=== PATIENT | male | born 1960 | race Caucasian/White ===

== ENCOUNTER 2017-09-16 01:34 | Inpatient (IN) | payer MEDICAID ==
[2017-09-16] VITALS (67 sets, daily range): BP systolic 43–144; BP diastolic 29–82
[~2017-09-16] VITALS: Ht 165.1 cm; Wt 83.5 kg
--- NOTE | 2017-09-16 01:35 | NUR ---
PT RECEIVED FROM RA D/T FAMILY CALLING REQUESTING HE BE TAKEN TO HOSPITAL AFTER LEFT SIDED WEAKNESS/CONFSUION/LEFT ARM COLD TO TOUGH. UPON ARRIVAL NO SOB NOTED WITH ADEQUATE 02 SATURATION AND CHEST RISE/FALL. CAP REFILL WNL WITH VSS. WHEN ATTEMPTING TO RECEIVE ORAL TEMP THE PT REFUSED. WHEN ATTEMPTING TO START IV ACCESS PT WAS RELUCTANT AND PULLED BACK EVEN WHEN EXPLAINED BENEFITS D/T POSSIBLE STROKE RISK. WHEN DOING NIHH SCALE ASSESSMENT PT DID NOT MOVE HIS LEFT ARM BUT AGAIN WHILE STARTING IV ACCESS HE MOVED HIS LEFT ARM UP TO HIS SHOULDERS AND KEPT IT THERE WITH STRENGTH WNL. PT DOES SEEM CONFUSED A/OX2. RA ALSO REPORTED PT WAS DENYING [facility] ENROUTE TO [facility]. WILL CONTINUE TO MONITOR FOR ANY CHANGES
--- NOTE | 2017-09-16 01:37 | NUR ---
AT BEDSIDE FOR EVAL
--- NOTE | 2017-09-16 01:38 | NUR ---
RADIOLOGY AT BEDSIDE TO TAKE PT TO CT SCAN
--- NOTE | 2017-09-16 01:39 | NUR ---
TELESTROKE HOTLINE CALLED. NEUROLOGIST PAGED.
--- NOTE | 2017-09-16 01:43 | NUR ---
BLOOD SENT TO LAB
[2017-09-16 01:48] LABS: HEMATOCRIT 42 % (39-51); HEMOGLOBIN 14.6 g/dL (13.5-17.5); LYMPHOCYTES # (AUTO) 0.3 /CMM (0.8-4.8); LYMPHOCYTES % (AUTO) 2.4 % (20.0-44.0); MEAN CORPUSCULAR HEMOGLOBIN 32 PG (26.0-33.0); MEAN CORPUSCULAR HGB CONC 34 g/dl (31.0-36.0); MEAN CORPUSCULAR VOLUME 93 fL (80-96); MONOCYTES # (AUTO) 0.3 /CMM (0.1-1.30); MONOCYTES % (AUTO) 2.2 % (2.0-12.0); NEUTROPHILS # (AUTO) 11.4 /CMM (1.8-8.9); NEUTROPHILS % (AUTO) 95.4 % (43.0-81.0); PLATELET COUNT (AUTO) 57 /CMM (150-450); RDW COEFFICIENT OF VARIATION 13.6 (11.5-15.0); RED BLOOD CELL COUNT(AUTO) 4.55 MIL/uL (4.5-6.0); WHITE BLOOD COUNT (AUTO) 11.9 K/uL (4.3-11.0)
[2017-09-16] MEDS ORDERED: IOHEXOL-350 100 ML VIAL IV ONE (01:56)
[2017-09-16] MEDS ORDERED: CT SWABBABLE VALVE TRANS SET 1 EA INFUS.SET MC ONE (01:56)
[2017-09-16] MEDS ORDERED: IV NS 0.9% 250 ML IV ONE (01:56)
[2017-09-16 02:00] LABS: CALCIUM, SERUM 8.8 mg/dL (8.5-10.1); CREATININE 1.3 mg/dL (0.6-1.3); POTASSIUM 4.5 mmol/L (3.5-5.1)
[2017-09-16] MEDS ORDERED: HALOPERIDOL LACTATE INJ 5 MG/ML VIAL ONE (02:01)
[2017-09-16 02:02] LABS: SERUM AMMONIA < 10 umol/L (11-32)
[2017-09-16 02:05] LABS: ALBUMIN 2.4 g/dL (3.4-5.0); BILIRUBIN,DIRECT 1.1 mg/dL (0.0-0.2); TOTAL PROTEIN, SERUM 6.9 g/dL (6.4-8.2)
[2017-09-16] MEDS ORDERED: LORAZEPAM INJ 2 MG/ML VIAL ONE (02:06)
[2017-09-16 02:07] LABS: INR 1.44 (0.87-1.13)
--- NOTE | 2017-09-16 02:10 | NUR ---
EKG DONE AT BEDSIDE D/T POSITIVE TROPONIN LEVEL
[2017-09-16 02:11] LABS: TROPONIN I 1.277 ng/mL (0.00-0.056)
--- NOTE | 2017-09-16 02:11 | NUR ---
FAMILY AT BEDSIDE. CODE STROKE CALLED AND STROKE MD MEAGAN MARCOS SPOKEN TO ON THE MONITOR
--- NOTE | 2017-09-16 02:18 | NUR ---
PT TAKEN TO CTA SCAN FOR RE-ATTEMPT OF TESTS
[2017-09-16 02:20] LABS: ALCOHOL, BLOOD < 3 mg/dL (0-0)
[2017-09-16 02:26] LABS: BAND % (MANUAL) 2 % (0.0-5.0); LYMPHOCYTES % (MANUAL) 3 % (16-48); MONOCYTES % (MANUAL) 2 % (0-11.0); NEUTROPHILS % (MANUAL) 93 (42-76)
[2017-09-16] MEDS ORDERED: LORAZEPAM INJ 2 MG/ML VIAL IV ONE (02:30)
--- NOTE | 2017-09-16 02:32 | NUR ---
AWAITING PT ARRIVAL BACK FROM RADIOLOGY. FAMILY INFORMED OF PLAN OF CARE UP TO THIS POINT
--- NOTE | 2017-09-16 02:33 | NUR ---
PT BACK FROM CT SCAN
--- NOTE | 2017-09-16 02:48 | NUR ---
ARTERIAL DUPLEX AT BEDSIDE CURRENTLY
--- NOTE | 2017-09-16 02:48 | NUR ---
MD MEAGAN MARCOS SPEAKING TO FAMILY ABOUT ASSESSMENT/PLAN OF CARE WITH FAMILY ON MONITOR
--- NOTE | 2017-09-16 02:50 | NUR ---
SURVEY OPERATIONS DIRECTOR AT BEDSIDE FOR CHEST XRAY
--- NOTE | 2017-09-16 03:00 | NUR ---
PT INTUBATED WITH MD NDIAYE AT BEDSIDE. RT AT BEDSIDE. CHARGE AT BEDSIDE. ETOMIDATE 20MG WELL SUCCINYCHOLINE 150MG GIVEN. PT TO BE PLACED ON VENT WITH SETTINGS PER . COOPER CATH 16 ESTONIAN STARTED.
[2017-09-16] MEDS ORDERED: PROPOFOL 100 ML ONE ×2 (03:05→06:53)
[2017-09-16] MEDS ORDERED: NOREPINEPHRINE 4 MG/4 ML AMPUL IV ONE (03:11)
[2017-09-16] MEDS ORDERED: CEFTRIAXONE 1 G VIAL ONE (03:26)
--- NOTE | 2017-09-16 03:40 | NUR ---
MD MEAGAN MARCOS HAS CONCLUDED HER MEETING WITH FAMILY/STAFF/ER MD NDIAYE
--- NOTE | 2017-09-16 03:46 | NUR ---
AUTOMATIC GRINDING MACHINE OPERATOR AT BEDSIDE FOR CHEST XRAY
--- NOTE | 2017-09-16 03:47 | NUR ---
LEVOPHED DRIP 8MG WITH 5MCG/MIN STARTED IN NEWLY PLACED CENTRAL LINE IN RIGHT NECK. BP TO START 68/48
--- NOTE | 2017-09-16 03:50 | NUR ---
COMPLIANCE REVIEW SPECIALIST AT BEDSIDE FOR BLOOD CULTURES
[2017-09-16 04:16] LABS: ABG BASE EXCESS -8.9 mmol/L; ABG PCO2 32.4 mmHg (35.0-45.0); ABG PH 7.313 (7.350-7.450); ABG PO2 399.8 mmHg (75.0-100.0); AaDO2 280.8 mmHg; COHb 0.6 % (0.5-1.5); MetHb 0.6 % (0.0-1.5); O2Hb 97.6 % (94.0-97.0); PEEP,BG 5 cm H2O; SITE, ABG Right Radial; VENT MODE, BG A/C; VT, ABG 650 mL
--- NOTE | 2017-09-16 04:27 | NUR ---
HAZEL ON PROPOFOL DRI[ 25MCG/MIN AND NOREPINEPHRINE DRIP 3.02 MCG/MIN WITH BP OF 115/77. WILL CONTINUE TO MONITOR
--- NOTE | 2017-09-16 04:30 | NUR ---
MD TAMMY LAKHANI AT BEDSIDE SPEAKING TO FAMILY.
[2017-09-16] MEDS ORDERED: HEPARIN SODIUM, PORCINE 5000 UNITS/1 ML VIAL ONE (04:55)
[2017-09-16] MEDS ORDERED: VANCOMYCIN 1 GM VIAL ONE (04:55)
[2017-09-16] MEDS ORDERED: ASPIRIN 300 MG/SUPP.RECT RC ONE ×2 (04:56→05:00)
[2017-09-16] MEDS ORDERED: NOREPINEPHRINE 8 MG in IV D5W 500 ML IV PRN ×2 (05:00→09:30)
[2017-09-16] MEDS ORDERED: DEXTROSE 50%-WATER 50 ML DISP.SYRIN IV PRN (05:00)
[2017-09-16] MEDS ORDERED: VANCOMYCIN 1 GM in IV D5W 250 ML IV ONE (05:00)
[2017-09-16] MEDS ORDERED: IV NS 0.9% 1,000 ML IV PRN (05:00)
[2017-09-16] MEDS ORDERED: HEPARIN SODIUM, PORCINE 5000 UNITS/1 ML VIAL IV ONE (05:00)
[2017-09-16 05:16] LABS: IRON, SERUM 20 ug/dl (50-175); TOTAL IRON BINDING CAPACITY 228 ug/dl (250-450)
[2017-09-16 05:18] LABS: THYROID STIMULATING HORMONE 0.86 uIU/mL (0.358-3.74)
[2017-09-16] MEDS ORDERED: HEPARIN INFUSION/D5W 500 ML IV ONE (05:22)
[2017-09-16] MEDS: HEPARIN INFUSION/D5W 500 ML IV PRN ×2 (05:30→18:19)
[2017-09-16] MEDS: BLOOD SUGAR DIAGNOSTIC 1 EACH STRIP IN SCH ×3 (05:37→17:31)
[2017-09-16] MEDS ORDERED: INSULIN REGULAR, HUMAN 100 UNIT/ML 10 ML VIAL ONE (05:40)
[2017-09-16] MEDS ORDERED: MISCELLANEOUS MED 1 EA EA XX ONE (06:00)
[2017-09-16 06:03] LABS: BILIRUBIN,URINE 2+ (NEGATIVE); BLOOD, URINE 3+ Ery/uL (NEGATIVE); COLOR,URINE BROWN (YELLOW); KETONES,URINE 1+ (NEGATIVE); LEUKOCYTE ESTERASE ,URINE TRACE (NEGATIVE); NITRITE, URINE POSITIVE (NEGATIVE); PH,URINE 5.5 (5.0-8.0); PROTEIN,URINE 2+ mg/dl (NEGATIVE); UGLUCOSE TRACE mg/dL (NEGATIVE)
[2017-09-16 06:06] LABS: APPEARANCE,URINE CLOUDY (CLEAR)
[2017-09-16 06:08] LABS: BACTERIA,URINE Few /HPF (None Seen); MUCUS,URINE Few /LPF (None Seen); RBC,URINE 21-50 /HPF (0-2); SQUAMOUS EPITHELIAL CELL,UR 0-2 /HPF (None Seen); URINE AMORPHOUS URATE Moderate /HPF (None Seen); WBC,URINE 0-2 /HPF (0-3)
[2017-09-16] MEDS ORDERED: PIPERACILLIN /TAZOBACTAM 3.375 G VIAL IV ONE (06:17)
[2017-09-16] MEDS: PIPERACILLIN /TAZOBACTAM 3.375 G in IV D5W 50 ML IV SCH ×4 (06:23→23:37)
[2017-09-16] MEDS ORDERED: PROPOFOL 100 ML IV ONE (07:22)
--- NOTE | 2017-09-16 07:32 | NUR ---
REPORT GIVEN TO ANISHA CRUMP FOR [facility] ICU 260.
--- NOTE | 2017-09-16 08:00 | NUR ---
ICU/RN: ADMITTING NOTE RECEIVED PT FROM ER. REPORT ENDORSED BY ATIF [place]. PT TRANSPORTED TO ROOM 260 VIA GURNEY. PT INTUBATED ETT 7.5, 25 CM AT THE LIP. ON VENT SETTINGS ORDERED BY . PT COLD, DIAPHORETIC, AND CLAMMY. PT IS SEDATED ON 25 MCG OF DIPRIVAN. LEVO INFUSING FOR BP SUPPORT. ON TELE, SINUS TACHY, 110. RIGHT NARE NG TUBE IN PLACE, NPO AT THIS TIME. RIGHT IJ PULLED OUT DURING TRANSFER, ORDERS OBTAINED FOR PICC LINE INSERTION. ALL NEEDS WILL BE ATTENDED TO, SAFETY MEASURES TAKEN. BILATERAL WRIST RESTRAINTS FOR PT SAFETY. ASSESSED PER PROTOCOL. WILL CONTINUE TO CLOSELY MONITOR.
[2017-09-16] MEDS ORDERED: ASPIRIN EC 325 MG TABLET.DR PO SCH (09:00)
--- NOTE | 2017-09-16 09:00 | NUR ---
ICU/RN: UNABLE TO PERFORM NIHSS SCALE. PT SEDATED. PER MD UNABLE TO PERFORM SEDATION VACATION. PT AGITATED, TACHYCARDIC, AND TACHYPNEIC. WILL CONTINUE TO MONITOR AND IF PT CONDITION PERMITS WILL PERFORM ASSESSMENT.
[2017-09-16] MEDS ORDERED: PROPOFOL 100 ML IV PRN (09:30)
[2017-09-16] MEDS ORDERED: SUCCINYLCHOLINE CHLORIDE 20 MG/ML VIAL IV ONE (09:39)
[2017-09-16] MEDS: DOCUSATE SODIUM 100 MG CAPSULE PO SCH (09:39)
[2017-09-16] MEDS ORDERED: ETOMIDATE 2 MG/ML VIAL IV ONE (09:39)
[2017-09-16] MEDS ORDERED: FEE EMEERGENCY 1 MIN EA MC ONE (09:39)
[2017-09-16] MEDS: PANTOPRAZOLE 40 MG VIAL IV SCH (09:39)
[2017-09-16 10:39] LABS: ABG BASE EXCESS -7.5 mmol/L; ABG PCO2 30.4 mmHg (35.0-45.0); ABG PH 7.355 (7.350-7.450); ABG PO2 172.5 mmHg (75.0-100.0); AaDO2 149.8 mmHg; COHb 1.4 % (0.5-1.5); MetHb 0.4 % (0.0-1.5); O2Hb 96.9 % (94.0-97.0); PEEP,BG 5 cm H2O; SITE, ABG Right Radial; VT, ABG 650 mL
[2017-09-16] MEDS: PROPOFOL 10MG/ML 50ML 50 ML IV PRN ×3 (11:01→21:33)
--- NOTE | 2017-09-16 13:00 | NUR ---
ICU/RN: 1220-PATIENT SEEN BY PHYSICAL THERAPY. PT INTUBATED, UNABLE TO PERFORM AT THIS TIME, WILL FOLLOW UP WHEN MORE STABLE 1317-PATIENT SEEN BY SPEECH THERAPY, UNABLE TO PERFORM SWALLOW EVAL, PT INTUBATED AND SEDATED, WILL FOLLOW UP.
[2017-09-16] MEDS: INSULIN REGULAR, HUMAN 100 UNIT/ML 3 ML VIAL SQ PRN ×2 (13:02→18:27)
[2017-09-16] MEDS ORDERED: FEE PK DOSING 1 MIN EA MC ONE (13:39)
--- NOTE | 2017-09-16 14:30 | NUR ---
ICU/RN: PTT TAKING 2 HOURS TO RESULT, CALLED LAB AND INFORMED THEM RESULTS 169, PER PROTOCOL HEPARIN HELD, WILL RESUME IN ONE HOUR AND WILL DECREASE BY 200 UNITS.
[2017-09-16 16:28] LABS: INR 1.47 (0.87-1.13)
[2017-09-16] MEDS ORDERED: IV NS 0.9% 1,000 ML BAG IV PRN (17:30)
--- NOTE | 2017-09-16 17:52 | NUR ---
RT END OF THE SHIFT REPORT PT. 56 Y OLD MALE REMAIN ORALLY INTUBATED ETT# 7.5 @25 WITH NOTED AC SETTINGS, ALARMS ARE SET AND FUNCTIONAL. B/S RALES/ RHONCHI. BILATERALLY AND EQUAL CHEST RISE NOTED SUX'D FOR MODERATE AMT OF WHITE SECRETIONS. VENT PLUGGED INTO RED OUTLET AND NO DISTRESS NOTED T/O SHIFT HME CHANGED AND AMBU BAG REMAIN AT THE BEDSIDE. REPORT WILL PASS TO PM SHIFT. Addendum: 09/16/17 at 1753 by CLAUDY SANDS RT Amended: Links added.
[2017-09-16] MEDS: VANCOMYCIN 1 GM in IV D5W 250 ML IV SCH (18:19)
[2017-09-16] MEDS: IV NS 0.9% 1,000 ML IV PRN (18:31)
--- NOTE | 2017-09-16 19:00 | NUR ---
ICU/RN: RECEIVED CALL FROM , ORDERS RECEIVED TO D/C HEPARIN DRIP, ORDER STAT HEAD CT AND PLACE TLO ORDER FOR STAT TROP. BLOOD CX REVIEWED BY .
--- NOTE | 2017-09-16 19:20 | NUR ---
ICU/DEPOSITING MACHINE OPERATOR DAY RN TURNED OFF HEPARIN PER MD ORDERS. ALSO STAT TROP AND ASLO STAT HEAD CT. ALL ORDERS CARRIED OUT . CHARGE NURSE AWARE OF THIS.
--- NOTE | 2017-09-16 19:25 | NUR ---
PT NOT STABLE, ANISHA KAUR WILL CALL WHEN READY.
--- NOTE | 2017-09-16 19:54 | NUR ---
ICU/RN ENDING NOTES,AM REPORT ENDORSED TO NIGHT NURSE FOR CONTINUATION OF CARE. ALL NEEDS MET. PT ON LEVO FOR BP SUPPORT, DIPRIVAN FOR SEDATION. HEPARIN D/C'D BY . PT CONTINUES TO BE COOL, CLAMMY AND DIAPHORETIC. SINUS TACHY ON TELE. ALL NEEDS ATTENDED TO, SAFETY MEASURES TAKEN, BED IN LOW POSITION, SIDE RAILS UP, CALL LIGHT WITHIN REACH.
--- NOTE | 2017-09-16 20:00 | NUR ---
RT RECEIVED [facility] WITH NOTED SETTINGS. ETT 7.5 MARKED 25CM @ THE LIP. SEARCH ENGINE OPTIMIZATION MANAGER DONE AND ETT SECURE W/ ANCHOR FAST. BILATERAL B/S. VENTS ALARMS CHECKED AND AUDIBLE. VENT PLUGGED IN RED OUTLET. SX WITH MOD THK CRAWFORD SECRETIONS. AMBU BAG NOTED AT THE [facility]. NO RESP DISTRESS NOTED AT THIS TIME WILL CONTINUE TO MONITOR T/O SHIFT.
[2017-09-16] MEDS: NOREPINEPHRINE 8 MG in IV D5W 500 ML IV PRN (20:22)
[2017-09-16 21:00] LABS: CREATININE, URINE 138.5 MG/DL (30.0-125.0)
--- NOTE | 2017-09-16 21:03 | NUR ---
ICU/MERCHANDISE STOCKER PT'S BLOOD PRESSURE ELEVATED AT 120'S DECREASED LEVO TO 10MCG FROM 12MCG. WILL CONTINUE TO MONITOR THIS PT.PT WAS TURNED AND REPOSITIONED FOR COMFORT AND CARE.
--- NOTE | 2017-09-16 21:15 | NUR ---
ICU/RESEARCH DIRECTOR MD CASTRO CALLED ABOUT POSITIVE TROP AT 5.877 NO NEW ORDERS RECEIVED WILL CONTINUE TO MONITOR THIS PT.
--- NOTE | 2017-09-16 21:20 | NUR ---
ICU/SUSTAINABILITY ENGINEER PT'S BP DECREASED TO 84/53, LEVO INCREASED FROM 10MCG TO 12MCG. WILL CONTINUE TO MONITOR THIS PT.
--- NOTE | 2017-09-16 22:15 | NUR ---
ICU.CHILDCARE WORKER PT DOWN TO HEAD CT WITH CHARGE NURSE WITH RT AND RADIOLOGISTS TECH. ACLS PRECAUTIONS TAKEN.
--- NOTE | 2017-09-16 23:20 | NUR ---
ICU/DESK REPRESENTATIVE PT BACK FROM HEAD CT. ACCU CHECK DONE AT THIS TIME BS WAS 192, WHICH WAS COVERED WITH SLIDING SCALE.
[2017-09-17] VITALS (91 sets, daily range): BP systolic 85–122; BP diastolic 54–75
[2017-09-17] MEDS: BLOOD SUGAR DIAGNOSTIC 1 EACH STRIP IN SCH ×5 (01:00→23:48)
[2017-09-17] MEDS: INSULIN REGULAR, HUMAN 100 UNIT/ML 3 ML VIAL SQ PRN ×2 (01:02→05:46)
[2017-09-17] MEDS: HEPARIN INFUSION/D5W 500 ML IV PRN (02:04)
[2017-09-17] MEDS: PROPOFOL 10MG/ML 50ML 50 ML IV PRN ×6 (02:09→23:41)
--- NOTE | 2017-09-17 02:10 | NUR ---
ICU/CHIEF PHARMACIST MD CALLED WITH RESULTS OF THE HEAD CT. NO NEW FINDS WERE FOUND. MD GAVE ORDERS TO RESTART HEPARIN DRIP. THIS WAS STARTED WITH THE LAST BAG THAT WAS HANGING UP, WHICH WAS TURNED OFF FROM DAY NURSE AT 1920. PTT WAS ALSO DONE AT THIS TIME WHICH WAS 51. CHARGE AWARE. HEPARIN WAS STATED AT 900U/H WHICH IS 18ML. WILL REDO A PTT IN 6 HRS.
[2017-09-17] MEDS: IV NS 0.9% 1,000 ML IV PRN (04:01)
[2017-09-17 04:53] LABS: EOSINOPHILS # (AUTO) 0.1 /CMM (0.0-0.7); EOSINOPHILS % (AUTO) 0.4 % (0.0-6.0); HEMATOCRIT 39 % (39-51); HEMOGLOBIN 13.6 g/dL (13.5-17.5); LYMPHOCYTES # (AUTO) 1.3 /CMM (0.8-4.8); LYMPHOCYTES % (AUTO) 6.5 % (20.0-44.0); MEAN CORPUSCULAR HEMOGLOBIN 33 PG (26.0-33.0); MEAN CORPUSCULAR HGB CONC 35 g/dl (31.0-36.0); MEAN CORPUSCULAR VOLUME 92 fL (80-96); MONOCYTES # (AUTO) 1.1 /CMM (0.1-1.30); MONOCYTES % (AUTO) 5.2 % (2.0-12.0); NEUTROPHILS # (AUTO) 18.2 /CMM (1.8-8.9); NEUTROPHILS % (AUTO) 87.9 % (43.0-81.0); RDW COEFFICIENT OF VARIATION 13.9 (11.5-15.0); WHITE BLOOD COUNT (AUTO) 20.7 K/uL (4.3-11.0)
[2017-09-17] MEDS: PIPERACILLIN /TAZOBACTAM 3.375 G in IV D5W 50 ML IV SCH ×4 (05:04→23:42)
[2017-09-17 05:22] LABS: ALBUMIN 1.7 g/dL (3.4-5.0); BILIRUBIN,TOTAL 2.6 mg/dL (0.2-1.0); CALCIUM, SERUM 7.5 mg/dL (8.5-10.1); CREATININE 2.3 mg/dL (0.6-1.3); PHOSPHORUS 4.7 mg/dL (2.5-4.9); POTASSIUM 4.2 mmol/L (3.5-5.1); TOTAL PROTEIN, SERUM 5.7 g/dL (6.4-8.2)
[2017-09-17 05:28] LABS: CREATINE KINASE MB 9.8 ng/mL (0-3.6)
[2017-09-17 05:32] LABS: PLATELET COUNT (AUTO) 39 /CMM (150-450)
[2017-09-17 05:33] LABS: INR 1.35 (0.87-1.13)
[2017-09-17] MEDS: NOREPINEPHRINE 8 MG in IV D5W 500 ML IV PRN ×2 (05:44→15:16)
[2017-09-17] MEDS: VANCOMYCIN 1 GM in IV D5W 250 ML IV SCH ×3 (05:45→18:26)
[2017-09-17 05:55] LABS: TROPONIN I 5.085 ng/mL (0.00-0.056)
--- NOTE | 2017-09-17 06:05 | NUR ---
ICU/CUSHION COVER INSPECTOR CRITICAL LAB VALUE OF PTT 77 ALSO TROP 5.085 AND PLAT 37 FROM YESTERDAY 56. MD CALLED ABOUT THE PLT 37, AWAIT ORDERS. ALSO THE TROP IS TRENDING DOWN FROM 2030 09/16/17 AND PT IS ON HEPARIN. PTT WAS ADJUSTED WITH THE HEPARIN DRIP AND ANOTHER PTT IS AT 1130. CHARGE AWARE OF THE CRITICAL LAB VALUES. AWAIT ANY NEW ORDERS.
[2017-09-17 06:09] LABS: BAND % (MANUAL) 10 % (0.0-5.0); LYMPHOCYTES % (MANUAL) 7 % (16-48); MONOCYTES % (MANUAL) 6 % (0-11.0); NEUTROPHILS % (MANUAL) 77 (42-76)
--- NOTE | 2017-09-17 08:00 | NUR ---
ICU/RN INITIAL NOTE,AM RECEIVED REPORT FROM NIGHT NURSE. PT INTUBATED ETT 7.5, 25 CM AT THE LIP. ON VENT SETTINGS ORDERED BY MD. PT DIAPHORETIC, AND CLAMMY. PT IS SEDATED ON 25 MCG OF DIPRIVAN. LEVO INFUSING FOR BP SUPPORT. HEPARIN INFUSING PER PROTOCOL. ON TELE, SINUS TACHY. RIGHT NARE NG TUBE IN PLACE, NPO AT THIS TIME. RIGHT UPPER ARM PICC LINE IN PLACE. NO S/S OF INFECTION OR INFILTRATION NOTED. ALL NEEDS WILL BE ATTENDED TO, SAFETY MEASURES TAKEN. BILATERAL WRIST RESTRAINTS FOR PT SAFETY. ASSESSED PER PROTOCOL. WILL CONTINUE TO CLOSELY MONITOR.
--- NOTE | 2017-09-17 08:30 | NUR ---
SEDATION VACATION STARTED, DECREASING DIPRIVAN PER PROTOCOL. WILL CONTINUE TO CLOSELY MONITOR.
[2017-09-17] MEDS: DOCUSATE SODIUM 100 MG CAPSULE PO SCH (09:00)
[2017-09-17 09:15] LABS: ABG BASE EXCESS -9.6 mmol/L; ABG OXYGEN SATURATION 98.9 % (92.0-98.5); ABG PH 7.365 (7.350-7.450); ABG PO2 181.3 mmHg (75.0-100.0); AaDO2 147.1 mmHg; COHb 0.9 % (0.5-1.5); MetHb 0.5 % (0.0-1.5); O2Hb 97.5 % (94.0-97.0); PEEP,BG 5 cm H2O; SITE, ABG Left Radial; VT, ABG 650 mL
[2017-09-17] MEDS: PANTOPRAZOLE 40 MG VIAL IV SCH (09:29)
--- NOTE | 2017-09-17 10:00 | NUR ---
ICU/RN: RESUMED SEDATION PER PROTOCOL. UNABLE TO CONTINUE SEDATION VACATION DUE TO PHYSIOLOGICAL CHANGES. PT AGITATED, RR 37-40, TACHYCARDIC HR 122. HOWEVER, PT DOES NOT OPEN EYES OR REACT TO PAINFUL STIMULI. DR MURPYH ALSO AT BEDSIDE. AGREED TO RESUME SEDATION.
--- NOTE | 2017-09-17 10:00 | NUR ---
ICU/RN: PT OFF SEDATION FOR ONE HOUR,UNRESPONSIVE, UNABLE TO PERFORM NIHSS SCALE
[2017-09-17] MEDS ORDERED: IV NS 0.9% 1,000 ML IV ONE (10:30)
--- NOTE | 2017-09-17 14:23 | NUR ---
PATIENT RECEIVED ORALLY INTUBATED WITH 7.5 ETT SECURED AT 25 CM MID LIP LINE ON A GE860 VENT. MOVED ETT FROM RIGHT TO LEFT SIDE OF THE MOUTH VIA ANCHOR FAST. ALARMS VERIFIED AND AUDIBLE. SUCTIONED AND LAVAGED MODERATE AMOUNT OF THIN DARK BROWN/ BLOODY SECRETIONS. BILATERAL B/S NOTED. VENT PLUGGED INTO RED OUTLET. AMBU BAG AT [facility].
--- NOTE | 2017-09-17 15:45 | NUR ---
ICU/RN: PER 'S ORDERS, CONSENT OBTAINED FOR KEVIN. PT INTUBATED AND SEDATED, RT AND RN AT BEDSIDE, TOLERATED PROCEDURE WELL, NO DISTRESS. VSS PER MD: Preliminary findings: No obvious vegetation noted on aortic, mitral, or tricuspid valves. No valvular dysfunction. Normal EF No PFO or ASD by color or agitated saline. No appendage thrombus. No aortic dissection. Essentially normal study.
--- NOTE | 2017-09-17 18:00 | NUR ---
ICU/RN: MEREDITH TROUGH 34, DOSE HELD.
--- NOTE | 2017-09-17 19:05 | NUR ---
ICU/RN ENDING NOTES,AM REPORT ENDORSED TO NIGHT NURSE FOR CONTINUATION OF CARE. ALL NEEDS MET. PT ON LEVO FOR BP SUPPORT, DIPRIVAN FOR SEDATION. PT CONTINUES TO BE CLAMMY AND DIAPHORETIC. SINUS TACHY ON TELE. ALL NEEDS ATTENDED TO, SAFETY MEASURES TAKEN, BED IN LOW POSITION, SIDE RAILS UP, CALL LIGHT WITHIN REACH.
--- NOTE | 2017-09-17 21:58 | NUR ---
RN INITIAL NOTE RECEIVED PT IN NO ACUTE DISTRESS IN BED. PT IS SEDATE ON DIPRIVAN. PT IS ON MECHANICAL VENT VIA ETT. ETT IS 7.5/ 25 AT THE LIP. PT TOLERATING VENT SETTING WELL WITH O2 SAT @ 98%. PT HAS NGTUBE RIGHT NARE THAT IS CLEAN DRY INTACT AND PATENT WITH FREE WATER FLUSH. PT IS ON TELE WITH SINUS TACH ON THE MONITOR. PT HAS F/C THAT IS CLEAN DRY INTACT AND PATENT WITH CLOUDY LARON COLOR URINE DRAINING. PT HAS RAC, LFA, AND CORA PICC THAT IS CLEAN DRY INTACT AND PATENT. CORA PICC LINE HAS LEVO @ 14MCG, DIPRIVAN @ 25MCG AND NS @ 75 ML/HR. BED IN LOW LOCKED POSITION WITH RAILS UP X 2. CALL LIGHT WITHIN REACH AND ALL SAFETY MEASURES ENSURED AND CARRIED OUT. WILL CONTINUE TO MONITOR PT.
--- NOTE | 2017-09-17 22:00 | NUR ---
RT RECEIV[facility] WITH NOTED SETTINGS. ETT 7.5 MARKED 25CM @ THE LIP. SUBJECT SCIENTIFIC RESEARCH DONE AND ETT SECURE W/ ANCHOR FAST. BILATERAL B/S. VENTS ALARMS CHECKED AND AUDIBLE. VENT PLUGGED IN RED OUTLET. SX WITH MOD DARK RED SECRETIONS. AMBU BAG NOTED AT THE [facility]. NO RESP DISTRESS NOTED AT THIS TIME WILL CONTINUE TO MONITOR T/O SHIFT
[2017-09-18] VITALS (81 sets, daily range): BP systolic 81–129; BP diastolic 47–76
[2017-09-18] MEDS: NOREPINEPHRINE 8 MG in IV D5W 500 ML IV PRN (00:48)
[2017-09-18] MEDS: PROPOFOL 10MG/ML 50ML 50 ML IV PRN ×3 (02:34→22:22)
[2017-09-18] MEDS: IV NS 0.9% 1,000 ML IV PRN ×2 (03:16→20:26)
[2017-09-18] MEDS: PIPERACILLIN /TAZOBACTAM 3.375 G in IV D5W 50 ML IV SCH (05:09)
[2017-09-18] MEDS: VANCOMYCIN 1 GM in IV D5W 250 ML IV SCH (05:09)
--- NOTE | 2017-09-18 05:10 | NUR ---
RN NOTE VANCOMYCIN 0600 DOSE NOT GIVEN BECAUSE VANCOMYCIN LEVEL IS 35. WILL ENDORSE TO AM RN.
[2017-09-18] MEDS: BLOOD SUGAR DIAGNOSTIC 1 EACH STRIP IN SCH ×3 (05:12→17:24)
[2017-09-18 06:09] LABS: CALCIUM, SERUM 7.4 mg/dL (8.5-10.1); CREATININE 3.2 mg/dL (0.6-1.3); POTASSIUM 3.9 mmol/L (3.5-5.1)
[2017-09-18 07:02] LABS: EOSINOPHILS # (AUTO) 0.1 /CMM (0.0-0.7); EOSINOPHILS % (AUTO) 0.5 % (0.0-6.0); HEMATOCRIT 36 % (39-51); HEMOGLOBIN 12.4 g/dL (13.5-17.5); LYMPHOCYTES # (AUTO) 2.1 /CMM (0.8-4.8); LYMPHOCYTES % (AUTO) 10.4 % (20.0-44.0); MEAN CORPUSCULAR HEMOGLOBIN 32 PG (26.0-33.0); MEAN CORPUSCULAR HGB CONC 35 g/dl (31.0-36.0); MEAN CORPUSCULAR VOLUME 92 fL (80-96); MONOCYTES # (AUTO) 1.7 /CMM (0.1-1.30); MONOCYTES % (AUTO) 8.5 % (2.0-12.0); NEUTROPHILS % (AUTO) 80.6 % (43.0-81.0); RDW COEFFICIENT OF VARIATION 14.1 (11.5-15.0); RED BLOOD CELL COUNT(AUTO) 3.91 MIL/uL (4.5-6.0); WHITE BLOOD COUNT (AUTO) 19.8 K/uL (4.3-11.0)
[2017-09-18 07:07] LABS: PLATELET COUNT (AUTO) 36 /CMM (150-450)
--- NOTE | 2017-09-18 07:38 | NUR ---
ICU/RN INITIAL NOTE,AM RECEIVED REPORT FROM NIGHT NURSE. PT INTUBATED ETT 7.5, 25 CM AT THE LIP. ON VENT SETTINGS ORDERED BY MD. PT IS SEDATED ON 20 MCG OF DIPRIVAN. LEVO INFUSING FOR BP SUPPORT. ON TELE, SINUS TACHY. RIGHT NARE NG TUBE IN PLACE, NPO AT THIS TIME. RIGHT UPPER ARM PICC LINE IN PLACE. NO S/S OF INFECTION OR INFILTRATION NOTED. CVP IN PLACE. IV FLUIDS INFUSING ORDERED. ALL NEEDS WILL BE ATTENDED TO, SAFETY MEASURES TAKEN. BILATERAL WRIST RESTRAINTS FOR PT SAFETY. ASSESSED PER PROTOCOL. WILL CONTINUE TO CLOSELY MONITOR.
[2017-09-18 08:44] LABS: BAND % (MANUAL) 2 % (0.0-5.0); LYMPHOCYTES % (MANUAL) 9 % (16-48); MONOCYTES % (MANUAL) 10 % (0-11.0); NEUTROPHILS % (MANUAL) 79 (42-76)
[2017-09-18] MEDS: DOCUSATE SODIUM LIQ 100 MG/10 ML UDC NG SCH (08:55)
[2017-09-18] MEDS: PANTOPRAZOLE 40 MG VIAL IV SCH (08:57)
[2017-09-18] MEDS: ACETAMINOPHEN 650 MG/20.3 ML UDC NG PRN (08:58)
[2017-09-18 09:00] LABS: ABG BASE EXCESS -9.4 mmol/L; ABG OXYGEN SATURATION 97.7 % (92.0-98.5); ABG PCO2 20.4 mmHg (35.0-45.0); ABG PH 7.417 (7.350-7.450); ABG PO2 126.5 mmHg (75.0-100.0); AaDO2 99.3 mmHg; COHb 0.3 % (0.5-1.5); MetHb 1.1 % (0.0-1.5); O2Hb 96.3 % (94.0-97.0); SITE, ABG Left Radial
--- NOTE | 2017-09-18 09:00 | NUR ---
ICU/RN: SEDATION VACATION STARTED, WILL CONTINUE TO MONITOR
--- NOTE | 2017-09-18 10:00 | NUR ---
ICU/RN:UNABLE TP PERFORM NIHSS SCALE. PT OFF SEDATION YET UNRESPONSIVE AND UNABLE TO PERFORM ASSESSMENT. UNTESTABLE AT THIS TIME
[2017-09-18] MEDS: NOREPINEPHRINE 16 MG in IV D5W 500 ML IV PRN (10:15)
[2017-09-18] MEDS: ZOSYN IVPB 2.25 G in IV D5W 50ml IV SCH ×2 (12:17→17:25)
[2017-09-18] MEDS: INSULIN REGULAR, HUMAN 100 UNIT/ML 3 ML VIAL SQ PRN ×2 (12:46→17:33)
--- NOTE | 2017-09-18 13:00 | NUR ---
ICU/RN: SEDATION RESUMED, PT AGITATED, BITTING DOWN TUBE AND TACHYPNEIC. PT AT THIS POINT STILL DOES NOT OPEN EYES OR FOLLOW COMMANDS. WILL CONTINUE TO MONITOR AND ASSESS
--- NOTE | 2017-09-18 13:55 | NUR ---
RT NOTE: BITE BLOCK ADDED TO ETT AT THIS TIME.
--- NOTE | 2017-09-18 18:00 | NUR ---
RT NOTE: PATIENT RECEIVED ORALLY INTUBATED WITH 7.5 ETT SECURED AT 25 CM MID LIP (BITE BLOCK IN PLACE)ON GE R860 VENT. ALARMS VERIFIED AND AUDIBLE. SUCTIONED AND LAVAGED SMALL-MODERATE AMOUNT OF THIN BROWN/BLOOD TINGED SECRETIONS. VENT PLUGGED INTO RED OUTLET. AMBU BAG AT [facility].
--- NOTE | 2017-09-18 18:31 | NUR ---
ICU/RN ENDING NOTES,AM REPORT WILL BE ENDORSED TO NIGHT NURSE FOR CONTINUATION OF CARE. ALL NEEDS MET. PT ON LEVO FOR BP SUPPORT, DIPRIVAN FOR SEDATION. PT CONTINUES ON VENT WITH SETTINGS ORDERED BY MD. SINUS TACHY ON TELE. ALL NEEDS ATTENDED TO, SAFETY MEASURES TAKEN, BED IN LOW POSITION, SIDE RAILS UP, CALL LIGHT WITHIN REACH. AND SON UPDATED ON PT CONDITION. PT SEEN BY PEDIATRY, ORDERS PLACED.
--- NOTE | 2017-09-18 20:01 | NUR ---
RN INITIAL NOTE RECEIVED PT IN NO ACUTE DISTRESS IN BED. PT IS SEDATE ON DIPRIVAN. PT IS ON MECHANICAL VENT VIA ETT. ETT IS 7.5/ 25 AT THE LIP. PT TOLERATING VENT SETTING WELL WITH O2 SAT @ 98%. PT HAS NGTUBE RIGHT NARE THAT IS CLEAN DRY INTACT AND PATENT WITH FREE WATER FLUSH. PT IS ON TELE WITH SINUS TACH ON THE MONITOR. PT HAS F/C THAT IS CLEAN DRY INTACT AND PATENT WITH CLOUDY LARON COLOR URINE DRAINING. PT HAS RAC, LFA, AND CORA PICC THAT IS CLEAN DRY INTACT AND PATENT. CORA PICC LINE HAS LEVO @ 14MCG, DIPRIVAN @ 15MCG AND NS @ 75 ML/HR. BED IN LOW LOCKED POSITION WITH RAILS UP X 2. CALL LIGHT WITHIN REACH AND ALL SAFETY MEASURES ENSURED AND CARRIED OUT. WILL CONTINUE TO MONITOR PT.
[2017-09-19] VITALS (95 sets, daily range): BP systolic 86–146; BP diastolic 50–83
[2017-09-19] MEDS: ZOSYN IVPB 2.25 G in IV D5W 50ml IV SCH ×3 (00:24→12:05)
[2017-09-19] MEDS: BLOOD SUGAR DIAGNOSTIC 1 EACH STRIP IN SCH ×5 (00:24→23:48)
[2017-09-19] MEDS: PROPOFOL 10MG/ML 50ML 50 ML IV PRN ×3 (02:54→22:32)
[2017-09-19] MEDS: NOREPINEPHRINE 16 MG in IV D5W 500 ML IV PRN (04:52)
[2017-09-19 04:55] LABS: EOSINOPHILS # (AUTO) 0.1 /CMM (0.0-0.7); EOSINOPHILS % (AUTO) 0.7 % (0.0-6.0); HEMATOCRIT 34 % (39-51); LYMPHOCYTES # (AUTO) 2.1 /CMM (0.8-4.8); LYMPHOCYTES % (AUTO) 10.1 % (20.0-44.0); MEAN CORPUSCULAR HEMOGLOBIN 32 PG (26.0-33.0); MEAN CORPUSCULAR HGB CONC 35 g/dl (31.0-36.0); MEAN CORPUSCULAR VOLUME 90 fL (80-96); MONOCYTES # (AUTO) 2.4 /CMM (0.1-1.30); MONOCYTES % (AUTO) 11.7 % (2.0-12.0); NEUTROPHILS # (AUTO) 15.7 /CMM (1.8-8.9); NEUTROPHILS % (AUTO) 77.5 % (43.0-81.0); RDW COEFFICIENT OF VARIATION 14.2 (11.5-15.0); RED BLOOD CELL COUNT(AUTO) 3.77 MIL/uL (4.5-6.0); WHITE BLOOD COUNT (AUTO) 20.3 K/uL (4.3-11.0)
--- NOTE | 2017-09-19 04:56 | NUR ---
PATIENT RECEIVED ORALLY INTUBATED WITH 7.5 ETT SECURED AT 25 CM MID LIP ON VENT. ALARMS VERIFIED AND AUDIBLE. SUCTIONED AND LAVAGED SMALL-MODERATE AMOUNT OF THIN BROWN/BLOOD TINGED SECRETIONS. VENT PLUGGED INTO RED OUTLET. AMBU BAG AT [facility]. Addendum: 09/19/17 at 0456 by NORBERTO PIERCE RT Amended: Links added.
[2017-09-19 05:23] LABS: CALCIUM, SERUM 7.3 mg/dL (8.5-10.1); CREATININE 4.1 mg/dL (0.6-1.3); MAGNESIUM 2.4 mg/dL (1.8-2.4); PHOSPHORUS 5.4 mg/dL (2.5-4.9); POTASSIUM 3.9 mmol/L (3.5-5.1); TOTAL PROTEIN, SERUM 5.8 g/dL (6.4-8.2)
[2017-09-19 05:28] LABS: PLATELET COUNT (AUTO) 41 /CMM (150-450)
[2017-09-19 05:45] LABS: ALBUMIN 1.4 g/dL (3.4-5.0)
[2017-09-19 05:49] LABS: BAND % (MANUAL) 3 % (0.0-5.0); LYMPHOCYTES % (MANUAL) 10 % (16-48); MONOCYTES % (MANUAL) 10 % (0-11.0); NEUTROPHILS % (MANUAL) 77 (42-76)
[2017-09-19] MEDS: INSULIN REGULAR, HUMAN 100 UNIT/ML 3 ML VIAL SQ PRN ×3 (06:14→18:04)
--- NOTE | 2017-09-19 06:58 | NUR ---
RN NOTE PT REMAINS IN NO ACUTE DISTRESS IN BED. PT DID NOT HAVE ANY SIGNIFICANT CHANGE IN CONDITION. ALL NEEDS MET, ALL ORDERS CARRIED OUT. WILL ENDORSE CARE TO AM RN FOR CONTINUITY OF CARE.
--- NOTE | 2017-09-19 07:45 | NUR ---
DELI COOK: pt.is sedated well, rest, on wrists restraints, SR, 14 mcg/min Levophed gtt, SBP over 100 now/will titrate, CVP 6, NPO, O2 sat. WNL
[2017-09-19 08:20] LABS: ABG BASE EXCESS -9.1 mmol/L; ABG PCO2 21.5 mmHg (35.0-45.0); ABG PH 7.412 (7.350-7.450); ABG PO2 138.8 mmHg (75.0-100.0); AaDO2 49.8 mmHg; COHb 0.3 % (0.5-1.5); MetHb 0.4 % (0.0-1.5); O2Hb 97.3 % (94.0-97.0); SITE, ABG Left Brachial
[2017-09-19] MEDS: DOCUSATE SODIUM LIQ 100 MG/10 ML UDC NG SCH (09:09)
[2017-09-19] MEDS: PANTOPRAZOLE 40 MG VIAL IV SCH (09:09)
--- NOTE | 2017-09-19 11:00 | NUR ---
METALLOGRAPHER: is in room, updated with pt.current condition, VS, Levophed gtt, I/O, NPO, restraints, sedation level, platelets 34000, albumin 1.4
--- NOTE | 2017-09-19 12:00 | NUR ---
TRUCK WASHER: Dr>peleg updated with ABG, VS, pressor, sedation, suction amount, said: ok for sedation vacation latter
[2017-09-19] MEDS: IV NS 0.9% 1,000 ML IV PRN (12:03)
--- NOTE | 2017-09-19 13:00 | NUR ---
INSPECTOR PLUG SEAM: notified re pt.current status, VS, NPO, levophed gtt, labs, meds
[2017-09-19] MEDS: ACETAMINOPHEN 650 MG/20.3 ML UDC NG PRN (13:47)
--- NOTE | 2017-09-19 17:00 | NUR ---
SUSTAINABLE LANDSCAPE ARCHITECT: was in room/updated with all above, pt.was without sedation for 1hr, reactive by touch with biting tube, coughing, short eyes contact+, unable to follow commands, resumed sedation, PM/skin care/wound care done, pt.family updated with all above
[2017-09-19] MEDS: CEFAZOLIN 1 GM in IV NS 0.9% 50 ML IV SCH (17:49)
--- NOTE | 2017-09-19 17:58 | NUR ---
RT NOTE: PATIENT RECEIVED ORALLY INTUBATED WITH 7.5 ETT SECURED AT 25 CM MID LIP (BITE BLOCK IN PLACE)ON GE R860 VENT. ALARMS VERIFIED AND AUDIBLE. SUCTIONED AND LAVAGED SMALL-MODERATE AMOUNT OF THIN BROWN/BLOOD TINGED SECRETIONS. VENT PLUGGED INTO RED OUTLET. AMBU BAG AT [facility].
--- NOTE | 2017-09-19 19:49 | NUR ---
PATIENT RECEIVED ORALLY INTUBATED WITH 7.5 ETT SECURED AT 25 CM MID LIP ON VENT. ALARMS VERIFIED AND AUDIBLE. SUCTIONED AND LAVAGED MODERATE-LARGE AMOUNT OF THICK CRAWFORD SECRETIONS. VENT PLUGGED INTO RED OUTLET. ALEXIA BAG AT [facility]. WILL CONTINUE TO MONITOR. Addendum: 09/20/17 at 0428 by NORBERTO PIERCE RT Amended: Links added.
--- NOTE | 2017-09-19 23:50 | NUR ---
ICU/CLIENT RELATIONSHIP MANAGER BLOOD SUGAR IS 119, THERE IS NO COVERAGE FOR THIS. WILL CONTINUE TO MONITOR THE SUGAR.
[2017-09-20] VITALS (42 sets, daily range): BP systolic 105–144; BP diastolic 61–81
--- NOTE | 2017-09-20 00:20 | NUR ---
ICU/ASSET MANAGEMENT COORDINATOR LEVO DECREASED TO 2MCG FROM 4MCG, WILL MONITOR THIS.
--- NOTE | 2017-09-20 01:30 | NUR ---
ICU/FITNESS DIRECTOR LEVO WAS TURNED OFF, DUE TO STABLE BP. WILL MONITOR THIS PT.
[2017-09-20] MEDS: IV NS 0.9% 1,000 ML IV PRN ×2 (02:02→16:22)
[2017-09-20] MEDS: PROPOFOL 10MG/ML 50ML 50 ML IV PRN ×3 (02:13→21:34)
[2017-09-20] MEDS: BLOOD SUGAR DIAGNOSTIC 1 EACH STRIP IN SCH ×3 (05:31→18:22)
[2017-09-20 05:44] LABS: CALCIUM, SERUM 6.9 mg/dL (8.5-10.1); CREATININE 4.5 mg/dL (0.6-1.3); POTASSIUM 3.9 mmol/L (3.5-5.1)
--- NOTE | 2017-09-20 06:20 | NUR ---
ICU/CLEAN UP HELPER BANQUET PT'S BLOOD SUGAR IS 116, NO COVERAGE FOR THIS. WILL MONITOR PT'S BP.
--- NOTE | 2017-09-20 07:55 | NUR ---
PT. RECEIVED ON VENT SUPPORT VIA ET TUBE WITH PARAMETERS BELLOW ORDER: AC 12 VT 650 FIO2 30% PEEP 5 B/S CLEAR BILATERAL. VENT PLUGGED INTO RED OUTLET WITH ALARMS ON AND FUNCTIONING. LUCIO @ HOB. Addendum: 09/20/17 at 1000 by FARHAD HERNANDEZ RT Amended: Links added.
--- NOTE | 2017-09-20 08:00 | NUR ---
TEACHER HEARING IMPAIRED: pt.is sedated well with 15 mcg/kg/m Diprivan gtt, rest, on wrists restraints, SR/ST max 110, SBP over 90, had BMx3/will s/w MD, O2 sat. over 94%, CVP 5-7, Levophed is off
[2017-09-20 08:41] LABS: ABG BASE EXCESS -10.4 mmol/L; ABG OXYGEN SATURATION 97.8 % (92.0-98.5); ABG PCO2 18.7 mmHg (35.0-45.0); ABG PH 7.419 (7.350-7.450); AaDO2 47.9 mmHg; COHb 0.2 % (0.5-1.5); MetHb 0.4 % (0.0-1.5); O2Hb 97.2 % (94.0-97.0); PEEP,BG 5 cm H2O; SITE, ABG Left Brachial; VT, ABG 650 mL
[2017-09-20] MEDS: DOCUSATE SODIUM LIQ 100 MG/10 ML UDC NG SCH (09:00)
[2017-09-20] MEDS: PANTOPRAZOLE 40 MG VIAL IV SCH (09:17)
[2017-09-20 09:19] LABS: COMPLEMENT C3, SERUM 72 mg/dL (82-167); COMPLEMENT C4, SERUM 22 mg/dL (14-44)
--- NOTE | 2017-09-20 10:30 | NUR ---
CERTIFIED MASTER LOCKSMITH: Jerald, KYLAH TELLER COORDINATOR is in room/notified re VS, T 100.3 now, BMx3 episodes soft/liquid over night, CVP, I/O, wounds, ordered: BCx2, sputum, urine c/s, see new orders
--- NOTE | 2017-09-20 10:45 | NUR ---
RAW SCALES OPERATOR: is in room/updated re pt.current status, sedation level, yesterday sedation vacation reaction, pressor off, VS, I/O, NPO status, T, BS, CVP, IVF, said: waiting neurologist consult, ordered: start Glytrol NGTF 30ml/h, d/c CVP monitoring, see new orders
[2017-09-20 10:55] LABS: APPEARANCE,URINE CLEAR (CLEAR); BILIRUBIN,URINE 1+ (NEGATIVE); BLOOD, URINE 3+ Ery/uL (NEGATIVE); COLOR,URINE YELLOW (YELLOW); KETONES,URINE NEGATIVE (NEGATIVE); LEUKOCYTE ESTERASE ,URINE TRACE (NEGATIVE); NITRITE, URINE NEGATIVE (NEGATIVE); PH,URINE 5.5 (5.0-8.0); PROTEIN,URINE NEGATIVE (NEGATIVE); UGLUCOSE NEGATIVE (NEGATIVE)
[2017-09-20] MEDS: ACETAMINOPHEN 650 MG/20.3 ML UDC NG PRN ×2 (11:04→17:55)
[2017-09-20 11:06] LABS: URINE TOTAL PROTEIN 42.7 mg/dL (0-11.9)
[2017-09-20 11:31] LABS: RBC,URINE 21-50 /HPF (0-2); WBC,URINE 5 /HPF (0-3)
[2017-09-20 11:32] LABS: BACTERIA,URINE Rare /HPF (None Seen); SQUAMOUS EPITHELIAL CELL,UR None Seen /HPF (None Seen)
[2017-09-20 12:23] LABS: EOSINOPHIL,URINE Few
[2017-09-20] MEDS: INSULIN REGULAR, HUMAN 100 UNIT/ML 3 ML VIAL SQ PRN ×2 (12:26→18:23)
[2017-09-20 12:58] LABS: APPEARANCE,URINE CLEAR (CLEAR); BILIRUBIN,URINE 1+ (NEGATIVE); BLOOD, URINE 3+ Ery/uL (NEGATIVE); COLOR,URINE DARK YELLO (YELLOW); KETONES,URINE NEGATIVE (NEGATIVE); LEUKOCYTE ESTERASE ,URINE NEGATIVE (NEGATIVE); NITRITE, URINE NEGATIVE (NEGATIVE); PH,URINE 5.5 (5.0-8.0); PROTEIN,URINE NEGATIVE (NEGATIVE); UGLUCOSE NEGATIVE (NEGATIVE); UROBILINOGEN,URINE 0.2 EU/dL (0.2)
[2017-09-20 13:23] LABS: BACTERIA,URINE Rare /HPF (None Seen); SQUAMOUS EPITHELIAL CELL,UR None Seen /HPF (None Seen); WBC,URINE NONE SEEN /HPF (0-3)
--- NOTE | 2017-09-20 13:50 | NUR ---
CHICKEN HANDLER: pt.is off of sedation for 30 min, reactive by touch/voice, grimacing, can open eyes for seconds without contact, no tracking, trace activity, unable to follow commands, weak, family si at BS. is in room, updated with all above, VS, Levophed gtt, I/O, suction amount, ABG, vent setting, spoke with pt family, see new orders, new TV 550, FiO2 35%, notified RT
--- NOTE | 2017-09-20 14:21 | NUR ---
VENT LIVIA RANGEL PER DR. VAZQUEZ: AC 16 VT 550 FIO2 35% PEEP +5 Addendum: 09/20/17 at 1422 by FARHAD HERNANDEZ RT Amended: Links added.
--- NOTE | 2017-09-20 14:30 | NUR ---
pt.is sedated with 15mcg/kg/min Diprivan gtt Addendum: 09/20/17 at 1435 by CLAUDY PEREZ RN Amended: Links added.
--- NOTE | 2017-09-20 14:31 | NUR ---
INSPECTOR RADAR AND ELECTRONICS: previous note is error
--- NOTE | 2017-09-20 15:00 | NUR ---
CREDIT ADMINISTRATION SPECIALIST: pt.is rest without sedation, reactive by touch, drowsy, RR WNL, O2 sat. over 96%, on wrists restraints, can open eyes for seconds, continue monitoring, called to kitchen to re/notify re NG order
[2017-09-20] MEDS: Z GUARD REMEDY 2 OZ OINT TP PRN (15:25)
[2017-09-20] MEDS: GLYTROL 1,000 ML BAG GT PRN (16:18)
[2017-09-20] MEDS: CEFAZOLIN 1 GM in IV NS 0.9% 50 ML IV SCH (16:30)
--- NOTE | 2017-09-20 19:38 | NUR ---
PATIENT RECEIVED ORALLY INTUBATED WITH 7.5 ETT SECURED AT 25 CM MID LIP ON VENT. ALARMS VERIFIED AND AUDIBLE. SUCTIONED AND LAVAGED MODERATE-LARGE AMOUNT OF THICK CRAWFORD SECRETIONS. VENT PLUGGED INTO RED OUTLET. ALEXIA GERMAIN AT [facility]. WILL CONTINUE TO MONITOR. Addendum: 09/20/17 at 1938 by NORBERTO PIERCE RT Amended: Links added.
--- NOTE | 2017-09-20 21:00 | NUR ---
ICU/COMMUNITY EDUCATION COORDINATOR PT'S FAMILY MEMBERS WERE HERE AT BEDSIDE, ASKED FOR ANY UPDATED. THEN SAID THEY WILL BE BACK TOMORROW.
--- NOTE | 2017-09-20 23:40 | NUR ---
ICU/CHILD ADOLESCENT CARE BLOOD SUGAR IS 188, THERE IS COVERAGE FOR THIS PER MD'S ORDERS. WILL CONTINUE TO MONITOR THE SUGAR. PT WAS TURNED AND REPOSITIONED FOR COMFORT AND CARE.
[2017-09-21] VITALS (36 sets, daily range): BP systolic 102–161; BP diastolic 60–91
[2017-09-21] MEDS: BLOOD SUGAR DIAGNOSTIC 1 EACH STRIP IN SCH ×5 (00:25→23:23)
[2017-09-21] MEDS: INSULIN REGULAR, HUMAN 100 UNIT/ML 3 ML VIAL SQ PRN ×5 (00:26→23:24)
[2017-09-21] MEDS: PROPOFOL 10MG/ML 50ML 50 ML IV PRN ×3 (01:11→20:03)
--- NOTE | 2017-09-21 03:10 | NUR ---
ICU/HAT FORMER PT WAS GIVEN AM CARE ALONG WITH ORAL CARE. PT TOLERATED THIS WELL, REMAINS ON CURRENT VENT SETTINGS. PT WAS TURNED AND REPOSITIONED FOR COMFORT AND CARE.
[2017-09-21 04:50] LABS: BASOPHILS % (AUTO) 0.1 % (0.0-2.0); EOSINOPHILS # (AUTO) 0.1 /CMM (0.0-0.7); EOSINOPHILS % (AUTO) 0.5 % (0.0-6.0); HEMATOCRIT 30 % (39-51); LYMPHOCYTES % (AUTO) 6.2 % (20.0-44.0); MEAN CORPUSCULAR HEMOGLOBIN 32 PG (26.0-33.0); MEAN CORPUSCULAR HGB CONC 36 g/dl (31.0-36.0); MEAN CORPUSCULAR VOLUME 89 fL (80-96); MONOCYTES # (AUTO) 1.4 /CMM (0.1-1.30); MONOCYTES % (AUTO) 8.9 % (2.0-12.0); NEUTROPHILS # (AUTO) 13.3 /CMM (1.8-8.9); NEUTROPHILS % (AUTO) 84.3 % (43.0-81.0); PLATELET COUNT (AUTO) 59 /CMM (150-450); RDW COEFFICIENT OF VARIATION 13.8 (11.5-15.0); RED BLOOD CELL COUNT(AUTO) 3.44 MIL/uL (4.5-6.0); WHITE BLOOD COUNT (AUTO) 15.8 K/uL (4.3-11.0)
[2017-09-21] MEDS: IV NS 0.9% 1,000 ML IV PRN ×2 (05:10→16:44)
[2017-09-21 05:14] LABS: BILIRUBIN,TOTAL 2.4 mg/dL (0.2-1.0); CALCIUM, SERUM 7.1 mg/dL (8.5-10.1); CREATININE 4.4 mg/dL (0.6-1.3); MAGNESIUM 3.2 mg/dL (1.8-2.4); PHOSPHORUS 6.3 mg/dL (2.5-4.9); POTASSIUM 4.1 mmol/L (3.5-5.1)
[2017-09-21 05:30] LABS: LYMPHOCYTES % (MANUAL) 9 % (16-48); MONOCYTES % (MANUAL) 9 % (0-11.0); NEUTROPHILS % (MANUAL) 82 (42-76)
[2017-09-21 05:38] LABS: ALBUMIN 1.2 g/dL (3.4-5.0)
--- NOTE | 2017-09-21 06:10 | NUR ---
ICU/WAREHOUSE SORTER BLOOD SUGAR IS 188, THERE IS COVERAGE FOR THIS PER MD'S ORDERS. WILL CONTINUE TO MONITOR THE SUGAR. PT WAS TURNED AND REPOSITIONED FOR COMFORT AND CARE.
--- NOTE | 2017-09-21 07:12 | NUR ---
TELECOM NETWORK MANAGER INITIAL NOTES: REC'D PT ON BED, SEDATED, NOT IN ANY DISTRESS. ON MV VIA ETT, SATING AT 100%. ON TELEMONITOR, ST W/ HR 107 BPM. HAS NGT ON R NARE, LEVEL 58, ON CONT TUBE FEEDING GLYTROL X 30 CC/HR INFUSING WELL. HAS CORA PICC LINE, TLC PATENT & INTACT W/ NO S/SX OF INFECTION/INFILTRATION NOTED, ON NS X 75 CC/HR AND DIPRIVAN AT 10 MCG. PROVIDED COMFORT & SAFETY MEASURES. BED KEPT LOW & IN LOCKED POS. CALL LIGHT PLACED W/IN REACH. WILL CONTINUE TO MONITOR & ATTEND PT NEEDS.
--- NOTE | 2017-09-21 07:42 | NUR ---
PT. RECEIVED ON VENT SUPPORT VIA ET TUBE WITH PARAMETERS BELLOW ORDER: AC 16 VT 550 FIO2 35% PEEP 5 B/S BILATERAL COURSE DELICIA JOHNSON MOD. AMNT BLOOD TINGED SECRETIONS. VENT PLUGGED INTO RED OUTLET WITH ALARMS ON AND FUNCTIONING. ALEXIA BAG @ HOB. Addendum: 09/21/17 at 1721 by FARHAD HERNANDEZ RT Amended: Links added.
--- NOTE | 2017-09-21 08:15 | NUR ---
RN NOTES: PT SEEN & EXAMINED BY DR. BEAVERS.
[2017-09-21] MEDS: PANTOPRAZOLE 40 MG VIAL IV SCH (08:58)
[2017-09-21] MEDS: DOCUSATE SODIUM LIQ 100 MG/10 ML UDC NG SCH (08:58)
[2017-09-21] MEDS: Z GUARD REMEDY 2 OZ OINT TP PRN (08:59)
--- NOTE | 2017-09-21 09:00 | NUR ---
RN NOTES: PT SEEN & EXAMINED BY DR. SÁNCHEZ.
[2017-09-21] MEDS: ACETAMINOPHEN 650 MG/20.3 ML UDC NG PRN (09:03)
[2017-09-21 09:14] LABS: ABG BASE EXCESS -9.8 mmol/L; ABG OXYGEN SATURATION 97.4 % (92.0-98.5); ABG PCO2 20.2 mmHg (35.0-45.0); ABG PH 7.416 (7.350-7.450); ABG PO2 116.6 mmHg (75.0-100.0); AaDO2 109.5 mmHg; COHb 0.2 % (0.5-1.5); MetHb 0.3 % (0.0-1.5); O2Hb 96.9 % (94.0-97.0); PEEP,BG 5 cm H2O; SITE, ABG Left Brachial; VT, ABG 550 mL
--- NOTE | 2017-09-21 09:45 | NUR ---
RN NOTES: PT SEEN & EXAMINED BY DR. MURPHY.
--- NOTE | 2017-09-21 10:00 | NUR ---
RN NOTES: SECATION VACATION DONE. PT NOT IN ANY DISTRESS, OPENS EYES WHEN CALLED BY NAME. PT SEEN & EXAMINED BY DR. VIDAL.
--- NOTE | 2017-09-21 14:00 | NUR ---
RN NOTES: PT SEEN & EXAMINED BY DR. RICHTER. MADE HIM AWARE ABOUT T 102 AND LOOSE BM X1. PER MD NO NEED FOR PANCULTURE. ORDERED CT ABDOMEN/PELVIS W/O CONTRAST WELL TO COLLECT STOOL FOR C.DIFF. STOOL SPECIMEN COLLECTED.
--- NOTE | 2017-09-21 15:00 | NUR ---
RN NOTES: PT TRANSFERRED TO RADIOLOGY DEPT VIA ACLS PROTOCOL W/ RADTECH AND RT. PT ABLE TO TOLERATE THE PROCEDURE.
--- NOTE | 2017-09-21 16:00 | NUR ---
RN NOTES: PROVIDED COOLING BLANKET D/T FEVER, T 102.
[2017-09-21] MEDS: CITRIC ACID/SODIUM CITRATE (BICITRA)15 ML UDC NG SCH (16:43)
[2017-09-21] MEDS: CEFAZOLIN 1 GM in IV NS 0.9% 50 ML IV SCH (16:43)
--- NOTE | 2017-09-21 19:00 | NUR ---
BRANDS EDITOR CLOSING NOTES: NO ACUTE CHANGES NOTED W/IN SHIFT. PT TOLERATED MV SETTINGS VIA ETT. SECRETIONS SUCTIONED. ON TELEMONITOR, NOW SR. NGT ON R NARE, KEPT PATENT & INTACT, ON CONT TUBE FEEDING GLYTROL X 40 CC/HR INFUSING WELL, NO HIGH RESIDUAL NOTED W/IN SHIFT. CORA PICC LINE, TLC KEPT PATENT & INTACT W/ NO S/SX OF INFECTION/INFILTRATION NOTED, ON NS X 75 CC/HR AND DIPRIVAN AT 10 MCG. COOLING BLANKET TURNED OFF, T 96.8. KEPT WELL RESTED. NEEDS ATTENDED. BED KEPT LOW & IN LOCKED POS. CALL LIGHT PLACED W/IN REACH. ENDORSED TO PM RN FOR SHERIF.
--- NOTE | 2017-09-21 21:30 | NUR ---
PT RECEIVED ORALLY INTUBATED WITH 7.5 ETT SECURED AT 25CM AT THE LIP. TOLERATING NOTED VENT SETTINGS. SX'D FOR SML AMT OF THIN WHITE W/ BLOOD TINGED SECRETIONS. SCHOOL TRANSPORTATION DIRECTOR DONE AND ETT SECURE WITH ANCHOR FAST. VENT ALARMS CHECKED AND AUDIBLE. AMBU BAG AT BEDSIDE. VENT PLUGGED INTO RED OUTLET. WILL CONTINUE TO MONITOR.
[2017-09-22] VITALS (35 sets, daily range): BP systolic 115–148; BP diastolic 65–89
[2017-09-22] MEDS: PROPOFOL 10MG/ML 50ML 50 ML IV PRN ×3 (02:19→17:14)
[2017-09-22] MEDS: CITRIC ACID/SODIUM CITRATE (BICITRA)15 ML UDC NG SCH ×2 (03:46→14:50)
[2017-09-22 05:02] LABS: CALCIUM, SERUM 7.1 mg/dL (8.5-10.1); CREATININE 3.7 mg/dL (0.6-1.3); POTASSIUM 4.2 mmol/L (3.5-5.1)
[2017-09-22] MEDS: BLOOD SUGAR DIAGNOSTIC 1 EACH STRIP IN SCH ×4 (05:41→23:53)
[2017-09-22] MEDS: INSULIN REGULAR, HUMAN 100 UNIT/ML 3 ML VIAL SQ PRN ×4 (05:43→23:57)
[2017-09-22] MEDS: IV NS 0.9% 1,000 ML IV PRN (05:43)
[2017-09-22] MEDS: GLYTROL 1,000 ML BAG GT PRN (05:44)
--- NOTE | 2017-09-22 07:15 | NUR ---
RN INITIAL NOTES RECEIVED PT INTUBATED, ON VENT. NO RESPIRATORY DISTRESS NOTED. NO SOB NOTED. HOB ELEVATED. PT SEDATED, ON DIPRIVAN AT 10MCG/KG/MIN. NO SIGNS OF PAIN NOTED. CORA PICC LINE IN PLACE. IVF INFUSING. GT IN PLACE. TOLERATING GTF WELL. FC IN PLACE. NO HEMATURIA NOTED. BLE ELEVATED. WILL CONTINUE TO MONITOR.
--- NOTE | 2017-09-22 07:55 | NUR ---
RT PATIENT REC'D ORALLY INTUBATED ON [facility] VENT WITH SETTINGS SET BY MD HANK KIM. VENT ALARMS CHECKED+ AUDIBLE. CUFF PRESSURE CHECKED CARTON COUNTER FEEDER. SX'D WITH SMALL AMT CRAWFORD SEMITHICK SECRETIONS. B/S DIM. PATIENT IN CRITICAL CONDITION. AMBU BAG AT HOB. CONT CURRENT PLAN OF RESP CARE. Addendum: 09/22/17 at 0943 by THA SAUCEDO RT Amended: Links added.
--- NOTE | 2017-09-22 08:09 | NUR ---
WOUND CARE CONSULT: PT PRESENTS WITH LEFT HALLUX GANGRENE, PRESENT ON ADMISSION. PT FOLLOWED BY DPM FOR TOE. DEFER TO DPM FOR LOWER EXTREMITY WOUND TREATMENT PLAN. PT ALSO PRESENTS WITH LEFT ARM SKIN TEAR AND SACRAL DEEP TISSUE INJURY WHICH IS INTACT. ALL SKIN PROTECTION AND WOUND RECOMMENDATIONS DISCUSSED WITH NURSING STAFF. SKIN PROTECTION MEASURES ALL IN PLACE. PT ON FIRST STEP MATTRESS. WILL SEE PRN. MARTÍNEZ IN AGREEMENT WITH PLAN OF CARE. CURRENT KAYLI SCORE IS 11. Addendum: 09/22/17 at 0811 by BRIANA CARTER WNDNU Amended: Links added.
[2017-09-22] MEDS: DOCUSATE SODIUM LIQ 100 MG/10 ML UDC NG SCH (08:10)
[2017-09-22] MEDS: PANTOPRAZOLE 40 MG VIAL IV SCH (08:10)
[2017-09-22] MEDS ORDERED: PANTOPRAZOLE 40 MG TABLET.DR PO SCH (09:00)
[2017-09-22 09:13] LABS: EOSINOPHILS # (AUTO) 0.1 /CMM (0.0-0.7); EOSINOPHILS % (AUTO) 0.6 % (0.0-6.0); HEMATOCRIT 30 % (39-51); HEMOGLOBIN 10.5 g/dL (13.5-17.5); LYMPHOCYTES # (AUTO) 0.8 /CMM (0.8-4.8); LYMPHOCYTES % (AUTO) 6.4 % (20.0-44.0); MEAN CORPUSCULAR HEMOGLOBIN 32 PG (26.0-33.0); MEAN CORPUSCULAR HGB CONC 35 g/dl (31.0-36.0); MEAN CORPUSCULAR VOLUME 92 fL (80-96); MONOCYTES # (AUTO) 0.4 /CMM (0.1-1.30); MONOCYTES % (AUTO) 3.4 % (2.0-12.0); NEUTROPHILS # (AUTO) 11.7 /CMM (1.8-8.9); NEUTROPHILS % (AUTO) 89.6 % (43.0-81.0); PLATELET COUNT (AUTO) 68 /CMM (150-450); RDW COEFFICIENT OF VARIATION 14.6 (11.5-15.0); RED BLOOD CELL COUNT(AUTO) 3.31 MIL/uL (4.5-6.0)
--- NOTE | 2017-09-22 09:30 | NUR ---
RN NOTES SEEN AND EXAMINED BY DR. MCDUFFIE. PT REMAINS INTUBATED, ON VENT. NO RESPIRATORY DISTRESS NOTED. PT NOT ON PRESSORS. ON SEDATION VACATION. PT AWAKE, ABLE TO FOLLOW SIMPLE COMMANDS. WILL CONTINUE TO MONITOR.
[2017-09-22 09:46] LABS: EOSINOPHILS % (MANUAL) 3 % (0-4); LYMPHOCYTES % (MANUAL) 3 % (16-48); MONOCYTES % (MANUAL) 4 % (0-11.0); NEUTROPHILS % (MANUAL) 90 (42-76)
--- NOTE | 2017-09-22 10:25 | NUR ---
RN NOTES SEEN AND EXAMINED BY DR. MURPHY. PT REMAINS INTUVATED, ON VENT. NO PRESSORS. ON SEDATION VACATION. PT AWAKE, ABLE TO FOLLOW SIMPLE COMMANDS. AWARE OF CURRENT LAB VALUES: WBC 15.8, HGB 11, HCT 30, PLATELET 59. NO SIGNS OF BLEEDING NOTED. SODIUM 150, BUN 135, CREA 3.7. ALSO AWARE OF CXR RESULT. MD CHANGED IVF TO 1/2 NS AT 75ML/HR. WILL CONTINUE TO MONITOR
[2017-09-22] MEDS: IV 1/2NS 1000 ML 1,000 ML IV PRN (11:36)
[2017-09-22] MEDS: ACETAMINOPHEN 650 MG/20.3 ML UDC NG PRN (14:18)
[2017-09-22] MEDS: CEFAZOLIN 1 GM in IV NS 0.9% 50 ML IV SCH (16:52)
--- NOTE | 2017-09-22 18:37 | NUR ---
RN CLOSING NOTES PT REMAINS INTUBATED, TOLERATING VENT WELL. NO RESPIRATORY DISTRESS NOTED. NO SOB NOTED. KEPT HOB ELEVATED. NGT IN PLACE. TOLERATING GTF WELL. PICC LINE IN PLACE. ON DIPRIVAN, TITRATED ACCORDINGLY. IVF INFUSING. FC IN PLACE. KEPT CLEAN AND DRY. REPOSITIONED Q2. KEPT COMFORTABLE. BLE ELEVATED. WILL ENDORSE FOR CONTINUITY OF CARE.
--- NOTE | 2017-09-22 19:15 | NUR ---
RN NOTES PT IS SEDATED WITH ETT 7.5/25 CM @ LIP CONNECTED TO VENT SETTING AC 16 TV 550 FIO2 35% PEEP 5. ST HR 100 ON TELE MONITOR. GTF TOLERATED WELL WITH ZERO RESIDUAL PATENCY CHECKED. IV SITE ON CORA PICC LINE WITH PROPOFOL @ 10 MCG/KG/MIN AND I/2 NS @ 75 CC/HR INTACT AND PATENT. F/C DRAINED WITH YELLOWISH COLOR URINE VIA GRAVITY. OFFLOADED EXT WITH PILLOWS. REPOSITIONED FOR SKIN MANAGEMENT. KEPT PT CLEAN AND DRY. WILL FREQUENTLY MONITOR.
--- NOTE | 2017-09-22 21:59 | NUR ---
PT RECEIVED ON VENT VIA CHARTED SETTINGS AND ROUTE. AMBU BAG AT BEDSIDE, ALARMS SET AND AUDIBLE. VENT PLUGGED INTO RED OUTLET. PT TOLERATING VENT WELL AT THIS TIME. WILL CONTINUE TO MONITOR Addendum: 09/22/17 at 2200 by BARB POPE RT Amended: Links added.
[2017-09-23] VITALS (38 sets, daily range): BP systolic 58–141; BP diastolic 56–85
[2017-09-23] MEDS: IV 1/2NS 1000 ML 1,000 ML IV PRN ×2 (00:01→12:36)
[2017-09-23] MEDS: PROPOFOL 10MG/ML 50ML 50 ML IV PRN ×5 (00:03→20:38)
--- NOTE | 2017-09-23 00:04 | NUR ---
RN NOTES PT SEDATED TOLERATED DIPRIVAN @ 20 MCG/KG/MIN. IV REMAINED INTACT AND PATENT/ VS WNL. ACCU CHECKED DONE, INSULIN GIVEN ORDERED. TURNED AND REPOSITIONED PROTOCOL AND PRN.
--- NOTE | 2017-09-23 03:30 | NUR ---
RN NOTES BED BATH RENDERED. TOLERATED WELL. DIPRIVAN REMAINED ON 20 MCG/KG/MIN VS WNL. WOUND DRESSING RENDERED ORDERED. KEPT ORAL CARE DONE, KEPT PT CLEAN AND COMFORTABLE IN BED. WILL CONTINUE TO MONITOR.
[2017-09-23] MEDS: CITRIC ACID/SODIUM CITRATE (BICITRA)15 ML UDC NG SCH ×2 (04:45→15:43)
[2017-09-23] MEDS: GLYTROL 1,000 ML BAG GT PRN (04:59)
[2017-09-23 05:04] LABS: EOSINOPHILS # (AUTO) 0.1 /CMM (0.0-0.7); EOSINOPHILS % (AUTO) 0.8 % (0.0-6.0); HEMATOCRIT 30 % (39-51); HEMOGLOBIN 10.6 g/dL (13.5-17.5); LYMPHOCYTES # (AUTO) 0.6 /CMM (0.8-4.8); LYMPHOCYTES % (AUTO) 3.2 % (20.0-44.0); MEAN CORPUSCULAR HEMOGLOBIN 32 PG (26.0-33.0); MEAN CORPUSCULAR HGB CONC 35 g/dl (31.0-36.0); MEAN CORPUSCULAR VOLUME 91 fL (80-96); MONOCYTES # (AUTO) 0.1 /CMM (0.1-1.30); MONOCYTES % (AUTO) 0.6 % (2.0-12.0); NEUTROPHILS # (AUTO) 17.3 /CMM (1.8-8.9); NEUTROPHILS % (AUTO) 95.4 % (43.0-81.0); PLATELET COUNT (AUTO) 93 /CMM (150-450); RDW COEFFICIENT OF VARIATION 14.8 (11.5-15.0); WHITE BLOOD COUNT (AUTO) 18.1 K/uL (4.3-11.0)
[2017-09-23] MEDS: INSULIN REGULAR, HUMAN 100 UNIT/ML 3 ML VIAL SQ PRN ×3 (05:11→17:45)
[2017-09-23] MEDS: BLOOD SUGAR DIAGNOSTIC 1 EACH STRIP IN SCH ×3 (05:11→17:43)
[2017-09-23 05:29] LABS: CALCIUM, SERUM 6.2 mg/dL (8.5-10.1); CREATININE 3.1 mg/dL (0.6-1.3)
[2017-09-23 05:51] LABS: BAND % (MANUAL) 2 % (0.0-5.0); LYMPHOCYTES % (MANUAL) 3 % (16-48); MONOCYTES % (MANUAL) 1 % (0-11.0); NEUTROPHILS % (MANUAL) 94 (42-76)
--- NOTE | 2017-09-23 06:38 | NUR ---
RN NOTES PT WARM TO TOUCH TMAX 99.1 ORALLY AND 99.6 RECTALLY COOLING BLANKET KEPT IN PLACED . PT HAD NO ACUTE RESP. DISTRESS THROUGHOUT THE SHIFT. IV DIPRIVAN 20 MCK/KG/MIN ONGOING WITH 1/2NS @ 75 CC/HR TOLERATED WELL. WILL ENDORSED CONTINUITY OF CARE TO AM NURSE.
--- NOTE | 2017-09-23 07:05 | NUR ---
RN INITIAL NOTES RECEIVED PT INTUBATED, ON VENT. NO RESPIRATORY DISTRESS NOTED. NO SOB NOTED. HOB ELEVATED. PT SEDATED, ON DIPRIVAN AT 20MCG/KG/MIN. WILL TITRATE ACCORDINGLY. NO SIGNS OF PAIN NOTED. CORA PICC LINE IN PLACE. IVF INFUSING. GT IN PLACE. TOLERATING GTF WELL. FC IN PLACE. NO HEMATURIA NOTED. BLE ELEVATED. PT COMFORTABLE. WILL CONTINUE TO MONITOR.
[2017-09-23] MEDS: DOCUSATE SODIUM LIQ 100 MG/10 ML UDC NG SCH (08:26)
[2017-09-23] MEDS: ACETAMINOPHEN 650 MG/20.3 ML UDC NG PRN ×2 (08:26→15:45)
[2017-09-23] MEDS: PANTOPRAZOLE 40 MG TABLET.DR PO SCH (08:27)
--- NOTE | 2017-09-23 09:30 | NUR ---
RN NOTES SEEN AND EXAMINED BY DR. MCDUFFIE. AWARE OF CURRENT LAB AND CXR RESULT. PT OFF DIPRIVAN. PT AWAKE, ABLE TO FOLLOW COMMANDS WILL PLACE PT ON WEANING TRIALS, SIMV MODE. WILL DO ABG POST 1HR. WILL CLOSELY MONITOR.
--- NOTE | 2017-09-23 10:00 | NUR ---
RN NOTES SEEN AND EXAMINED BY DR. MURPHY.A ZURITA OF CURRENT LAB VALUES: WBC 18.1, HGB 10.6, HCT 30, PLATELET 93. NO SIGNS OF ACTIVE BLEEDING NOTED. BUN 135, CREA 3.1. PT OFF DIPRIVAN FOR SEDATION VACATION. PT AWAKE, ABLE TO FOLLOW COMMANDS. ON WEANING TRIALS, ON SIMV MODE. AWAITING FOR ABG RESULT. PT REMAINS WITH LOW GRADE FEVER. COOLING MEASURES ON. ON IV ATB. NO ASE NOTED. PT COMFORTABLE. WILL CONTINUE TO MONITOR.
--- NOTE | 2017-09-23 10:35 | NUR ---
RN NOTES DR. MCDUFFIE AWARE OF ABG RESULT. PT ON SIMV. NO RESPIRATORY DISTRESS NOTED. NO SOB NOTED. PER MD, NO CHANGE ON VENT SETTINGS. MAY PLACE BACK TO AC IF PT IS IN DISTRESS. WILL CLOSELY MONITOR.
[2017-09-23 10:44] LABS: ABG BASE EXCESS -9.8 mmol/L; ABG OXYGEN SATURATION 97.8 % (92.0-98.5); ABG PCO2 16.6 mmHg (35.0-45.0); ABG PH 7.458 (7.350-7.450); AaDO2 93.3 mmHg; COHb 0.3 % (0.5-1.5); MetHb 0.5 % (0.0-1.5); PEEP,BG 5 cm H2O; SITE, ABG Left Radial; VT, ABG 550 mL
[2017-09-23] MEDS: CEFAZOLIN 1 GM in IV NS 0.9% 50 ML IV SCH (12:24)
--- NOTE | 2017-09-23 12:26 | NUR ---
RN NOTES PLACED PT BACK ON AC MODE. PT AGITATED. HR ON 100S. DIPRIVAN RESTARTED. DR. MCDUFFIE AWARE. WILL CONTINUE TO MONITOR.
--- NOTE | 2017-09-23 13:20 | NUR ---
RT NOTE LATE ENTRY-PATIENT PLACED BACK ON AC DUE TO DISTRESS. NURSE(SAAD) AWARE.
--- NOTE | 2017-09-23 18:00 | NUR ---
RT NOTE: PATIENT RECEIVED ORALLY INTUBATED WITH 7.5 ETT SECURED AT 25 CM MID LIP LINE(BITE BLOCK IN PLACE) ON PB 840 VENT. ALARMS VERIFIED AND AUDIBLE. SUCTIONED AND LAVAGED THICK CRAWFORD/BLOOD TINGED SECRETIONS. BILATERAL SCATTERED B/S. VENT PLUGGED INTO RED OUTLET. AMBU BAG AT [facility].
--- NOTE | 2017-09-23 18:34 | NUR ---
RN CLOSING NOTES PT REMAINS INTUBATED, TOLERATING VENT WELL. NO RESPIRATORY DISTRESS NOTED. NO SOB NOTED. KEPT HOB ELEVATED. NGT IN PLACE. TOLERATING GTF WELL. PICC LINE IN PLACE. REMAINS ON DIPRIVAN. IVF INFUSING. FC IN PLACE. KEPT CLEAN AND DRY. REPOSITIONED Q2. TX PROVIDED ORDERED. KEPT COMFORTABLE. BLE ELEVATED. WILL ENDORSE FOR CONTINUITY OF CARE.
--- NOTE | 2017-09-23 19:20 | NUR ---
RN NOTES RECEIVED PT SEDATED WITH ETT 7.5/25 CM @ LIP CONNECTED TO VENT SETTING AC 16 TV 550 FIO2 35% PEEP 5. ST HR 100 ON TELE MONITOR. GTF TOLERATED WELL WITH ZERO RESIDUAL PATENCY CHECKED. WITH PROPOFOL @ 20 MCG/KG/MIN AND I/2 NS @ 75 CC/HR INTACT AND PATENT ON CORA PICC. F/C DRAINED WITH YELLOWISH COLOR URINE VIA GRAVITY. TEMP. 99.5 PER RECTAL. KEPT PT CLEAN AND DRY. OFFLOADED EXT WITH PILLOWS REDUCED PRESSURE TO BONY PROMINENCE AREA WILL CONTINUE TO MONITOR.
--- NOTE | 2017-09-23 20:34 | NUR ---
Received pt on vent support, pt stable on current settings, no SOB or respiratory distress noted.Ventilator is plugged into red outlet, alarms are audible, ambu bag at bedside. Will continue monitoring per MDS orders. Addendum: 09/23/17 at 2033 by LUCRETIA BETANCOURT RT Amended: Links added.
[2017-09-23 21:18] LABS: APPEARANCE,URINE SL CLOUDY (CLEAR); BILIRUBIN,URINE NEGATIVE (NEGATIVE); BLOOD, URINE 3+ Ery/uL (NEGATIVE); COLOR,URINE YELLOW (YELLOW); KETONES,URINE NEGATIVE (NEGATIVE); LEUKOCYTE ESTERASE ,URINE TRACE (NEGATIVE); NITRITE, URINE NEGATIVE (NEGATIVE); PROTEIN,URINE TRACE mg/dl (NEGATIVE); UGLUCOSE NEGATIVE (NEGATIVE); UROBILINOGEN,URINE 0.2 EU/dL (0.2)
[2017-09-23 21:41] LABS: RBC,URINE 21-50 /HPF (0-2); WBC,URINE 0-2 /HPF (0-3)
[2017-09-23 21:42] LABS: BACTERIA,URINE Rare /HPF (None Seen); SQUAMOUS EPITHELIAL CELL,UR None Seen /HPF (None Seen)
[2017-09-24] VITALS (36 sets, daily range): BP systolic 92–131; BP diastolic 45–76
[2017-09-24] MEDS: BLOOD SUGAR DIAGNOSTIC 1 EACH STRIP IN SCH ×5 (00:13→23:52)
[2017-09-24] MEDS: CEFAZOLIN 1 GM in IV NS 0.9% 50 ML IV SCH ×2 (00:17→12:17)
[2017-09-24] MEDS: INSULIN REGULAR, HUMAN 100 UNIT/ML 3 ML VIAL SQ PRN ×5 (00:17→23:56)
--- NOTE | 2017-09-24 00:22 | NUR ---
RN NOTES ACCUCHECK DONE BS 256 MG/DL REGULAR INSULIN 6UNITS PER INSULIN PER SLIDING SCALE
--- NOTE | 2017-09-24 01:30 | NUR ---
RN NOTES FIO2 CHANGE TO 45% BY RT SATING 93%
[2017-09-24] MEDS: IV 1/2NS 1000 ML 1,000 ML IV PRN ×2 (01:41→15:24)
[2017-09-24] MEDS: PROPOFOL 10MG/ML 50ML 50 ML IV PRN ×5 (01:41→19:15)
[2017-09-24] MEDS: ACETAMINOPHEN 650 MG/20.3 ML UDC NG PRN ×2 (01:41→15:23)
[2017-09-24] MEDS: GLYTROL 1,000 ML BAG GT PRN (02:39)
[2017-09-24] MEDS: CITRIC ACID/SODIUM CITRATE (BICITRA)15 ML UDC NG SCH ×2 (04:13→15:23)
[2017-09-24 05:11] LABS: EOSINOPHILS # (AUTO) 0.1 /CMM (0.0-0.7); EOSINOPHILS % (AUTO) 0.7 % (0.0-6.0); HEMATOCRIT 31 % (39-51); HEMOGLOBIN 10.8 g/dL (13.5-17.5); LYMPHOCYTES # (AUTO) 0.8 /CMM (0.8-4.8); LYMPHOCYTES % (AUTO) 3.5 % (20.0-44.0); MEAN CORPUSCULAR HEMOGLOBIN 32 PG (26.0-33.0); MEAN CORPUSCULAR HGB CONC 35 g/dl (31.0-36.0); MEAN CORPUSCULAR VOLUME 93 fL (80-96); MONOCYTES # (AUTO) 0.6 /CMM (0.1-1.30); MONOCYTES % (AUTO) 2.5 % (2.0-12.0); NEUTROPHILS # (AUTO) 20.9 /CMM (1.8-8.9); NEUTROPHILS % (AUTO) 93.3 % (43.0-81.0); PLATELET COUNT (AUTO) 114 /CMM (150-450); RDW COEFFICIENT OF VARIATION 14.7 (11.5-15.0); RED BLOOD CELL COUNT(AUTO) 3.38 MIL/uL (4.5-6.0); WHITE BLOOD COUNT (AUTO) 22.4 K/uL (4.3-11.0)
[2017-09-24 05:37] LABS: CREATININE 3.6 mg/dL (0.6-1.3); POTASSIUM 4.8 mmol/L (3.5-5.1)
[2017-09-24 06:00] LABS: BAND % (MANUAL) 1 % (0.0-5.0); LYMPHOCYTES % (MANUAL) 3 % (16-48); MONOCYTES % (MANUAL) 1 % (0-11.0); NEUTROPHILS % (MANUAL) 95 (42-76)
--- NOTE | 2017-09-24 06:10 | NUR ---
RN NOTES ACCUCHECK DONE BS 211 MG/DL INSULIN PER SLIDING SCALE GIVEN ORDERED.
--- NOTE | 2017-09-24 07:00 | NUR ---
RN NOTES NO SIGNIFICANT SHERIF SHOW ETT WITH VENT SETTING TOLERATED WELL. CONTINUE ON PROPOFOL @ 20 MCG/KG/MIN AND NS @ 75 CC/HR IV SITE INTACT AND PATENT. TF TOLERATED WELL. F/C DRAINED WITH YELLOW COLOR URINE. BED BATH DONE. DRESSING CHANGE. NO S/S OF HYPO OR HYPERGLYCEMIA. TMAX 100.5 @ THIS TIME. COOLING MEASURES PROVIDED. ALL DUE MEDS TOLERATED WELL. KEPT PT CLEAN AND DRY. TURNED AND REPOSITIONED PROTOCOL WILL ENDORSED CONTINUITY OF CARE TO AM NURSE.
--- NOTE | 2017-09-24 07:15 | NUR ---
RN INITIAL NOTES RECEIVED PT INTUBATED, ON VENT TOLERATING WELL WITH SPO2 OF 95%. NO RESPIRATORY DISTRESS SOB NOTED. HOB ELEVATED. PT SEDATED, ON DIPRIVAN AT 20MCG/KG/MIN. WILL TITRATE ACCORDINGLY. NO SIGNS OF DISCOMFORT NOTED. CORA PICC LINE IN PLACE. IVF INFUSING. GT IN PLACE. TOLERATING GTF WELL. FC IN PLACE. NO HEMATURIA NOTED. BLE ELEVATED. PT COMFORTABLE. WILL CONTINUE TO MONITOR.
[2017-09-24] MEDS: DOCUSATE SODIUM LIQ 100 MG/10 ML UDC NG SCH (08:34)
[2017-09-24] MEDS: PANTOPRAZOLE 40 MG TABLET.DR PO SCH (08:34)
--- NOTE | 2017-09-24 09:00 | NUR ---
PARTY PLAN DEMONSTRATOR NOTES SEEN AND EVALUATED BY DR MCDUFFIE , DISCUSED CURRENT V/S , LABS , PT ON MECHANICAL VENT SETTINGS ORDERED SPO2 OF 100% , MILDLY TACHYPNEIC WITH DEEP RESPIRATIONS , FIO2 TITRATED UP FROM 35% TO 45% PT SUSTAINING SPO2 OF 89-90% LAST NIGHT , LOW GRADE TEMP OF 100.8 , TOLERATING TUBE FEEDING , OFF SEDATION @ 0900 , PENDING ABG RESULT .
--- NOTE | 2017-09-24 09:30 | NUR ---
AVIONICS SYSTEMS REPAIRER NOTES SEDATION VACATION @ 0900 , RE STARTED SEDATION @ 0930 DUE TO TACHYPNEA , RR OF 35 AND TACHYCARDIA HR OF 120'S , PATIENT ABLE TO FOLLOW SIMPLE COMMANDS , OPENS EYES . WILL CONTINUE TO MONITOR
[2017-09-24 09:39] LABS: ABG BASE EXCESS -11.8 mmol/L; ABG OXYGEN SATURATION 92.4 % (92.0-98.5); ABG PCO2 24.8 mmHg (35.0-45.0); ABG PH 7.323 (7.350-7.450); ABG PO2 71.3 mmHg (75.0-100.0); AaDO2 221.3 mmHg; COHb 0.3 % (0.5-1.5); MetHb 0.6 % (0.0-1.5); O2Hb 91.6 % (94.0-97.0); PEEP,BG 5 cm H2O; SITE, ABG Right Radial; VT, ABG 550 mL
--- NOTE | 2017-09-24 09:40 | NUR ---
HALL DIRECTOR NOTES SEEN AND EVALUATED BY DR MURPHY , DISCUSSED LABS CURRENT V/S , ABG RESULT , LOW GRADE TEMP OF 100.8 VIA CORE , PLACED BACK PT ON SEDATION @ 0930 DUE TO TACHYCARDIA AND TACHYPNEA , PT ABLE TO FOLLOWS SIMPLE COMMANDS , TOLERATING GT FEEDING .
--- NOTE | 2017-09-24 11:50 | NUR ---
COLOR ADVISER NOTES SEEN AND EVALUATED BY DIETITIAN RECOMMNEDING TO CHANGE GT FEEDING FORMULA TO NOVASOURCE @ 40ML/HR DUE TO ELEVATED BUN AND CREATININE , DISCUSSED DIETITIAN RECOMMENDATION TO DR MURPHY , PER OK TO CHANGE FEEDING FORMULA , ORDER CARRIED OUT
--- NOTE | 2017-09-24 12:35 | NUR ---
CNC MACHINE SETTER NOTES RELAYED ABG RESULT TO DR MCDUFFIE , NO NEW ORDERS RECEIVED .
--- NOTE | 2017-09-24 15:22 | NUR ---
RT NOTE: PATIENT RECEIVED ORALLY INTUBATED WITH 7.5 ETT SECURED AT 25 CM MID LIP LINE (BITE BLOCK IN PLACE) ON GE V860 VENT. ETT MOVED FROM LEFT TO RIGHT SIDE OF MOUTH THROUGHOUT SHIFT VIA ANCHOR FAST. ALARMS VERIFIED AND AUDIBLE. SUCTIONED AND LAVAGED MODERATE-LARGE AMOUNT THICK CRAWFORD/DARK BROWN/BLOOD TINGED SECRETIONS. B/S=BILATERAL SCATTERED RHALES. VENT PLUGGED INTO RED OUTLET. AMBU BAG AT [facility].
--- NOTE | 2017-09-24 15:23 | NUR ---
SANITARY LANDFILL OPERATOR NOTES CORE TEMP OF 101. 3 , TYLENOL 650MG GIVEN , COOLING MEASURES RENDERED , WILL RE ASSESS TEMPERATURE .
[2017-09-24] MEDS: RENAL NOVASOURCE 1,000 ML BOTTLE GT PRN (15:47)
--- NOTE | 2017-09-24 19:35 | NUR ---
RN NOTES PT INTUBATED, WITH ETT ON VENT TOLERATING WELL WITH SPO2 OF 98%. NO RESPIRATORY DISTRESS, NO SOB NOTED. HOB ELEVATED. PT SEDATED, ON DIPRIVAN AT 20MCG/KG/MIN. WILL TITRATE ACCORDINGLY. NO SIGNS OF DISCOMFORT NOTED. CORA PICC LINE IN PLACE. IVF INFUSING WELL. TF TOLERATED WELL PATENCY CHECKED. FC DRAINED WITH CLEAR COLOR YELLOW URINE. NO HEMATURIA NOTED. BLE AND BUE ELEVATED. KEPT PT CLEAN AND COMFORTABLE. WILL CLOSELY MONITOR.
--- NOTE | 2017-09-24 21:10 | NUR ---
PT RECEIVED ORALLY INTUBATED WITH 7.5 ETT SECURED AT 25CM AT THE LIP. TOLERATING NOTED VENT SETTINGS. SX'D FOR MOD AMT OF THK WHITE/YELLOW SECRETIONS. GROUNDS PERSON DONE AND ETT SECURE WITH ANCHOR FAST. VENT ALARMS CHECKED AND AUDIBLE. AMBU BAG AT BEDSIDE. VENT PLUGGED INTO RED OUTLET. WILL CONTINUE TO MONITOR.
[2017-09-25] VITALS (33 sets, daily range): BP systolic 75–121; BP diastolic 45–65
[2017-09-25] MEDS: CEFAZOLIN 1 GM in IV NS 0.9% 50 ML IV SCH ×2 (00:06→11:53)
[2017-09-25] MEDS: PROPOFOL 10MG/ML 50ML 50 ML IV PRN ×5 (00:32→20:53)
--- NOTE | 2017-09-25 01:20 | NUR ---
RN NOTES CHANGED PROPOFOL TO 10 MCG/KG/MIN PT IS SEDATED , CALM AND COOPERATIVE BP IS GETTING LOW.
[2017-09-25] MEDS: IV 1/2NS 1000 ML 1,000 ML IV PRN (03:57)
[2017-09-25] MEDS: CITRIC ACID/SODIUM CITRATE (BICITRA)15 ML UDC NG SCH ×2 (03:57→14:44)
[2017-09-25 05:18] LABS: BASOPHILS % (AUTO) 0.1 % (0.0-2.0); EOSINOPHILS # (AUTO) 0.1 /CMM (0.0-0.7); EOSINOPHILS % (AUTO) 0.4 % (0.0-6.0); HEMATOCRIT 29 % (39-51); HEMOGLOBIN 9.8 g/dL (13.5-17.5); LYMPHOCYTES # (AUTO) 0.8 /CMM (0.8-4.8); LYMPHOCYTES % (AUTO) 4.1 % (20.0-44.0); MEAN CORPUSCULAR HEMOGLOBIN 32 PG (26.0-33.0); MEAN CORPUSCULAR HGB CONC 34 g/dl (31.0-36.0); MEAN CORPUSCULAR VOLUME 94 fL (80-96); MONOCYTES # (AUTO) 0.2 /CMM (0.1-1.30); MONOCYTES % (AUTO) 1.1 % (2.0-12.0); NEUTROPHILS # (AUTO) 17.2 /CMM (1.8-8.9); NEUTROPHILS % (AUTO) 94.3 % (43.0-81.0); PLATELET COUNT (AUTO) 147 /CMM (150-450); RDW COEFFICIENT OF VARIATION 15.4 (11.5-15.0); RED BLOOD CELL COUNT(AUTO) 3.05 MIL/uL (4.5-6.0); WHITE BLOOD COUNT (AUTO) 18.3 K/uL (4.3-11.0)
[2017-09-25 05:48] LABS: CALCIUM, SERUM 7.2 mg/dL (8.5-10.1); CREATININE 4.5 mg/dL (0.6-1.3); POTASSIUM 5.9 mmol/L (3.5-5.1)
[2017-09-25] MEDS: BLOOD SUGAR DIAGNOSTIC 1 EACH STRIP IN SCH ×3 (05:51→18:18)
[2017-09-25] MEDS: INSULIN REGULAR, HUMAN 100 UNIT/ML 3 ML VIAL SQ PRN ×3 (05:52→18:19)
[2017-09-25 06:07] LABS: BAND % (MANUAL) 6 % (0.0-5.0); LYMPHOCYTES % (MANUAL) 1 % (16-48); MONOCYTES % (MANUAL) 1 % (0-11.0); NEUTROPHILS % (MANUAL) 92 (42-76)
--- NOTE | 2017-09-25 06:59 | NUR ---
RN NOTES PT REMAINED SEDATED NO SIGNIFICANT CHANGES SHOWS AFEBRILE AT THIS TIME. NO ACUTE RESP DISTRESS. CONTINUE ON ETT WITH VENT TOLERATED WELL. PT IS SEDATED WITH DIPRIVAN @ 10 MCG/KG/MIN WILL TITRATE ACCORDINGLY. PT REMAINED CALM AND COOPERATIVE. F/C INTACT AND PATENT WELL IV LINE ON CORA PICC LINE. RECEIVED A CRITICAL RESULT FROM MORIAH BUN 187 AND GLUCOSE OF 350 PER ACCUCHECK PT MB=[phone] UNITS OF INSULIN GIVEN ORDERED. KEPT PT CLEAN AND COMFORTABLE IN BED. ENDORSED CONTINUITY OF CARE TO AM NURSE.
--- NOTE | 2017-09-25 07:53 | NUR ---
PT REC'D ORALLY INTUBATED VIA 7.5 AT 25CM AT THE LIP. VENT SETTINGS CHARTED. VENT PLUGGED INTO RED OUTLET. AMBU BAG AT HOB. SX'D SCANT AMT OF SEMI-THICK BLOODTINGED SECRETIONS. Addendum: 09/25/17 at 0800 by YAMILET EVANS RT Amended: Links added.
[2017-09-25] MEDS: DOCUSATE SODIUM LIQ 100 MG/10 ML UDC NG SCH (08:26)
[2017-09-25] MEDS: PANTOPRAZOLE 40 MG TABLET.DR PO SCH (08:26)
[2017-09-25 08:49] LABS: ABG BASE EXCESS -12.7 mmol/L; ABG OXYGEN SATURATION 94.7 % (92.0-98.5); ABG PH 7.251 (7.350-7.450); ABG PO2 83.4 mmHg (75.0-100.0); AaDO2 310.3 mmHg; COHb 0.3 % (0.5-1.5); MetHb 0.8 % (0.0-1.5); O2Hb 93.7 % (94.0-97.0); PEEP,BG 5 cm H2O; SITE, ABG Right Brachial; VT, ABG 550 mL
[2017-09-25] MEDS ORDERED: SODIUM POLYSTYRENE SULFONATE 15 G/60 ML BOTTLE NG ONE (11:00)
[2017-09-25] MEDS: Sodium Bicarbonate 150 MEQ in IV D5W 1,000 ML IV PRN (14:44)
[2017-09-25] MEDS: ACETAMINOPHEN 650 MG/20.3 ML UDC NG PRN ×2 (14:47→22:15)
--- NOTE | 2017-09-25 15:13 | NUR ---
LUIS received a consult regarding patient's family requesting a letter to get State ID. LUIS met with ICU admission discharge rn Ben informing him that SW can only write a verification of admission that pt. is in Intensive Care Unit. Patient's MD would be the one that would need to write a letter stating the details of pt's medical condition.
[2017-09-25] MEDS ORDERED: MICAFUNGIN SODIUM 100 MG in IV NS 0.9% 100 ML IV SCH (18:00)
[2017-09-25] MEDS: CLOTRIMAZOLE 1% 15 GM TUBE TP SCH (18:18)
[2017-09-25] MEDS: MICAFUNGIN SODIUM 100 MG in IV NS 0.9% 100 ML IV SCH (19:24)
--- NOTE | 2017-09-25 19:25 | NUR ---
BIG 6 DEALER PT NOTED WITH INCREASED HEART RATE AND RESPIRATIONS; PLACED ON AC MODE BY RT. CONTINUE TO MONITOR. Addendum: 09/26/17 at 0722 by BEVERLEY MARTINEZ RN WRONG PT
--- NOTE | 2017-09-25 20:17 | NUR ---
VENDING ROUTE DRIVER. INITIAL ASSESSMENT. RECEIVED THE PT REST ON THE BED. ORALLY INTUBATED. SEDATED WITH DIPRIVAN. ETT 7.5,LIP 25CM,AC 16,TV 550,FIO2 50%, PEEP 5. SAT 98%. SOCK BOARDER SHOWING S TACH. RATE IS 110. TEMPERATURE 101.5. COOLING BLANKET ON. IV RT UPPER ARM PICC LINE RT FEMORAL HD CATH. FC PATENT. SUSAN SOFT WRIST RESTRAINT CHECKED AND RELEASED. NO INJURY OR REDNESS NOTED. DIPRIVAN 15MCG/KG/MIN,IVF D5WIN BICARB 3AMP 75 ML/H. HOB ELEVATED. RT NARE NGT INTACT NOVA SOURCE 40ML/H. TURN AND REPOSITION Q2H. WILL CONTINUE TO MONITOR VITALS.
--- NOTE | 2017-09-25 21:20 | NUR ---
PT RECEIVED ORALLY INTUBATED WITH 7.5 ETT SECURED AT 25CM AT THE LIP. TOLERATING NOTED VENT SETTINGS. SX'D FOR MOD AMT OF THK CRAWFORD SECRETIONS. LEAD TANK MECHANIC DONE AND ETT SECURE WITH ANCHOR FAST. VENT ALARMS CHECKED AND AUDIBLE. AMBU BAG AT BEDSIDE. VENT PLUGGED INTO RED OUTLET. WILL CONTINUE TO MONITOR
--- NOTE | 2017-09-25 21:27 | NUR ---
POST TENSIONING IRONWORKER HELPER. HD DONE. 800ML FLUID OUT.DURING HD 4 BOTTLES ALBUMIN GIVEN.
--- NOTE | 2017-09-25 21:50 | NUR ---
CHILD CARE ASSISTANTRETREAD MOLD OPERATOR AT BEDSIDE; REQUESTING INFO ONLY BE GIVEN TO SONS RODNEY [phone] SETH [phone]
[2017-09-25] MEDS: LINEZOLID RTU BAG 600 MG in PREMIX 1 EA IV SCH (21:55)
[2017-09-25] MEDS: MEROPENEM 500 MG in IV NS 0.9% 50 ML IV SCH (21:55)
--- NOTE | 2017-09-25 22:15 | NUR ---
BRANCH MANAGER RCD PT SEDATED ON DIPRIVAN AT 20 MCG/KG/MIN; D5W WITH 3 AMPS BICARB @ 75 ML/HR VAI CORA PICC LINE. NSR ON MONITOR. BLSWR IN PLACE FOR PT SAFETY PT IS KNOWN TO REACH FOR ET TUBE DURING RELEASE OF RESTRAINTS; WILL CONTINUE TO MONITOR AND REMOVE IF POSSIBLE. PT WITH TEMP 101.6; ADMINISTERED TYLENOL AND RENDERED COOLING MEASURES. CONTINUE TO MONITOR.
[2017-09-25] MEDS: RENAL NOVASOURCE 1,000 ML BOTTLE GT PRN (22:50)
--- NOTE | 2017-09-25 23:28 | NUR ---
SWEETBREAD TRIMMER PT PLACED BACK ON SIMV MODE; CONTINUE TO MONITOR. Addendum: 09/26/17 at 0723 by BEVERLEY MARTINEZ RN WRONG PT
[2017-09-26] VITALS (63 sets, daily range): BP systolic 73–123; BP diastolic 36–64
--- NOTE | 2017-09-26 00:41 | NUR ---
INSTRUMENTATION ENGINEERING TECHNICIAN BLOOD SUGAR 285; 6 UNITS REGULAR INSULIN SUBQ ADMINISTERED.
[2017-09-26] MEDS: BLOOD SUGAR DIAGNOSTIC 1 EACH STRIP IN SCH ×5 (00:43→23:04)
[2017-09-26] MEDS: INSULIN REGULAR, HUMAN 100 UNIT/ML 3 ML VIAL SQ PRN ×5 (01:24→23:06)
[2017-09-26] MEDS: CITRIC ACID/SODIUM CITRATE (BICITRA)15 ML UDC NG SCH ×2 (02:30→15:57)
[2017-09-26] MEDS: PROPOFOL 10MG/ML 50ML 50 ML IV PRN ×5 (02:31→20:46)
--- NOTE | 2017-09-26 04:00 | NUR ---
ART LIBRARIAN PT TEMP 96.5; CONTINUE TO MONITOR.
[2017-09-26 04:55] LABS: HEMATOCRIT 25 % (39-51); HEMOGLOBIN 8.4 g/dL (13.5-17.5); MEAN CORPUSCULAR HEMOGLOBIN 32 PG (26.0-33.0); MEAN CORPUSCULAR HGB CONC 34 g/dl (31.0-36.0); MEAN CORPUSCULAR VOLUME 94 fL (80-96); PLATELET COUNT (AUTO) 69 /CMM (150-450); RDW COEFFICIENT OF VARIATION 15.4 (11.5-15.0); RED BLOOD CELL COUNT(AUTO) 2.62 MIL/uL (4.5-6.0); WHITE BLOOD COUNT (AUTO) 7.5 K/uL (4.3-11.0)
[2017-09-26 05:23] LABS: CREATININE 4.7 mg/dL (0.6-1.3); POTASSIUM 4.3 mmol/L (3.5-5.1)
[2017-09-26 06:02] LABS: BAND % (MANUAL) 6 % (0.0-5.0); LYMPHOCYTES % (MANUAL) 7 % (16-48); MONOCYTES % (MANUAL) 4 % (0-11.0); NEUTROPHILS % (MANUAL) 83 (42-76)
[2017-09-26] MEDS: MEROPENEM 500 MG in IV NS 0.9% 50 ML IV SCH ×2 (06:02→17:16)
[2017-09-26] MEDS: Sodium Bicarbonate 150 MEQ in IV D5W 1,000 ML IV PRN (06:11)
[2017-09-26 07:25] LABS: BILIRUBIN,DIRECT 1.3 mg/dL (0.0-0.2); BILIRUBIN,TOTAL 1.6 mg/dL (0.2-1.0)
[2017-09-26] MEDS: PANTOPRAZOLE 40 MG TABLET.DR PO SCH (07:47)
--- NOTE | 2017-09-26 07:50 | NUR ---
QUALITY IMPROVEMENT COORDINATOR (RN): pt.is sedated with 20 mcg/kg/m Diprivan well, reactive to pain/grimacing, on wrists restraints, FiO2 50%, O2 sat. WNL, SR, pressor off, SBP over 90, HD was done yesterday, BS 300-400/still on NPO ISS/will s/w
--- NOTE | 2017-09-26 08:05 | NUR ---
RETAIL ATTENDANT: C-diff sample order was d/c per report, pt.got Kayxalate before
--- NOTE | 2017-09-26 08:06 | NUR ---
WOUND CARE CONSULT/FOLLOWUP: PT SEEN FOR LEFT THIGH OPEN BLISTER SECONDARY TO GENERALIZED EDEMA AND SACRAL DEEP TISSUE INJURY WHICH IS IN EVOLUTION. PT NOTED TO HAVE VERY SWOLLEN SCROTUM. RECOMMENDATIONS MADE FOR SKIN PROTECTION AND WOUND CARE. DISCUSSED WITH NURSING STAFF. PT FOLLOWED BY DPM FOR TOE. DEFER TO DPM FOR LOWER EXTREMITIES. WILL SEE PRN. CURRENT KAYLI SCORE IS 11. PT NOTED TO HAVE MULTIPLE CO-MORBIDITIES INCLUDING RESPIRATORY FAILURE, SEPSIS WITH WORSENING METABOLIC ACIDOSIS, RENAL FAILURE ON HEMODIALYSIS. FURTHER SKIN BREAKDOWN MAY BE UNAVOIDABLE DUE TO MULTIPLE CO-MORBIDITIES. ALL SKIN PROTECTION MEASURES IN PLACE INCLUDING FIRST STEP MATTRESS. MD IN AGREEMENT WITH PLAN OF CARE. Addendum: 09/26/17 at 0811 by BRIANA CARTER WNDNU Amended: Links added.
--- NOTE | 2017-09-26 08:10 | NUR ---
SUPERVISOR GLUING: BMx1, AM/skin/wounds care is done, w/c nurse reevaluated pt/see new orders
[2017-09-26] MEDS ORDERED: HYDROGEL DRESSING 90 GM TUBE TP PRN (08:30)
--- NOTE | 2017-09-26 08:30 | NUR ---
SECURITY INSTALLATION SALES TECHNICIAN: ordered NM WBC scan, Varinder GARDUNO called, updated with pt.current condition, VS, vent.setting, ABG, sedation, said: scheduled scan on Friday
[2017-09-26] MEDS ORDERED: HYDROGEL DRESSING 90 GM TUBE TP SCH (09:00)
--- NOTE | 2017-09-26 09:00 | NUR ---
ENCODING CLERK: is in room, notified re all above, orders, VS, sedation level, I/O, T, ABG, IVF, said: continue IVF D5W with 3amp Bicarb for next 24hrs, HD today
[2017-09-26] MEDS: LINEZOLID RTU BAG 600 MG in PREMIX 1 EA IV SCH ×2 (09:09→20:49)
[2017-09-26] MEDS: CLOTRIMAZOLE 1% 15 GM TUBE TP SCH ×2 (09:09→17:07)
[2017-09-26 09:10] LABS: ABG BASE EXCESS -6.3 mmol/L; ABG OXYGEN SATURATION 94.6 % (92.0-98.5); ABG PCO2 36.9 mmHg (35.0-45.0); ABG PH 7.331 (7.350-7.450); ABG PO2 85.1 mmHg (75.0-100.0); AaDO2 229.9 mmHg; COHb 0.3 % (0.5-1.5); MetHb 0.4 % (0.0-1.5); O2Hb 93.9 % (94.0-97.0); PEEP,BG 5 cm H2O; SITE, ABG Right Femoral; VT, ABG 600 mL
[2017-09-26] MEDS: DOCUSATE SODIUM LIQ 100 MG/10 ML UDC NG SCH (09:26)
--- NOTE | 2017-09-26 10:00 | NUR ---
CUSTOMER SUPPORT REPRESENTATIVE: is in room, updated with pt.current status, VS, sedation level, ABG, HD, I/O, NGTF, IVF: D5W with bicarb, BS over 300, NPO ISS, high T episode, said ok for WBC NMS on Friday, ordered: change ISS for moderate
--- NOTE | 2017-09-26 10:15 | NUR ---
SUSTAINABLE AGRICULTURE SPECIALIST: stopped D5W with Bicarb IVF, ordered 1/2NS @50ml/h, HD tomorrow, HD nurse updated with labs, pt.VS, status
[2017-09-26] MEDS: IV 1/2NS 1000 ML 1,000 ML IV PRN (10:40)
--- NOTE | 2017-09-26 10:40 | NUR ---
PROTECTIVE SIGNAL INSTALLER HELPER: HD started, SBP is around 90, called pharmacy for Albumin
[2017-09-26] MEDS: ALBUMIN 25% 25 GM in PREMIX 1 EA IV PRN (10:46)
--- NOTE | 2017-09-26 11:15 | NUR ---
PLYWOOD STOCK GRADER: called to pharmacy to get Levophed bag, decreased Diprivan rate
--- NOTE | 2017-09-26 11:26 | NUR ---
RT RECEIVED PT ORALLY INTUBATED WITH 7.5 ETT AT 25 CM AT THE LIP. SSIS ARCHITECT DONE. BILAT BREATH SOUNDS ON AUSCULTATION. AMBU BAG AT BEDSIDE. VENT PLUGGED INTO RED OUTLET. VENT ALARMS ON AND FUNCTIONING PROPERLY. SX'D SMALL AMOUNTS OF BLOOD-TINGED / YELLOW SECRETIONS. NO SOB OR SIGNS OF DISTRESS NOTED AT THIS TIME. WILL CONTINUE TO MONITOR THE PATIENT. Addendum: 09/26/17 at 1132 by KYMBERLY KEEN RT Amended: Links added.
[2017-09-26] MEDS ORDERED: DEXTROSE 50%-WATER 50 ML DISP.SYRIN IV PRN (11:30)
[2017-09-26] MEDS: NOREPINEPHRINE 16 MG in IV D5W 500 ML IV PRN (11:41)
--- NOTE | 2017-09-26 13:05 | NUR ---
TEACHER INSTRUMENTAL: HD done/500ml out, SBP 121 now, continue titrate pressor down, is in room, updated with pt.current condition, ABG, HD, pressor, I/O. ID DIGITAL PRODUCER is also updated with all above, T 101.6 night episode, BMx1 today, WBC NMS schedule on Friday and agree. DPM reevaluated pt., said: continue same w/c. Pt family was notified before re pt.condition, VS, orders, POC
[2017-09-26] MEDS: NEOMY SULF/BACITRAC ZN/POLY 15 GM TUBE TP SCH (15:57)
--- NOTE | 2017-09-26 16:55 | NUR ---
COFFEE SHOP AIDE: SBP 100-110, stopped Levophed gtt, SR, O2 sat. WNL, NGTF residual 30ml, keep HOB over 40, T WNL, BMx1/no diarrhea, PM/skin/wounds care is done, sedated well/reactive for pain stimuli, will continue titrate
[2017-09-26] MEDS: LACTOBACILLUS RHAMNOSUS GG 1 EACH CAP.SPRINK GT SCH (16:59)
--- NOTE | 2017-09-26 18:15 | NUR ---
DEHAIRER: per nurse case manager and charge nurse for HD canter report order for Hepatitis A AB IgM was placed per , Hepatitis B,C serology is done before
--- NOTE | 2017-09-26 20:30 | NUR ---
HEALTH EVALUATOR DF RECEIVED PT TO ROOM #260 PT INTUBATED ON PROPOFOL INFUSION@10MCG/MIN SEDATED. PT RESPONSIVE WITHDRAWS TO TACTILE STIMULI, DOES NOT FOLLOW COMMANDS,SEVERE WEAKNESS NOTED TO BUE/BLE. PT IN SOFT BILATERAL WRIST RESTRAINTS FOR SAFETY.PT HAD HEMODIALYSIS DURING DAYSHIT.PT BP STABLE AT 112/53, SINUS TACHYCARDIA ON MONITOR AT 110BPM. TOLERATING TUBE FEEDING OF NOVASOURCE. PT DAUGHTER/SON AT BEDSIDE UPDATED REGARDING POC, FAMILY CONCERNED THAT PT DOES NOT HAVE INSURANCE TO COVER HIS CARE, FAMILY REQUESTING TO MEET WITH ASPARAGUS BUNCHER TO DISCUSS INSURANCE/FINANCE OPTIONS. FAMILY CONCERNED ON HOW THEY WILL FINANCIALLY COVER FOR HIS CARE.ASPARAGUS BUNCHER CONSULT REQ BY MD MURPHY.
[2017-09-26] MEDS: MICAFUNGIN SODIUM 100 MG in IV NS 0.9% 100 ML IV SCH (20:45)
[2017-09-27] VITALS (65 sets, daily range): BP systolic 83–127; BP diastolic 46–96
[2017-09-27] MEDS: CITRIC ACID/SODIUM CITRATE (BICITRA)15 ML UDC NG SCH (03:29)
[2017-09-27 05:23] LABS: BASOPHILS % (AUTO) 0.1 % (0.0-2.0); EOSINOPHILS # (AUTO) 0.1 /CMM (0.0-0.7); EOSINOPHILS % (AUTO) 1.1 % (0.0-6.0); HEMATOCRIT 25 % (39-51); HEMOGLOBIN 8.6 g/dL (13.5-17.5); LYMPHOCYTES # (AUTO) 0.4 /CMM (0.8-4.8); LYMPHOCYTES % (AUTO) 6.3 % (20.0-44.0); MEAN CORPUSCULAR HEMOGLOBIN 32 PG (26.0-33.0); MEAN CORPUSCULAR HGB CONC 35 g/dl (31.0-36.0); MEAN CORPUSCULAR VOLUME 93 fL (80-96); MONOCYTES % (AUTO) 0.8 % (2.0-12.0); NEUTROPHILS # (AUTO) 5.6 /CMM (1.8-8.9); NEUTROPHILS % (AUTO) 91.7 % (43.0-81.0); PLATELET COUNT (AUTO) 87 /CMM (150-450); RDW COEFFICIENT OF VARIATION 14.9 (11.5-15.0); RED BLOOD CELL COUNT(AUTO) 2.68 MIL/uL (4.5-6.0); WHITE BLOOD COUNT (AUTO) 6.1 K/uL (4.3-11.0)
[2017-09-27] MEDS: RENAL NOVASOURCE 1,000 ML BOTTLE GT PRN (05:30)
[2017-09-27] MEDS: PROPOFOL 10MG/ML 50ML 50 ML IV PRN ×3 (05:31→20:13)
[2017-09-27] MEDS: MEROPENEM 500 MG in IV NS 0.9% 50 ML IV SCH ×2 (05:31→17:35)
[2017-09-27 05:37] LABS: CALCIUM, SERUM 6.9 mg/dL (8.5-10.1); CREATININE 4.3 mg/dL (0.6-1.3); MAGNESIUM 2.4 mg/dL (1.8-2.4)
--- NOTE | 2017-09-27 06:13 | NUR ---
PATIENT RECEIVED ON [facility] VENT WITH SETTINGS ORDERED BY MD HANK WELL. VENT ALARMS CHECKED & AUDIBLE THROUGH OUT ICU UNIT. CUFF PRESSURE CHECKED COMMERCIAL LINES ASSISTANT. PT SUCTIONED FOR MOD AMOUNT OF SECRETIONS. B/S DIMINISHED. PATIENT APPEARS COMFORTABLE. AMBU BAG AT [facility]. MECHANICAL VENTILATOR PLUGGED INTO RED OUTLET. WILL CONTINUE TO MONITOR.
[2017-09-27 06:19] LABS: LYMPHOCYTES % (MANUAL) 7 % (16-48); MONOCYTES % (MANUAL) 1 % (0-11.0); NEUTROPHILS % (MANUAL) 92 (42-76)
[2017-09-27] MEDS: BLOOD SUGAR DIAGNOSTIC 1 EACH STRIP IN SCH ×3 (06:21→17:36)
[2017-09-27] MEDS: INSULIN REGULAR, HUMAN 100 UNIT/ML 3 ML VIAL SQ PRN ×3 (06:22→17:34)
[2017-09-27] MEDS: PANTOPRAZOLE 40 MG TABLET.DR PO SCH (06:37)
[2017-09-27] MEDS: ALBUMIN 25% 25 GM in PREMIX 1 EA IV PRN (07:25)
--- NOTE | 2017-09-27 07:45 | NUR ---
LOCAL COMPANY INTERMODAL TRUCK DRIVER: pt.is sedated with 10 mcg/kg/min Diprivan well, rest, reactive by pain stimuli, on wrists restraints, HD started, notified HD nurse re labs, order, called pharmacy for Albumin, SR, SBP over 90 now, O 2sat. over 96%, T 101.2/cooling measures initiated, NGTF residual 20ml, keep HOB over 40
--- NOTE | 2017-09-27 08:15 | NUR ---
TERMINATION CLERK: pt.is awake, eyes contact+, very weak, can follow very simple commands, no grimacing, on wrists restraints, on CPAP, O2 sat. 98-100%, RR 20-24, SR, SBP 88-98 last 2 hrs, no IVF, low urine output, will s/w MD, BS 58 (05.00), nobody reported, Dextrose 50%-50ml ordered/will notify MD, RT updated/will take ABG
--- NOTE | 2017-09-27 08:16 | NUR ---
PAPER MACHINE BACK TENDER: previous note is error
--- NOTE | 2017-09-27 08:20 | NUR ---
SIGHT EFFECTS SPECIALIST: pt is getting HD, SBP 80-90, restarted Levophed gtt, BCx4 result is still pending, lab sent request: repeat urine sample, but called back: no order is in comp., will s/w IDNP
--- NOTE | 2017-09-27 09:30 | NUR ---
GROUND WORKER: HD is done, 3000ml out, continue titrate pressor, T 98.6, HR 100-110
[2017-09-27] MEDS: LACTOBACILLUS RHAMNOSUS GG 1 EACH CAP.SPRINK GT SCH ×2 (09:51→17:36)
[2017-09-27] MEDS: LINEZOLID RTU BAG 600 MG in PREMIX 1 EA IV SCH ×2 (09:51→20:13)
[2017-09-27] MEDS: DOCUSATE SODIUM LIQ 100 MG/10 ML UDC NG SCH (09:52)
[2017-09-27] MEDS: CLOTRIMAZOLE 1% 15 GM TUBE TP SCH ×2 (09:58→17:37)
[2017-09-27] MEDS: NEOMY SULF/BACITRAC ZN/POLY 15 GM TUBE TP SCH (09:59)
--- NOTE | 2017-09-27 10:30 | NUR ---
CIVIL PROJECT ENGINEER: T down to 98.5, SR/ST max 110, Levophed 5 mcg/m now, SBP over 90, continue titrate, getting IVF 1/2NS @50ml/h, NGTF, little bloody ETT suctions, no diarrhea now, urine out 40ml/4hrs, sedation: 10 mcg/kg/min Diprivan now, will start sedation vacation today, when pressor will be off, and were in room, updated with all above
--- NOTE | 2017-09-27 12:00 | NUR ---
SILVER BRAZER: NGTF residual 100ml, hold GTF for 2hrs
[2017-09-27] MEDS: Z GUARD REMEDY 2 OZ OINT TP PRN (12:27)
--- NOTE | 2017-09-27 13:15 | NUR ---
COMMERCIAL SEWING INSTRUCTOR: is in room, updated with pt.current condition, sedation level, vacation reactions before, O2sat., FiO2 50%, T101.2 episode, pressor is stopped 5 min ago, VS, I/O, NGTF, HD done, history, orders, POC WBC NMScan on Friday, see new orders
--- NOTE | 2017-09-27 14:10 | NUR ---
MANAGER BACKGROUND: NGT residual 40ml, resumed NGTF
--- NOTE | 2017-09-27 16:17 | NUR ---
CONTINUOUS WELD PIPE MILL SUPERVISOR: stopped Diprivan gtt for sedation vacation, PM/skin/wound care is done
--- NOTE | 2017-09-27 17:15 | NUR ---
AUTOMOTIVE PARTS COUNTER ASSISTANT: pt.was without sedation since 16.00, able to open eyes, short eyes contact+, activity, but going restless, bitting ETT, grimacing, coughing, resumed sedation, now SR, RR 20-24, SBP over 90, O2sat. over 96%, skin care/PM/wounds care is done, suctioned well, no diarrhea, family updated
--- NOTE | 2017-09-27 17:50 | NUR ---
RT NOTE : PT. 56 Y OLD MALE REMAIN ORALLY INTUBATED WITH 7.5 ETT SECURED AT 25 CM MID LIP LINE (BITE BLOCK IN PLACE) ON GE V860 VENT. ALARMS VERIFIED AND AUDIBLE. SUCTIONED AND LAVAGED MODERATE/LARGE AMOUNT THICK CRAWFORD/DARK BROWN/BLOOD TINGED SECRETIONS. EQUAL CHEST RISE NOTED AND B/S BILATERAL SCATTERED RALES. NO CHANGES T/O SHIFT PT. STABLE. VENT PLUGGED INTO RED OUTLET. AMBU BAG AT THE BEDSIDE. Addendum: 09/27/17 at 1754 by CLAUDY SANDS RT Amended: Links added.
[2017-09-27] MEDS: MICAFUNGIN SODIUM 100 MG in IV NS 0.9% 100 ML IV SCH (20:12)
[2017-09-27] MEDS: ACETAMINOPHEN 650 MG/20.3 ML UDC NG PRN (20:13)
--- NOTE | 2017-09-27 20:22 | NUR ---
SENIOR EXECUTIVE ASSISTANT DF PT WITH TEMP OF 100.8 COOLING MEASURES APPLIED, TYLENOL 650MG LIQ ADMIN. I WILL MONITOR FOR EFFECT, GOAL OF 98.5. VSS, NAD NOTED.
--- NOTE | 2017-09-27 21:15 | NUR ---
pt received on vent via charted settings and route. ambu bag at bedside alarms set and audible. disconnect alarm checked. vent plugged into red outlet. tolerating vent settings at this time. will continue to monitor Addendum: 09/27/17 at 2116 by BARB POPE RT Amended: Links added.
[2017-09-28] VITALS (70 sets, daily range): BP systolic 78–147; BP diastolic 31–77
[2017-09-28] MEDS: INSULIN REGULAR, HUMAN 100 UNIT/ML 3 ML VIAL SQ PRN ×5 (00:23→23:25)
[2017-09-28] MEDS: BLOOD SUGAR DIAGNOSTIC 1 EACH STRIP IN SCH ×5 (00:25→23:24)
--- NOTE | 2017-09-28 00:27 | NUR ---
PET SITTING DF PT WITH ACCU CHECK OF 397 COVERED WITH 15 UNITS REGULAR INSULIN. WILL RECHECK WITHIN 6 HOURS/PRN. PT TOLERATING TUBE FEEDING OF NOVASOURCE AT 40ML/HR WITH RESIDUALS OF 10ML.
--- NOTE | 2017-09-28 04:22 | NUR ---
IP/MOSAIC TECHNICIAN DF PT WITH FEVER OF 101.5 DURING AM CARE ICE BATH PROVIDED. COOLING BLANKET PLACED UNDERNEATH PT. I WILL ADMIN TYLENOL 650MG LIQ VIA GT. PT VITALS STABLE.PHYSICAL ASSESSMENT COMPLETED NO CHANGES OBSERVED FROM PREVIOUS ASSESSMENT, NO ACUTE DISTRESS NOTED.
[2017-09-28 04:57] LABS: BASOPHILS % (AUTO) 0.1 % (0.0-2.0); EOSINOPHILS # (AUTO) 0.1 /CMM (0.0-0.7); EOSINOPHILS % (AUTO) 1.7 % (0.0-6.0); HEMATOCRIT 25 % (39-51); HEMOGLOBIN 8.6 g/dL (13.5-17.5); LYMPHOCYTES # (AUTO) 0.3 /CMM (0.8-4.8); MEAN CORPUSCULAR HEMOGLOBIN 32 PG (26.0-33.0); MEAN CORPUSCULAR HGB CONC 35 g/dl (31.0-36.0); MEAN CORPUSCULAR VOLUME 92 fL (80-96); MONOCYTES % (AUTO) 0.4 % (2.0-12.0); NEUTROPHILS # (AUTO) 4.3 /CMM (1.8-8.9); NEUTROPHILS % (AUTO) 90.8 % (43.0-81.0); PLATELET COUNT (AUTO) 75 /CMM (150-450); RDW COEFFICIENT OF VARIATION 15.3 (11.5-15.0); RED BLOOD CELL COUNT(AUTO) 2.67 MIL/uL (4.5-6.0); WHITE BLOOD COUNT (AUTO) 4.7 K/uL (4.3-11.0)
[2017-09-28 05:12] LABS: CALCIUM, SERUM 7.2 mg/dL (8.5-10.1); CREATININE 4.4 mg/dL (0.6-1.3); MAGNESIUM 2.2 mg/dL (1.8-2.4); POTASSIUM 3.7 mmol/L (3.5-5.1)
[2017-09-28 05:59] LABS: BAND % (MANUAL) 1 % (0.0-5.0); EOSINOPHILS % (MANUAL) 3 % (0-4); LYMPHOCYTES % (MANUAL) 5 % (16-48); MONOCYTES % (MANUAL) 1 % (0-11.0); NEUTROPHILS % (MANUAL) 90 (42-76)
[2017-09-28] MEDS: MEROPENEM 500 MG in IV NS 0.9% 50 ML IV SCH ×2 (06:20→17:01)
[2017-09-28] MEDS: PROPOFOL 10MG/ML 50ML 50 ML IV PRN (06:20)
[2017-09-28] MEDS: IV 1/2NS 1000 ML 1,000 ML IV PRN ×2 (06:21→20:05)
[2017-09-28] MEDS: ACETAMINOPHEN 650 MG/20.3 ML UDC NG PRN (06:22)
--- NOTE | 2017-09-28 06:59 | NUR ---
MACHINE MAINTENANCE TECHNICIAN DF PT ACCU CHECK OF 328 PT ADMIN 12 UNITS REGULAR INSULIN. TOLERATING TUBE FEEDING OF NOVASOURCE AT 40 ML/HR.
[2017-09-28] MEDS: LINEZOLID RTU BAG 600 MG in PREMIX 1 EA IV SCH (08:36)
[2017-09-28] MEDS: NEOMY SULF/BACITRAC ZN/POLY 15 GM TUBE TP SCH (09:07)
[2017-09-28] MEDS: CLOTRIMAZOLE 1% 15 GM TUBE TP SCH ×2 (09:07→16:25)
[2017-09-28] MEDS: PANTOPRAZOLE 40 MG TABLET.DR PO SCH (09:10)
[2017-09-28] MEDS: LACTOBACILLUS RHAMNOSUS GG 1 EACH CAP.SPRINK GT SCH ×2 (09:10→16:25)
[2017-09-28] MEDS: DOCUSATE SODIUM LIQ 100 MG/10 ML UDC NG SCH (09:11)
[2017-09-28 09:26] LABS: ABG BASE EXCESS -2.1 mmol/L; ABG PCO2 34.2 mmHg (35.0-45.0); ABG PH 7.424 (7.350-7.450); COHb 0.3 % (0.5-1.5); MetHb 0.4 % (0.0-1.5); O2Hb 96.3 % (94.0-97.0); PEEP,BG 5 cm H2O; SITE, ABG Right Radial; VT, ABG 600 mL
--- NOTE | 2017-09-28 09:50 | NUR ---
DR. MURPHY ON THE UNIT TO EVAL PATIENT, REPORTED TO HIM HIGH BLOOD GLUCOSE LEVELS, HE ORDERS TO CHANGE FROM MODERATE TO AGGRESSIVE SLIDING SCALE.
--- NOTE | 2017-09-28 10:03 | NUR ---
SEDATION VACATION DIPRIVAN TITRATED DOWN PER PROTOCOL STARTED AT 0845, WHILE COMPLETELY OFF, PT OPENS EYES AND TRACKS, BUT DOES NOT FOLLOW COMMANDS TO SQUEEZE, APPEARS WEAK, AT THIS TIME, I WILL KEEP DIPRIVAN OFF RESPIRATORY RATE IS STABLE, PT IS RESTING COMFORTABLE NO SIGNS OF DISTRESS NOTED. ORAL CARE RENDERED, PT RESPONDS WITH FACIAL GRIMACING.
[2017-09-28] MEDS ORDERED: DEXTROSE 50%-WATER 50 ML DISP.SYRIN IV PRN (10:30)
--- NOTE | 2017-09-28 10:51 | NUR ---
DR. JENSEN ON THE UNIT EVALS THE PT. NO WEANING TODAY. SEE'S PT WHILE OFF SEDATION SINCE 0900. HE OPENS EYES AND TRACKS BUT DOES NOT FOLLOW COMMANDS TO SQUEEZE HANDS RIGHT AND LEFT. RT ALSO AT BEDSIDE.
[2017-09-28] MEDS: ALBUMIN 25% 25 GM in PREMIX 1 EA IV PRN (12:22)
[2017-09-28] MEDS: NOREPINEPHRINE 16 MG in IV D5W 500 ML IV PRN (13:15)
--- NOTE | 2017-09-28 14:44 | NUR ---
HD COMPLETE 3000 ML REMOVED.
--- NOTE | 2017-09-28 19:30 | NUR ---
RN INITIAL NOTES RECEIVED PATIENT IN BED, ASLEEP WITH EYE CLOSED. PATIENT ALERT X1 TO NOXIOUS STIMULI, UNABLE TO FOLLOW VERBAL COMMANDS (BLINK OR SQUEEZE HANDS). PATIENT ORALLY INTUBATED 7.5, 24 CM @ LIP, ON MECHANICAL VENTILATOR AT PRESCRIBED SETTINGS, TOLERATING WELL, NO S/S OF RESPIRATORY DISTRESS AT THIS TIME. PATIENT CURRENTLY OFF SEDATION, TOLERATING WELL, APPEARS COMFORTABLE, BREATHING EVEN AND NONLABORED. ON TELEMETRY MONITORING, REVEALING SINUS RHYTHM. NGT PATENT AND INTACT, FLUSHED WITH 30 ML WATER, AUSCULTATED FOR VERIFICATION OF PLACEMENT, ONGOING TUBE FEEDINGS. COOPER CATHETER PATENT AND INTACT, DRAINING DARK YELLOW URINE TO GRAVITY, MINIMAL URINE OUTPUT NOTED. BILATERAL SOFT WRIST RESTRAINTS REMOVED, SITE ASSESSED FOR CIRCULATION, REAPPLIED FOR SAFETY. CALL LIGHT WITHIN EASY REACH, BED IN LOWEST AND LOCKED POSITION. WILL CONTINUE TO CLOSELY MONITOR
[2017-09-28] MEDS: MICAFUNGIN SODIUM 100 MG in IV NS 0.9% 100 ML IV SCH (19:43)
--- NOTE | 2017-09-28 21:00 | NUR ---
RN NOTES PATIENT RECEIVED BEDSIDE VISIT FROM SON, RODNEY. PLAN OF CARE DISCUSSED WITH RODNEY, WITH VERBALIZATION OF UNDERSTANDING. WILL CONTINUE TO CLOSELY MONITOR
[2017-09-29] VITALS (58 sets, daily range): BP systolic 96–145; BP diastolic 53–105
--- NOTE | 2017-09-29 04:00 | NUR ---
RN NOTES PATIENT BATHED, COMPLETE BED BATH, ALL WOUND/SKIN ISSUES PHOTOGRAPHED AND DOCUMENTED PER PROTOCOL. WOUND CARE RENDERED. WILL CONTINUE TO CLOSELY MONITOR
[2017-09-29 05:30] LABS: EOSINOPHILS # (AUTO) 0.1 /CMM (0.0-0.7); EOSINOPHILS % (AUTO) 2.7 % (0.0-6.0); HEMATOCRIT 23 % (39-51); HEMOGLOBIN 7.9 g/dL (13.5-17.5); LYMPHOCYTES # (AUTO) 0.5 /CMM (0.8-4.8); LYMPHOCYTES % (AUTO) 8.8 % (20.0-44.0); MEAN CORPUSCULAR HEMOGLOBIN 32 PG (26.0-33.0); MEAN CORPUSCULAR HGB CONC 35 g/dl (31.0-36.0); MEAN CORPUSCULAR VOLUME 92 fL (80-96); MONOCYTES # (AUTO) 0.3 /CMM (0.1-1.30); MONOCYTES % (AUTO) 6.2 % (2.0-12.0); NEUTROPHILS # (AUTO) 4.6 /CMM (1.8-8.9); NEUTROPHILS % (AUTO) 82.3 % (43.0-81.0); PLATELET COUNT (AUTO) 68 /CMM (150-450); RDW COEFFICIENT OF VARIATION 16.1 (11.5-15.0); RED BLOOD CELL COUNT(AUTO) 2.46 MIL/uL (4.5-6.0); WHITE BLOOD COUNT (AUTO) 5.6 K/uL (4.3-11.0)
[2017-09-29 05:32] LABS: CALCIUM, SERUM 7.3 mg/dL (8.5-10.1); MAGNESIUM 2.2 mg/dL (1.8-2.4); PHOSPHORUS 5.5 mg/dL (2.5-4.9); POTASSIUM 3.6 mmol/L (3.5-5.1)
[2017-09-29] MEDS: MEROPENEM 500 MG in IV NS 0.9% 50 ML IV SCH ×2 (05:34→17:00)
[2017-09-29] MEDS: BLOOD SUGAR DIAGNOSTIC 1 EACH STRIP IN SCH ×3 (05:35→17:00)
[2017-09-29] MEDS: INSULIN REGULAR, HUMAN 100 UNIT/ML 3 ML VIAL SQ PRN ×3 (05:42→16:55)
[2017-09-29 06:13] LABS: EOSINOPHILS % (MANUAL) 3 % (0-4); LYMPHOCYTES % (MANUAL) 7 % (16-48); MONOCYTES % (MANUAL) 7 % (0-11.0); NEUTROPHILS % (MANUAL) 83 (42-76)
--- NOTE | 2017-09-29 07:00 | NUR ---
RN CLOSING NOTES PATIENT APPEARS COMFORTABLE IN BED. WILL ENDORSE THE PATIENT TO THE AM SHIFT NURSE FOR SHERIF
--- NOTE | 2017-09-29 07:00 | NUR ---
ICU INITIAL NOTE RECEIVED REPORT FROM OXANA, RN, PT WAS RECEIVED, AWAKE, A/O TO SELF, UNABLE TO FOLLOW COMMANDS, UNABLE TO MOVE ALL EXTREMITIES, PT IS ABLE TO ANSWER SIMPLE QUESTIONS, NODS HEAD, PT IS INTUBATED 7.5/25 LIP AC 16 TV 550 FIO2 45% PEEP 5, SATING WELL. NO S/S OF RESP.DISTRESS OR SOB NOTED AT THIS TIME, PT IS ON BEDSIDE MONITOR SHOWING SR IN 80'S, PT HAS F/C DRAINING VERY MINIMAL LARON URINE TO GRAVITY, MD AWARE, PT IS ON HD, PT HAS BILATERAL WRIST RESTRAINTS, REMOVED, PASSIVE ROM PERFORMED, SKIN CHECK COMPLETED, PT HAS R NGT. RUNNING NOVASOURCE@ 40ML/HR, TOLERATING WELL, MINIMAL RESIDUALS NOTED, FLUSHING WELL, PT HAS CORA PICC LINE, RUNNING 1/2 NS@50ML/HR, C/D/I/PATENT, FLUSHING WELL, NO S/S OF INFECTION/INFILTRATION NOTED AT THIS TIME, PT HAS R FEMORAL TLC, HD CATH, DRESSING C/D/I, PT IS NOTED WITH MULTIPLE SKIN ISSUES, WOUND TREATMENT ACK AND WILL BE CARRIED OUT, ALL SAFETY MEASURES IN PLACE ALL TIMES, CALL LIGHT WITHIN EASY REACH, WILL MONITOR PT CLOSELY FOR CHANGES
--- NOTE | 2017-09-29 08:10 | NUR ---
ICU NOTE- AND DAUGHTER AT BEDSIDE, UPDATED ON PT CONDITION, ALL QUESTIONS AND CONCERNS ANSWERED
[2017-09-29] MEDS: LACTOBACILLUS RHAMNOSUS GG 1 EACH CAP.SPRINK GT SCH ×2 (08:54→16:52)
[2017-09-29] MEDS: DOCUSATE SODIUM LIQ 100 MG/10 ML UDC NG SCH (08:54)
[2017-09-29] MEDS: PANTOPRAZOLE 40 MG TABLET.DR PO SCH (08:54)
[2017-09-29] MEDS: NEOMY SULF/BACITRAC ZN/POLY 15 GM TUBE TP SCH (08:55)
[2017-09-29] MEDS: Z GUARD REMEDY 2 OZ OINT TP PRN (08:55)
[2017-09-29] MEDS: CLOTRIMAZOLE 1% 15 GM TUBE TP SCH ×2 (08:55→16:52)
[2017-09-29 09:11] LABS: ABG BASE EXCESS 2.4 mmol/L; ABG OXYGEN SATURATION 98.3 % (92.0-98.5); ABG PCO2 27.3 mmHg (35.0-45.0); ABG PH 7.566 (7.350-7.450); ABG PO2 143.7 mmHg (75.0-100.0); AaDO2 146.1 mmHg; COHb 0.3 % (0.5-1.5); MetHb 0.5 % (0.0-1.5); O2Hb 97.5 % (94.0-97.0); PEEP,BG 5 cm H2O; SITE, ABG Right Radial; VT, ABG 550 mL
--- NOTE | 2017-09-29 09:15 | NUR ---
ICU NOTE- DR. MURPHY MADE ROUNDS, AWARE OF ALL LABS AND TEST RESULTS, ALL NEW ORDERS PUT IN AND ACK
[2017-09-29] MEDS: RENAL NOVASOURCE 1,000 ML BOTTLE GT PRN (10:15)
--- NOTE | 2017-09-29 11:04 | NUR ---
ICU NOTE- DR. BRICENO MADE ROUNDS, AWARE OF ALL LABS AND RESULTS, ORDERED VENT CHANGES, ORDER ACK AND RT AWARE OF NEW CHANGES
[2017-09-29] MEDS: ACETAMINOPHEN 650 MG/20.3 ML UDC NG PRN (14:12)
[2017-09-29] MEDS: IV 1/2NS 1000 ML 1,000 ML IV PRN (14:12)
--- NOTE | 2017-09-29 14:24 | NUR ---
icu note- oral care given, pt has rectal temp of 100.1, acetaminophen given via ngt, cooling blanket in place, will monitor closely
--- NOTE | 2017-09-29 18:42 | NUR ---
RT END OF THE SHIFT REPORT: PT. 56 Y OLD MALE REMAIN ORALLY INTUBATED ETT 7.5 @ 25 CM LIPLINE (BITE BLOCK) ANCHORFAST MOVED TO RIGHT SIDE AND ETT REMAIN SECURED. ON VENT WITH NOTED SETTINGS, ALARMS ARE SET AND FUNCTIONAL. VENT CHANGES PER DR. BRICENO. POST ABG B/S RHONCHI AND EQUAL CHEST RISE NOTED. NO DISTRESS NOTED T/O SHIFT SUX'D FOR SMALL AMT. OF BLOODISH/WHITE SECRETIONS. VENT PLUGGED INTO RED OUT LET AMBU BAT AT THE BEDSIDE. PT. REMAIN STABLE. REPORT WILL BE PASS TO PM SHIFT. Addendum: 09/29/17 at 1845 by CLAUDY SANDS RT Amended: Links added.
--- NOTE | 2017-09-29 20:00 | NUR ---
IT ENGINEER NOTE RECEIVED PT IN BED WITH EYES OPEN. ABLE TO RESPONDS TO VERBAL STIMULATION, WITH EYES BLINK AND SMILE. ON ETT 7.7/25 AT LIP. ON VENT SETTINGS AC 16, TV 500 FIO2 30% PEEP 5, NO DISTRESS OR DISCOMFORT NOTED. NO S/S OF PAIN NOTED. ON TELE SR HR 64. F/C INTACT AND PATENT DRAINING TEA COLOR URINE. RT NARE NGT INTACT AND PATENT INFUSING NOVASOURCE AT 40 ML/HR, 0 ML RESIDUAL NOTED. CORA PICC INTACT AND PATENT INFUSING 1/2 NS AT 50 ML/HR, NO S/S OF INFILTRATION NOTED. WOUND DRESSING I/C/D. RT FEMORAL TLC HD INTACT. SITE IS CLEAN AND DRY. REPOSITION HIM FOR SKIN MANAGEMENT. SIDE RAILS UP X 3, CONTINUE TO MONITOR HIM. VSS.
--- NOTE | 2017-09-29 20:18 | NUR ---
PT RECEIVED INTUBATED ON VENT. NO RESP DISTRESS NOTED TOLERATING VENT SETTINGS. SX'D AND LAVAGED FOR SML AMT OF THICK CRAWFORD SECRETIONS. VENT ALARMS SET AND AUDIBLE. ETT SECURED, CUFF CENTRIFUGAL CASTING MACHINE OPERATOR. AMBU BAG AT [facility]. WILL CONTINUE TO MONITOR. Addendum: 09/29/17 at 2020 by PHILIPPE NELSON RT Amended: Links added.
[2017-09-30] VITALS (39 sets, daily range): BP systolic 93–171; BP diastolic 58–97
[2017-09-30] MEDS: BLOOD SUGAR DIAGNOSTIC 1 EACH STRIP IN SCH ×4 (00:02→17:27)
[2017-09-30] MEDS: INSULIN REGULAR, HUMAN 100 UNIT/ML 3 ML VIAL SQ PRN ×4 (00:04→17:29)
[2017-09-30] MEDS: MORPHINE SULFATE INJ 4 MG/ML DISP.SYRIN IV PRN ×3 (02:50→22:13)
--- NOTE | 2017-09-30 02:50 | NUR ---
CAUL FAT PULLER NOTE PT IN PAIN GRIMACE ON HIS FACE NOTED. MORPHINE 2MG IVP GIVEN BY NURSE SAMMIE. CONTINUE TO MONITOR THE PT.
[2017-09-30] MEDS ORDERED: LORAZEPAM INJ 2 MG/ML VIAL ONE (03:16)
--- NOTE | 2017-09-30 03:18 | NUR ---
REPRODUCTION ORDER PROCESSOR NOTE PT SHOW NO GRIMACE ON HIS FACE BUT BECOME RESTLESS MOVING HIS HEAD SIDE TO SIDE. WILL FOLLOW UP MD.
--- NOTE | 2017-09-30 03:20 | NUR ---
TIRE DUSTER NOTE PT IS STARTED TO BECOME RESTLESS AND MOVING HIS HEAD SIDE TO SIDE. ON TELE SINUS TACH 122, AND B/P WENT UP TO 150/85. DR HAILE CALLED AND RECEIVED NEW ORDER, ATIVAN 1MG IVP GIVEN FOR RESTLESS. CONTINUE TO MONITOR PT.
[2017-09-30] MEDS: LORAZEPAM INJ 2 MG/ML VIAL IV PRN (03:23)
--- NOTE | 2017-09-30 03:40 | NUR ---
QUARTER TRIMMER NOTE PT FALL ASLEEP, NO RESTLESSNESS NOTED. NO PAIN NOTED. B/P 114/70. ON TELE SINUS TACHYCARDIA HR 114. REPOSITION HIM Q2H, KEPT HIM DRY AND CLEAN .
--- NOTE | 2017-09-30 04:32 | NUR ---
FIGURE SKATER NOTE BILATERAL WRIST RESTRAINT ORDER RECEIVED FROM DR HAILE FOR PT NOT TO PULL THE TUBES OUT. APPLIED THE RESTRAINTS ORDERED. CONTINUE TO MONITOR HIM.
[2017-09-30 04:58] LABS: BASOPHILS % (AUTO) 0.1 % (0.0-2.0); EOSINOPHILS # (AUTO) 0.1 /CMM (0.0-0.7); HEMATOCRIT 24 % (39-51); HEMOGLOBIN 8.5 g/dL (13.5-17.5); LYMPHOCYTES # (AUTO) 0.3 /CMM (0.8-4.8); LYMPHOCYTES % (AUTO) 4.7 % (20.0-44.0); MEAN CORPUSCULAR HEMOGLOBIN 33 PG (26.0-33.0); MEAN CORPUSCULAR HGB CONC 35 g/dl (31.0-36.0); MEAN CORPUSCULAR VOLUME 92 fL (80-96); MONOCYTES # (AUTO) 0.4 /CMM (0.1-1.30); MONOCYTES % (AUTO) 6.3 % (2.0-12.0); NEUTROPHILS # (AUTO) 5.6 /CMM (1.8-8.9); NEUTROPHILS % (AUTO) 86.9 % (43.0-81.0); PLATELET COUNT (AUTO) 75 /CMM (150-450); RDW COEFFICIENT OF VARIATION 15.8 (11.5-15.0); RED BLOOD CELL COUNT(AUTO) 2.63 MIL/uL (4.5-6.0); WHITE BLOOD COUNT (AUTO) 6.4 K/uL (4.3-11.0)
[2017-09-30 05:18] LABS: BILIRUBIN,TOTAL 1.5 mg/dL (0.2-1.0); CALCIUM, SERUM 6.7 mg/dL (8.5-10.1); CREATININE 3.6 mg/dL (0.6-1.3); POTASSIUM 3.2 mmol/L (3.5-5.1); TOTAL PROTEIN, SERUM 5.7 g/dL (6.4-8.2)
[2017-09-30 05:34] LABS: ALBUMIN 1.4 g/dL (3.4-5.0)
[2017-09-30 05:36] LABS: EOSINOPHILS % (MANUAL) 2 % (0-4); LYMPHOCYTES % (MANUAL) 8 % (16-48); MONOCYTES % (MANUAL) 4 % (0-11.0); NEUTROPHILS % (MANUAL) 86 (42-76)
[2017-09-30] MEDS: MEROPENEM 500 MG in IV NS 0.9% 50 ML IV SCH ×2 (05:37→17:00)
--- NOTE | 2017-09-30 06:23 | NUR ---
VISCOSITY WORKER NOTE DR HAILE INFORMED REGARDING CRITICAL LAB VALUE OF ALBUMIN 1.4 AND BUN 131, NO NEW ORDER GIVEN.
--- NOTE | 2017-09-30 06:39 | NUR ---
PRECISION GRINDER EXTERNAL NOTE PT IN BED ASLEEP, NO DISTRESS OR DISCOMFORT NOTED. NO S/S OF PAIN NOTED. BILATERAL SOFT WRIST RESTRAINTS ON. ON TELE SINUS TACH 108. NO AGITATION NOTED. F/C INTACT AND PATENT DRAINING TEA COLOR URINE, ONLY 227 ML OUTPUT FOR THE SHIFT. IVF 1/2 NS INFUSING AT 50 ML/HR. SIDE RAILS UP X 3. WILL ENDORSE TO DAY SHIFT NURSE FOR CONTINUE TO CARE.
--- NOTE | 2017-09-30 07:05 | NUR ---
RN INITIAL NOTES RECEIVED PT AWAKE, A/OX1. INTUBATED, ON VENT. NO RESPIRATORY DISTRESS NOTED. NO SOB NOTED. NO SIGNS OF PAIN NOTED. HGT IN PLACE. TOLERATING GTF WELL. CORA PICC LINE IN PLACE. IVF INFUSING. RIGHT FEMORAL TLC HD CATH IN PLACE. FC IN PLACE. NO HEMATURIA NOTED. BILATERAL SOFT WRIST RESTRAINTS IN PLACE. NO CIRCULATORY IMPAIRMENT NOTED. BLE ELEVATED. PT COMFORTABLE. WILL MONITOR.
[2017-09-30 08:11] LABS: ABG OXYGEN SATURATION 95.6 % (92.0-98.5); ABG PCO2 39.5 mmHg (35.0-45.0); ABG PH 7.396 (7.350-7.450); ABG PO2 89.5 mmHg (75.0-100.0); COHb 0.3 % (0.5-1.5); MetHb 0.6 % (0.0-1.5); O2Hb 94.7 % (94.0-97.0); PEEP,BG 5 cm H2O; SITE, ABG Right Radial; VENT MODE, BG AC 16 500 +5 30%; VT, ABG 500 mL
[2017-09-30] MEDS: LACTOBACILLUS RHAMNOSUS GG 1 EACH CAP.SPRINK GT SCH ×2 (08:35→16:57)
[2017-09-30] MEDS: CLOTRIMAZOLE 1% 15 GM TUBE TP SCH ×2 (08:36→16:58)
[2017-09-30] MEDS: PANTOPRAZOLE 40 MG TABLET.DR PO SCH (08:36)
[2017-09-30] MEDS: NEOMY SULF/BACITRAC ZN/POLY 15 GM TUBE TP SCH (08:36)
[2017-09-30] MEDS: DOCUSATE SODIUM LIQ 100 MG/10 ML UDC NG SCH (08:36)
--- NOTE | 2017-09-30 08:40 | NUR ---
RN NOTES DIALYSIS STARTED. NO RESPIRATORY DISTRESS NOTED. NO SOB NOTED. NO SIGNS OF PAIN NOTED. VITAL SIGNS STABLE. HD RN AWARE OF LAB VALUES. WILL MONITOR.
--- NOTE | 2017-09-30 10:30 | NUR ---
RN NOTES SEEN AND EXAMINED BY DR. MUNOZ. AWARE OF CURRENT LAB VALUES: HGB 8.5, HCT 24, POTASSIUM 3.2, BUN 131, CREA 3.6, AMMONIA 35 ABD ALBUMIN 1.4 AND CXR RESULT. DIALYSIS ONGOING. NO RESPIRATORY DISTRESS NOTED. NO SOB NOTED. ORDERED LABS IN AM. WILL CONTINUE TO MONITOR.
--- NOTE | 2017-09-30 10:45 | NUR ---
RN NOTES HD DONE. REMOVED 1.5L. TOLERATED WELL. VITAL SIGNS STABLE. WILL MONITOR.
[2017-09-30] MEDS: IV 1/2NS 1000 ML 1,000 ML IV PRN (10:48)
[2017-09-30] MEDS: ACETAMINOPHEN 650 MG/20.3 ML UDC NG PRN (10:49)
[2017-09-30] MEDS: RENAL NOVASOURCE 1,000 ML BOTTLE GT PRN (11:21)
--- NOTE | 2017-09-30 19:00 | NUR ---
RN CLOSING NOTES NO SIGNIFICANT CHANGE NOTED. NO RESPIRATORY DISTRESS NOTED. NO SIGNS OF PAIN NOTED. KEPT COMFORTABLE. TX PROVIDED ORDERED. REPOSITIONED Q2. KEPT BLE ELEVATED. WILL ENDORSE FOR CONTINUITY OF CARE.
--- NOTE | 2017-09-30 20:00 | NUR ---
ICU/RN- RECEIVED PT. W/ EYES OPEN BUT NON INTERACTIVE, ON THE VENT PER ETT, SATS.-99%, EKG ST W/ HR-105/MIN, NOT IN ANY DISTRESS. ON TUBE FEEDS PER NGT, HANK. WELL W/ VERY MINIMAL RESIDUALS. NO S/S OF DISTRESS OR PAIN USING THE FLACC PAIN SCALE. AFEBRILE. PT. IS A FULL CODE.
--- NOTE | 2017-09-30 22:15 | NUR ---
ICU/RN-PT. AWAKE, NON INTERACTIVE, BP-170/93, GRIMACING, MORPHINE 2 MG SIVP GIVEN. WILL REASSESS FOR PRN EFFECTIVENESS.
[2017-10-01] VITALS (36 sets, daily range): BP systolic 107–163; BP diastolic 63–91
--- NOTE | 2017-10-01 | NUR ---
ICU/RN-FEBRILE. TEMPT-101.4/F, COOLING MEASURES DONE. MED. W/ TYLENOL 650MG /NGT, WILL REASSESS FOR PRN EFFECTIVENESS.
[2017-10-01] MEDS: INSULIN REGULAR, HUMAN 100 UNIT/ML 3 ML VIAL SQ PRN ×4 (00:13→23:35)
[2017-10-01] MEDS: ACETAMINOPHEN 650 MG/20.3 ML UDC NG PRN (00:14)
[2017-10-01] MEDS: BLOOD SUGAR DIAGNOSTIC 1 EACH STRIP IN SCH ×5 (00:15→23:35)
--- NOTE | 2017-10-01 02:36 | NUR ---
Received pt on vent support, pt stable on current vent settings, no SOB or respiratory distress noted. Mechanical Ventilator is plugged into red outlet, alarms are set & audible, BVM bag at head of bed. Will continue monitoring Addendum: 10/01/17 at 0237 by ISABELLA ELLIS RT Amended: Links added.
[2017-10-01] MEDS: LORAZEPAM INJ 2 MG/ML VIAL IV PRN ×2 (04:46→12:44)
[2017-10-01 04:56] LABS: EOSINOPHILS % (AUTO) 0.3 % (0.0-6.0); HEMATOCRIT 24 % (39-51); HEMOGLOBIN 8.4 g/dL (13.5-17.5); LYMPHOCYTES # (AUTO) 0.4 /CMM (0.8-4.8); LYMPHOCYTES % (AUTO) 3.5 % (20.0-44.0); MEAN CORPUSCULAR HEMOGLOBIN 32 PG (26.0-33.0); MEAN CORPUSCULAR HGB CONC 35 g/dl (31.0-36.0); MEAN CORPUSCULAR VOLUME 93 fL (80-96); MONOCYTES # (AUTO) 0.5 /CMM (0.1-1.30); MONOCYTES % (AUTO) 5.3 % (2.0-12.0); NEUTROPHILS # (AUTO) 9.1 /CMM (1.8-8.9); NEUTROPHILS % (AUTO) 90.9 % (43.0-81.0); PLATELET COUNT (AUTO) 71 /CMM (150-450); RDW COEFFICIENT OF VARIATION 17.2 (11.5-15.0); RED BLOOD CELL COUNT(AUTO) 2.59 MIL/uL (4.5-6.0)
[2017-10-01 05:23] LABS: CALCIUM, SERUM 7.7 mg/dL (8.5-10.1); CREATININE 3.4 mg/dL (0.6-1.3); MAGNESIUM 2.2 mg/dL (1.8-2.4); PHOSPHORUS 6.8 mg/dL (2.5-4.9); POTASSIUM 4.4 mmol/L (3.5-5.1)
[2017-10-01] MEDS: MEROPENEM 500 MG in IV NS 0.9% 50 ML IV SCH ×2 (05:34→17:04)
[2017-10-01 06:12] LABS: BAND % (MANUAL) 2 % (0.0-5.0); LYMPHOCYTES % (MANUAL) 4 % (16-48); MONOCYTES % (MANUAL) 5 % (0-11.0); NEUTROPHILS % (MANUAL) 89 (42-76)
--- NOTE | 2017-10-01 07:10 | NUR ---
RN INITIAL NOTES RECEIVED PT ASLEEP, TRIES TO OPEN EYES. UNABLE TO FOLLOW COMMANDS. PT INTUBATED, ON VENT. NO RESPIRATORY DISTRESS NOTED. NO SOB NOTED. NO SIGNS OF PAIN NOTED. NGT IN PLACE. TOLERATING GTF WELL. CORA PICC LINE IN PLACE. IVF INFUSING. RIGHT FEMORAL HD CATH IN PLACE. FC IN PLACE. NO HEMATURIA NOTED. BLE ELEVATED. PT COMFORTABLE. WILL MONITOR.
--- NOTE | 2017-10-01 07:26 | NUR ---
PT. RECEIVED ON VENT SUPPORT VIA ET TUBE WIT PARAMETERS BELLOW ORDER: AC 16 VT 500 FIO2 30% PEEP 5 B/S COURSE RHONCHI BILATERAL, SXN MOD. AMNT BLOOD TINGED SECRETIONS. VENT PLUGGED INTO RED OUTLET, WITH ALArms on and audible. alejandra @ [employer]. Addendum: 10/01/17 at 0931 by FARHAD HERNANDEZ RT Amended: Links added.
[2017-10-01] MEDS: IV 1/2NS 1000 ML 1,000 ML IV PRN (07:51)
[2017-10-01 07:56] LABS: ABG BASE EXCESS -0.7 mmol/L; ABG OXYGEN SATURATION 94.5 % (92.0-98.5); ABG PCO2 40.1 mmHg (35.0-45.0); ABG PH 7.396 (7.350-7.450); ABG PO2 82.1 mmHg (75.0-100.0); AaDO2 84.7 mmHg; COHb 0.3 % (0.5-1.5); MetHb 0.5 % (0.0-1.5); O2Hb 93.7 % (94.0-97.0); PEEP,BG 5 cm H2O; SITE, ABG Left Brachial; VT, ABG 500 mL
[2017-10-01] MEDS: DOCUSATE SODIUM LIQ 100 MG/10 ML UDC NG SCH (08:20)
[2017-10-01] MEDS: NEOMY SULF/BACITRAC ZN/POLY 15 GM TUBE TP SCH (08:21)
[2017-10-01] MEDS: PANTOPRAZOLE 40 MG TABLET.DR PO SCH (08:21)
[2017-10-01] MEDS: CLOTRIMAZOLE 1% 15 GM TUBE TP SCH ×2 (08:21→17:04)
[2017-10-01] MEDS: LACTOBACILLUS RHAMNOSUS GG 1 EACH CAP.SPRINK GT SCH ×2 (08:21→17:00)
--- NOTE | 2017-10-01 10:20 | NUR ---
RN NOTES SEEN AND EXAMINED BY DR. RICHTER. AWARE OF CURRENT LABS VALUES. PT CONTINUES TO HAVE LOW GRADE FEVER. COOLING MEASURES ON. ON IV ATB. NO ASE NOTED. WILL CONTINUE TO MONITOR.
--- NOTE | 2017-10-01 10:30 | NUR ---
RN NOTES CALLED DR. JAMES'S OFFICE, SPOKE WITH RON AND NOTIFIED REGARDING TRACHEOSTOMY PLACEMENT ORDER. CONSENT OBTAINED FROM . RON CONFIRMED SCHEDULE WITH DR. JAMES. PER MD, WILL DO TRACHEOSTOMY PLACEMENT AFTER [address] PT ON NPO. WILL MONITOR.
--- NOTE | 2017-10-01 10:45 | NUR ---
RN NOTES SEEN AND EXAMINED BY DR. JENNIFER LEVY. AWARE OF CURRENT LAB VALUES. LAST HD YESTERDAY, REMOVED 1.5L. FOR TRACH PLACEMENT TODAY WITH DR. JAMES. WILL CONTINUE TO MONITOR.
--- NOTE | 2017-10-01 11:00 | NUR ---
RN NOTES SEEN AND EXAMINED BY DR. MUNOZ. AWARE OF CURRENT LAB VALUES: WBC 10, HGB 8.4, HCT 24, PLATELET 71, BUN 110, CREA 3.4, PHOS 6.8. FOR TRACH PLACEMENT TODAY WITH DR. JAMES. ORDERED LABS IN AM. WILL CONTINUE TO MONITOR. Addendum: 10/01/17 at 1252 by SAAD SARMIENTO RN CLARIFIED WITH DR. MUNOZ THAT PT PLACED ON NPO FOR TRACH PLACEMENT TODAY. PT ON IVF, 1/2 NS AT 50ML/HR. PT DIABETIC. PER MD OK TO KEEP IVF ORDERED. WILL MONITOR.
[2017-10-01 14:35] LABS: INR 1.27 (0.87-1.13)
[2017-10-01] MEDS: MORPHINE SULFATE INJ 4 MG/ML DISP.SYRIN IV PRN (17:04)
[2017-10-01] MEDS: RENAL NOVASOURCE 1,000 ML BOTTLE GT PRN (17:53)
--- NOTE | 2017-10-01 18:42 | NUR ---
RN CLOSING NOTES NO SIGNIFICANT CHANGE NOTED. PT REMAINS INTUBATED. NO RESPIRATORY DISTRESS NOTED. FOR TRACH PLACEMENT BY DR. JAMES. NO SIGNS OF PAIN NOTED. KEPT COMFORTABLE. TX PROVIDED ORDERED. REPOSITIONED Q2. KEPT BLE ELEVATED. ALL NEEDS ANTICIPATED AND MET. WILL ENDORSE FOR CONTINUITY OF CARE.
--- NOTE | 2017-10-01 20:00 | NUR ---
ICU/RN- RECEIVED PT. W/ EYES OPEN, NON-INTERACTIVE, ON THE VENT PER ETT, ON AC MODE, SATS.-99%, EKG ST W/ HR-103/MIN. BP-126/78, ON TUBE FEEDS PER NGT, W/ VERY MINIMAL RESIDUALS. AFEBRILE, NO S/S OF PAIN OR DISTRESS USING THE FLACC PAIN SCALE.
--- NOTE | 2017-10-01 21:30 | NUR ---
RT PT RECEIVED ORALLY INTUBATED WITH 7.5 ETT SECURED AT 25CM AT THE LIP. TOLERATING NOTED VENT SETTINGS. SX'D FOR LRG AMT OF THK CRAWFORD SECRETIONS. FRUIT DRYER DONE AND ETT SECURE WITH ANCHOR FAST. VENT ALARMS CHECKED AND AUDIBLE. AMBU BAG AT BEDSIDE. VENT PLUGGED INTO RED OUTLET. WILL CONTINUE TO MONITOR
[2017-10-02] VITALS (64 sets, daily range): BP systolic 80–166; BP diastolic 48–91
[2017-10-02] MEDS: IV 1/2NS 1000 ML 1,000 ML IV PRN (02:48)
[2017-10-02] MEDS: ACETAMINOPHEN 650 MG/20.3 ML UDC NG PRN ×2 (03:58→13:28)
--- NOTE | 2017-10-02 04:04 | NUR ---
ICU/RN- FEVERISH, TEMPT.-100.5, CONTINUOUS COOLING MEASURES DONE, TYLENOL 650MG PER NGT GIVEN. WILL REASSESS FOR PRN EFFECTIVENESS.
[2017-10-02 05:06] LABS: EOSINOPHILS # (AUTO) 0.1 /CMM (0.0-0.7); EOSINOPHILS % (AUTO) 0.7 % (0.0-6.0); HEMATOCRIT 24 % (39-51); HEMOGLOBIN 8.4 g/dL (13.5-17.5); LYMPHOCYTES # (AUTO) 0.4 /CMM (0.8-4.8); LYMPHOCYTES % (AUTO) 2.8 % (20.0-44.0); MEAN CORPUSCULAR HEMOGLOBIN 32 PG (26.0-33.0); MEAN CORPUSCULAR HGB CONC 35 g/dl (31.0-36.0); MEAN CORPUSCULAR VOLUME 93 fL (80-96); MONOCYTES # (AUTO) 0.2 /CMM (0.1-1.30); MONOCYTES % (AUTO) 1.2 % (2.0-12.0); NEUTROPHILS # (AUTO) 13.9 /CMM (1.8-8.9); NEUTROPHILS % (AUTO) 95.3 % (43.0-81.0); PLATELET COUNT (AUTO) 81 /CMM (150-450); RDW COEFFICIENT OF VARIATION 16.7 (11.5-15.0); WHITE BLOOD COUNT (AUTO) 14.6 K/uL (4.3-11.0)
[2017-10-02] MEDS: MEROPENEM 500 MG in IV NS 0.9% 50 ML IV SCH ×2 (05:24→17:52)
[2017-10-02 05:33] LABS: CALCIUM, SERUM 7.5 mg/dL (8.5-10.1); CREATININE 3.5 mg/dL (0.6-1.3); MAGNESIUM 2.2 mg/dL (1.8-2.4); POTASSIUM 4.4 mmol/L (3.5-5.1)
[2017-10-02] MEDS: BLOOD SUGAR DIAGNOSTIC 1 EACH STRIP IN SCH ×4 (05:37→23:36)
[2017-10-02] MEDS: INSULIN REGULAR, HUMAN 100 UNIT/ML 3 ML VIAL SQ PRN ×4 (05:40→23:36)
[2017-10-02 05:41] LABS: PHOSPHORUS 8.1 mg/dL (2.5-4.9)
[2017-10-02 05:54] LABS: BAND % (MANUAL) 8 % (0.0-5.0); LYMPHOCYTES % (MANUAL) 3 % (16-48); MONOCYTES % (MANUAL) 1 % (0-11.0); NEUTROPHILS % (MANUAL) 88 (42-76)
--- NOTE | 2017-10-02 06:03 | NUR ---
ICU/RN- RIGHT EXTERNAL EAR WOUND, REMAINS OPEN BLACK IN COLOR W/ PART /BASE RED NO DRAINAGE NOTED, CLEANSED W/ NS. PAT DRY W/ 4X4, MEPILEX APPLIED TO SITE. WOUND CARE NURSE CONSULTED.
--- NOTE | 2017-10-02 06:30 | NUR ---
ICU/RN- CORPORATE BOND TRADER STUART HER, MADE AWARE OF PT. RIGHT EAR WOUND, WILL FOLLOW UP W/ MD. FOR OTHER TREATMENT OPTION.
--- NOTE | 2017-10-02 07:30 | NUR ---
COMMAND CENTER ANALYST: pt.is without sedation, rest, can open eyes by touch, no eyes contact, no any extremities activity, cough reflex+, O2 sat. over 96%, FiO2 30%, ST 100-110, SBP over 100, HD done on 09/30, NPO since , will call to OR for trach surgery confirmation today?, T 99.6 now, BS 200-300/on aggressive ISS, getting 1/2 NS@75ml/h, Na 138
[2017-10-02] MEDS: PANTOPRAZOLE 40 MG TABLET.DR PO SCH (07:42)
[2017-10-02] MEDS: DOCUSATE SODIUM LIQ 100 MG/10 ML UDC NG SCH (09:02)
[2017-10-02] MEDS: LACTOBACILLUS RHAMNOSUS GG 1 EACH CAP.SPRINK GT SCH ×2 (09:02→17:08)
[2017-10-02] MEDS: NEOMY SULF/BACITRAC ZN/POLY 15 GM TUBE TP SCH (09:04)
[2017-10-02] MEDS: CLOTRIMAZOLE 1% 15 GM TUBE TP SCH ×2 (09:04→17:09)
[2017-10-02] MEDS: Z GUARD REMEDY 2 OZ OINT TP PRN (09:05)
--- NOTE | 2017-10-02 09:20 | NUR ---
GIN FEEDER: is in room, updated with pt.current status, neuro status, VS, I/O, no pressor, high T spikes, O2sat., HD, NGTF, toe gangrene, POC: trach placement, spoke with pt.daughter in low.
--- NOTE | 2017-10-02 09:35 | NUR ---
PUBLIC INFORMATION RELATIONS MANAGER: OR called: trach surgery at 17.30, continue NPO. Pt.daughter in low got SW card/contact information per family request before
--- NOTE | 2017-10-02 11:10 | NUR ---
WOUND CARE CONSULT WOUND CARE RECEIVED CONSULT FOR RIGHT EAR ULCER. WOUND CARE WILL DEFER TREATMENT PLAN TO SURGICAL TEAM WHO ARE FOLLOWING AT THIS TIME. DISCUSSED WITH NURSING STAFF.
--- NOTE | 2017-10-02 13:15 | NUR ---
IRONWORKER APPRENTICE SHOP: pt.is grimacing now, able to bite ETT after suction, labored occas. with RR up to 30, ST 100-120, T 100.0 now, HD nurse is notified re pt.current condition, VS, labs
[2017-10-02] MEDS: MORPHINE SULFATE INJ 4 MG/ML DISP.SYRIN IV PRN (13:29)
--- NOTE | 2017-10-02 13:52 | NUR ---
MECHANICAL MAINTENANCE WORKER: is in room, updated with pt.current condition/neurostatus, VS, T, I/O, IVF, HD, plan for trach today, sedation off, pressor off, will call to to f/u
--- NOTE | 2017-10-02 14:15 | NUR ---
PHOTOGRAPHIC ARTIST: pt.is restless now, laboring, RR up to 25-30, O2 sat. 90-92%, needs Ativan
--- NOTE | 2017-10-02 14:20 | NUR ---
SECURITY SOLUTIONS ARCHITECT: wasted 1mg Ativan/dropped syringe on floor
[2017-10-02] MEDS: LORAZEPAM INJ 2 MG/ML VIAL IV PRN ×3 (14:28→14:39)
--- NOTE | 2017-10-02 15:00 | NUR ---
POULTRY OFFAL WORKER: 1mg Ativan IV was given, pt.is rest now, no respiratory distress, O2 sat. 92-93%, HR 100-110, T down to 99.5, getting HD
[2017-10-02] MEDS ORDERED: LIDOCAINE 1% INJ 50 ML MDV IJ ONE (16:36)
[2017-10-02] MEDS ORDERED: ANESTHESIA TRAY IN PYXIS 1 EA TRAY MC ONE (16:41)
--- NOTE | 2017-10-02 16:56 | NUR ---
Received pt on vent support, pt stable on current vent settings, no SOB or respiratory distress noted. Mechanical Ventilator is plugged into red outlet, alarms are set & audible, BVM bag at head of bed. Will continue monitoring Addendum: 10/02/17 at 1656 by LATONIA CROUCH RT Amended: Links added.
--- NOTE | 2017-10-02 18:00 | NUR ---
MODULAR HOME CREW MEMBER: is in unit/notified re Dr.Simona tamez - GI consult for GT placement, no new order for now. SBP 88-93, MAP 63-72, SR, pt.is rest, RR WNL, suctioned well, O2 sat. 94-98%, OR nurse updated with above.
[2017-10-02] MEDS ORDERED: ATRACURIUM 100MG/10 ML MDV IV ONE (18:16)
[2017-10-02] MEDS ORDERED: FENTANYL PF 100MCG/2ML AMPUL ONE (18:16)
--- NOTE | 2017-10-02 18:20 | NUR ---
BRIDGE OPENER: OR nurse updated with pt.condition, took pt.to OR
[2017-10-02] MEDS ORDERED: CELLULOSE,OXIDIZED 1 EA PACK MC ONE (18:41)
--- NOTE | 2017-10-02 18:50 | NUR ---
FNP: pt.is back in unit, TT Sona #8 placed in, per order: resume all previous orders, trach care
--- NOTE | 2017-10-02 20:00 | NUR ---
ICU/RN- RECEIVED PT. FROM DAYSHIFT RN, POST SEDATED S/P TRACH INSERTION TODAY, NO BLEEDING NOTED FROM THE TRACH SITE., ON THE VENT PER TRACH ON AC MODE, SATS.- 97%. EKG- SR BP-100/59, ON TUBE FEEDS HANK. W/ VERY MINIMAL RESIDUALS. AFEBRILE, NO S/S OF DISTRESS OR PAIN USING THE FLACC PAIN SCALE.
--- NOTE | 2017-10-02 20:26 | NUR ---
ICU/RN- ACNP ID Mynor PETE HERE TO SEE PT. WITH ORDER NOTED.
[2017-10-02] MEDS: CEFAZOLIN 1 GM in IV NS 0.9% 50 ML IV SCH (21:42)
[2017-10-02] MEDS ORDERED: LEVOFLOXACIN 500 MG /D5W 100ML 500 MG in PREMIX 1 EA IV ONE (22:00)
[2017-10-03] VITALS (38 sets, daily range): BP systolic 108–147; BP diastolic 62–83
[2017-10-03] MEDS: IV 1/2NS 1000 ML 1,000 ML IV PRN ×2 (01:31→23:51)
--- NOTE | 2017-10-03 02:00 | NUR ---
ICU/RN- POSSIBLE PEG PLACEMENT BY DR. JUDGE TODAY MORNING. NO CONSENT YET. TUBE FEEDS OFF AT 0200. WILL ENDORSE TO DAYSHIFT RN.
[2017-10-03 04:46] LABS: EOSINOPHILS # (AUTO) 0.2 /CMM (0.0-0.7); EOSINOPHILS % (AUTO) 1.7 % (0.0-6.0); HEMATOCRIT 21 % (39-51); HEMOGLOBIN 7.3 g/dL (13.5-17.5); LYMPHOCYTES # (AUTO) 0.6 /CMM (0.8-4.8); LYMPHOCYTES % (AUTO) 5.7 % (20.0-44.0); MEAN CORPUSCULAR HEMOGLOBIN 33 PG (26.0-33.0); MEAN CORPUSCULAR HGB CONC 35 g/dl (31.0-36.0); MEAN CORPUSCULAR VOLUME 94 fL (80-96); MONOCYTES # (AUTO) 0.6 /CMM (0.1-1.30); MONOCYTES % (AUTO) 5.7 % (2.0-12.0); NEUTROPHILS # (AUTO) 9.4 /CMM (1.8-8.9); NEUTROPHILS % (AUTO) 86.9 % (43.0-81.0); PLATELET COUNT (AUTO) 71 /CMM (150-450); RDW COEFFICIENT OF VARIATION 18.6 (11.5-15.0); RED BLOOD CELL COUNT(AUTO) 2.24 MIL/uL (4.5-6.0); WHITE BLOOD COUNT (AUTO) 10.8 K/uL (4.3-11.0)
[2017-10-03 05:02] LABS: CALCIUM, SERUM 7.3 mg/dL (8.5-10.1); CREATININE 2.7 mg/dL (0.6-1.3); PHOSPHORUS 7.1 mg/dL (2.5-4.9); POTASSIUM 4.2 mmol/L (3.5-5.1)
[2017-10-03 05:25] LABS: BAND % (MANUAL) 6 % (0.0-5.0); LYMPHOCYTES % (MANUAL) 5 % (16-48); MONOCYTES % (MANUAL) 3 % (0-11.0); NEUTROPHILS % (MANUAL) 86 (42-76)
[2017-10-03] MEDS: BLOOD SUGAR DIAGNOSTIC 1 EACH STRIP IN SCH ×4 (06:12→23:44)
[2017-10-03] MEDS: INSULIN REGULAR, HUMAN 100 UNIT/ML 3 ML VIAL SQ PRN ×3 (06:13→23:42)
--- NOTE | 2017-10-03 06:21 | NUR ---
ICU/RN- AROUSABLE, BUT NON INTERACTIVE, ON THE VENT PER TRACH, REMAINS NPO .
--- NOTE | 2017-10-03 07:40 | NUR ---
ONLINE TRADER: pt.is without sedation long time, rest now, no grimacing, able to open eyes by touch for seconds, no eyes contact, flat extremities, O2 sat over 96%, SR, SBP over 100 below 150, RR 20-22, RT updated, T WNL, NGTF is off since 0600, plan per report: EGDS with GT placement by at 2pm, but no order for consent in comp., will s/w
[2017-10-03] MEDS: PANTOPRAZOLE 40 MG TABLET.DR PO SCH (07:47)
[2017-10-03] MEDS: CEFAZOLIN 1 GM in IV NS 0.9% 50 ML IV SCH ×2 (08:48→20:58)
[2017-10-03] MEDS: CLOTRIMAZOLE 1% 15 GM TUBE TP SCH ×2 (08:49→17:03)
[2017-10-03] MEDS: NEOMY SULF/BACITRAC ZN/POLY 15 GM TUBE TP SCH (08:49)
[2017-10-03] MEDS: DOCUSATE SODIUM LIQ 100 MG/10 ML UDC NG SCH (09:00)
[2017-10-03] MEDS: LACTOBACILLUS RHAMNOSUS GG 1 EACH CAP.SPRINK GT SCH ×2 (09:00→17:01)
--- NOTE | 2017-10-03 09:20 | NUR ---
PRECISION LENS GENERATOR: DEVANTE Martin is in room, updated with wounds status, included R.ear wound/DTI, see new orders
--- NOTE | 2017-10-03 10:10 | NUR ---
BIOLOGICAL SCIENTIST: is in room, updated with pt.current condition, neurostatus, VS, trach care, I/O, IVF, HD, ordered: consent for EGS/PEG and consent order confirmation by for planning PEG today
--- NOTE | 2017-10-03 11:00 | NUR ---
GROUND DEFENCE OFFICER: consent for PEG is done, pt.is not on surgery schedule, paged
--- NOTE | 2017-10-03 11:30 | NUR ---
ELECTROCARDIOGRAPHIC TECHNICIAN: called back, canceled GT placement surgery today d/t OR overbusy regime
--- NOTE | 2017-10-03 13:00 | NUR ---
MALWARE ANALYST: is in room, updated with pt.condition, neuro status, O2 sat., suctions amount, VS, I/O, HD, POC
--- NOTE | 2017-10-03 14:12 | NUR ---
FURNACE ATTENDANT: pt.is more awake, rest now, can track with eyes contact+, no grimacing, no pain, no extremities activity, RR WNL, HR 100-105, SBP over 100 below 150, O2sat. over 95%, suctioned orally/via TT q1-2hrs, pt.son is in room, notified re POC, orders, VS
[2017-10-03] MEDS: Z GUARD REMEDY 2 OZ OINT TP PRN (17:03)
--- NOTE | 2017-10-03 18:11 | NUR ---
PT REC'D TRACHED LAMINE #8. NO SOB OR RESP DISTRESS NOTED. NO CHANGES MADE THROUGHOUT SHIFT. AMBU BAG BEDSIDE. ALARMS ARE SET AND AUDIBLE. VENT PLUGGED INTO RED OUTLET. WILL CONTINUE TO MONITOR. Addendum: 10/03/17 at 1817 by HARRY HOLLEY RT Amended: Links added.
--- NOTE | 2017-10-03 19:40 | NUR ---
ICU/RNi RECEIVED PT AWAKE ALERT,TRACKS BUT DOES NOT FOLLOW COMMANDS.ON VENT PER TRACH SAT 100% ON 30% FIO2.
[2017-10-04] VITALS (45 sets, daily range): BP systolic 91–159; BP diastolic 56–99
--- NOTE | 2017-10-04 00:01 | NUR ---
Received pt on vent support, pt stable on current settings, no SOB or respiratory distress noted, ventilator is plugged into red outlet, alarms audible and on. Ambu bag at bedside, will continue monitoring per MDS orders. Addendum: 10/04/17 at 0001 by LUCRETIA BETANCOURT RT Amended: Links added.
--- NOTE | 2017-10-04 01:00 | NUR ---
ICU/RN TUBE FEEDING DC'D PT WILL HAVE PEG PLACEMENT IN AM BY .
[2017-10-04 05:06] LABS: EOSINOPHILS # (AUTO) 0.2 /CMM (0.0-0.7); EOSINOPHILS % (AUTO) 1.2 % (0.0-6.0); HEMATOCRIT 21 % (39-51); HEMOGLOBIN 7.1 g/dL (13.5-17.5); LYMPHOCYTES # (AUTO) 0.8 /CMM (0.8-4.8); LYMPHOCYTES % (AUTO) 6.1 % (20.0-44.0); MEAN CORPUSCULAR HEMOGLOBIN 32 PG (26.0-33.0); MEAN CORPUSCULAR HGB CONC 35 g/dl (31.0-36.0); MEAN CORPUSCULAR VOLUME 93 fL (80-96); MONOCYTES # (AUTO) 0.8 /CMM (0.1-1.30); MONOCYTES % (AUTO) 5.7 % (2.0-12.0); NEUTROPHILS # (AUTO) 11.5 /CMM (1.8-8.9); PLATELET COUNT (AUTO) 95 /CMM (150-450); RDW COEFFICIENT OF VARIATION 18.6 (11.5-15.0); RED BLOOD CELL COUNT(AUTO) 2.21 MIL/uL (4.5-6.0); WHITE BLOOD COUNT (AUTO) 13.2 K/uL (4.3-11.0)
[2017-10-04 05:12] LABS: CREATININE 2.9 mg/dL (0.6-1.3); MAGNESIUM 2.1 mg/dL (1.8-2.4); PHOSPHORUS 6.9 mg/dL (2.5-4.9)
[2017-10-04] MEDS: BLOOD SUGAR DIAGNOSTIC 1 EACH STRIP IN SCH ×4 (05:34→23:07)
[2017-10-04 05:43] LABS: BAND % (MANUAL) 3 % (0.0-5.0); EOSINOPHILS % (MANUAL) 1 % (0-4); LYMPHOCYTES % (MANUAL) 6 % (16-48); MONOCYTES % (MANUAL) 4 % (0-11.0); MYELOCYTES % 1 % (0-0); NEUTROPHILS % (MANUAL) 85 (42-76)
--- NOTE | 2017-10-04 07:10 | NUR ---
RN INITIAL NOTE PATIENT RECEIVED IN BED RESTING. NO S/S OF PAIN OR DISCOMFORT. NODS HEAD IN RESPONSE TO QUESTIONS. SINUS TACH ON TELE MONITOR. PATIENT HAS TRACH, IS NON-VERBAL. TOLERATING VENT SETTINGS WELL. NG CLAMPED. NPO AWAITING GTUBE PLACEMENT THIS MORNING. SKIN IS WARM AND DRY TO TOUCH. IV SITE FLUSHED, PATENT. COOPER CATHETER DRAINING TO GRAVITY. SAFETY PRECAUTIONS IMPLEMENTED: BED IN LOCKED, LOW POSITION WITH TWO SIDE RAILS UP. WILL CONTINUE TO MONITOR CLOSELY.
[2017-10-04] MEDS: PANTOPRAZOLE 40 MG TABLET.DR PO SCH (07:30)
[2017-10-04] MEDS: LACTOBACILLUS RHAMNOSUS GG 1 EACH CAP.SPRINK GT SCH ×2 (09:00→17:54)
[2017-10-04] MEDS: DOCUSATE SODIUM LIQ 100 MG/10 ML UDC NG SCH (09:00)
--- NOTE | 2017-10-04 09:20 | NUR ---
RN NOTE PATIENT HAVE G-TUBE PLACED.
--- NOTE | 2017-10-04 09:40 | NUR ---
RN NOTE BLOOD PRESSURE LOW. RECOVERY NURSE IS HERE. IMPROVING. PER MD CAN DC NG TUBE, START USING G-TUBE IN TWO HOURS.
[2017-10-04] MEDS: CLOTRIMAZOLE 1% 15 GM TUBE TP SCH ×2 (10:15→17:55)
[2017-10-04] MEDS: CEFAZOLIN 1 GM in IV NS 0.9% 50 ML IV SCH ×2 (10:15→20:00)
[2017-10-04] MEDS: NEOMY SULF/BACITRAC ZN/POLY 15 GM TUBE TP SCH (10:16)
[2017-10-04] MEDS: RENAL NOVASOURCE 1,000 ML BOTTLE GT PRN (18:08)
--- NOTE | 2017-10-04 18:52 | NUR ---
PRINTING TECHNICIAN CLOSING NOTE CARRIED OUT ALL MD ORDERS. PATIENTS NEEDS ANTICIPATED. PATIENT KEPT CLEAN AND DRY. SAFETY PRECAUTIONS IN PLACE AT ALL TIMES. ISOLATION PRECAUTIONS OBSERVED, ALWAYS. WILL GIVE REPORT TO PM RN FOR SHERIF
--- NOTE | 2017-10-04 19:30 | NUR ---
CREDIT PRODUCTS OFFICER INITIAL NOTE RECEIVED REPORT FROM EMILIANO LANCASTER. PT HAD A PEG PLACED TODAY BY DR JUDGE. FEEDING WAS INITIATED AT 1600. PT IS IN BED. AWAKE. NODS TO QUESTIONS APPROPRIATELY. TRACH WITH VENT SETTINGS AC 16, TV 500, FIO2 30%, PEEP 5. LUNG SOUNDS RHONCHI. BOWEL SOUNDS PRESENT. GT FEEDING FIBERSOURCE AT 40ML/HR. COOPER INTACT AND DRAINING URINE. PULSES PRESENT. REPOSITIONED FOR COMFORT. BED IN LOW LOCKED POSITION. WILL CONTINUE TO MONITOR.
--- NOTE | 2017-10-04 20:35 | NUR ---
PT RECEIVED TRACHED ON VENT. PT IS AWAKE. NO RESP DISTRESS NOTED. TOLERATING VENT SETTINGS. SX'D FOR MOD AMT OF THICK CRAWFORD SECRETIONS. VENT ALARMS SET AND AUDIBLE. AMBU BAG AT HOB. TRACH CUFF ADDICTION TREATMENT COUNSELOR. VENT PLUGGED INTO RED OUTLET. WILL CONTINUE TO MONITOR. Addendum: 10/04/17 at 2035 by PHILIPPE NELSON RT Amended: Links added.
[2017-10-04] MEDS: LEVOFLOXACIN 250 MG /D5W 50 ML 250 MG in PREMIX 1 EA IV SCH (21:51)
[2017-10-04] MEDS: MORPHINE SULFATE INJ 4 MG/ML DISP.SYRIN IV PRN (23:08)
[2017-10-04] MEDS: INSULIN REGULAR, HUMAN 100 UNIT/ML 3 ML VIAL SQ PRN (23:32)
[2017-10-05] VITALS (56 sets, daily range): BP systolic 113–166; BP diastolic 68–94
[2017-10-05] MEDS: ACETAMINOPHEN 650 MG/20.3 ML UDC NG PRN (04:44)
[2017-10-05 05:02] LABS: BASOPHILS % (AUTO) 0.1 % (0.0-2.0); EOSINOPHILS # (AUTO) 0.1 /CMM (0.0-0.7); EOSINOPHILS % (AUTO) 1.2 % (0.0-6.0); LYMPHOCYTES # (AUTO) 0.6 /CMM (0.8-4.8); LYMPHOCYTES % (AUTO) 5.1 % (20.0-44.0); MEAN CORPUSCULAR HEMOGLOBIN 33 PG (26.0-33.0); MEAN CORPUSCULAR HGB CONC 35 g/dl (31.0-36.0); MEAN CORPUSCULAR VOLUME 94 fL (80-96); MONOCYTES # (AUTO) 0.7 /CMM (0.1-1.30); MONOCYTES % (AUTO) 5.4 % (2.0-12.0); NEUTROPHILS # (AUTO) 10.8 /CMM (1.8-8.9); NEUTROPHILS % (AUTO) 88.2 % (43.0-81.0); PLATELET COUNT (AUTO) 96 /CMM (150-450); RED BLOOD CELL COUNT(AUTO) 2.06 MIL/uL (4.5-6.0); WHITE BLOOD COUNT (AUTO) 12.3 K/uL (4.3-11.0)
[2017-10-05 05:06] LABS: HEMATOCRIT 19 % (39-51); HEMOGLOBIN 6.7 g/dL (13.5-17.5)
[2017-10-05 05:25] LABS: CALCIUM, SERUM 6.6 mg/dL (8.5-10.1); CREATININE 2.3 mg/dL (0.6-1.3); PHOSPHORUS 5.9 mg/dL (2.5-4.9)
[2017-10-05 05:29] LABS: EOSINOPHILS % (MANUAL) 2 % (0-4); LYMPHOCYTES % (MANUAL) 7 % (16-48); MONOCYTES % (MANUAL) 4 % (0-11.0); NEUTROPHILS % (MANUAL) 87 (42-76)
[2017-10-05] MEDS: BLOOD SUGAR DIAGNOSTIC 1 EACH STRIP IN SCH ×4 (06:05→23:36)
[2017-10-05] MEDS: INSULIN REGULAR, HUMAN 100 UNIT/ML 3 ML VIAL SQ PRN ×4 (06:07→23:38)
[2017-10-05] MEDS: MORPHINE SULFATE INJ 4 MG/ML DISP.SYRIN IV PRN ×2 (06:08→22:33)
--- NOTE | 2017-10-05 07:12 | NUR ---
WINDING RACK OPERATOR INITIAL NOTES: REC'D PT ON BED, NOT IN ANY DISTRESS, A/O X 2, RESPONDS BY NODDING. ON MV VIA TRACH, SATING AT 100%. ON TELEMONITOR, ST W/ HR 109 BPM. HAS PEG PATENT & INTACT, ON CONT TUBE FEEDING NOVASOURCE X 40 CC/HR INFUSING WELL. HAS CORA PICC LINE TLC, SL, FLUSHING WELL, PATENT & INTACT W/ NO S/SX OF INFECTION/INFILTRATION NOTED. HAS R FEMORAL HD CATH INTACT. PROVIDED COMFORT & SAFETY MEASURES. BED KEPT LOW & IN LOCKED POS. CALL LIGHT PLACED W/IN REACH. WILL CONTINUE TO MONITOR & ATTEND PT NEEDS.
[2017-10-05] MEDS: PANTOPRAZOLE 40 MG TABLET.DR PO SCH (08:29)
[2017-10-05] MEDS: LACTOBACILLUS RHAMNOSUS GG 1 EACH CAP.SPRINK GT SCH ×2 (08:29→16:45)
[2017-10-05] MEDS: CEFAZOLIN 1 GM in IV NS 0.9% 50 ML IV SCH ×2 (08:29→20:00)
[2017-10-05] MEDS: DOCUSATE SODIUM LIQ 100 MG/10 ML UDC NG SCH (08:29)
[2017-10-05] MEDS: Z GUARD REMEDY 2 OZ OINT TP PRN (08:30)
[2017-10-05] MEDS: NEOMY SULF/BACITRAC ZN/POLY 15 GM TUBE TP SCH (08:33)
[2017-10-05] MEDS: CLOTRIMAZOLE 1% 15 GM TUBE TP SCH ×2 (08:33→16:46)
--- NOTE | 2017-10-05 09:30 | NUR ---
RN NOTES: PT SEEN & EXAMINED BY DR. VIDAL W/ NO NEW ORDERS.
--- NOTE | 2017-10-05 10:30 | NUR ---
RN NOTES: PT SEEN & EXAMINED BY DR. MUNOZ. SAID FOR POSSIBLE DOWNGRADE TO ATILIO STATUS.
--- NOTE | 2017-10-05 11:00 | NUR ---
RN NOTES: 1 UNIT OF PRBC BT STARTED. WILL MONITOR CLOSELY FOR ANY TRANSFUSION REACTION.
--- NOTE | 2017-10-05 14:00 | NUR ---
RN NOTES: I UNIT OF PRBC TRANSFUSED W/O ANY TRANSFUSION REACTION NOTED.
[2017-10-05] MEDS: RENAL NOVASOURCE 1,000 ML BOTTLE GT PRN (16:45)
--- NOTE | 2017-10-05 17:44 | NUR ---
RT NOTE PT REMAINS MECHANICALLY VENTILATED VIA SHILEY 8 CUFFED TRACH TUBE. PT AWAKE AND ALERT. SETTINGS PRESCRIBED AC 16 500 30% +5. ALARMS SET PER PROTOCOL AND AUDIBLE. VENT PLUGGED IN TO RED OUTLET. AMBU BAG AT BED SIDE. NO DISTRESS NOTED.
--- NOTE | 2017-10-05 18:56 | NUR ---
ORDER PROCESSING CLERK CLOSING NOTES: NO ACUTE CHANGES NOTED W/IN SHIFT. PT MORE AWAKE. PT TOLERATED MV VIA TRACH, SATING AT 100%. SECRETIONS SUCTIONED. ON TELEMONITOR, STILL ST. PEG KEPT PATENT & INTACT, ON CONT TUBE FEEDING NOVASOURCE X 40 CC/HR TOLERATED WELL, NO HIGH RESIDUAL W/IN SHIFT. CORA PICC LINE TLC, SL, KEPT PATENT & INTACT W/ NO S/SX OF INFECTION/INFILTRATION NOTED. R FEMORAL HD CATH KEPT INTACT. FC DRAINING TO ADEQUATE URINE OUTPUT. WOUND CARE DONE. PT TURNED & REPOSITIONED. KEPT WELL RESTED. NEEDS ATTENDED. BED KEPT LOW & IN LOCKED POS. CALL LIGHT PLACED W/IN REACH. WILL ENDORSE TO PM RN FOR SHERIF.
--- NOTE | 2017-10-05 19:20 | NUR ---
EXPLOSIVE EXPERT INITIAL NOTE RECEIVED REPORT FROM EMILIANO LANCASTER. PT IN BED AWAKE AND ORIENTED X2. VENT TRACH SHILEY 8, VENT SETTINGS AC 16 TV 500 FIO2 30 PEEP 5. LUNG SOUNDS DIMINISHED. BOWEL SOUNDS PRESENT. GT PATENT AND INTACT WITH FEEDING, NO RESIDUALS. COOPER INTACT AND DRAINING URINE. PULSES PRESENT. IV PATENT AND INTACT. REPOSITIONED FOR COMFORT. BED IN LOW LOCKED POSITION. WILL CONTINUE TO MONITOR.
[2017-10-06] VITALS (32 sets, daily range): BP systolic 85–167; BP diastolic 68–98
--- NOTE | 2017-10-06 00:10 | NUR ---
DIESEL POWER SHOVEL OPERATOR REPORT GIVEN TP BEAU RN FOR SHERIF.
--- NOTE | 2017-10-06 00:30 | NUR ---
RESEARCH NEUROPSYCHOLOGIST INITIAL NOTES RECEIVED CONTINUITY OF CARE REPORT FROM LONA. PATIENT ALERT, VENT DEPENDENT, ABLE TO NOD YES OR NO. DENIES PAIN OR DISCOMFORT AT THIS TIME. RESPIRATIONS EVEN AND UNLABORED. WITH VENT SETTINGS AC 16, TV 500, FIO2 30%, PEP 5. WITH GT PATENT AND INTACT, GTF AT 40ML/HR. TOLERATING GTF, NO RESIDUAL NOTED. ON TELE MONITOR ST 117. WITH FC PATENT AND INTACT, DRAINING BY GRAVITY. CORA PICC LINE PATENT AND INTACT, TKO. RIGHT FEMORAL HD CATH IN PLACE. HOB ELEVATED. SIDE RAILS UP AND LOCKED. BED KEPT AT LOWEST POSITION. WILL CONTINUE TO MONITOR.
[2017-10-06] MEDS: MORPHINE SULFATE INJ 4 MG/ML DISP.SYRIN IV PRN ×2 (02:53→14:28)
[2017-10-06] MEDS: ACETAMINOPHEN 650 MG/20.3 ML UDC NG PRN (02:53)
--- NOTE | 2017-10-06 03:00 | NUR ---
WAIST PLEATER NOTE NOTED PATIENT FELT WARM, ORAL TEMPERATURE CHECKED, 100.3. COOLING MEASURES RENDERED, PRN TYLENOL GIVEN. WILL CONTINUE TO MONITOR.
--- NOTE | 2017-10-06 03:30 | NUR ---
RECHECKED ORAL TEMPERATURE 98.5. WILL CONTINUE TO MONITOR.
[2017-10-06] MEDS: BLOOD SUGAR DIAGNOSTIC 1 EACH STRIP IN SCH ×3 (05:17→18:17)
[2017-10-06] MEDS: INSULIN REGULAR, HUMAN 100 UNIT/ML 3 ML VIAL SQ PRN ×3 (05:18→18:22)
[2017-10-06 05:25] LABS: EOSINOPHILS # (AUTO) 0.2 /CMM (0.0-0.7); EOSINOPHILS % (AUTO) 1.4 % (0.0-6.0); HEMATOCRIT 23 % (39-51); HEMOGLOBIN 7.9 g/dL (13.5-17.5); LYMPHOCYTES # (AUTO) 0.6 /CMM (0.8-4.8); LYMPHOCYTES % (AUTO) 5.1 % (20.0-44.0); MEAN CORPUSCULAR HEMOGLOBIN 32 PG (26.0-33.0); MEAN CORPUSCULAR HGB CONC 35 g/dl (31.0-36.0); MEAN CORPUSCULAR VOLUME 93 fL (80-96); MONOCYTES # (AUTO) 0.8 /CMM (0.1-1.30); MONOCYTES % (AUTO) 6.7 % (2.0-12.0); NEUTROPHILS # (AUTO) 11.1 /CMM (1.8-8.9); NEUTROPHILS % (AUTO) 86.8 % (43.0-81.0); PLATELET COUNT (AUTO) 97 /CMM (150-450); RDW COEFFICIENT OF VARIATION 20.9 (11.5-15.0); RED BLOOD CELL COUNT(AUTO) 2.46 MIL/uL (4.5-6.0); WHITE BLOOD COUNT (AUTO) 12.8 K/uL (4.3-11.0)
[2017-10-06 05:55] LABS: CALCIUM, SERUM 6.9 mg/dL (8.5-10.1); CREATININE 2.6 mg/dL (0.6-1.3); MAGNESIUM 2.3 mg/dL (1.8-2.4); PHOSPHORUS 6.6 mg/dL (2.5-4.9); POTASSIUM 3.9 mmol/L (3.5-5.1)
--- NOTE | 2017-10-06 06:41 | NUR ---
HD NURSE AT BEDSIDE
--- NOTE | 2017-10-06 07:30 | NUR ---
WIDE PIECE GOODS INSPECTOR INITIAL NOTES RECEIVED PATIENT SLEEPING IN BED, AOX2, ABLE TO MAKE NEEDS KNOWN, NO CO OF PAIN, CURRENTLY RECEIVING HD, ON VENT SETTINGS ORDERED, NO SIGNS OF DISTRESS, ON TELE MONITORING ST, R FEMORAL HD ACCESS, CORA PICC LINE CLEAN AND PATENT, G-TUBE FEEDING FIBERSOURCE @ 40 ML/HR, NO RESIDUAL NOTED, HOB ELEVATED, BED IN LOW AND LOCKED POSITION, CALL LIGHT WITHIN REACH, WILL CONTINUE TO MONITOR,
--- NOTE | 2017-10-06 07:45 | NUR ---
MILLER APPRENTICE CLOSING NOTES NO SIGNIFICANT CHANGES OVERNIGHT. NO RESPIRATORY DISTRESS NOTED. TOLERATING VENT SETTINGS. TOLERATING GTF. F/C IN DRAINING BY GRAVITY. HD NURSE AT BEDSIDE. HOB ELEVATED. TURNED AND REPOSITIONED Q2 AND PRN. WOUND TX PROVIDED. SIDE RAILS UP AND LOCKED. BED KEPT AT LOWEST POSITION. CONTINUITY OF CARE ENDORSED TO AM NURSE.
--- NOTE | 2017-10-06 08:16 | NUR ---
PT. RECEIVED ON VENT SUPPORT VIA TRACH WITH PARAMETERS BELLOW ORDER: AC 16 VT 500 FIO2 30% PEEP +5 B/S CLEAR BILATERAL. VENT IS PLUGGED INTO RED OUTLET WITH ALARMS ON AND FUNCTIONING. LUCIO @ HOB. Addendum: 10/06/17 at 1046 by FARHAD HERNANDEZ RT Amended: Links added.
--- NOTE | 2017-10-06 09:00 | NUR ---
PONY ROUGHER NOTES PATIENT HD COMPLETED WITH 2L OUTPUT, NO SIGNS OF DISTRESS, WILL CONTINUE TO MONITOR CLOSELY.
[2017-10-06] MEDS: DOCUSATE SODIUM LIQ 100 MG/10 ML UDC NG SCH (09:08)
[2017-10-06] MEDS: LACTOBACILLUS RHAMNOSUS GG 1 EACH CAP.SPRINK GT SCH ×2 (09:08→16:01)
[2017-10-06] MEDS: PANTOPRAZOLE 40 MG TABLET.DR PO SCH (09:08)
[2017-10-06] MEDS: CEFAZOLIN 1 GM in IV NS 0.9% 50 ML IV SCH ×2 (09:08→19:59)
[2017-10-06] MEDS: CLOTRIMAZOLE 1% 15 GM TUBE TP SCH ×2 (09:09→16:02)
[2017-10-06] MEDS: NEOMY SULF/BACITRAC ZN/POLY 15 GM TUBE TP SCH (09:09)
--- NOTE | 2017-10-06 14:40 | NUR ---
PT. TRANSFERRED FROM 1CU TO 118-1. PT. USE SAME MECH VENT, PLUGGED INTO RED OUTLET AND PLACED AMBUBAG @ HOB. Addendum: 10/06/17 at 1441 by FARHAD HERNANDEZ RT Amended: Links added.
[2017-10-06] MEDS: RENAL NOVASOURCE 1,000 ML BOTTLE GT PRN (15:48)
--- NOTE | 2017-10-06 19:00 | NUR ---
COUNTER TOP ASSEMBLER END NOTES PATIENT RESTING IN BED, NO SIGNS OF DISTRESS, FAMILY AT BEDSIDE WILL ENDORSE TO JIG GRINDER FOR CONTINUITY OF CARE.
--- NOTE | 2017-10-06 20:00 | NUR ---
tele/rn opening notes RECEIVED REPORT FROM AM RN REGARDING PATIENT WHO WAS TRANSFERED FROM ICU. PATIENT, ALERTX1, CAN RESPOND WITH VOICE AND TOUCH, ON TRAECH, GTUBE, ON COOPER, HAS BILATREAL HANDS EDEMA X3, TELE READING AT AT 105. SKIN ISSUES WITH SACRAL UNSTAGEABLE. HAS CORA PICC LINE, RIGHT FEMORAL HD CATH, WITH LABS HGB LEVEL LOW AT 7.9, WITH ORDER TO TRANSFUSE IF RESULT BELOW 7. WILL CONTINUE TO PROVIDE CARE, SUCTION NEEDED, MONITOR.
[2017-10-06] MEDS: LEVOFLOXACIN 250 MG /D5W 50 ML 250 MG in PREMIX 1 EA IV SCH (21:13)
[2017-10-07] VITALS: BP 117/67
[2017-10-07] MEDS: BLOOD SUGAR DIAGNOSTIC 1 EACH STRIP IN SCH ×4 (00:13→18:13)
[2017-10-07] MEDS: INSULIN REGULAR, HUMAN 100 UNIT/ML 3 ML VIAL SQ PRN ×5 (00:19→18:10)
[2017-10-07 04:00] VITALS: BP 149/88
--- NOTE | 2017-10-07 05:57 | NUR ---
PT AWAKE ALERT AND RECEIVED PT ON VENT WITH NOTED SETTINGS, ALARMS ARE SET AND FUNCTIONAL. NO DISTRESS NOTED T/O SHIFT, HOWEVER PT ANXIOUS. B/S BILATERALLY RHONCHI. EQUAL CHEST RISE NOTED. COPIOUS AMOUNTS OF THICK YELLOW SECRETIONS SUCTION. AMBU BAG REMAIN AT THE BEDSIDE. VENT PLUGGED INTO RED OUTLET.
--- NOTE | 2017-10-07 06:43 | NUR ---
TELE/RN CLOSING NOTES PATIENT IN BED, AWAKE, CAN OPEN EYES AND MOUTH, COOPERATIVE TO CARE, EXTENSIVE ASSISTANCE FOR REPOSITION AND TURNING FOR COMFORT, WOUND TREATMENT PROVIDED, SKIN WARM TO TOUCH, ON MECHANICAL VENT , AT SR 90. ON GTUBE, RESIDUAL CHECK. WILL CONTINUE TO MONITOR,WILL ENDORSE TO AM RN FOR SHERIF.
[2017-10-07 07:34] LABS: EOSINOPHILS # (AUTO) 0.2 /CMM (0.0-0.7); EOSINOPHILS % (AUTO) 1.5 % (0.0-6.0); HEMATOCRIT 23 % (39-51); HEMOGLOBIN 7.8 g/dL (13.5-17.5); LYMPHOCYTES # (AUTO) 0.6 /CMM (0.8-4.8); LYMPHOCYTES % (AUTO) 4.3 % (20.0-44.0); MEAN CORPUSCULAR HEMOGLOBIN 32 PG (26.0-33.0); MEAN CORPUSCULAR HGB CONC 34 g/dl (31.0-36.0); MEAN CORPUSCULAR VOLUME 95 fL (80-96); MONOCYTES # (AUTO) 0.9 /CMM (0.1-1.30); MONOCYTES % (AUTO) 6.4 % (2.0-12.0); NEUTROPHILS # (AUTO) 11.8 /CMM (1.8-8.9); NEUTROPHILS % (AUTO) 87.8 % (43.0-81.0); PLATELET COUNT (AUTO) 87 /CMM (150-450); RDW COEFFICIENT OF VARIATION 21.1 (11.5-15.0); RED BLOOD CELL COUNT(AUTO) 2.41 MIL/uL (4.5-6.0); WHITE BLOOD COUNT (AUTO) 13.5 K/uL (4.3-11.0)
[2017-10-07 07:48] LABS: CALCIUM, SERUM 7.1 mg/dL (8.5-10.1); CREATININE 2.4 mg/dL (0.6-1.3); PHOSPHORUS 6.2 mg/dL (2.5-4.9); POTASSIUM 3.9 mmol/L (3.5-5.1)
[2017-10-07 08:00] VITALS: BP 132/75
--- NOTE | 2017-10-07 08:00 | NUR ---
ATILIO RN NOTE PATIENT IN BED, WITH TRACH TO VENT SETTING ORDERED, AMBU BAG AT HOB AT ALL TIME, BED IN LOWEST AND LOCKED POSITION , WITH G TUBE FEEDING ORDERED, KEEP HOB ELEVATED AT ALL TIME NO RESIDUAL NOTED WITH COOPER CATH TO GRAVITY WITH LARON COLOR URINE , RT UPPER ARM PICC LINE IN PLACE, NO S]S INFECTION NOTED , WILL, CONT TO MONITOR CLOSELY ,TRACH SITE STILL WITH SONE DRY BLOOD S]P NEW TRACH PLACEMENT, KEEP CLEAN DRY , RT AT BEDSIDE
[2017-10-07] MEDS: CEFAZOLIN 1 GM in IV NS 0.9% 50 ML IV SCH ×2 (08:59→21:30)
[2017-10-07] MEDS: DOCUSATE SODIUM LIQ 100 MG/10 ML UDC NG SCH (08:59)
[2017-10-07] MEDS: PANTOPRAZOLE 40 MG TABLET.DR PO SCH (09:00)
[2017-10-07] MEDS: CLOTRIMAZOLE 1% 15 GM TUBE TP SCH ×2 (09:00→16:45)
[2017-10-07] MEDS: LACTOBACILLUS RHAMNOSUS GG 1 EACH CAP.SPRINK GT SCH ×2 (09:00→16:44)
[2017-10-07] MEDS: NEOMY SULF/BACITRAC ZN/POLY 15 GM TUBE TP SCH (09:01)
--- NOTE | 2017-10-07 09:38 | NUR ---
ATILIO RN NOTE SEEN BY DR MCDUFFIE , NOTIFIED THAT TRACH SITE WITH DRY BLOOD NOTIFIED T 99.2
[2017-10-07 10:47] LABS: EOSINOPHILS % (MANUAL) 2 % (0-4); LYMPHOCYTES % (MANUAL) 2 % (16-48); MONOCYTES % (MANUAL) 5 % (0-11.0); NEUTROPHILS % (MANUAL) 91 (42-76)
[2017-10-07 12:00] VITALS: BP_SYST 129; BP_SYST 132; BP_DIAS 69; BP_DIAS 75
--- NOTE | 2017-10-07 12:00 | NUR ---
television cable installer note spoke with dr massey ,stated ok to transfer to snf
--- NOTE | 2017-10-07 13:16 | NUR ---
SENIOR INFORMATION SYSTEMS ARCHITECT NOTE SPOKE WITH ELIEZER MOONER STATED, NO BED AVAILABLE YET TO TRANSFER AND STILL NEED TO ARRANGE HD SCHEDULE, STATED THAT WILL SPEAK TO DR TAMMY SCHERER F\U
[2017-10-07] MEDS ORDERED: LACT1CAP72 GT (13:26)
[2017-10-07] MEDS ORDERED: CLOT15CR35 TP (13:26)
[2017-10-07] MEDS ORDERED: PANT40TA2 PO (13:26)
[2017-10-07] MEDS ORDERED: DOCU50LI NG (13:26)
[2017-10-07] MEDS ORDERED: Renal Novasource GT (13:26)
[2017-10-07] MEDS ORDERED: CEFA1VIA3 IV (13:26)
[2017-10-07 16:00] VITALS: BP 126/75
--- NOTE | 2017-10-07 18:17 | NUR ---
supervisor telephone information note all needs attended ,cont g tube feeding as ordered n mouth care done ,reposition done family at bedside
--- NOTE | 2017-10-07 19:20 | NUR ---
RCVD PT ON VENT WITH NOTED SETTINGS. PT ALERT AND AWAKE, VENT PLUGGED INTO RED OUTLET, VENT ALARM WORKING AND AUDIBLE. SUCTIONED MODERATE AMOUNT OF YELLOW THICK SECRETIONS. BILATERAL BS NOTED, NO RESPIRATORY DISTRESS NOTED AT THIS TIME. WILL CONTINUE TO MONITOR THE PT.
[2017-10-07 20:00] VITALS: BP 117/77
[2017-10-08] VITALS: BP_SYST 117; BP_SYST 127; BP_SYST 77; BP_DIAS 44; BP_DIAS 65; BP_DIAS 77
[2017-10-08] MEDS: BLOOD SUGAR DIAGNOSTIC 1 EACH STRIP IN SCH ×4 (00:26→17:46)
[2017-10-08] MEDS: INSULIN REGULAR, HUMAN 100 UNIT/ML 3 ML VIAL SQ PRN ×4 (00:32→17:48)
[2017-10-08 04:00] VITALS: BP 118/65
[2017-10-08] MEDS: RENAL NOVASOURCE 1,000 ML BOTTLE GT PRN (05:11)
[2017-10-08 08:00] VITALS: BP 141/81
[2017-10-08] MEDS: PANTOPRAZOLE 40 MG TABLET.DR PO SCH (08:36)
[2017-10-08] MEDS: LACTOBACILLUS RHAMNOSUS GG 1 EACH CAP.SPRINK GT SCH ×2 (08:36→17:46)
[2017-10-08] MEDS: DOCUSATE SODIUM LIQ 100 MG/10 ML UDC NG SCH (08:36)
[2017-10-08] MEDS: CEFAZOLIN 1 GM in IV NS 0.9% 50 ML IV SCH ×2 (08:36→21:14)
[2017-10-08] MEDS: CLOTRIMAZOLE 1% 15 GM TUBE TP SCH ×2 (08:37→17:46)
[2017-10-08] MEDS: NEOMY SULF/BACITRAC ZN/POLY 15 GM TUBE TP SCH (08:37)
[2017-10-08 12:00] VITALS: BP 133/77
[2017-10-08 14:51] LABS: ABG BASE EXCESS 3.8 mmol/L; ABG OXYGEN SATURATION 95.4 % (92.0-98.5); ABG PCO2 32.3 mmHg (35.0-45.0); ABG PH 7.533 (7.350-7.450); ABG PO2 81.3 mmHg (75.0-100.0); AaDO2 94.7 mmHg; COHb 1.4 % (0.5-1.5); MetHb 0.5 % (0.0-1.5); O2Hb 93.6 % (94.0-97.0); PEEP,BG 5 cm H2O; SITE, ABG Right Radial; VENT MODE, BG SIMV
[2017-10-08 16:00] VITALS: BP 130/73
[2017-10-08 20:00] VITALS: BP 119/77
[2017-10-09] VITALS (7 sets, daily range): BP systolic 117–132; BP diastolic 62–76
[2017-10-09] MEDS: BLOOD SUGAR DIAGNOSTIC 1 EACH STRIP IN SCH ×5 (00:45→23:56)
[2017-10-09] MEDS: INSULIN REGULAR, HUMAN 100 UNIT/ML 3 ML VIAL SQ PRN ×3 (00:53→12:30)
--- NOTE | 2017-10-09 02:03 | NUR ---
Received the patient on SIMV 4, PS 12, Vt 500, 30% FiO2, PEEP5 as per MD order. Breath sounds equal bilateral. Suctioned small amount thick yellow secretions. Vent plugged into red outlet and alarms set and audible.Ambu bag at the bed side.
[2017-10-09] MEDS: RENAL NOVASOURCE 1,000 ML BOTTLE GT PRN (05:23)
--- NOTE | 2017-10-09 07:30 | NUR ---
BROKER IN CHARGE CLOSING NOTES NO SIGNIFICANT CHANGES OVERNIGHT. NO RESPIRATORY DISTRESS NOTED, TOLERATING CURRENT VENT SETTINGS. TOLERATING GTF. NO C/O PAIN OR DISCOMFORT. ALL NEEDS ANTICIPATED AND MET. WOUND TX DONE. KEPT CLEAN AND DRY. TURNED AND REPOSITIONED Q2 AND PRN. DVT PUMPS IN PLACE. SR ON TELE MONITOR. HOB ELEVATED. SIDE RAILS UP AND LOCKED. BED KEPT AT LOWEST POSITION. CALL LIGHT KEPT WITHIN EASY REACH. CONTINUITY OF CARE ENDORSED TO AM NURSE.
--- NOTE | 2017-10-09 08:00 | NUR ---
ENGLISH TUTOR NOTE PATENT IN BED , ALL NEEDS ATTENDED ,WITH TRACH TO VENT SETTING ORDERED ALERT ,ORIENTED X3 ,RT AT BEDSIDE TRYING TO CHANGE TO COOLER AEROSOL WILL F\U, AMBU BAG AT HOB , WITH COOPER CATH TO GRAVITY WITH YELLOW CLOUDY URINE, ON KCI MATRES, CORA ARM PICC LINE IN PLACE NO S\S INFECTION NOTED , BED IN LOWEST AND LOCKED POSITION , CALL LIGHT WITHIN REACH, ON TELE MONITOR SR 92, WILL CONT TO MONITOR CLOSELY
[2017-10-09] MEDS: LACTOBACILLUS RHAMNOSUS GG 1 EACH CAP.SPRINK GT SCH ×2 (08:24→16:40)
[2017-10-09] MEDS: DOCUSATE SODIUM LIQ 100 MG/10 ML UDC NG SCH (08:24)
[2017-10-09] MEDS: PANTOPRAZOLE 40 MG TABLET.DR PO SCH (08:24)
[2017-10-09] MEDS: CEFAZOLIN 1 GM in IV NS 0.9% 50 ML IV SCH ×2 (08:26→20:45)
[2017-10-09] MEDS: NEOMY SULF/BACITRAC ZN/POLY 15 GM TUBE TP SCH (08:26)
[2017-10-09] MEDS: CLOTRIMAZOLE 1% 15 GM TUBE TP SCH ×2 (08:26→16:41)
--- NOTE | 2017-10-09 08:35 | NUR ---
MACHINE IRONER NOTE RT AT BEDSIDE ,CHANGED TO COLLER AEROSOL 40% TO 10 L SAT 100%, WILL CONT TO MONITOR CLOSELY
--- NOTE | 2017-10-09 10:27 | NUR ---
RECEIVED PT TRACH ON MECHANICAL VENTILATOR. PLACED PT ON COOL AEROSOL 40%, 10/L PER DR MCDUFFIE TO KEEP SATS>94%. PT HANK WELL. ABG DONE. Addendum: 10/09/17 at 1033 by ABHISHEK MALIK RT Amended: Links added.
--- NOTE | 2017-10-09 10:39 | NUR ---
CITY ROUTE DRIVER NOTE SPOKE WITH DR MCDUFFIE NOTIFIED THAT ABAna HEAD ,STATED OK TO CONT COOLER AEROSOL , ALSO ASKED THAT PATIENT WANT TO DRINK WATER AND HAVE ICE CHIPS, ORDERED TO HAVE SWALLOW EVAL ,ORDER CARRIED OUT
[2017-10-09] MEDS: ACETAMINOPHEN 650 MG/20.3 ML UDC NG PRN (13:33)
--- NOTE | 2017-10-09 13:36 | NUR ---
STARTING GATE DRIVER NOTE C\O BODY PAIN 6\10 SCALE TYLENOL VIA GTUBE GIVEN .WILL F\U
--- NOTE | 2017-10-09 16:12 | NUR ---
MATRIX DRIER TENDER NOTE SPOKE WITH JED MARTINS ABOUT DISCHARGE .STATED NO UPDATE YET ,WILL F\U
--- NOTE | 2017-10-09 17:00 | NUR ---
TITRATED FIO2, PT ON COOL AEROSOL 35%, 8L. SPO2: 100%. Addendum: 10/09/17 at 1745 by ABHISHEK MALIK RT Amended: Links added.
[2017-10-09 17:30] LABS: ABG BASE EXCESS 3.7 mmol/L; ABG OXYGEN SATURATION 96.3 % (92.0-98.5); ABG PCO2 35.8 mmHg (35.0-45.0); ABG PH 7.496 (7.350-7.450); ABG PO2 95.2 mmHg (75.0-100.0); AaDO2 148.8 mmHg; COHb 0.3 % (0.5-1.5); MetHb 0.6 % (0.0-1.5); O2Hb 95.4 % (94.0-97.0); SITE, ABG Right Radial
[2017-10-09 17:36] LABS: ABG BASE EXCESS 4.9 mmol/L; ABG OXYGEN SATURATION 93.6 % (92.0-98.5); ABG PCO2 36.9 mmHg (35.0-45.0); ABG PH 7.501 (7.350-7.450); ABG PO2 75.5 mmHg (75.0-100.0); AaDO2 131.2 mmHg; COHb 0.4 % (0.5-1.5); MetHb 0.5 % (0.0-1.5); O2Hb 92.8 % (94.0-97.0); SITE, ABG Right Radial
--- NOTE | 2017-10-09 18:18 | NUR ---
TAXICAB STARTER NOTE CONT ON COLLER AEROSOL, NOT IN ACUTE DISTRESS ,TRACH SUCTION DONE ,ALL NEEDS ATTENDED, PER ST WILL BE EVAL TOMORROW IN AM
--- NOTE | 2017-10-09 19:30 | NUR ---
RT NOTE PATIENT ABLE TO TOLERATE COOL AEROSOL WITHOUT ANY SIGNS OF RESPIRATORY DISTRESS. VITAL SIGNS ARE WITHIN NORMAL LIMITS. WILL CONTINUE TO MONITOR PATIENT.
--- NOTE | 2017-10-09 19:30 | NUR ---
RN/TELE NOTES: RECEIVED PT. W/ LAMINE # 8 , PT ON COOL AEROSOL 35% FIO2, 8L. SPO2: 100%. ON GTF W/ NO RESIDUAL NOTED. TOLERATED FEEDING WELL. HAS A PICC LINE ON CORA PATENT AND INTACT W/ NO S/S OF INFECTION/INFILTRATION NOTED. RIGHT FEMORAL HD CATH. PT. IS INDONESIAN SPEAKING ONLY. ABLE TO MOUTH WORDS. DENIES ANY C/O CHEST PAIN OR SOB AT PRESENT. CALL LIGHT W/ REACH. F/C INPLACE AND INTACT DRAINING TO YELLOW URINE. W/ HOB ELEVATED. ON TELE MONITOR SR @ 96. WILL CONTINUE TO MONITOR.
[2017-10-10] VITALS: BP_SYST 132; BP_SYST 150; BP_DIAS 68; BP_DIAS 80
[2017-10-10] MEDS: INSULIN REGULAR, HUMAN 100 UNIT/ML 3 ML VIAL SQ PRN ×4 (00:01→17:40)
[2017-10-10 04:00] VITALS: BP_SYST 108; BP_SYST 126; BP_DIAS 61; BP_DIAS 76
[2017-10-10] MEDS: RENAL NOVASOURCE 1,000 ML BOTTLE GT PRN (06:00)
[2017-10-10] MEDS: BLOOD SUGAR DIAGNOSTIC 1 EACH STRIP IN SCH ×3 (06:11→17:30)
--- NOTE | 2017-10-10 07:07 | NUR ---
RN/TELE NOTES: NO ACUTE CHANGES NOTED DURING THIS SHIFT. REPORT GIVEN TO AM NURSE FOR SHERIF.
[2017-10-10 08:00] VITALS: BP 109/54
[2017-10-10] MEDS: PANTOPRAZOLE 40 MG TABLET.DR PO SCH (08:21)
[2017-10-10] MEDS: LACTOBACILLUS RHAMNOSUS GG 1 EACH CAP.SPRINK GT SCH ×2 (08:21→17:30)
[2017-10-10] MEDS: DOCUSATE SODIUM LIQ 100 MG/10 ML UDC NG SCH (08:21)
[2017-10-10] MEDS: CLOTRIMAZOLE 1% 15 GM TUBE TP SCH ×2 (08:21→17:33)
[2017-10-10] MEDS: CEFAZOLIN 1 GM in IV NS 0.9% 50 ML IV SCH (08:22)
[2017-10-10] MEDS: NEOMY SULF/BACITRAC ZN/POLY 15 GM TUBE TP SCH (08:22)
[2017-10-10 12:00] VITALS: BP 117/61
[2017-10-10 16:00] VITALS: BP 126/61
--- NOTE | 2017-10-10 18:19 | NUR ---
Tele/RN - Notes Patient awake, A/O x 2, denies pain, no apparent distress, trach Shiley #8 connected to t-piece at 8 lpm, SpO2 98-100%. Patient was started on PMV trials today, tolerated it well, oral gratification initiated. HD treatment done today, removed 1.6 liters. Wound treatment done as ordered. Lord catheter patent and intact and KCI mattress in place for skin management. All needs attended and met. Family at bedside updated on treatment plan. Anticipate discharge to subacute unit when bed is available.
--- NOTE | 2017-10-10 19:30 | NUR ---
RN NOTE RECEIVED PATIENT IN THE BED, ALERT/ORIENTED X 2, FAMILY IS BY BEDSIDE, NO RESPIRATORY DISTRESS NOTED, SO2 100%, WILL BE DC TO [facility] TONIGHT, DENIES PAIN OR DISCOMFORT, DX RESPIRATORY FAILURE, SHILEY 8, ON 8 L/MIN, T-PIECE, TOLERATES WELL, SR, COOPER CATHER IN PLACE, DRAINS YELLOW URINE, CORA PICC LINE, NO S/S OF INFILTRATION NOTED, NO S/S OF INFECTION, R FEMORAL HD CATH IS INTACT, WILL CONTINUE TO MONITOR
--- NOTE | 2017-10-10 20:59 | NUR ---
RN NOTE PATIENT IS GOING TO [facility], PROVIDED REPORT TO DEDRICK, PATIENT IS STABLE, WILL BE ACCOMPANY BY CHARGE NURSE COURTNEY, RT CHRISTINE AND ME, VITAL SIGNS: TEM 99.0 F ORAL, PULSE 98, RES 16, SO2 99%, BP 113/56, PATIENT IS STABLE, ALERT/ORIENTED X 2, AWAKE, NO RESPIARTORY DISTRESS, DENIES PAIN OR DISCOMFORT, WILL BE GOING TO ROOM 277 (1), ALL SKIN PICTURES TAKEN, ALL INFORMATION PROVIDED TO FAMILY
[2017-10-11] MEDS ORDERED: DOCU50LI GT (08:23)
[2017-10-11] MEDS ORDERED: DEXT50DI8 IV (08:23)
[2017-10-11] MEDS ORDERED: ACET650S26 GT (08:23)
[2017-10-11] MEDS ORDERED: BLOO-668 IN (08:23)
[2017-10-11] MEDS ORDERED: LORA1TAB GT (08:23)
[2017-10-11] MEDS ORDERED: LACT1CAP94 GT (08:23)
[2017-10-11] MEDS ORDERED: INSU100V3 SQ (08:23)
[2017-10-11] MEDS ORDERED: ALLA266C2 TP (08:23)
[2017-10-11] MEDS ORDERED: PANT40SU2 GT (08:23)
[2017-10-11] MEDS ORDERED: NEOM15OI3 TP (08:23)
[2017-10-11] MEDS ORDERED: ALBU50IV5 IV (08:26)
== END 2017-10-10 20:54 | DRG 5 ==
LOC: ER 01:35 → ICU 05:32 → TELE-TD 10-06 13:56 → TELE1 10-06 17:03 → TELE-TD 10-06 23:09 → TELE1 10-07 12:16
PROVIDERS: ADMIT Internal Medicine; ATTEND Internal Medicine
PROC: 0BH17EZ Insertion of Endotracheal Airway into Trachea, Via Natural or Artificial Opening (ICD-10-PCS; principal; 2017-09-16)
PROC: 5A1955Z Respiratory Ventilation, Greater than 96 Consecutive Hours (ICD-10-PCS; principal; 2017-09-16)
PROC: B246ZZ4 Ultrasonography of Right and Left Heart, Transesophageal (ICD-10-PCS; 2017-09-17)
PROC: 02HV33Z Insertion of Infusion Device into Superior Vena Cava, Percutaneous Approach (ICD-10-PCS; 2017-09-21)
PROC: B548ZZA Ultrasonography of Superior Vena Cava, Guidance (ICD-10-PCS; 2017-09-21)
PROC: 5A1D70Z Performance of Urinary Filtration, Intermittent, Less than 6 Hours Per Day (ICD-10-PCS; 2017-09-25)
PROC: 5A1D70Z Performance of Urinary Filtration, Intermittent, Less than 6 Hours Per Day (ICD-10-PCS; 2017-09-26)
PROC: 5A1D70Z Performance of Urinary Filtration, Intermittent, Less than 6 Hours Per Day (ICD-10-PCS; 2017-09-27)
PROC: 5A1D70Z Performance of Urinary Filtration, Intermittent, Less than 6 Hours Per Day (ICD-10-PCS; 2017-09-28)
PROC: 5A1D70Z Performance of Urinary Filtration, Intermittent, Less than 6 Hours Per Day (ICD-10-PCS; 2017-09-30)
PROC: 5A1D70Z Performance of Urinary Filtration, Intermittent, Less than 6 Hours Per Day (ICD-10-PCS; 2017-10-02)
PROC: 5A1D70Z Performance of Urinary Filtration, Intermittent, Less than 6 Hours Per Day (ICD-10-PCS; 2017-10-04)
PROC: 30233N1 Transfusion of Nonautologous Red Blood Cells into Peripheral Vein, Percutaneous Approach (ICD-10-PCS; 2017-10-05)
PROC: 0B110F4 Bypass Trachea to Cutaneous with Tracheostomy Device, Open Approach (ICD-10-PCS; 2017-10-06)
PROC: 5A1D70Z Performance of Urinary Filtration, Intermittent, Less than 6 Hours Per Day (ICD-10-PCS; 2017-10-06)
PROC: 5A1D70Z Performance of Urinary Filtration, Intermittent, Less than 6 Hours Per Day (ICD-10-PCS; 2017-10-08)
PROC: 5A1D70Z Performance of Urinary Filtration, Intermittent, Less than 6 Hours Per Day (ICD-10-PCS; 2017-10-10)
DX: A41.01 Sepsis due to Methicillin susceptible Staphylococcus aureus (principal); N17.0 Acute kidney failure with tubular necrosis; I21.A1 Myocardial infarction type 2; J69.0 Pneumonitis due to inhalation of food and vomit; G92 Toxic encephalopathy; R57.0 Cardiogenic shock; R65.21 Severe sepsis with septic shock; I96 Gangrene, not elsewhere classified; L89.153 Pressure ulcer of sacral region, stage 3; R53.2 Functional quadriplegia; D68.9 Coagulation defect, unspecified; J15.6 Pneumonia due to other Gram-negative bacteria; R16.1 Splenomegaly, not elsewhere classified; D68.59 Other primary thrombophilia; I42.9 Cardiomyopathy, unspecified; E86.0 Dehydration; J96.01 Acute respiratory failure with hypoxia; I65.29 Occlusion and stenosis of unspecified carotid artery; N39.0 Urinary tract infection, site not specified; D69.6 Thrombocytopenia, unspecified; E87.0 Hyperosmolality and hypernatremia; I25.2 Old myocardial infarction; K74.60 Unspecified cirrhosis of liver; F15.229 Other stimulant dependence with intoxication, unspecified; N28.0 Ischemia and infarction of kidney; R91.8 Other nonspecific abnormal finding of lung field; L89.899 Pressure ulcer of other site, unspecified stage; L98.9 Disorder of the skin and subcutaneous tissue, unspecified; E87.1 Hypo-osmolality and hyponatremia; E87.2 Acidosis; I50.9 Heart failure, unspecified; Z99.2 Dependence on renal dialysis; Z99.11 Dependence on respirator [ventilator] status; Z93.1 Gastrostomy status; Z93.0 Tracheostomy status; R13.10 Dysphagia, unspecified; E86.1 Hypovolemia; I38 Endocarditis, valve unspecified; E87.5 Hyperkalemia; Z86.73 Personal history of transient ischemic attack (TIA), and cerebral infarction without residual deficits; I13.0 Hypertensive heart and chronic kidney disease with heart failure and stage 1 through stage 4 chronic kidney disease, or unspecified chronic kidney disease; N18.9 Chronic kidney disease, unspecified
CPT/HCPCS: 31720; 36415; 36600; 70450-TC; 70496-TC; 70498-TC; 71045-TC; 76700-TC; 80048-TC; 80053-TC; 80061-TC; 80076-TC; 80202-TC; 80305; 81000-TC; 82140-TC; 82247-TC; 82248-TC; 82550-TC; 82553-TC; 82570-TC; 82803-TC; 82962-TC; 83540-TC; 83605-TC; 83735-TC; 83935-TC; 84100-TC; 84155-TC; 84300-TC; 84443-TC; 84484-TC; 85025-TC; 85610-TC; 85652-TC; 85730-TC; 86706; 86709; 86803; 86850-TC; 86921-TC; 87040-TC; 87070-TC; 87081-TC; 87086-TC; 87186-TC; 87340; 87400; 90935-TC; 92611-TC; 93307-TC; 93312-TC; 93930-TC; 94002; 94002-TC; 94003-TC; 94640-TC; 94664-TC; 94760-TC; 94762-TC; 94799-TC; 99082-TC; A4216; A4606; A4623; A6248; A6402; A6403; A7526; C1750; C1751; C9113; G0480; J0330; J0690; J0696; J1630; J1644; J1815; J1956; J2020; J2060; J2185; J2248; J2270; J2543; J2704; J3010; J3370; J3490; J7030; J7040; J7050; J7060; J7070; P9016-BL; P9047; Q9967; Z7610

== ENCOUNTER 2017-10-10 19:00 | Inpatient (IN) | payer MEDICAID ==
[~2017-10-10] VITALS: Ht 165.1 cm; Wt 78.9 kg
[~2017-10-10 19:00] MED LIST: CEFA1VIA3 IV; CLOT15CR35 TP; DOCU50LI NG; LACT1CAP72 GT; PANT40TA2 PO; Renal Novasource GT
[2017-10-10] MEDS ORDERED: LORAZEPAM 1 MG TABLET PO PRN (22:00)
[2017-10-10] MEDS ORDERED: ALBUMIN 25% 25 GM in PREMIX 1 EA IV PRN (22:00)
[2017-10-10] MEDS ORDERED: DEXTROSE 50%-WATER 50 ML DISP.SYRIN IVP PRN (22:00)
[2017-10-10] MEDS ORDERED: MORPHINE SULFATE IR 15 MG TABLET PO PRN (22:00)
[2017-10-10] MEDS: CEFAZOLIN 1 GM in IV NS 0.9% 50 ML IV SCH (22:09)
[2017-10-10] MEDS: BLOOD SUGAR DIAGNOSTIC 1 EACH STRIP IN SCH (23:21)
[2017-10-10] MEDS: INSULIN REGULAR, HUMAN 100 UNIT/ML 3 ML VIAL SQ SCH (23:22)
[2017-10-10 23:58] VITALS: BP 117/64
[2017-10-11 02:05] VITALS: BP 120/88
[2017-10-11] MEDS ORDERED: PANTOPRAZOLE 40 MG/PACK PACK ONE (02:20)
[2017-10-11] MEDS ORDERED: RENAL NOVASOURCE 1,000 ML BOTTLE GT PRN (02:30)
[2017-10-11] MEDS: BLOOD SUGAR DIAGNOSTIC 1 EACH STRIP IN SCH ×4 (05:25→23:23)
[2017-10-11] MEDS: PANTOPRAZOLE 40 MG/PACK PACK GT SCH ×2 (05:25→09:00)
[2017-10-11] MEDS: INSULIN REGULAR, HUMAN 100 UNIT/ML 3 ML VIAL SQ SCH ×4 (05:26→23:26)
[2017-10-11 06:56] VITALS: BP 128/76
[2017-10-11 07:36] VITALS: BP 127/64
[2017-10-11] MEDS ORDERED: LACT1CAP94 GT (08:23)
[2017-10-11] MEDS ORDERED: DOCU50LI GT (08:23)
[2017-10-11] MEDS ORDERED: PANT40SU2 GT (08:23)
[2017-10-11] MEDS ORDERED: ACET650S26 GT (08:23)
[2017-10-11] MEDS ORDERED: LORA1TAB GT (08:23)
[2017-10-11] MEDS ORDERED: BLOO-668 IN (08:23)
[2017-10-11] MEDS ORDERED: INSU100V3 SQ (08:23)
[2017-10-11] MEDS ORDERED: DEXT50DI8 IV (08:23)
[2017-10-11] MEDS ORDERED: NEOM15OI3 TP (08:23)
[2017-10-11] MEDS ORDERED: ALLA266C2 TP (08:23)
[2017-10-11] MEDS ORDERED: ALBU50IV5 IV (08:26)
[2017-10-11] MEDS: HYDROGEL DRESSING 90 GM TUBE TP SCH ×2 (09:00→20:41)
[2017-10-11] MEDS: VITAMINS A AND D 56.7 GM TUBE TP SCH ×4 (09:00→20:41)
[2017-10-11] MEDS: CLOTRIMAZOLE 1% 15 GM TUBE TP SCH ×2 (09:00→20:41)
[2017-10-11] MEDS: NEOMY SULF/BACITRAC ZN/POLY 15 GM TUBE TP SCH ×8 (09:00→20:41)
[2017-10-11] MEDS: DOCUSATE SODIUM LIQ 100 MG/10 ML UDC GT SCH (09:00)
[2017-10-11] MEDS ORDERED: TUBERCULIN,PURIF.PROT.DERIV. 5 TU/0.1 ML DISP.SYRIN ID ONE (09:00)
[2017-10-11] MEDS: Z GUARD REMEDY 2 OZ OINT TP SCH ×4 (09:00→20:41)
[2017-10-11] MEDS ORDERED: DOCUSATE SODIUM 100 MG CAPSULE PO SCH (09:00)
[2017-10-11] MEDS: LACTOBACILLUS RHAMNOSUS GG 1 EACH CAP.SPRINK GT SCH ×2 (09:00→17:50)
[2017-10-11] MEDS ORDERED: LACTOBACILLUS RHAMNOSUS GG 1 EACH CAP.SPRINK PO SCH (09:00)
[2017-10-11] MEDS ORDERED: DOCUSATE SODIUM LIQ 100 MG/10 ML UDC PO SCH (09:00)
[2017-10-11] MEDS: CEFAZOLIN 1 GM in IV NS 0.9% 50 ML IV SCH ×2 (09:57→21:00)
[2017-10-11] MEDS: ACETAMINOPHEN 650 MG/20.3 ML UDC GT PRN ×2 (11:07→20:41)
[2017-10-11 12:00] VITALS: BP 118/65
[2017-10-11] MEDS: IPRATROPIUM NEB FS 0.5 MG/2.5 ML AMPUL.NEB NEB SCH ×2 (14:26→20:57)
[2017-10-11] MEDS: ALBUTEROL FS 2.5 MG/0.5 ML VIAL.NEB NEB SCH ×2 (14:26→20:57)
[2017-10-11 17:20] VITALS: BP 104/50
[2017-10-11 22:13] VITALS: BP 115/61
[2017-10-11] MEDS: RENAL NOVASOURCE 1,000 ML BOTTLE GT PRN (23:27)
[2017-10-12 00:22] VITALS: BP 133/63
[2017-10-12] MEDS: ALBUTEROL FS 2.5 MG/0.5 ML VIAL.NEB NEB SCH ×4 (03:22→19:48)
[2017-10-12] MEDS: IPRATROPIUM NEB FS 0.5 MG/2.5 ML AMPUL.NEB NEB SCH ×4 (03:22→19:48)
[2017-10-12] MEDS: BLOOD SUGAR DIAGNOSTIC 1 EACH STRIP IN SCH ×3 (05:13→17:12)
[2017-10-12] MEDS: INSULIN REGULAR, HUMAN 100 UNIT/ML 3 ML VIAL SQ SCH ×4 (05:14→23:55)
[2017-10-12 06:29] VITALS: BP 125/74
[2017-10-12 07:33] VITALS: BP 102/53
[2017-10-12] MEDS: PANTOPRAZOLE 40 MG/PACK PACK GT SCH (09:24)
[2017-10-12] MEDS: DOCUSATE SODIUM LIQ 100 MG/10 ML UDC GT SCH (09:24)
[2017-10-12] MEDS: LACTOBACILLUS RHAMNOSUS GG 1 EACH CAP.SPRINK GT SCH ×2 (09:24→17:12)
[2017-10-12] MEDS: NEOMY SULF/BACITRAC ZN/POLY 15 GM TUBE TP SCH ×12 (09:26→20:52)
[2017-10-12] MEDS: HYDROGEL DRESSING 90 GM TUBE TP SCH ×3 (09:26→20:51)
[2017-10-12] MEDS: CLOTRIMAZOLE 1% 15 GM TUBE TP SCH ×3 (09:26→20:51)
[2017-10-12] MEDS: VITAMINS A AND D 56.7 GM TUBE TP SCH ×6 (09:27→20:55)
[2017-10-12] MEDS: Z GUARD REMEDY 2 OZ OINT TP SCH ×4 (09:27→20:53)
[2017-10-12] MEDS: CEFAZOLIN 1 GM in IV NS 0.9% 50 ML IV SCH ×2 (09:30→21:00)
[2017-10-12 12:00] VITALS: BP 116/60
[2017-10-12 17:38] VITALS: BP 129/64
[2017-10-12] MEDS ORDERED: POVIDONE-IODINE OINT 28.4 GM TUBE TP PRN (18:00)
[2017-10-12 19:37] VITALS: BP 115/57
[2017-10-12] MEDS: POVIDONE-IODINE OINT 28.4 GM TUBE TP SCH ×2 (20:51)
[2017-10-12] MEDS: Z GUARD REMEDY 4 OZ OINT TP SCH ×2 (20:53→20:54)
[2017-10-13] VITALS: BP 122/69
[2017-10-13] MEDS: BLOOD SUGAR DIAGNOSTIC 1 EACH STRIP IN SCH ×4 (00:09→18:03)
[2017-10-13] MEDS: ALBUTEROL FS 2.5 MG/0.5 ML VIAL.NEB NEB SCH ×4 (01:48→19:30)
[2017-10-13] MEDS: IPRATROPIUM NEB FS 0.5 MG/2.5 ML AMPUL.NEB NEB SCH ×4 (01:48→19:30)
[2017-10-13 04:00] VITALS: BP 114/57
[2017-10-13] MEDS: INSULIN REGULAR, HUMAN 100 UNIT/ML 3 ML VIAL SQ SCH ×3 (05:47→18:03)
[2017-10-13 07:54] LABS: CALCIUM, SERUM 7.4 mg/dL (8.5-10.1); CREATININE 3.4 mg/dL (0.6-1.3); POTASSIUM 4.6 mmol/L (3.5-5.1)
[2017-10-13 08:19] LABS: BASOPHILS % (AUTO) 0.4 % (0.0-2.0); MONOCYTES # (AUTO) 0.6 /CMM (0.1-1.30)
[2017-10-13 08:37] LABS: EOSINOPHILS # (AUTO) 0.1 /CMM (0.0-0.7); EOSINOPHILS % (AUTO) 1.3 % (0.0-6.0); LYMPHOCYTES # (AUTO) 0.6 /CMM (0.8-4.8); LYMPHOCYTES % (AUTO) 7.8 % (20.0-44.0); MEAN CORPUSCULAR HEMOGLOBIN 34 PG (26.0-33.0); MEAN CORPUSCULAR HGB CONC 35 g/dl (31.0-36.0); MEAN CORPUSCULAR VOLUME 97 fL (80-96); MONOCYTES % (AUTO) 8.4 % (2.0-12.0); NEUTROPHILS % (AUTO) 82.1 % (43.0-81.0); PLATELET COUNT (AUTO) 80 /CMM (150-450); RDW COEFFICIENT OF VARIATION 19.5 (11.5-15.0); WHITE BLOOD COUNT (AUTO) 7.3 K/uL (4.3-11.0)
[2017-10-13 08:38] LABS: RED BLOOD CELL COUNT(AUTO) 1.96 MIL/uL (4.5-6.0)
[2017-10-13 08:39] LABS: HEMATOCRIT 19 % (39-51); HEMOGLOBIN 6.7 g/dL (13.5-17.5)
[2017-10-13] MEDS: PANTOPRAZOLE 40 MG/PACK PACK GT SCH (09:00)
[2017-10-13] MEDS: LACTOBACILLUS RHAMNOSUS GG 1 EACH CAP.SPRINK GT SCH ×2 (09:00→17:32)
[2017-10-13] MEDS: DOCUSATE SODIUM LIQ 100 MG/10 ML UDC GT SCH (09:00)
[2017-10-13 11:04] LABS: EOSINOPHILS % (MANUAL) 4 % (0-4); LYMPHOCYTES % (MANUAL) 12 % (16-48); MONOCYTES % (MANUAL) 11 % (0-11.0); NEUTROPHILS % (MANUAL) 73 (42-76)
[2017-10-13] MEDS: CEFAZOLIN 1 GM in IV NS 0.9% 50 ML IV SCH ×2 (12:00→21:00)
[2017-10-13] MEDS: RENAL NOVASOURCE 1,000 ML BOTTLE GT PRN (12:15)
[2017-10-13] MEDS: CLOTRIMAZOLE 1% 15 GM TUBE TP SCH ×4 (13:00→20:52)
[2017-10-13] MEDS: VITAMINS A AND D 56.7 GM TUBE TP SCH ×8 (13:00→20:54)
[2017-10-13] MEDS: Z GUARD REMEDY 4 OZ OINT TP SCH ×4 (13:00→20:53)
[2017-10-13] MEDS: POVIDONE-IODINE OINT 28.4 GM TUBE TP SCH ×4 (13:00→20:52)
[2017-10-13] MEDS: NEOMY SULF/BACITRAC ZN/POLY 15 GM TUBE TP SCH ×16 (13:00→20:53)
[2017-10-13] MEDS: HYDROGEL DRESSING 90 GM TUBE TP SCH ×4 (13:00→20:52)
[2017-10-13] MEDS: Z GUARD REMEDY 2 OZ OINT TP SCH ×4 (13:00→20:53)
[2017-10-13 19:38] VITALS: BP 116/58
[2017-10-13 22:12] VITALS: BP 117/60
[2017-10-13 22:30] VITALS: BP 117/61
[2017-10-13 23:30] VITALS: BP 117/61
[2017-10-14] MEDS: BLOOD SUGAR DIAGNOSTIC 1 EACH STRIP IN SCH ×2 (00:21→05:43)
[2017-10-14] MEDS: INSULIN REGULAR, HUMAN 100 UNIT/ML 3 ML VIAL SQ SCH ×2 (00:22→05:44)
[2017-10-14] MEDS: IPRATROPIUM NEB FS 0.5 MG/2.5 ML AMPUL.NEB NEB SCH ×2 (00:35→08:07)
[2017-10-14] MEDS: ALBUTEROL FS 2.5 MG/0.5 ML VIAL.NEB NEB SCH ×2 (00:35→08:07)
[2017-10-14 01:00] VITALS: BP 114/58
[2017-10-14] MEDS: LORAZEPAM 0.5 MG TABLET GT PRN (03:13)
[2017-10-14 08:01] VITALS: BP 88/54
[2017-10-14 08:11] LABS: CALCIUM, SERUM 6.7 mg/dL (8.5-10.1); CREATININE 2.8 mg/dL (0.6-1.3); POTASSIUM 4.4 mmol/L (3.5-5.1)
[2017-10-14] MEDS: CEFAZOLIN 1 GM in IV NS 0.9% 50 ML IV SCH (09:00)
[2017-10-14] MEDS: NEOMY SULF/BACITRAC ZN/POLY 15 GM TUBE TP SCH ×8 (09:00)
[2017-10-14] MEDS: Z GUARD REMEDY 2 OZ OINT TP SCH ×2 (09:00)
[2017-10-14] MEDS: CLOTRIMAZOLE 1% 15 GM TUBE TP SCH ×2 (09:00)
[2017-10-14] MEDS: Z GUARD REMEDY 4 OZ OINT TP SCH ×2 (09:00)
[2017-10-14] MEDS: VITAMINS A AND D 56.7 GM TUBE TP SCH ×4 (09:00)
[2017-10-14] MEDS: POVIDONE-IODINE OINT 28.4 GM TUBE TP SCH ×2 (09:00)
[2017-10-14] MEDS: HYDROGEL DRESSING 90 GM TUBE TP SCH ×2 (09:00)
[2017-10-14 09:32] LABS: BASOPHILS % (AUTO) 0.6 % (0.0-2.0); EOSINOPHILS # (AUTO) 0.1 /CMM (0.0-0.7); EOSINOPHILS % (AUTO) 1.6 % (0.0-6.0); LYMPHOCYTES # (AUTO) 0.6 /CMM (0.8-4.8); LYMPHOCYTES % (AUTO) 10.5 % (20.0-44.0); MEAN CORPUSCULAR HEMOGLOBIN 33 PG (26.0-33.0); MEAN CORPUSCULAR HGB CONC 35 g/dl (31.0-36.0); MEAN CORPUSCULAR VOLUME 95 fL (80-96); MONOCYTES # (AUTO) 0.6 /CMM (0.1-1.30); MONOCYTES % (AUTO) 11.4 % (2.0-12.0); NEUTROPHILS # (AUTO) 4.2 /CMM (1.8-8.9); NEUTROPHILS % (AUTO) 75.9 % (43.0-81.0); PLATELET COUNT (AUTO) 71 /CMM (150-450); RDW COEFFICIENT OF VARIATION 19.6 (11.5-15.0); WHITE BLOOD COUNT (AUTO) 5.6 K/uL (4.3-11.0)
[2017-10-14] MEDS: DOCUSATE SODIUM LIQ 100 MG/10 ML UDC GT SCH (09:39)
[2017-10-14] MEDS: LACTOBACILLUS RHAMNOSUS GG 1 EACH CAP.SPRINK GT SCH (09:39)
[2017-10-14] MEDS: PANTOPRAZOLE 40 MG/PACK PACK GT SCH (09:39)
[2017-10-14 09:44] LABS: RED BLOOD CELL COUNT(AUTO) 1.52 MIL/uL (4.5-6.0)
[2017-10-14 09:45] LABS: HEMATOCRIT 15 % (39-51)
[2017-10-14 12:22] LABS: LYMPHOCYTES % (MANUAL) 18 % (16-48); MONOCYTES % (MANUAL) 2 % (0-11.0); NEUTROPHILS % (MANUAL) 80 (42-76)
[2017-10-14] MEDS ORDERED: NUTR100037 GT (12:29)
[2017-10-14] MEDS ORDERED: HYDR1DIS2 IV (12:29)
[2017-10-14] MEDS ORDERED: IPRA0.2S49 IH (12:29)
[2017-10-15] MEDS: IPRATROPIUM NEB FS 0.5 MG/2.5 ML AMPUL.NEB NEB SCH ×4 (01:30→19:30)
[2017-10-15] MEDS: ALBUTEROL FS 2.5 MG/0.5 ML VIAL.NEB NEB SCH ×4 (01:30→19:30)
[2017-10-15] MEDS: VITAMINS A AND D 56.7 GM TUBE TP SCH ×6 (09:00→21:00)
[2017-10-15] MEDS: PANTOPRAZOLE 40 MG/PACK PACK GT SCH (09:00)
[2017-10-15] MEDS: POVIDONE-IODINE OINT 28.4 GM TUBE TP SCH ×2 (09:00→21:00)
[2017-10-15] MEDS: Z GUARD REMEDY 2 OZ OINT TP SCH ×2 (09:00→21:00)
[2017-10-15] MEDS: HYDROGEL DRESSING 90 GM TUBE TP SCH ×2 (09:00→21:00)
[2017-10-15] MEDS: LACTOBACILLUS RHAMNOSUS GG 1 EACH CAP.SPRINK GT SCH ×2 (09:00→17:00)
[2017-10-15] MEDS: DOCUSATE SODIUM LIQ 100 MG/10 ML UDC GT SCH (09:00)
[2017-10-15] MEDS: Z GUARD REMEDY 4 OZ OINT TP SCH ×4 (09:00→21:00)
[2017-10-15] MEDS: NEOMY SULF/BACITRAC ZN/POLY 15 GM TUBE TP SCH ×12 (09:00→21:00)
[2017-10-16] MEDS: IPRATROPIUM NEB FS 0.5 MG/2.5 ML AMPUL.NEB NEB SCH ×4 (01:30→19:30)
[2017-10-16] MEDS: ALBUTEROL FS 2.5 MG/0.5 ML VIAL.NEB NEB SCH ×4 (01:30→19:30)
[2017-10-16] MEDS: PANTOPRAZOLE 40 MG/PACK PACK GT SCH (09:00)
[2017-10-16] MEDS: POVIDONE-IODINE OINT 28.4 GM TUBE TP SCH ×2 (09:00→21:00)
[2017-10-16] MEDS: DOCUSATE SODIUM LIQ 100 MG/10 ML UDC GT SCH (09:00)
[2017-10-16] MEDS: LACTOBACILLUS RHAMNOSUS GG 1 EACH CAP.SPRINK GT SCH ×2 (09:00→17:00)
[2017-10-16] MEDS: VITAMINS A AND D 56.7 GM TUBE TP SCH ×6 (09:00→21:00)
[2017-10-16] MEDS: Z GUARD REMEDY 4 OZ OINT TP SCH ×4 (09:00→21:00)
[2017-10-16] MEDS: HYDROGEL DRESSING 90 GM TUBE TP SCH ×2 (09:00→21:00)
[2017-10-16] MEDS: Z GUARD REMEDY 2 OZ OINT TP SCH ×2 (09:00→21:00)
[2017-10-16] MEDS: NEOMY SULF/BACITRAC ZN/POLY 15 GM TUBE TP SCH ×12 (09:00→21:00)
[2017-10-17] MEDS: ALBUTEROL FS 2.5 MG/0.5 ML VIAL.NEB NEB SCH ×4 (01:30→19:30)
[2017-10-17] MEDS: IPRATROPIUM NEB FS 0.5 MG/2.5 ML AMPUL.NEB NEB SCH ×4 (01:30→19:30)
[2017-10-17] MEDS: Z GUARD REMEDY 2 OZ OINT TP SCH ×2 (09:00→21:00)
[2017-10-17] MEDS: NEOMY SULF/BACITRAC ZN/POLY 15 GM TUBE TP SCH ×12 (09:00→21:00)
[2017-10-17] MEDS: VITAMINS A AND D 56.7 GM TUBE TP SCH ×6 (09:00→21:00)
[2017-10-17] MEDS: HYDROGEL DRESSING 90 GM TUBE TP SCH ×2 (09:00→21:00)
[2017-10-17] MEDS: DOCUSATE SODIUM LIQ 100 MG/10 ML UDC GT SCH (09:00)
[2017-10-17] MEDS: Z GUARD REMEDY 4 OZ OINT TP SCH ×4 (09:00→21:00)
[2017-10-17] MEDS: POVIDONE-IODINE OINT 28.4 GM TUBE TP SCH ×2 (09:00→21:00)
[2017-10-17] MEDS: LACTOBACILLUS RHAMNOSUS GG 1 EACH CAP.SPRINK GT SCH ×2 (09:00→17:00)
[2017-10-17] MEDS: PANTOPRAZOLE 40 MG/PACK PACK GT SCH (09:00)
[2017-10-18] MEDS: ALBUTEROL FS 2.5 MG/0.5 ML VIAL.NEB NEB SCH ×4 (01:30→19:30)
[2017-10-18] MEDS: IPRATROPIUM NEB FS 0.5 MG/2.5 ML AMPUL.NEB NEB SCH ×4 (01:30→19:30)
[2017-10-18] MEDS: LACTOBACILLUS RHAMNOSUS GG 1 EACH CAP.SPRINK GT SCH ×2 (09:00→17:00)
[2017-10-18] MEDS: POVIDONE-IODINE OINT 28.4 GM TUBE TP SCH ×2 (09:00→21:00)
[2017-10-18] MEDS: NEOMY SULF/BACITRAC ZN/POLY 15 GM TUBE TP SCH ×12 (09:00→21:00)
[2017-10-18] MEDS: Z GUARD REMEDY 4 OZ OINT TP SCH ×4 (09:00→21:00)
[2017-10-18] MEDS: Z GUARD REMEDY 2 OZ OINT TP SCH ×2 (09:00→21:00)
[2017-10-18] MEDS: VITAMINS A AND D 56.7 GM TUBE TP SCH ×6 (09:00→21:00)
[2017-10-18] MEDS: DOCUSATE SODIUM LIQ 100 MG/10 ML UDC GT SCH (09:00)
[2017-10-18] MEDS: PANTOPRAZOLE 40 MG/PACK PACK GT SCH (09:00)
[2017-10-18] MEDS: HYDROGEL DRESSING 90 GM TUBE TP SCH ×2 (09:00→21:00)
[2017-10-19] MEDS: ALBUTEROL FS 2.5 MG/0.5 ML VIAL.NEB NEB SCH ×4 (01:30→19:30)
[2017-10-19] MEDS: IPRATROPIUM NEB FS 0.5 MG/2.5 ML AMPUL.NEB NEB SCH ×4 (01:30→19:30)
[2017-10-19] MEDS: VITAMINS A AND D 56.7 GM TUBE TP SCH ×7 (09:00→21:30)
[2017-10-19] MEDS: PANTOPRAZOLE 40 MG/PACK PACK GT SCH (09:00)
[2017-10-19] MEDS: Z GUARD REMEDY 2 OZ OINT TP SCH ×3 (09:00→21:30)
[2017-10-19] MEDS: Z GUARD REMEDY 4 OZ OINT TP SCH ×4 (09:00→21:00)
[2017-10-19] MEDS: POVIDONE-IODINE OINT 28.4 GM TUBE TP SCH ×3 (09:00→21:30)
[2017-10-19] MEDS: LACTOBACILLUS RHAMNOSUS GG 1 EACH CAP.SPRINK GT SCH ×2 (09:00→17:00)
[2017-10-19] MEDS: DOCUSATE SODIUM LIQ 100 MG/10 ML UDC GT SCH (09:00)
[2017-10-19] MEDS: NEOMY SULF/BACITRAC ZN/POLY 15 GM TUBE TP SCH ×12 (09:00→21:30)
[2017-10-19] MEDS: HYDROGEL DRESSING 90 GM TUBE TP SCH ×3 (09:00→21:30)
[2017-10-19 20:00] VITALS: BP 142/71
[2017-10-19] MEDS: CLOTRIMAZOLE 1% 15 GM TUBE TP SCH (21:30)
[2017-10-19] MEDS: RENAL NOVASOURCE 1,000 ML BOTTLE GT PRN (21:55)
[2017-10-20 00:10] VITALS: BP 112/60
[2017-10-20] MEDS: BLOOD SUGAR DIAGNOSTIC 1 EACH STRIP IN SCH ×4 (00:13→18:00)
[2017-10-20] MEDS ORDERED: CEFAZOLIN 1 GM in IV D5W 50 ML IV ONE (00:30)
[2017-10-20] MEDS: ALBUTEROL FS 2.5 MG/0.5 ML VIAL.NEB NEB SCH ×5 (01:42→19:30)
[2017-10-20] MEDS: IPRATROPIUM NEB FS 0.5 MG/2.5 ML AMPUL.NEB NEB SCH ×5 (01:42→19:30)
[2017-10-20] MEDS: LORAZEPAM 0.5 MG TABLET GT PRN (02:54)
[2017-10-20 04:00] VITALS: BP 118/55
[2017-10-20] MEDS: INSULIN REGULAR, HUMAN 100 UNIT/ML 3 ML VIAL SQ SCH ×4 (06:00→18:00)
[2017-10-20 08:11] VITALS: BP 105/58
[2017-10-20] MEDS: DOCUSATE SODIUM LIQ 100 MG/10 ML UDC GT SCH (09:00)
[2017-10-20] MEDS: Z GUARD REMEDY 2 OZ OINT TP SCH ×5 (09:00→21:50)
[2017-10-20] MEDS: POVIDONE-IODINE OINT 28.4 GM TUBE TP SCH ×4 (09:00→21:49)
[2017-10-20] MEDS: CEFAZOLIN 1 GM in IV D5W 50 ML IV SCH ×2 (09:00→21:48)
[2017-10-20] MEDS: HYDROGEL DRESSING 90 GM TUBE TP SCH ×4 (09:00→21:49)
[2017-10-20] MEDS: VITAMINS A AND D 56.7 GM TUBE TP SCH ×8 (09:00→21:50)
[2017-10-20] MEDS: NEOMY SULF/BACITRAC ZN/POLY 15 GM TUBE TP SCH ×13 (09:00→21:49)
[2017-10-20] MEDS: CLOTRIMAZOLE 1% 15 GM TUBE TP SCH ×2 (09:00→21:49)
[2017-10-20] MEDS: PANTOPRAZOLE 40 MG/PACK PACK GT SCH (09:00)
[2017-10-20] MEDS: LACTOBACILLUS RHAMNOSUS GG 1 EACH CAP.SPRINK GT SCH ×3 (09:00→17:00)
[2017-10-20] MEDS: Z GUARD REMEDY 4 OZ OINT TP SCH ×6 (09:00→21:50)
[2017-10-20 22:54] VITALS: BP 134/55
[2017-10-21] MEDS: BLOOD SUGAR DIAGNOSTIC 1 EACH STRIP IN SCH ×5 (00:31→23:41)
[2017-10-21] MEDS: ALBUTEROL FS 2.5 MG/0.5 ML VIAL.NEB NEB SCH ×4 (01:30→20:17)
[2017-10-21] MEDS: IPRATROPIUM NEB FS 0.5 MG/2.5 ML AMPUL.NEB NEB SCH ×4 (01:30→20:17)
[2017-10-21] MEDS: LORAZEPAM 0.5 MG TABLET GT PRN ×2 (05:13→23:37)
[2017-10-21] MEDS: INSULIN REGULAR, HUMAN 100 UNIT/ML 3 ML VIAL SQ SCH ×5 (05:37→23:42)
[2017-10-21] MEDS: RENAL NOVASOURCE 1,000 ML BOTTLE GT PRN (05:38)
[2017-10-21 08:19] VITALS: BP 125/61
[2017-10-21] MEDS: CEFAZOLIN 1 GM in IV D5W 50 ML IV SCH ×2 (09:00→21:00)
[2017-10-21] MEDS: DOCUSATE SODIUM LIQ 100 MG/10 ML UDC GT SCH (09:53)
[2017-10-21] MEDS: LACTOBACILLUS RHAMNOSUS GG 1 EACH CAP.SPRINK GT SCH ×2 (09:53→16:46)
[2017-10-21] MEDS: PANTOPRAZOLE 40 MG/PACK PACK GT SCH (09:53)
[2017-10-21] MEDS ORDERED: RENAL NOVASOURCE 1,000 ML BOTTLE GT PRN (10:47)
[2017-10-21 19:07] LABS: APPEARANCE,URINE CLOUDY (CLEAR); BILIRUBIN,URINE 2+ (NEGATIVE); BLOOD, URINE 3+ Ery/uL (NEGATIVE); COLOR,URINE AMBER (YELLOW); KETONES,URINE TRACE (NEGATIVE); LEUKOCYTE ESTERASE ,URINE 3+ (NEGATIVE); NITRITE, URINE POSITIVE (NEGATIVE); PH,URINE 6.5 (5.0-8.0); PROTEIN,URINE 3+ mg/dl (NEGATIVE); UGLUCOSE NEGATIVE (NEGATIVE)
[2017-10-21 19:14] LABS: WBC,URINE TOO NUMEROUS TO COUN /HPF (0-3)
[2017-10-21 19:15] LABS: BACTERIA,URINE Few /HPF (None Seen); SQUAMOUS EPITHELIAL CELL,UR Rare /HPF (None Seen)
[2017-10-21 19:17] LABS: YEAST,URINE Moderate /HPF (None Seen)
[2017-10-21] MEDS ORDERED: CLOTRIMAZOLE 1% 15 GM TUBE TP SCH (21:00)
[2017-10-21] MEDS: POVIDONE-IODINE OINT 28.4 GM TUBE TP SCH ×2 (21:18)
[2017-10-21] MEDS: VITAMINS A AND D 56.7 GM TUBE TP SCH (21:19)
[2017-10-21] MEDS: Z GUARD REMEDY 2 OZ OINT TP SCH ×3 (21:19)
[2017-10-21] MEDS: HYDROGEL DRESSING 90 GM TUBE TP SCH (21:19)
[2017-10-22] MEDS: IPRATROPIUM NEB FS 0.5 MG/2.5 ML AMPUL.NEB NEB SCH ×4 (02:25→19:31)
[2017-10-22] MEDS: ALBUTEROL FS 2.5 MG/0.5 ML VIAL.NEB NEB SCH ×4 (02:25→19:31)
[2017-10-22] MEDS: INSULIN REGULAR, HUMAN 100 UNIT/ML 3 ML VIAL SQ SCH ×3 (05:56→23:12)
[2017-10-22] MEDS: BLOOD SUGAR DIAGNOSTIC 1 EACH STRIP IN SCH ×4 (05:56→23:11)
[2017-10-22 08:00] VITALS: BP 129/63
[2017-10-22] MEDS: HYDROGEL DRESSING 90 GM TUBE TP SCH ×2 (09:00→21:50)
[2017-10-22] MEDS: CEFAZOLIN 1 GM in IV D5W 50 ML IV SCH ×2 (09:00→21:00)
[2017-10-22] MEDS: POVIDONE-IODINE OINT 28.4 GM TUBE TP SCH ×4 (09:00→21:50)
[2017-10-22] MEDS: VITAMINS A AND D 56.7 GM TUBE TP SCH ×2 (09:00→21:51)
[2017-10-22] MEDS: Z GUARD REMEDY 2 OZ OINT TP SCH ×6 (09:00→21:51)
[2017-10-22] MEDS: PANTOPRAZOLE 40 MG/PACK PACK GT SCH (09:23)
[2017-10-22] MEDS: LACTOBACILLUS RHAMNOSUS GG 1 EACH CAP.SPRINK GT SCH ×2 (09:23→17:20)
[2017-10-22] MEDS: DOCUSATE SODIUM LIQ 100 MG/10 ML UDC GT SCH (09:23)
[2017-10-22 20:30] VITALS: BP 107/52
[2017-10-22] MEDS: LORAZEPAM 0.5 MG TABLET GT PRN (22:23)
[2017-10-23] MEDS: IPRATROPIUM NEB FS 0.5 MG/2.5 ML AMPUL.NEB NEB SCH ×4 (00:40→20:40)
[2017-10-23] MEDS: ALBUTEROL FS 2.5 MG/0.5 ML VIAL.NEB NEB SCH ×4 (00:40→20:40)
[2017-10-23] MEDS: BLOOD SUGAR DIAGNOSTIC 1 EACH STRIP IN SCH ×3 (06:12→17:34)
[2017-10-23] MEDS: INSULIN REGULAR, HUMAN 100 UNIT/ML 3 ML VIAL SQ SCH ×3 (06:13→17:35)
[2017-10-23 07:31] LABS: BASOPHILS % (AUTO) 0.4 % (0.0-2.0); EOSINOPHILS # (AUTO) 0.1 /CMM (0.0-0.7); LYMPHOCYTES # (AUTO) 0.7 /CMM (0.8-4.8); LYMPHOCYTES % (AUTO) 8.7 % (20.0-44.0); MEAN CORPUSCULAR HEMOGLOBIN 31 PG (26.0-33.0); MEAN CORPUSCULAR HGB CONC 34 g/dl (31.0-36.0); MEAN CORPUSCULAR VOLUME 90 fL (80-96); MONOCYTES # (AUTO) 0.8 /CMM (0.1-1.30); MONOCYTES % (AUTO) 9.9 % (2.0-12.0); NEUTROPHILS # (AUTO) 6.6 /CMM (1.8-8.9); PLATELET COUNT (AUTO) 86 /CMM (150-450); RDW COEFFICIENT OF VARIATION 20.8 (11.5-15.0); RED BLOOD CELL COUNT(AUTO) 2.17 MIL/uL (4.5-6.0); WHITE BLOOD COUNT (AUTO) 8.3 K/uL (4.3-11.0)
[2017-10-23 07:39] LABS: HEMATOCRIT 20 % (39-51); HEMOGLOBIN 6.7 g/dL (13.5-17.5)
[2017-10-23 07:44] VITALS: BP 128/59
[2017-10-23 08:30] LABS: BAND % (MANUAL) 1 % (0.0-5.0); EOSINOPHILS % (MANUAL) 2 % (0-4); LYMPHOCYTES % (MANUAL) 6 % (16-48); MONOCYTES % (MANUAL) 6 % (0-11.0); NEUTROPHILS % (MANUAL) 85 (42-76)
[2017-10-23] MEDS: PANTOPRAZOLE 40 MG/PACK PACK GT SCH (08:32)
[2017-10-23] MEDS: DOCUSATE SODIUM LIQ 100 MG/10 ML UDC GT SCH (08:32)
[2017-10-23] MEDS: LACTOBACILLUS RHAMNOSUS GG 1 EACH CAP.SPRINK GT SCH ×2 (08:32→17:34)
[2017-10-23] MEDS: Z GUARD REMEDY 2 OZ OINT TP SCH ×6 (09:00→21:00)
[2017-10-23] MEDS: HYDROGEL DRESSING 90 GM TUBE TP SCH ×2 (09:00→21:00)
[2017-10-23] MEDS: VITAMINS A AND D 56.7 GM TUBE TP SCH ×2 (09:00→21:00)
[2017-10-23] MEDS: POVIDONE-IODINE OINT 28.4 GM TUBE TP SCH ×4 (09:00→21:00)
[2017-10-23 13:59] VITALS: BP 151/71
[2017-10-23 14:16] VITALS: BP 126/63
[2017-10-23 14:47] VITALS: BP 131/59
[2017-10-23 15:48] VITALS: BP 147/75
[2017-10-23 16:50] VITALS: BP 146/60
[2017-10-23] MEDS: ACETAMINOPHEN 650 MG/20.3 ML UDC GT PRN (20:57)
[2017-10-23] MEDS: CEFAZOLIN 1 GM in IV D5W 50 ML IV SCH (21:00)
[2017-10-23] MEDS: QUETIAPINE FUMARATE 25 MG TABLET PO PRN (21:04)
[2017-10-24] MEDS: BLOOD SUGAR DIAGNOSTIC 1 EACH STRIP IN SCH ×3 (00:35→11:58)
[2017-10-24] MEDS: INSULIN REGULAR, HUMAN 100 UNIT/ML 3 ML VIAL SQ SCH ×3 (00:36→11:59)
[2017-10-24 00:46] VITALS: BP 158/71
[2017-10-24] MEDS: LORAZEPAM 0.5 MG TABLET GT PRN (02:40)
[2017-10-24] MEDS: ALBUTEROL FS 2.5 MG/0.5 ML VIAL.NEB NEB SCH ×4 (02:46→19:30)
[2017-10-24] MEDS: IPRATROPIUM NEB FS 0.5 MG/2.5 ML AMPUL.NEB NEB SCH ×4 (02:46→19:30)
[2017-10-24 06:50] LABS: BASOPHILS % (AUTO) 0.1 % (0.0-2.0); EOSINOPHILS # (AUTO) 0.1 /CMM (0.0-0.7); EOSINOPHILS % (AUTO) 0.9 % (0.0-6.0); HEMATOCRIT 24 % (39-51); HEMOGLOBIN 8.1 g/dL (13.5-17.5); LYMPHOCYTES # (AUTO) 0.7 /CMM (0.8-4.8); LYMPHOCYTES % (AUTO) 7.9 % (20.0-44.0); MEAN CORPUSCULAR HEMOGLOBIN 31 PG (26.0-33.0); MEAN CORPUSCULAR HGB CONC 34 g/dl (31.0-36.0); MEAN CORPUSCULAR VOLUME 90 fL (80-96); MONOCYTES # (AUTO) 0.8 /CMM (0.1-1.30); MONOCYTES % (AUTO) 8.7 % (2.0-12.0); NEUTROPHILS # (AUTO) 7.8 /CMM (1.8-8.9); NEUTROPHILS % (AUTO) 82.4 % (43.0-81.0); PLATELET COUNT (AUTO) 93 /CMM (150-450); RDW COEFFICIENT OF VARIATION 19.6 (11.5-15.0); RED BLOOD CELL COUNT(AUTO) 2.65 MIL/uL (4.5-6.0); WHITE BLOOD COUNT (AUTO) 9.5 K/uL (4.3-11.0)
[2017-10-24 06:59] LABS: CALCIUM, SERUM 7.7 mg/dL (8.5-10.1); CREATININE 2.6 mg/dL (0.6-1.3); POTASSIUM 3.1 mmol/L (3.5-5.1)
[2017-10-24 08:09] VITALS: BP 151/76
[2017-10-24] MEDS: VITAMINS A AND D 56.7 GM TUBE TP SCH (09:00)
[2017-10-24] MEDS: POVIDONE-IODINE OINT 28.4 GM TUBE TP SCH ×2 (09:00)
[2017-10-24] MEDS: HYDROGEL DRESSING 90 GM TUBE TP SCH (09:00)
[2017-10-24] MEDS: Z GUARD REMEDY 2 OZ OINT TP SCH ×3 (09:00)
[2017-10-24] MEDS: LACTOBACILLUS RHAMNOSUS GG 1 EACH CAP.SPRINK GT SCH (09:32)
[2017-10-24] MEDS: PANTOPRAZOLE 40 MG/PACK PACK GT SCH (09:32)
[2017-10-24] MEDS: DOCUSATE SODIUM LIQ 100 MG/10 ML UDC GT SCH (09:32)
[2017-10-24 09:34] LABS: BAND % (MANUAL) 2 % (0.0-5.0); EOSINOPHILS % (MANUAL) 1 % (0-4); LYMPHOCYTES % (MANUAL) 7 % (16-48); MONOCYTES % (MANUAL) 8 % (0-11.0); NEUTROPHILS % (MANUAL) 82 (42-76)
[2017-10-24] MEDS: CEFAZOLIN 1 GM in IV D5W 50 ML IV SCH (09:57)
[2017-10-24] MEDS ORDERED: PANTOPRAZOLE 40 MG VIAL IV SCH (09:58)
[2017-10-24 10:24] LABS: EOSINOPHILS % (AUTO) 0.2 % (0.0-6.0); HEMATOCRIT 24 % (39-51); HEMOGLOBIN 8.2 g/dL (13.5-17.5); LYMPHOCYTES # (AUTO) 0.3 /CMM (0.8-4.8); LYMPHOCYTES % (AUTO) 1.8 % (20.0-44.0); MEAN CORPUSCULAR HEMOGLOBIN 30 PG (26.0-33.0); MEAN CORPUSCULAR HGB CONC 34 g/dl (31.0-36.0); MEAN CORPUSCULAR VOLUME 90 fL (80-96); MONOCYTES % (AUTO) 0.2 % (2.0-12.0); NEUTROPHILS # (AUTO) 13.9 /CMM (1.8-8.9); NEUTROPHILS % (AUTO) 97.8 % (43.0-81.0); PLATELET COUNT (AUTO) 101 /CMM (150-450); RDW COEFFICIENT OF VARIATION 19.5 (11.5-15.0); WHITE BLOOD COUNT (AUTO) 14.2 K/uL (4.3-11.0)
[2017-10-24] MEDS ORDERED: IV NS 0.9% 1,000 ML IV PRN (11:30)
[2017-10-24 12:12] LABS: ABG BASE EXCESS 6.4 mmol/L; ABG OXYGEN SATURATION 95.9 % (92.0-98.5); ABG PCO2 35.4 mmHg (35.0-45.0); ABG PH 7.534 (7.350-7.450); ABG PO2 79.5 mmHg (75.0-100.0); AaDO2 309.4 mmHg; COHb 0.7 % (0.5-1.5); MetHb 0.6 % (0.0-1.5); O2Hb 94.7 % (94.0-97.0); SITE, ABG Left Radial; VENT MODE, BG C/A 60%
[2017-10-24] MEDS ORDERED: [UNRECOGNIZED DRUG - CODE] TP (14:52)
[2017-10-24] MEDS ORDERED: GEL100GE TP (14:52)
[2017-10-24] MEDS ORDERED: ALBU2.5V13 IH (14:52)
[2017-10-24] MEDS ORDERED: VITA56.7 TP (14:52)
[2017-10-24] MEDS ORDERED: PANT40VI IV (14:52)
[2017-10-24] MEDS ORDERED: NORM10004 IV (14:52)
[2017-10-24] MEDS ORDERED: QUET25TA PO (14:52)
[2017-10-24] MEDS ORDERED: IPRA0.2S9 IH (14:52)
[2017-10-24] MEDS ORDERED: FLUCONAZOLE IN NS 100 MG in PREMIX 1 EA IV SCH ×2 (17:00)
[2017-10-28] MEDS ORDERED: RENAL NOVASOURCE 1,000 ML BOTTLE GT PRN (18:28)
[2017-10-28] MEDS: IPRATROPIUM NEB FS 0.5 MG/2.5 ML AMPUL.NEB NEB SCH (19:30)
[2017-10-28] MEDS: ALBUTEROL FS 2.5 MG/0.5 ML VIAL.NEB NEB SCH (19:30)
[2017-10-28 20:44] VITALS: BP 121/53
[2017-10-28] MEDS: POVIDONE-IODINE OINT 28.4 GM TUBE TP SCH (21:26)
[2017-10-28] MEDS: BLOOD SUGAR DIAGNOSTIC 1 EACH STRIP IN SCH (23:07)
[2017-10-28] MEDS: INSULIN REGULAR, HUMAN 100 UNIT/ML 3 ML VIAL SQ SCH (23:08)
[2017-10-29] MEDS: IPRATROPIUM NEB FS 0.5 MG/2.5 ML AMPUL.NEB NEB SCH ×4 (02:04→19:30)
[2017-10-29] MEDS: ALBUTEROL FS 2.5 MG/0.5 ML VIAL.NEB NEB SCH ×4 (02:04→19:30)
[2017-10-29] MEDS: BLOOD SUGAR DIAGNOSTIC 1 EACH STRIP IN SCH ×4 (05:48→23:23)
[2017-10-29] MEDS: INSULIN REGULAR, HUMAN 100 UNIT/ML 3 ML VIAL SQ SCH ×4 (05:49→23:24)
[2017-10-29 07:54] VITALS: BP 104/52
[2017-10-29] MEDS: DOCUSATE SODIUM LIQ 100 MG/10 ML UDC GT SCH (09:00)
[2017-10-29] MEDS: POVIDONE-IODINE OINT 28.4 GM TUBE TP SCH ×4 (09:00→21:38)
[2017-10-29] MEDS: Z GUARD REMEDY 4 OZ OINT TP SCH ×6 (09:00→21:40)
[2017-10-29] MEDS: CEFAZOLIN 1 GM in IV D5W 50 ML IV SCH ×2 (09:00→21:08)
[2017-10-29] MEDS: VITAMINS A AND D 56.7 GM TUBE TP SCH ×4 (09:00→21:40)
[2017-10-29] MEDS: HYDROGEL DRESSING 90 GM TUBE TP SCH ×2 (09:00→21:39)
[2017-10-29] MEDS: NEOMY SULF/BACITRAC ZN/POLY 15 GM TUBE TP SCH ×2 (09:00→21:40)
[2017-10-29] MEDS: LACTOBACILLUS RHAMNOSUS GG 1 EACH CAP.SPRINK GT SCH ×2 (09:00→16:26)
[2017-10-29 10:01] LABS: CALCIUM, SERUM 7.1 mg/dL (8.5-10.1); CREATININE 3.4 mg/dL (0.6-1.3); POTASSIUM 3.4 mmol/L (3.5-5.1)
[2017-10-29 10:18] LABS: EOSINOPHILS # (AUTO) 0.1 /CMM (0.0-0.7); EOSINOPHILS % (AUTO) 1.1 % (0.0-6.0); HEMATOCRIT 25 % (39-51); HEMOGLOBIN 8.3 g/dL (13.5-17.5); LYMPHOCYTES # (AUTO) 0.4 /CMM (0.8-4.8); LYMPHOCYTES % (AUTO) 4.7 % (20.0-44.0); MEAN CORPUSCULAR HEMOGLOBIN 31 PG (26.0-33.0); MEAN CORPUSCULAR HGB CONC 33 g/dl (31.0-36.0); MEAN CORPUSCULAR VOLUME 93 fL (80-96); MONOCYTES # (AUTO) 0.4 /CMM (0.1-1.30); MONOCYTES % (AUTO) 4.9 % (2.0-12.0); NEUTROPHILS # (AUTO) 7.1 /CMM (1.8-8.9); NEUTROPHILS % (AUTO) 89.3 % (43.0-81.0); PLATELET COUNT (AUTO) 77 /CMM (150-450); RED BLOOD CELL COUNT(AUTO) 2.67 MIL/uL (4.5-6.0)
[2017-10-29] MEDS: PANTOPRAZOLE 40 MG/PACK PACK GT SCH ×2 (10:39→21:38)
[2017-10-29 11:01] LABS: EOSINOPHILS % (MANUAL) 1 % (0-4); LYMPHOCYTES % (MANUAL) 6 % (16-48); MONOCYTES % (MANUAL) 6 % (0-11.0); NEUTROPHILS % (MANUAL) 87 (42-76)
[2017-10-29 15:11] LABS: ABG BASE EXCESS 6.4 mmol/L; ABG PCO2 37.3 mmHg (35.0-45.0); ABG PH 7.518 (7.350-7.450); ABG PO2 75.4 mmHg (75.0-100.0); AaDO2 239.1 mmHg; MetHb 0.5 % (0.0-1.5); O2Hb 94.5 % (94.0-97.0); SITE, ABG Right Radial; VENT MODE, BG AC 12 550 +5 50%
[2017-10-29] MEDS ORDERED: VALACYCLOVIR HCL 500 MG TABLET PO ONE (16:00)
[2017-10-29] MEDS: LORAZEPAM 0.5 MG TABLET GT PRN (21:43)
[2017-10-30] MEDS: ALBUTEROL FS 2.5 MG/0.5 ML VIAL.NEB NEB SCH ×4 (01:49→20:25)
[2017-10-30] MEDS: IPRATROPIUM NEB FS 0.5 MG/2.5 ML AMPUL.NEB NEB SCH ×4 (01:49→20:25)
[2017-10-30] MEDS: BLOOD SUGAR DIAGNOSTIC 1 EACH STRIP IN SCH ×3 (05:36→18:06)
[2017-10-30] MEDS: INSULIN REGULAR, HUMAN 100 UNIT/ML 3 ML VIAL SQ SCH ×3 (05:37→18:16)
[2017-10-30 07:26] VITALS: BP 140/55
[2017-10-30] MEDS: DOCUSATE SODIUM LIQ 100 MG/10 ML UDC GT SCH (08:08)
[2017-10-30] MEDS: LACTOBACILLUS RHAMNOSUS GG 1 EACH CAP.SPRINK GT SCH ×2 (08:08→17:00)
[2017-10-30] MEDS: PANTOPRAZOLE 40 MG/PACK PACK GT SCH ×2 (08:09→17:00)
[2017-10-30] MEDS: ACETAMINOPHEN 650 MG/20.3 ML UDC GT PRN (08:23)
[2017-10-30] MEDS: NEOMY SULF/BACITRAC ZN/POLY 15 GM TUBE TP SCH ×2 (09:00→21:53)
[2017-10-30] MEDS: POVIDONE-IODINE OINT 28.4 GM TUBE TP SCH ×4 (09:00→21:53)
[2017-10-30] MEDS: HYDROGEL DRESSING 90 GM TUBE TP SCH ×2 (09:00→21:53)
[2017-10-30] MEDS: VITAMINS A AND D 56.7 GM TUBE TP SCH ×4 (09:00→21:53)
[2017-10-30] MEDS: CEFAZOLIN 1 GM in IV D5W 50 ML IV SCH (09:00)
[2017-10-30] MEDS: Z GUARD REMEDY 4 OZ OINT TP SCH ×6 (09:00→21:53)
[2017-10-30] MEDS: LORAZEPAM 0.5 MG TABLET GT PRN (11:53)
[2017-10-30 13:57] LABS: CALCIUM, SERUM 6.9 mg/dL (8.5-10.1)
[2017-10-30 14:09] LABS: EOSINOPHILS % (AUTO) 0.1 % (0.0-6.0); HEMATOCRIT 25 % (39-51); HEMOGLOBIN 8.2 g/dL (13.5-17.5); LYMPHOCYTES # (AUTO) 0.2 /CMM (0.8-4.8); LYMPHOCYTES % (AUTO) 2.2 % (20.0-44.0); MEAN CORPUSCULAR HEMOGLOBIN 31 PG (26.0-33.0); MEAN CORPUSCULAR HGB CONC 33 g/dl (31.0-36.0); MEAN CORPUSCULAR VOLUME 93 fL (80-96); MONOCYTES % (AUTO) 0.2 % (2.0-12.0); NEUTROPHILS # (AUTO) 7.2 /CMM (1.8-8.9); NEUTROPHILS % (AUTO) 97.5 % (43.0-81.0); PLATELET COUNT (AUTO) 93 /CMM (150-450); RDW COEFFICIENT OF VARIATION 19.8 (11.5-15.0); RED BLOOD CELL COUNT(AUTO) 2.65 MIL/uL (4.5-6.0); WHITE BLOOD COUNT (AUTO) 7.4 K/uL (4.3-11.0)
[2017-10-30 16:40] LABS: BAND % (MANUAL) 8 % (0.0-5.0); LYMPHOCYTES % (MANUAL) 2 % (16-48); NEUTROPHILS % (MANUAL) 90 (42-76)
[2017-10-30] MEDS ORDERED: FEE PK DOSING 1 MIN EA MC ONE (17:20)
[2017-10-30 17:21] LABS: INR 1.44 (0.87-1.13)
[2017-10-30] MEDS ORDERED: VANCOMYCIN 1 GM in IV NS 0.9% 250 ML IV SCH ×2 (18:00→21:00)
[2017-10-30 18:47] LABS: BILIRUBIN,DIRECT 0.6 mg/dL (0.0-0.2); BILIRUBIN,TOTAL 1.4 mg/dL (0.2-1.0)
[2017-10-30] MEDS: ZOSYN IVPB 2.25 G in IV D5W 50ml IV SCH (20:37)
[2017-10-30 20:52] VITALS: BP 109/54
[2017-10-30 21:07] LABS: APPEARANCE,URINE TURBID (CLEAR); BILIRUBIN,URINE 2+ (NEGATIVE); BLOOD, URINE 3+ Ery/uL (NEGATIVE); COLOR,URINE DARK YELLO (YELLOW); KETONES,URINE TRACE (NEGATIVE); LEUKOCYTE ESTERASE ,URINE 2+ (NEGATIVE); NITRITE, URINE POSITIVE (NEGATIVE); PROTEIN,URINE 3+ mg/dl (NEGATIVE); UGLUCOSE NEGATIVE (NEGATIVE); UROBILINOGEN,URINE 0.2 EU/dL (0.2)
[2017-10-30 21:25] LABS: BACTERIA,URINE Few /HPF (None Seen); RBC,URINE 21-50 /HPF (0-2); SQUAMOUS EPITHELIAL CELL,UR Rare /HPF (None Seen); WBC,URINE 51-80 /HPF (0-3); YEAST,URINE Rare /HPF (None Seen)
[2017-10-31] MEDS: BLOOD SUGAR DIAGNOSTIC 1 EACH STRIP IN SCH ×5 (00:15→23:51)
[2017-10-31] MEDS: INSULIN REGULAR, HUMAN 100 UNIT/ML 3 ML VIAL SQ SCH ×5 (00:16→23:52)
[2017-10-31] MEDS: ALBUTEROL FS 2.5 MG/0.5 ML VIAL.NEB NEB SCH ×4 (01:49→20:30)
[2017-10-31] MEDS: IPRATROPIUM NEB FS 0.5 MG/2.5 ML AMPUL.NEB NEB SCH ×4 (01:49→20:30)
[2017-10-31] MEDS: ZOSYN IVPB 2.25 G in IV D5W 50ml IV SCH ×4 (02:07→21:00)
[2017-10-31 07:36] VITALS: BP 127/48
[2017-10-31 08:55] LABS: CALCIUM, SERUM 6.9 mg/dL (8.5-10.1); CREATININE 3.4 mg/dL (0.6-1.3)
[2017-10-31] MEDS ORDERED: RENAL NOVASOURCE 1,000 ML BOTTLE GT PRN (09:00)
[2017-10-31] MEDS: PANTOPRAZOLE 40 MG/PACK PACK GT SCH ×2 (09:15→17:00)
[2017-10-31] MEDS: LACTOBACILLUS RHAMNOSUS GG 1 EACH CAP.SPRINK GT SCH ×2 (09:15→17:00)
[2017-10-31] MEDS: HYDROGEL DRESSING 90 GM TUBE TP SCH ×2 (09:15→21:30)
[2017-10-31] MEDS: POVIDONE-IODINE OINT 28.4 GM TUBE TP SCH ×4 (09:15→21:30)
[2017-10-31] MEDS: DOCUSATE SODIUM LIQ 100 MG/10 ML UDC GT SCH (09:15)
[2017-10-31] MEDS: NEOMY SULF/BACITRAC ZN/POLY 15 GM TUBE TP SCH ×4 (09:16→22:15)
[2017-10-31] MEDS: Z GUARD REMEDY 4 OZ OINT TP SCH ×6 (09:17→21:30)
[2017-10-31] MEDS: VITAMINS A AND D 56.7 GM TUBE TP SCH ×4 (09:17→21:30)
[2017-10-31 21:30] VITALS: BP 94/47
[2017-10-31] MEDS: QUETIAPINE FUMARATE 25 MG TABLET PO PRN (23:55)
[2017-11-01] MEDS: IPRATROPIUM NEB FS 0.5 MG/2.5 ML AMPUL.NEB NEB SCH ×4 (01:51→20:11)
[2017-11-01] MEDS: ALBUTEROL FS 2.5 MG/0.5 ML VIAL.NEB NEB SCH ×4 (01:51→20:11)
[2017-11-01] MEDS: ZOSYN IVPB 2.25 G in IV D5W 50ml IV SCH ×3 (02:23→15:30)
[2017-11-01] MEDS: BLOOD SUGAR DIAGNOSTIC 1 EACH STRIP IN SCH ×4 (05:57→23:59)
[2017-11-01] MEDS: INSULIN REGULAR, HUMAN 100 UNIT/ML 3 ML VIAL SQ SCH ×3 (05:58→17:59)
[2017-11-01] MEDS ORDERED: VANCOMYCIN 500 MG in IV D5W 100 ML IV PRN (06:00)
[2017-11-01 07:31] VITALS: BP 96/68
[2017-11-01 08:16] LABS: CREATININE 2.6 mg/dL (0.6-1.3)
[2017-11-01 08:51] LABS: POTASSIUM 2.8 mmol/L (3.5-5.1)
[2017-11-01 08:57] VITALS: BP 118/53
[2017-11-01] MEDS: POVIDONE-IODINE OINT 28.4 GM TUBE TP SCH ×4 (09:51→21:26)
[2017-11-01] MEDS: HYDROGEL DRESSING 90 GM TUBE TP SCH ×2 (09:51→21:26)
[2017-11-01] MEDS: LACTOBACILLUS RHAMNOSUS GG 1 EACH CAP.SPRINK GT SCH ×2 (09:51→17:58)
[2017-11-01] MEDS: Z GUARD REMEDY 4 OZ OINT TP SCH ×6 (09:51→21:27)
[2017-11-01] MEDS: VITAMINS A AND D 56.7 GM TUBE TP SCH ×4 (09:51→21:27)
[2017-11-01] MEDS: NEOMY SULF/BACITRAC ZN/POLY 15 GM TUBE TP SCH ×4 (09:51→21:26)
[2017-11-01] MEDS: PANTOPRAZOLE 40 MG/PACK PACK GT SCH ×2 (09:51→17:58)
[2017-11-01] MEDS: DOCUSATE SODIUM LIQ 100 MG/10 ML UDC GT SCH (09:51)
[2017-11-01] MEDS ORDERED: POTASSIUM CHLORIDE 20 MEQ POWDER PACKET ONE (10:40)
[2017-11-01] MEDS: POTASSIUM CHLORIDE 20 MEQ POWDER PACKET GT SCH ×3 (11:00→13:00)
[2017-11-01] MEDS ORDERED: VANCOMYCIN 1 GM in IV D5W 250 ML IV ONE (18:00)
[2017-11-01 21:08] VITALS: BP 106/58
[2017-11-02] MEDS: IPRATROPIUM NEB FS 0.5 MG/2.5 ML AMPUL.NEB NEB SCH ×4 (02:20→19:30)
[2017-11-02] MEDS: ALBUTEROL FS 2.5 MG/0.5 ML VIAL.NEB NEB SCH ×4 (02:20→19:30)
[2017-11-02] MEDS: QUETIAPINE FUMARATE 25 MG TABLET PO PRN (05:33)
[2017-11-02] MEDS: RENAL NOVASOURCE 1,000 ML BOTTLE GT PRN ×2 (05:55→06:00)
[2017-11-02] MEDS: INSULIN REGULAR, HUMAN 100 UNIT/ML 3 ML VIAL SQ SCH ×5 (06:00→23:53)
[2017-11-02] MEDS: BLOOD SUGAR DIAGNOSTIC 1 EACH STRIP IN SCH ×4 (06:00→23:53)
[2017-11-02 07:16] LABS: BASOPHILS % (AUTO) 0.4 % (0.0-2.0); EOSINOPHILS # (AUTO) 0.2 /CMM (0.0-0.7); EOSINOPHILS % (AUTO) 2.6 % (0.0-6.0); HEMATOCRIT 22 % (39-51); HEMOGLOBIN 7.5 g/dL (13.5-17.5); LYMPHOCYTES # (AUTO) 0.6 /CMM (0.8-4.8); LYMPHOCYTES % (AUTO) 9.5 % (20.0-44.0); MEAN CORPUSCULAR HEMOGLOBIN 32 PG (26.0-33.0); MEAN CORPUSCULAR HGB CONC 34 g/dl (31.0-36.0); MEAN CORPUSCULAR VOLUME 95 fL (80-96); MONOCYTES # (AUTO) 0.6 /CMM (0.1-1.30); MONOCYTES % (AUTO) 10.4 % (2.0-12.0); NEUTROPHILS # (AUTO) 4.7 /CMM (1.8-8.9); NEUTROPHILS % (AUTO) 77.1 % (43.0-81.0); PLATELET COUNT (AUTO) 73 /CMM (150-450); RDW COEFFICIENT OF VARIATION 21.1 (11.5-15.0); RED BLOOD CELL COUNT(AUTO) 2.33 MIL/uL (4.5-6.0); WHITE BLOOD COUNT (AUTO) 6.2 K/uL (4.3-11.0)
[2017-11-02 07:36] LABS: CREATININE 2.4 mg/dL (0.6-1.3); POTASSIUM 3.2 mmol/L (3.5-5.1)
[2017-11-02 07:44] VITALS: BP 110/46
[2017-11-02] MEDS: ZOSYN IVPB 2.25 G in IV D5W 50ml IV SCH ×2 (08:00→13:14)
[2017-11-02] MEDS: DOCUSATE SODIUM LIQ 100 MG/10 ML UDC GT SCH (08:52)
[2017-11-02] MEDS: LACTOBACILLUS RHAMNOSUS GG 1 EACH CAP.SPRINK GT SCH ×2 (08:53→17:28)
[2017-11-02] MEDS: PANTOPRAZOLE 40 MG/PACK PACK GT SCH ×2 (08:53→17:28)
[2017-11-02 09:20] LABS: BAND % (MANUAL) 2 % (0.0-5.0); EOSINOPHILS % (MANUAL) 1 % (0-4); LYMPHOCYTES % (MANUAL) 4 % (16-48); MONOCYTES % (MANUAL) 13 % (0-11.0); NEUTROPHILS % (MANUAL) 80 (42-76)
[2017-11-02] MEDS: VITAMINS A AND D 56.7 GM TUBE TP SCH ×4 (10:00→21:32)
[2017-11-02] MEDS: POVIDONE-IODINE OINT 28.4 GM TUBE TP SCH ×4 (10:00→21:32)
[2017-11-02] MEDS: NEOMY SULF/BACITRAC ZN/POLY 15 GM TUBE TP SCH ×4 (10:00→21:32)
[2017-11-02] MEDS: HYDROGEL DRESSING 90 GM TUBE TP SCH ×2 (10:00→21:32)
[2017-11-02] MEDS: Z GUARD REMEDY 4 OZ OINT TP SCH ×6 (10:00→21:32)
[2017-11-02] MEDS ORDERED: POTASSIUM CHLORIDE 20 MEQ POWDER PACKET GT ONE (11:30)
[2017-11-02] MEDS: ACETAMINOPHEN 650 MG/20.3 ML UDC GT PRN (15:33)
[2017-11-02] MEDS ORDERED: TOBRAMYCIN 120 MG in IV D5W 50 ML IV ONE (20:00)
[2017-11-02 20:07] VITALS: BP 101/51
[2017-11-02] MEDS: MEROPENEM 500 MG in IV NS 0.9% 50 ML IV SCH (20:34)
[2017-11-02] MEDS: HYDROMORPHONE INJ 0.5 MG/0.5 ML SYRINGE IV PRN (20:34)
[2017-11-03] MEDS: IPRATROPIUM NEB FS 0.5 MG/2.5 ML AMPUL.NEB NEB SCH ×4 (01:04→20:21)
[2017-11-03] MEDS: ALBUTEROL FS 2.5 MG/0.5 ML VIAL.NEB NEB SCH ×4 (01:04→20:21)
[2017-11-03] MEDS: BLOOD SUGAR DIAGNOSTIC 1 EACH STRIP IN SCH ×4 (05:43→23:08)
[2017-11-03] MEDS: INSULIN REGULAR, HUMAN 100 UNIT/ML 3 ML VIAL SQ SCH ×4 (05:44→23:09)
[2017-11-03] MEDS: RENAL NOVASOURCE 1,000 ML BOTTLE GT PRN (05:44)
[2017-11-03 07:45] VITALS: BP 91/50
[2017-11-03 08:15] LABS: CALCIUM, SERUM 7.1 mg/dL (8.5-10.1); CREATININE 3.1 mg/dL (0.6-1.3); POTASSIUM 3.9 mmol/L (3.5-5.1)
[2017-11-03] MEDS: DOCUSATE SODIUM LIQ 100 MG/10 ML UDC GT SCH (08:41)
[2017-11-03] MEDS: LACTOBACILLUS RHAMNOSUS GG 1 EACH CAP.SPRINK GT SCH ×2 (08:41→17:53)
[2017-11-03] MEDS: PANTOPRAZOLE 40 MG/PACK PACK GT SCH ×2 (08:42→17:53)
[2017-11-03] MEDS: MEROPENEM 500 MG in IV NS 0.9% 50 ML IV SCH ×2 (09:00→21:00)
[2017-11-03] MEDS: VITAMINS A AND D 56.7 GM TUBE TP SCH ×4 (09:00→20:10)
[2017-11-03] MEDS: HYDROGEL DRESSING 90 GM TUBE TP SCH ×2 (09:00→20:08)
[2017-11-03] MEDS: POVIDONE-IODINE OINT 28.4 GM TUBE TP SCH ×4 (09:00→20:08)
[2017-11-03] MEDS: NEOMY SULF/BACITRAC ZN/POLY 15 GM TUBE TP SCH ×4 (09:00→20:10)
[2017-11-03] MEDS: Z GUARD REMEDY 4 OZ OINT TP SCH ×6 (09:00→20:10)
[2017-11-03 20:43] VITALS: BP 122/60
[2017-11-04] MEDS: ALBUTEROL FS 2.5 MG/0.5 ML VIAL.NEB NEB SCH ×4 (01:53→19:30)
[2017-11-04] MEDS: IPRATROPIUM NEB FS 0.5 MG/2.5 ML AMPUL.NEB NEB SCH ×4 (01:53→19:30)
[2017-11-04] MEDS: BLOOD SUGAR DIAGNOSTIC 1 EACH STRIP IN SCH ×4 (05:43→23:13)
[2017-11-04] MEDS: INSULIN REGULAR, HUMAN 100 UNIT/ML 3 ML VIAL SQ SCH ×4 (05:44→23:14)
[2017-11-04 07:23] LABS: CALCIUM, SERUM 7.2 mg/dL (8.5-10.1); CREATININE 3.6 mg/dL (0.6-1.3); POTASSIUM 3.8 mmol/L (3.5-5.1)
[2017-11-04 07:45] VITALS: BP 99/48
[2017-11-04] MEDS: DOCUSATE SODIUM LIQ 100 MG/10 ML UDC GT SCH (08:37)
[2017-11-04] MEDS: PANTOPRAZOLE 40 MG/PACK PACK GT SCH ×2 (08:38→17:00)
[2017-11-04] MEDS: LACTOBACILLUS RHAMNOSUS GG 1 EACH CAP.SPRINK GT SCH ×2 (08:38→17:00)
[2017-11-04] MEDS: MEROPENEM 500 MG in IV NS 0.9% 50 ML IV SCH ×2 (09:34→21:00)
[2017-11-04] MEDS: VITAMINS A AND D 56.7 GM TUBE TP SCH ×4 (09:38→20:15)
[2017-11-04] MEDS: NEOMY SULF/BACITRAC ZN/POLY 15 GM TUBE TP SCH ×4 (09:38→20:14)
[2017-11-04] MEDS: HYDROGEL DRESSING 90 GM TUBE TP SCH ×2 (09:38→20:14)
[2017-11-04] MEDS: POVIDONE-IODINE OINT 28.4 GM TUBE TP SCH ×4 (09:38→20:14)
[2017-11-04] MEDS: Z GUARD REMEDY 4 OZ OINT TP SCH ×6 (09:38→20:14)
[2017-11-04] MEDS: ACETAMINOPHEN 650 MG/20.3 ML UDC GT PRN (12:20)
[2017-11-04] MEDS: RENAL NOVASOURCE 1,000 ML BOTTLE GT PRN (19:00)
[2017-11-04] MEDS: TOBRAMYCIN 80 MG in IV NS 0.9% 50 ML IV PRN (19:39)
[2017-11-04 20:33] VITALS: BP 95/51
[2017-11-04] MEDS: HYDROMORPHONE INJ 0.5 MG/0.5 ML SYRINGE IV PRN (23:00)
[2017-11-05] MEDS: IPRATROPIUM NEB FS 0.5 MG/2.5 ML AMPUL.NEB NEB SCH ×4 (02:06→20:08)
[2017-11-05] MEDS: ALBUTEROL FS 2.5 MG/0.5 ML VIAL.NEB NEB SCH ×4 (02:06→20:08)
[2017-11-05] MEDS: BLOOD SUGAR DIAGNOSTIC 1 EACH STRIP IN SCH ×4 (05:54→23:13)
[2017-11-05] MEDS: INSULIN REGULAR, HUMAN 100 UNIT/ML 3 ML VIAL SQ SCH ×4 (05:55→23:14)
[2017-11-05 07:56] LABS: CALCIUM, SERUM 7.1 mg/dL (8.5-10.1); CREATININE 2.4 mg/dL (0.6-1.3); POTASSIUM 3.3 mmol/L (3.5-5.1)
[2017-11-05 08:00] VITALS: BP 97/43
[2017-11-05] MEDS: LACTOBACILLUS RHAMNOSUS GG 1 EACH CAP.SPRINK GT SCH ×2 (08:38→17:00)
[2017-11-05] MEDS: PANTOPRAZOLE 40 MG/PACK PACK GT SCH (08:38)
[2017-11-05] MEDS: ACETAMINOPHEN 650 MG/20.3 ML UDC GT PRN (08:38)
[2017-11-05] MEDS: DOCUSATE SODIUM LIQ 100 MG/10 ML UDC GT SCH (08:38)
[2017-11-05] MEDS: POVIDONE-IODINE OINT 28.4 GM TUBE TP SCH ×4 (09:00→21:34)
[2017-11-05] MEDS: NEOMY SULF/BACITRAC ZN/POLY 15 GM TUBE TP SCH ×4 (09:00→21:34)
[2017-11-05] MEDS: HYDROGEL DRESSING 90 GM TUBE TP SCH ×2 (09:00→21:34)
[2017-11-05] MEDS: Z GUARD REMEDY 4 OZ OINT TP SCH ×6 (09:00→21:35)
[2017-11-05] MEDS: VITAMINS A AND D 56.7 GM TUBE TP SCH ×4 (09:00→21:35)
[2017-11-05] MEDS: MEROPENEM 500 MG in IV NS 0.9% 50 ML IV SCH ×2 (09:00→21:07)
[2017-11-05] MEDS ORDERED: POTASSIUM CHLORIDE 20 MEQ POWDER PACKET GT ONE ×2 (14:00→15:00)
[2017-11-05 20:06] VITALS: BP 101/51
[2017-11-06] MEDS: ALBUTEROL FS 2.5 MG/0.5 ML VIAL.NEB NEB SCH ×4 (01:32→19:45)
[2017-11-06] MEDS: IPRATROPIUM NEB FS 0.5 MG/2.5 ML AMPUL.NEB NEB SCH ×4 (01:32→19:45)
[2017-11-06] MEDS: RENAL NOVASOURCE 1,000 ML BOTTLE GT PRN (01:51)
[2017-11-06] MEDS: INSULIN REGULAR, HUMAN 100 UNIT/ML 3 ML VIAL SQ SCH ×3 (06:00→12:00)
[2017-11-06] MEDS: BLOOD SUGAR DIAGNOSTIC 1 EACH STRIP IN SCH ×3 (06:02→18:06)
[2017-11-06 07:17] LABS: CALCIUM, SERUM 7.3 mg/dL (8.5-10.1); CREATININE 2.8 mg/dL (0.6-1.3); POTASSIUM 3.6 mmol/L (3.5-5.1)
[2017-11-06 07:45] VITALS: BP 93/47
[2017-11-06] MEDS: MEROPENEM 500 MG in IV NS 0.9% 50 ML IV SCH ×2 (09:00→21:17)
[2017-11-06] MEDS: POVIDONE-IODINE OINT 28.4 GM TUBE TP SCH ×4 (09:26→21:00)
[2017-11-06] MEDS: HYDROGEL DRESSING 90 GM TUBE TP SCH ×2 (09:26→21:00)
[2017-11-06] MEDS: NEOMY SULF/BACITRAC ZN/POLY 15 GM TUBE TP SCH ×4 (09:26→21:00)
[2017-11-06] MEDS: DOCUSATE SODIUM LIQ 100 MG/10 ML UDC GT SCH (09:26)
[2017-11-06] MEDS: LACTOBACILLUS RHAMNOSUS GG 1 EACH CAP.SPRINK GT SCH ×2 (09:26→17:00)
[2017-11-06] MEDS: PANTOPRAZOLE 40 MG/PACK PACK GT SCH (09:26)
[2017-11-06] MEDS: VITAMINS A AND D 56.7 GM TUBE TP SCH ×4 (09:27→21:00)
[2017-11-06] MEDS: Z GUARD REMEDY 4 OZ OINT TP SCH ×6 (09:27→21:00)
[2017-11-06] MEDS ORDERED: BISACODYL SUPP (10 MG) 10 MG/SUPP.RECT SUPP.RECT RC PRN (19:00)
[2017-11-06 20:03] VITALS: BP 96/58
[2017-11-06] MEDS ORDERED: LACTULOSE 10 G/15 ML UDC (PYXIS) GT PRN (20:30)
[2017-11-06] MEDS ORDERED: TUBERCULIN,PURIF.PROT.DERIV. 5 TU/0.1 ML VIAL ID SCH (21:00)
[2017-11-06] MEDS: TOBRAMYCIN 80 MG in IV NS 0.9% 50 ML IV PRN (21:18)
[2017-11-06] MEDS: QUETIAPINE FUMARATE 25 MG TABLET PO PRN (22:43)
[2017-11-07] MEDS: BLOOD SUGAR DIAGNOSTIC 1 EACH STRIP IN SCH ×4 (00:31→17:38)
[2017-11-07] MEDS: IPRATROPIUM NEB FS 0.5 MG/2.5 ML AMPUL.NEB NEB SCH ×4 (01:15→20:22)
[2017-11-07] MEDS: ALBUTEROL FS 2.5 MG/0.5 ML VIAL.NEB NEB SCH ×4 (01:15→20:22)
[2017-11-07] MEDS: RENAL NOVASOURCE 1,000 ML BOTTLE GT PRN (05:42)
[2017-11-07] MEDS: INSULIN REGULAR, HUMAN 100 UNIT/ML 3 ML VIAL SQ SCH ×4 (06:00→17:43)
[2017-11-07 07:16] LABS: BASOPHILS % (AUTO) 0.9 % (0.0-2.0); EOSINOPHILS # (AUTO) 0.1 /CMM (0.0-0.7); EOSINOPHILS % (AUTO) 2.3 % (0.0-6.0); LYMPHOCYTES # (AUTO) 0.7 /CMM (0.8-4.8); LYMPHOCYTES % (AUTO) 18.8 % (20.0-44.0); MEAN CORPUSCULAR HEMOGLOBIN 33 PG (26.0-33.0); MEAN CORPUSCULAR HGB CONC 34 g/dl (31.0-36.0); MEAN CORPUSCULAR VOLUME 96 fL (80-96); MONOCYTES # (AUTO) 0.6 /CMM (0.1-1.30); MONOCYTES % (AUTO) 14.6 % (2.0-12.0); NEUTROPHILS # (AUTO) 2.5 /CMM (1.8-8.9); NEUTROPHILS % (AUTO) 63.4 % (43.0-81.0); PLATELET COUNT (AUTO) 98 /CMM (150-450); RDW COEFFICIENT OF VARIATION 20.8 (11.5-15.0); RED BLOOD CELL COUNT(AUTO) 2.07 MIL/uL (4.5-6.0)
[2017-11-07 07:22] LABS: HEMOGLOBIN 6.8 g/dL (13.5-17.5)
[2017-11-07 07:23] LABS: HEMATOCRIT 20 % (39-51)
[2017-11-07 07:29] LABS: CREATININE 1.8 mg/dL (0.6-1.3); POTASSIUM 3.2 mmol/L (3.5-5.1)
[2017-11-07 07:44] VITALS: BP 97/51
[2017-11-07] MEDS: LACTOBACILLUS RHAMNOSUS GG 1 EACH CAP.SPRINK GT SCH ×2 (08:31→17:38)
[2017-11-07] MEDS: PANTOPRAZOLE 40 MG/PACK PACK GT SCH (08:31)
[2017-11-07] MEDS: DOCUSATE SODIUM LIQ 100 MG/10 ML UDC GT SCH (08:31)
[2017-11-07] MEDS: NEOMY SULF/BACITRAC ZN/POLY 15 GM TUBE TP SCH ×4 (09:00→21:08)
[2017-11-07] MEDS: Z GUARD REMEDY 4 OZ OINT TP SCH ×6 (09:00→21:09)
[2017-11-07] MEDS: POVIDONE-IODINE OINT 28.4 GM TUBE TP SCH ×4 (09:00→21:08)
[2017-11-07] MEDS: VITAMINS A AND D 56.7 GM TUBE TP SCH ×4 (09:00→21:09)
[2017-11-07] MEDS: MEROPENEM 500 MG in IV NS 0.9% 50 ML IV SCH ×2 (09:00→21:01)
[2017-11-07] MEDS: HYDROGEL DRESSING 90 GM TUBE TP SCH ×2 (09:00→21:08)
[2017-11-07] MEDS ORDERED: POTASSIUM CHLORIDE 20 MEQ POWDER PACKET GT ONE ×2 (09:30→17:00)
[2017-11-07 09:58] LABS: EOSINOPHILS % (MANUAL) 2 % (0-4); LYMPHOCYTES % (MANUAL) 9 % (16-48); MONOCYTES % (MANUAL) 10 % (0-11.0); NEUTROPHILS % (MANUAL) 79 (42-76)
[2017-11-07 11:52] VITALS: BP 101/48
[2017-11-07 12:07] VITALS: BP 97/47
[2017-11-07 13:26] VITALS: BP 100/53
[2017-11-07 15:21] VITALS: BP 101/60
[2017-11-07] MEDS: PROSOURCE / PROSTAT (PYXIS) 30 ML UDC GT SCH (17:38)
[2017-11-07] MEDS: FERROUS SULFATE - FOR SA ONLY 330 MG/7.5 ML UDC GT SCH (17:38)
[2017-11-07 20:07] VITALS: BP 98/52
[2017-11-08] MEDS: BLOOD SUGAR DIAGNOSTIC 1 EACH STRIP IN SCH ×5 (00:52→23:55)
[2017-11-08] MEDS: ALBUTEROL FS 2.5 MG/0.5 ML VIAL.NEB NEB SCH ×4 (01:51→19:26)
[2017-11-08] MEDS: IPRATROPIUM NEB FS 0.5 MG/2.5 ML AMPUL.NEB NEB SCH ×4 (01:51→19:26)
[2017-11-08] MEDS: LORAZEPAM 0.5 MG TABLET GT PRN (03:45)
[2017-11-08] MEDS: INSULIN REGULAR, HUMAN 100 UNIT/ML 3 ML VIAL SQ SCH ×5 (05:41→23:55)
[2017-11-08 07:42] VITALS: BP 90/42
[2017-11-08 08:05] LABS: CALCIUM, SERUM 7.4 mg/dL (8.5-10.1); CREATININE 2.3 mg/dL (0.6-1.3)
[2017-11-08] MEDS: PROSOURCE / PROSTAT (PYXIS) 30 ML UDC GT SCH ×3 (08:42→17:29)
[2017-11-08] MEDS: LACTOBACILLUS RHAMNOSUS GG 1 EACH CAP.SPRINK GT SCH ×2 (08:43→17:29)
[2017-11-08] MEDS: FERROUS SULFATE - FOR SA ONLY 330 MG/7.5 ML UDC GT SCH ×2 (08:43→17:29)
[2017-11-08] MEDS: DOCUSATE SODIUM LIQ 100 MG/10 ML UDC GT SCH (08:43)
[2017-11-08] MEDS: PANTOPRAZOLE 40 MG/PACK PACK GT SCH (08:47)
[2017-11-08] MEDS: ACETAMINOPHEN 650 MG/20 ML UDC- FOR SA PATIENTS ONLY GT PRN (08:49)
[2017-11-08] MEDS: VITAMINS A AND D 56.7 GM TUBE TP SCH ×4 (09:00→21:55)
[2017-11-08] MEDS: HYDROGEL DRESSING 90 GM TUBE TP SCH ×2 (09:00→21:53)
[2017-11-08] MEDS: Z GUARD REMEDY 4 OZ OINT TP SCH ×6 (09:00→21:55)
[2017-11-08] MEDS: NEOMY SULF/BACITRAC ZN/POLY 15 GM TUBE TP SCH ×4 (09:00→21:54)
[2017-11-08] MEDS: MEROPENEM 500 MG in IV NS 0.9% 50 ML IV SCH ×2 (09:00→21:00)
[2017-11-08] MEDS: POVIDONE-IODINE OINT 28.4 GM TUBE TP SCH ×4 (09:00→21:52)
[2017-11-08] MEDS ORDERED: POTASSIUM CHLORIDE 20 MEQ POWDER PACKET GT SCH (09:00)
[2017-11-08] MEDS ORDERED: VIT B CMPLX 3/FA/VIT C/BIOTIN 1 TAB TABLET PO SCH (09:00)
[2017-11-08] MEDS: HYDROCODONE/APAP 5/325MG 1 EACH TABLET PO PRN (12:39)
[2017-11-08] MEDS: RENAL NOVASOURCE 1,000 ML BOTTLE GT PRN (17:29)
[2017-11-08 21:29] VITALS: BP 119/64
[2017-11-09] MEDS: IPRATROPIUM NEB FS 0.5 MG/2.5 ML AMPUL.NEB NEB SCH ×4 (01:07→20:28)
[2017-11-09] MEDS: ALBUTEROL FS 2.5 MG/0.5 ML VIAL.NEB NEB SCH ×4 (01:08→20:28)
[2017-11-09] MEDS: HYDROCODONE/APAP 5/325MG 1 EACH TABLET PO PRN ×3 (01:17→15:09)
[2017-11-09] MEDS: BLOOD SUGAR DIAGNOSTIC 1 EACH STRIP IN SCH ×4 (05:25→18:49)
[2017-11-09] MEDS: INSULIN REGULAR, HUMAN 100 UNIT/ML 3 ML VIAL SQ SCH ×4 (05:26→18:00)
[2017-11-09 07:32] LABS: CALCIUM, SERUM 7.2 mg/dL (8.5-10.1); CREATININE 1.6 mg/dL (0.6-1.3); POTASSIUM 3.4 mmol/L (3.5-5.1)
[2017-11-09 08:29] VITALS: BP 99/51
[2017-11-09] MEDS: VIT B CMPLX 3/FA/VIT C/BIOTIN 1 TAB TABLET GT SCH (08:53)
[2017-11-09] MEDS: LACTOBACILLUS RHAMNOSUS GG 1 EACH CAP.SPRINK GT SCH ×2 (08:53→17:00)
[2017-11-09] MEDS: DOCUSATE SODIUM LIQ 100 MG/10 ML UDC GT SCH (08:53)
[2017-11-09] MEDS: FERROUS SULFATE - FOR SA ONLY 330 MG/7.5 ML UDC GT SCH ×2 (08:53→17:00)
[2017-11-09] MEDS: PANTOPRAZOLE 40 MG/PACK PACK GT SCH (08:53)
[2017-11-09] MEDS: PROSOURCE / PROSTAT (PYXIS) 30 ML UDC GT SCH ×3 (08:53→17:00)
[2017-11-09] MEDS: POVIDONE-IODINE OINT 28.4 GM TUBE TP SCH ×4 (09:00→21:08)
[2017-11-09] MEDS: Z GUARD REMEDY 4 OZ OINT TP SCH ×6 (09:00→21:09)
[2017-11-09] MEDS: VITAMINS A AND D 56.7 GM TUBE TP SCH ×4 (09:00→21:09)
[2017-11-09] MEDS: NEOMY SULF/BACITRAC ZN/POLY 15 GM TUBE TP SCH ×4 (09:00→21:09)
[2017-11-09] MEDS: HYDROGEL DRESSING 90 GM TUBE TP SCH ×2 (09:00→21:08)
[2017-11-09] MEDS: MEROPENEM 500 MG in IV NS 0.9% 50 ML IV SCH ×2 (09:40→21:00)
[2017-11-09] MEDS ORDERED: POTASSIUM CHLORIDE 20 MEQ POWDER PACKET NG SCH (11:00)
[2017-11-09] MEDS ORDERED: POTASSIUM CHLORIDE 20 MEQ POWDER PACKET GT ONE ×2 (13:30→14:00)
[2017-11-09 19:55] VITALS: BP 117/64
[2017-11-09] MEDS: HYDROCORTISONE 1% CREAM 28.35 GM TUBE TP SCH (21:09)
[2017-11-10] MEDS: BLOOD SUGAR DIAGNOSTIC 1 EACH STRIP IN SCH ×5 (00:06→23:11)
[2017-11-10] MEDS: RENAL NOVASOURCE 1,000 ML BOTTLE GT PRN (00:16)
[2017-11-10] MEDS: IPRATROPIUM NEB FS 0.5 MG/2.5 ML AMPUL.NEB NEB SCH ×4 (02:08→19:33)
[2017-11-10] MEDS: ALBUTEROL FS 2.5 MG/0.5 ML VIAL.NEB NEB SCH ×4 (02:08→19:33)
[2017-11-10] MEDS: INSULIN REGULAR, HUMAN 100 UNIT/ML 3 ML VIAL SQ SCH ×5 (05:57→23:12)
[2017-11-10] MEDS: ACETAMINOPHEN 650 MG/20 ML UDC- FOR SA PATIENTS ONLY GT PRN ×2 (05:59→17:23)
[2017-11-10 07:55] VITALS: BP 92/46
[2017-11-10] MEDS: LACTOBACILLUS RHAMNOSUS GG 1 EACH CAP.SPRINK GT SCH ×2 (08:00→17:21)
[2017-11-10] MEDS: PANTOPRAZOLE 40 MG/PACK PACK GT SCH (08:00)
[2017-11-10] MEDS: VIT B CMPLX 3/FA/VIT C/BIOTIN 1 TAB TABLET GT SCH (08:00)
[2017-11-10] MEDS: DOCUSATE SODIUM LIQ 100 MG/10 ML UDC GT SCH (08:01)
[2017-11-10] MEDS: FERROUS SULFATE - FOR SA ONLY 330 MG/7.5 ML UDC GT SCH ×2 (08:01→17:21)
[2017-11-10] MEDS: POVIDONE-IODINE OINT 28.4 GM TUBE TP SCH ×4 (08:01→21:39)
[2017-11-10] MEDS: PROSOURCE / PROSTAT (PYXIS) 30 ML UDC GT SCH ×3 (08:01→17:21)
[2017-11-10] MEDS: HYDROGEL DRESSING 90 GM TUBE TP SCH ×2 (08:02→21:39)
[2017-11-10] MEDS: VITAMINS A AND D 56.7 GM TUBE TP SCH ×4 (08:02→21:40)
[2017-11-10] MEDS: Z GUARD REMEDY 4 OZ OINT TP SCH ×6 (08:02→21:39)
[2017-11-10] MEDS: NEOMY SULF/BACITRAC ZN/POLY 15 GM TUBE TP SCH ×4 (08:02→21:39)
[2017-11-10] MEDS: HYDROCORTISONE 1% CREAM 28.35 GM TUBE TP SCH ×2 (08:02→21:39)
[2017-11-10 08:17] LABS: CALCIUM, SERUM 7.1 mg/dL (8.5-10.1); CREATININE 1.9 mg/dL (0.6-1.3); POTASSIUM 4.2 mmol/L (3.5-5.1)
[2017-11-10] MEDS: MEROPENEM 500 MG in IV NS 0.9% 50 ML IV SCH (09:00)
[2017-11-10] MEDS ORDERED: GUAIFENESIN 300 MG/15 ML UDC PO PRN (16:30)
[2017-11-10] MEDS ORDERED: GUAIFENESIN 300 MG/15 ML UDC PO SCH (18:00)
[2017-11-10 20:50] VITALS: BP 123/59
[2017-11-11] MEDS: IPRATROPIUM NEB FS 0.5 MG/2.5 ML AMPUL.NEB NEB SCH ×4 (01:35→19:19)
[2017-11-11] MEDS: ALBUTEROL FS 2.5 MG/0.5 ML VIAL.NEB NEB SCH ×4 (01:35→19:19)
[2017-11-11] MEDS: ACETAMINOPHEN 650 MG/20 ML UDC- FOR SA PATIENTS ONLY GT PRN (04:57)
[2017-11-11] MEDS: INSULIN REGULAR, HUMAN 100 UNIT/ML 3 ML VIAL SQ SCH ×4 (05:55→23:51)
[2017-11-11] MEDS: BLOOD SUGAR DIAGNOSTIC 1 EACH STRIP IN SCH ×4 (05:55→23:45)
[2017-11-11] MEDS: HYDROCODONE/APAP 5/325MG 1 EACH TABLET PO PRN (07:32)
[2017-11-11 07:51] VITALS: BP 110/56
[2017-11-11] MEDS: PROSOURCE / PROSTAT (PYXIS) 30 ML UDC GT SCH ×3 (08:34→17:49)
[2017-11-11] MEDS: PANTOPRAZOLE 40 MG/PACK PACK GT SCH (08:34)
[2017-11-11] MEDS: VIT B CMPLX 3/FA/VIT C/BIOTIN 1 TAB TABLET GT SCH (08:35)
[2017-11-11] MEDS: DOCUSATE SODIUM LIQ 100 MG/10 ML UDC GT SCH (08:35)
[2017-11-11] MEDS: LACTOBACILLUS RHAMNOSUS GG 1 EACH CAP.SPRINK GT SCH ×2 (08:35→17:48)
[2017-11-11] MEDS: FERROUS SULFATE - FOR SA ONLY 330 MG/7.5 ML UDC GT SCH ×2 (08:35→17:49)
[2017-11-11] MEDS: Z GUARD REMEDY 4 OZ OINT TP SCH ×6 (09:00→20:36)
[2017-11-11] MEDS: VITAMINS A AND D 56.7 GM TUBE TP SCH ×4 (09:00→20:36)
[2017-11-11] MEDS: MEROPENEM 500 MG in IV NS 0.9% 50 ML IV SCH ×2 (09:16→20:24)
[2017-11-11] MEDS: HYDROGEL DRESSING 90 GM TUBE TP SCH ×2 (11:30→20:36)
[2017-11-11] MEDS: NEOMY SULF/BACITRAC ZN/POLY 15 GM TUBE TP SCH ×4 (11:30→20:36)
[2017-11-11] MEDS: POVIDONE-IODINE OINT 28.4 GM TUBE TP SCH ×4 (11:30→20:36)
[2017-11-11] MEDS: HYDROCORTISONE 1% CREAM 28.35 GM TUBE TP SCH ×2 (11:30→20:36)
[2017-11-11] MEDS: HYDROMORPHONE INJ 0.5 MG/0.5 ML SYRINGE IV PRN ×2 (12:37→23:55)
[2017-11-11 20:06] VITALS: BP 117/55
[2017-11-12] MEDS: IPRATROPIUM NEB FS 0.5 MG/2.5 ML AMPUL.NEB NEB SCH ×4 (01:40→19:20)
[2017-11-12] MEDS: ALBUTEROL FS 2.5 MG/0.5 ML VIAL.NEB NEB SCH ×4 (01:40→19:20)
[2017-11-12] MEDS: LORAZEPAM 0.5 MG TABLET GT PRN (02:31)
[2017-11-12] MEDS: INSULIN REGULAR, HUMAN 100 UNIT/ML 3 ML VIAL SQ SCH ×4 (06:00→23:13)
[2017-11-12] MEDS: BLOOD SUGAR DIAGNOSTIC 1 EACH STRIP IN SCH ×4 (06:16→23:12)
[2017-11-12 07:45] VITALS: BP 132/58
[2017-11-12] MEDS: PANTOPRAZOLE 40 MG/PACK PACK GT SCH (08:21)
[2017-11-12] MEDS: LACTOBACILLUS RHAMNOSUS GG 1 EACH CAP.SPRINK GT SCH ×2 (08:21→17:20)
[2017-11-12] MEDS: DOCUSATE SODIUM LIQ 100 MG/10 ML UDC GT SCH (08:21)
[2017-11-12] MEDS: PROSOURCE / PROSTAT (PYXIS) 30 ML UDC GT SCH ×3 (08:21→17:20)
[2017-11-12] MEDS: VIT B CMPLX 3/FA/VIT C/BIOTIN 1 TAB TABLET GT SCH (08:21)
[2017-11-12] MEDS: FERROUS SULFATE - FOR SA ONLY 330 MG/7.5 ML UDC GT SCH ×2 (08:21→17:20)
[2017-11-12] MEDS: HYDROCODONE/APAP 5/325MG 1 EACH TABLET PO PRN ×2 (08:22→20:26)
[2017-11-12] MEDS: HYDROCORTISONE 1% CREAM 28.35 GM TUBE TP SCH ×2 (09:00→20:24)
[2017-11-12] MEDS: HYDROGEL DRESSING 90 GM TUBE TP SCH ×2 (09:00→20:24)
[2017-11-12] MEDS: Z GUARD REMEDY 4 OZ OINT TP SCH ×4 (09:00→20:25)
[2017-11-12] MEDS: NEOMY SULF/BACITRAC ZN/POLY 15 GM TUBE TP SCH ×2 (09:00→20:24)
[2017-11-12] MEDS: POVIDONE-IODINE OINT 28.4 GM TUBE TP SCH ×4 (09:00→20:24)
[2017-11-12] MEDS: MEROPENEM 500 MG in IV NS 0.9% 50 ML IV SCH ×2 (09:00→21:13)
[2017-11-12] MEDS: VITAMINS A AND D 56.7 GM TUBE TP SCH ×2 (09:00→20:25)
[2017-11-12 09:53] LABS: ABG BASE EXCESS 3.8 mmol/L; ABG OXYGEN SATURATION 98.2 % (92.0-98.5); ABG PCO2 39.6 mmHg (35.0-45.0); ABG PH 7.465 (7.350-7.450); ABG PO2 123.7 mmHg (75.0-100.0); COHb 0.3 % (0.5-1.5); MetHb 0.5 % (0.0-1.5); O2Hb 97.4 % (94.0-97.0); SITE, ABG Right Radial
[2017-11-12 16:09] LABS: BASOPHILS % (AUTO) 0.5 % (0.0-2.0); EOSINOPHILS # (AUTO) 0.1 /CMM (0.0-0.7); HEMATOCRIT 21 % (39-51); HEMOGLOBIN 7.3 g/dL (13.5-17.5); LYMPHOCYTES # (AUTO) 0.5 /CMM (0.8-4.8); LYMPHOCYTES % (AUTO) 8.8 % (20.0-44.0); MEAN CORPUSCULAR HEMOGLOBIN 32 PG (26.0-33.0); MEAN CORPUSCULAR HGB CONC 35 g/dl (31.0-36.0); MEAN CORPUSCULAR VOLUME 93 fL (80-96); MONOCYTES # (AUTO) 0.6 /CMM (0.1-1.30); MONOCYTES % (AUTO) 11.9 % (2.0-12.0); NEUTROPHILS # (AUTO) 4.1 /CMM (1.8-8.9); NEUTROPHILS % (AUTO) 77.8 % (43.0-81.0); PLATELET COUNT (AUTO) 88 /CMM (150-450); RDW COEFFICIENT OF VARIATION 19.5 (11.5-15.0); RED BLOOD CELL COUNT(AUTO) 2.27 MIL/uL (4.5-6.0); WHITE BLOOD COUNT (AUTO) 5.3 K/uL (4.3-11.0)
[2017-11-12 16:29] LABS: INR 1.14 (0.87-1.13)
[2017-11-12] MEDS: RENAL NOVASOURCE 1,000 ML BOTTLE GT PRN (17:53)
[2017-11-12 18:37] LABS: BAND % (MANUAL) 13 % (0.0-5.0); LYMPHOCYTES % (MANUAL) 16 % (16-48); MONOCYTES % (MANUAL) 9 % (0-11.0); NEUTROPHILS % (MANUAL) 62 (42-76)
[2017-11-12 20:05] VITALS: BP 124/61
[2017-11-13] MEDS: ALBUTEROL FS 2.5 MG/0.5 ML VIAL.NEB NEB SCH ×4 (01:25→19:10)
[2017-11-13] MEDS: IPRATROPIUM NEB FS 0.5 MG/2.5 ML AMPUL.NEB NEB SCH ×4 (01:25→19:10)
[2017-11-13] MEDS: BLOOD SUGAR DIAGNOSTIC 1 EACH STRIP IN SCH ×3 (05:46→17:18)
[2017-11-13] MEDS: INSULIN REGULAR, HUMAN 100 UNIT/ML 3 ML VIAL SQ SCH (05:47)
[2017-11-13 07:25] VITALS: BP 144/62
[2017-11-13] MEDS: PANTOPRAZOLE 40 MG/PACK PACK GT SCH (08:33)
[2017-11-13] MEDS: FERROUS SULFATE - FOR SA ONLY 330 MG/7.5 ML UDC GT SCH ×2 (08:33→17:18)
[2017-11-13] MEDS: LACTOBACILLUS RHAMNOSUS GG 1 EACH CAP.SPRINK GT SCH ×2 (08:33→17:18)
[2017-11-13] MEDS: DOCUSATE SODIUM LIQ 100 MG/10 ML UDC GT SCH (08:33)
[2017-11-13] MEDS: VIT B CMPLX 3/FA/VIT C/BIOTIN 1 TAB TABLET GT SCH (08:33)
[2017-11-13] MEDS: PROSOURCE / PROSTAT (PYXIS) 30 ML UDC GT SCH ×3 (08:33→17:18)
[2017-11-13] MEDS: POVIDONE-IODINE OINT 28.4 GM TUBE TP SCH ×4 (09:00→21:00)
[2017-11-13] MEDS: Z GUARD REMEDY 4 OZ OINT TP SCH ×4 (09:00→21:00)
[2017-11-13] MEDS: NEOMY SULF/BACITRAC ZN/POLY 15 GM TUBE TP SCH ×2 (09:00→21:00)
[2017-11-13] MEDS: HYDROGEL DRESSING 90 GM TUBE TP SCH ×2 (09:00→21:00)
[2017-11-13] MEDS: HYDROCORTISONE 1% CREAM 28.35 GM TUBE TP SCH ×2 (09:00→21:00)
[2017-11-13] MEDS: VITAMINS A AND D 56.7 GM TUBE TP SCH ×2 (09:00→21:00)
[2017-11-13] MEDS: MEROPENEM 500 MG in IV NS 0.9% 50 ML IV SCH ×2 (09:01→20:01)
[2017-11-13] MEDS: HYDROCODONE/APAP 5/325MG 1 EACH TABLET PO PRN ×2 (12:29→20:28)
[2017-11-13 20:13] VITALS: BP 114/58
[2017-11-13] MEDS ORDERED: MEROPENEM 500 MG in IV NS 0.9% 50 ML IV SCH (21:00)
[2017-11-14] MEDS: INSULIN REGULAR, HUMAN 100 UNIT/ML 3 ML VIAL SQ SCH ×7 (00:15→23:40)
[2017-11-14] MEDS: BLOOD SUGAR DIAGNOSTIC 1 EACH STRIP IN SCH ×5 (00:16→23:40)
[2017-11-14] MEDS: ALBUTEROL FS 2.5 MG/0.5 ML VIAL.NEB NEB SCH ×4 (01:27→20:27)
[2017-11-14] MEDS: IPRATROPIUM NEB FS 0.5 MG/2.5 ML AMPUL.NEB NEB SCH ×4 (01:27→20:27)
[2017-11-14] MEDS: LORAZEPAM 0.5 MG TABLET GT PRN (01:36)
[2017-11-14] MEDS: RENAL NOVASOURCE 1,000 ML BOTTLE GT PRN (06:11)
[2017-11-14 07:58] VITALS: BP 114/56
[2017-11-14] MEDS: DOCUSATE SODIUM LIQ 100 MG/10 ML UDC GT SCH (08:57)
[2017-11-14] MEDS: FERROUS SULFATE - FOR SA ONLY 330 MG/7.5 ML UDC GT SCH ×2 (08:57→16:30)
[2017-11-14] MEDS: PANTOPRAZOLE 40 MG/PACK PACK GT SCH (08:57)
[2017-11-14] MEDS: VIT B CMPLX 3/FA/VIT C/BIOTIN 1 TAB TABLET GT SCH (08:57)
[2017-11-14] MEDS: PROSOURCE / PROSTAT (PYXIS) 30 ML UDC GT SCH ×3 (08:57→16:30)
[2017-11-14] MEDS: POVIDONE-IODINE OINT 28.4 GM TUBE TP SCH ×4 (08:57→21:57)
[2017-11-14] MEDS: LACTOBACILLUS RHAMNOSUS GG 1 EACH CAP.SPRINK GT SCH ×2 (08:57→16:30)
[2017-11-14] MEDS: HYDROCORTISONE 1% CREAM 28.35 GM TUBE TP SCH ×2 (08:58→21:58)
[2017-11-14] MEDS: Z GUARD REMEDY 4 OZ OINT TP SCH ×4 (08:58→21:58)
[2017-11-14] MEDS: HYDROGEL DRESSING 90 GM TUBE TP SCH ×2 (08:58→21:57)
[2017-11-14] MEDS: VITAMINS A AND D 56.7 GM TUBE TP SCH ×2 (08:58→21:58)
[2017-11-14 11:41] LABS: BASOPHILS % (AUTO) 0.2 % (0.0-2.0); EOSINOPHILS # (AUTO) 0.1 /CMM (0.0-0.7); EOSINOPHILS % (AUTO) 2.4 % (0.0-6.0); HEMATOCRIT 21 % (39-51); HEMOGLOBIN 7.3 g/dL (13.5-17.5); LYMPHOCYTES # (AUTO) 0.7 /CMM (0.8-4.8); LYMPHOCYTES % (AUTO) 14.1 % (20.0-44.0); MEAN CORPUSCULAR HEMOGLOBIN 32 PG (26.0-33.0); MEAN CORPUSCULAR HGB CONC 34 g/dl (31.0-36.0); MEAN CORPUSCULAR VOLUME 95 fL (80-96); MONOCYTES # (AUTO) 0.7 /CMM (0.1-1.30); NEUTROPHILS # (AUTO) 3.6 /CMM (1.8-8.9); NEUTROPHILS % (AUTO) 70.3 % (43.0-81.0); PLATELET COUNT (AUTO) 87 /CMM (150-450); RDW COEFFICIENT OF VARIATION 19.2 (11.5-15.0); RED BLOOD CELL COUNT(AUTO) 2.26 MIL/uL (4.5-6.0); WHITE BLOOD COUNT (AUTO) 5.1 K/uL (4.3-11.0)
[2017-11-14 12:21] LABS: BAND % (MANUAL) 1 % (0.0-5.0); EOSINOPHILS % (MANUAL) 4 % (0-4); LYMPHOCYTES % (MANUAL) 9 % (16-48); MONOCYTES % (MANUAL) 8 % (0-11.0); NEUTROPHILS % (MANUAL) 78 (42-76)
[2017-11-14] MEDS ORDERED: HYDROMORPHONE HCL 2 MG TABLET GT PRN (14:30)
[2017-11-14] MEDS: HYDROCODONE/APAP 5/325MG 1 EACH TABLET PO PRN ×2 (16:31→23:41)
[2017-11-14 20:33] VITALS: BP 105/52
[2017-11-15] VITALS (10 sets, daily range): BP systolic 98–142; BP diastolic 51–67
[2017-11-15] MEDS: ALBUTEROL FS 2.5 MG/0.5 ML VIAL.NEB NEB SCH ×4 (01:50→19:30)
[2017-11-15] MEDS: IPRATROPIUM NEB FS 0.5 MG/2.5 ML AMPUL.NEB NEB SCH ×4 (01:50→19:30)
[2017-11-15] MEDS: INSULIN REGULAR, HUMAN 100 UNIT/ML 3 ML VIAL SQ SCH ×4 (06:00→23:45)
[2017-11-15] MEDS: BLOOD SUGAR DIAGNOSTIC 1 EACH STRIP IN SCH ×4 (06:03→23:45)
[2017-11-15] MEDS: RENAL NOVASOURCE 1,000 ML BOTTLE GT PRN (06:07)
[2017-11-15 07:14] LABS: BASOPHILS % (AUTO) 0.8 % (0.0-2.0); EOSINOPHILS # (AUTO) 0.1 /CMM (0.0-0.7); EOSINOPHILS % (AUTO) 3.3 % (0.0-6.0); LYMPHOCYTES # (AUTO) 0.7 /CMM (0.8-4.8); LYMPHOCYTES % (AUTO) 17.5 % (20.0-44.0); MEAN CORPUSCULAR HEMOGLOBIN 33 PG (26.0-33.0); MEAN CORPUSCULAR HGB CONC 34 g/dl (31.0-36.0); MEAN CORPUSCULAR VOLUME 96 fL (80-96); MONOCYTES # (AUTO) 0.5 /CMM (0.1-1.30); MONOCYTES % (AUTO) 11.8 % (2.0-12.0); NEUTROPHILS # (AUTO) 2.5 /CMM (1.8-8.9); NEUTROPHILS % (AUTO) 66.6 % (43.0-81.0); PLATELET COUNT (AUTO) 83 /CMM (150-450); WHITE BLOOD COUNT (AUTO) 3.8 K/uL (4.3-11.0)
[2017-11-15 07:34] LABS: RED BLOOD CELL COUNT(AUTO) 1.93 MIL/uL (4.5-6.0)
[2017-11-15 07:36] LABS: HEMATOCRIT 19 % (39-51); HEMOGLOBIN 6.4 g/dL (13.5-17.5)
[2017-11-15] MEDS: FERROUS SULFATE - FOR SA ONLY 330 MG/7.5 ML UDC GT SCH ×2 (08:41→17:00)
[2017-11-15] MEDS: DOCUSATE SODIUM LIQ 100 MG/10 ML UDC GT SCH (08:41)
[2017-11-15] MEDS: VIT B CMPLX 3/FA/VIT C/BIOTIN 1 TAB TABLET GT SCH (08:41)
[2017-11-15] MEDS: PROSOURCE / PROSTAT (PYXIS) 30 ML UDC GT SCH ×3 (08:41→17:00)
[2017-11-15] MEDS: LACTOBACILLUS RHAMNOSUS GG 1 EACH CAP.SPRINK GT SCH ×2 (08:41→17:00)
[2017-11-15] MEDS: PANTOPRAZOLE 40 MG/PACK PACK GT SCH (08:42)
[2017-11-15] MEDS: ACETAMINOPHEN 650 MG/20 ML UDC- FOR SA PATIENTS ONLY GT PRN ×2 (08:46→21:20)
[2017-11-15] MEDS: HYDROGEL DRESSING 90 GM TUBE TP SCH ×2 (09:00→21:54)
[2017-11-15] MEDS: HYDROCORTISONE 1% CREAM 28.35 GM TUBE TP SCH ×2 (09:00→21:54)
[2017-11-15] MEDS: POVIDONE-IODINE OINT 28.4 GM TUBE TP SCH ×4 (09:00→21:54)
[2017-11-15] MEDS: Z GUARD REMEDY 4 OZ OINT TP SCH ×4 (09:00→21:54)
[2017-11-15] MEDS: VITAMINS A AND D 56.7 GM TUBE TP SCH ×2 (09:00→21:54)
[2017-11-15 09:28] LABS: EOSINOPHILS % (MANUAL) 7 % (0-4); LYMPHOCYTES % (MANUAL) 19 % (16-48); MONOCYTES % (MANUAL) 7 % (0-11.0); NEUTROPHILS % (MANUAL) 67 (42-76)
[2017-11-15] MEDS ORDERED: diphenhydrAMINE HCL ELIX 25 MG/10 ML UDC GT PRN (13:30)
[2017-11-15] MEDS: HYDROCODONE/APAP 5/325MG 1 EACH TABLET PO PRN ×2 (13:51→23:46)
[2017-11-16 00:39] VITALS: BP 102/58
[2017-11-16] MEDS: IPRATROPIUM NEB FS 0.5 MG/2.5 ML AMPUL.NEB NEB SCH ×4 (02:27→19:01)
[2017-11-16] MEDS: ALBUTEROL FS 2.5 MG/0.5 ML VIAL.NEB NEB SCH ×4 (02:27→19:01)
[2017-11-16] MEDS: BLOOD SUGAR DIAGNOSTIC 1 EACH STRIP IN SCH ×3 (05:33→17:10)
[2017-11-16] MEDS: INSULIN REGULAR, HUMAN 100 UNIT/ML 3 ML VIAL SQ SCH ×2 (05:33→23:50)
[2017-11-16] MEDS: RENAL NOVASOURCE 1,000 ML BOTTLE GT PRN (05:47)
[2017-11-16 08:00] VITALS: BP 133/64
[2017-11-16] MEDS: DOCUSATE SODIUM LIQ 100 MG/10 ML UDC GT SCH (08:25)
[2017-11-16] MEDS: FERROUS SULFATE - FOR SA ONLY 330 MG/7.5 ML UDC GT SCH ×2 (08:26→17:10)
[2017-11-16] MEDS: PROSOURCE / PROSTAT (PYXIS) 30 ML UDC GT SCH ×3 (08:26→17:10)
[2017-11-16] MEDS: PANTOPRAZOLE 40 MG/PACK PACK GT SCH (08:26)
[2017-11-16] MEDS: HYDROCORTISONE 1% CREAM 28.35 GM TUBE TP SCH (08:26)
[2017-11-16] MEDS: VIT B CMPLX 3/FA/VIT C/BIOTIN 1 TAB TABLET GT SCH (08:26)
[2017-11-16] MEDS: VITAMINS A AND D 56.7 GM TUBE TP SCH ×2 (08:26→21:19)
[2017-11-16] MEDS: Z GUARD REMEDY 4 OZ OINT TP SCH ×4 (08:26→21:19)
[2017-11-16] MEDS: LACTOBACILLUS RHAMNOSUS GG 1 EACH CAP.SPRINK GT SCH ×2 (08:26→17:10)
[2017-11-16] MEDS: POVIDONE-IODINE OINT 28.4 GM TUBE TP SCH ×4 (08:26→21:19)
[2017-11-16] MEDS: HYDROGEL DRESSING 90 GM TUBE TP SCH ×2 (08:26→21:19)
[2017-11-16 19:30] VITALS: BP 119/56
[2017-11-16] MEDS: HYDROCODONE/APAP 5/325MG 1 EACH TABLET PO PRN (20:34)
[2017-11-17] MEDS: IPRATROPIUM NEB FS 0.5 MG/2.5 ML AMPUL.NEB NEB SCH ×4 (01:12→20:26)
[2017-11-17] MEDS: ALBUTEROL FS 2.5 MG/0.5 ML VIAL.NEB NEB SCH ×4 (01:12→20:26)
[2017-11-17] MEDS: INSULIN REGULAR, HUMAN 100 UNIT/ML 3 ML VIAL SQ SCH ×3 (06:00→17:34)
[2017-11-17] MEDS: BLOOD SUGAR DIAGNOSTIC 1 EACH STRIP IN SCH ×4 (06:08→17:19)
[2017-11-17 07:49] VITALS: BP 104/53
[2017-11-17] MEDS: VIT B CMPLX 3/FA/VIT C/BIOTIN 1 TAB TABLET GT SCH (08:50)
[2017-11-17] MEDS: HYDROGEL DRESSING 90 GM TUBE TP SCH ×2 (08:50→21:37)
[2017-11-17] MEDS: DOCUSATE SODIUM LIQ 100 MG/10 ML UDC GT SCH (08:50)
[2017-11-17] MEDS: LACTOBACILLUS RHAMNOSUS GG 1 EACH CAP.SPRINK GT SCH ×2 (08:50→17:19)
[2017-11-17] MEDS: POVIDONE-IODINE OINT 28.4 GM TUBE TP SCH ×4 (08:50→21:37)
[2017-11-17] MEDS: FERROUS SULFATE - FOR SA ONLY 330 MG/7.5 ML UDC GT SCH ×2 (08:50→17:19)
[2017-11-17] MEDS: PROSOURCE / PROSTAT (PYXIS) 30 ML UDC GT SCH ×3 (08:50→17:19)
[2017-11-17] MEDS: PANTOPRAZOLE 40 MG/PACK PACK GT SCH (08:50)
[2017-11-17] MEDS: Z GUARD REMEDY 4 OZ OINT TP SCH ×4 (08:50→21:37)
[2017-11-17] MEDS: VITAMINS A AND D 56.7 GM TUBE TP SCH ×2 (08:51→21:37)
[2017-11-17] MEDS: HYDROCODONE/APAP 5/325MG 1 EACH TABLET PO PRN ×2 (09:20→23:52)
[2017-11-17 13:32] LABS: BASOPHILS % (AUTO) 0.8 % (0.0-2.0); EOSINOPHILS # (AUTO) 0.2 /CMM (0.0-0.7); EOSINOPHILS % (AUTO) 4.5 % (0.0-6.0); HEMATOCRIT 26 % (39-51); HEMOGLOBIN 8.8 g/dL (13.5-17.5); LYMPHOCYTES # (AUTO) 0.6 /CMM (0.8-4.8); LYMPHOCYTES % (AUTO) 10.6 % (20.0-44.0); MEAN CORPUSCULAR HEMOGLOBIN 31 PG (26.0-33.0); MEAN CORPUSCULAR HGB CONC 34 g/dl (31.0-36.0); MEAN CORPUSCULAR VOLUME 90 fL (80-96); MONOCYTES # (AUTO) 0.7 /CMM (0.1-1.30); MONOCYTES % (AUTO) 12.8 % (2.0-12.0); NEUTROPHILS # (AUTO) 3.8 /CMM (1.8-8.9); NEUTROPHILS % (AUTO) 71.3 % (43.0-81.0); PLATELET COUNT (AUTO) 104 /CMM (150-450); RDW COEFFICIENT OF VARIATION 21.7 (11.5-15.0); RED BLOOD CELL COUNT(AUTO) 2.83 MIL/uL (4.5-6.0); WHITE BLOOD COUNT (AUTO) 5.4 K/uL (4.3-11.0)
[2017-11-17] MEDS: LORAZEPAM 0.5 MG TABLET GT PRN (17:20)
[2017-11-17] MEDS: ACETAMINOPHEN 650 MG/20 ML UDC- FOR SA PATIENTS ONLY GT PRN (17:21)
[2017-11-17 20:50] VITALS: BP 116/61
[2017-11-18] MEDS: BLOOD SUGAR DIAGNOSTIC 1 EACH STRIP IN SCH ×3 (00:05→12:09)
[2017-11-18] MEDS: IPRATROPIUM NEB FS 0.5 MG/2.5 ML AMPUL.NEB NEB SCH ×3 (01:52→13:20)
[2017-11-18] MEDS: ALBUTEROL FS 2.5 MG/0.5 ML VIAL.NEB NEB SCH ×3 (01:52→13:20)
[2017-11-18] MEDS: LORAZEPAM 0.5 MG TABLET GT PRN (04:03)
[2017-11-18] MEDS: INSULIN REGULAR, HUMAN 100 UNIT/ML 3 ML VIAL SQ SCH ×3 (05:53→12:00)
[2017-11-18 07:52] VITALS: BP 120/55
[2017-11-18] MEDS: DOCUSATE SODIUM LIQ 100 MG/10 ML UDC GT SCH (08:59)
[2017-11-18] MEDS: VIT B CMPLX 3/FA/VIT C/BIOTIN 1 TAB TABLET GT SCH (09:00)
[2017-11-18] MEDS: FERROUS SULFATE - FOR SA ONLY 330 MG/7.5 ML UDC GT SCH (09:00)
[2017-11-18] MEDS: LACTOBACILLUS RHAMNOSUS GG 1 EACH CAP.SPRINK GT SCH (09:00)
[2017-11-18] MEDS: PROSOURCE / PROSTAT (PYXIS) 30 ML UDC GT SCH ×2 (09:01→12:10)
[2017-11-18] MEDS: PANTOPRAZOLE 40 MG/PACK PACK GT SCH (09:02)
[2017-11-18] MEDS: POVIDONE-IODINE OINT 28.4 GM TUBE TP SCH ×2 (10:15)
[2017-11-18] MEDS: Z GUARD REMEDY 4 OZ OINT TP SCH ×2 (10:15→10:16)
[2017-11-18] MEDS: HYDROGEL DRESSING 90 GM TUBE TP SCH (10:15)
[2017-11-18] MEDS: VITAMINS A AND D 56.7 GM TUBE TP SCH (10:16)
[2017-11-18] MEDS: ACETAMINOPHEN 650 MG/20 ML UDC- FOR SA PATIENTS ONLY GT PRN (12:17)
[2017-11-18] MEDS: RENAL NOVASOURCE 1,000 ML BOTTLE GT PRN (13:00)
[2017-11-18] MEDS ORDERED: HYDR-552 GT (14:49)
[2017-11-18] MEDS ORDERED: FERR300L GT (14:49)
[2017-11-18] MEDS ORDERED: LACT10SO GT (14:49)
[2017-11-18] MEDS ORDERED: GUAI100S34 GT (14:49)
[2017-11-18] MEDS ORDERED: AMIN30LI25 GT (14:49)
[2017-11-18] MEDS ORDERED: DIPH-530 GT (14:49)
[2017-11-18] MEDS ORDERED: FOLI0.8T2 GT (14:49)
[2017-11-18] MEDS ORDERED: HYDR4TAB4 GT (14:49)
== END 2017-11-18 13:45 | disposition short-term general hospital (02) | DRG 133 ==
LOC: SA 19:00
PROVIDERS: ADMIT Internal Medicine; ATTEND Internal Medicine
PROC: B548ZZA Ultrasonography of Superior Vena Cava, Guidance (ICD-10-PCS; principal; 2017-10-10)
PROC: 02HV33Z Insertion of Infusion Device into Superior Vena Cava, Percutaneous Approach (ICD-10-PCS; principal; 2017-10-10)
DX: J96.11 Chronic respiratory failure with hypoxia (principal); N17.0 Acute kidney failure with tubular necrosis; I21.4 Non-ST elevation (NSTEMI) myocardial infarction; A41.9 Sepsis, unspecified organism; G92 Toxic encephalopathy; J15.1 Pneumonia due to Pseudomonas; I96 Gangrene, not elsewhere classified; D68.9 Coagulation defect, unspecified; Z93.0 Tracheostomy status; E87.0 Hyperosmolality and hypernatremia; I13.0 Hypertensive heart and chronic kidney disease with heart failure and stage 1 through stage 4 chronic kidney disease, or unspecified chronic kidney disease; I50.9 Heart failure, unspecified; E87.2 Acidosis; R13.10 Dysphagia, unspecified; D62 Acute posthemorrhagic anemia; Z93.1 Gastrostomy status; K70.30 Alcoholic cirrhosis of liver without ascites; N18.9 Chronic kidney disease, unspecified; Z87.01 Personal history of pneumonia (recurrent); Z79.899 Other long term (current) drug therapy; I25.10 Atherosclerotic heart disease of native coronary artery without angina pectoris; Z79.4 Long term (current) use of insulin; R73.9 Hyperglycemia, unspecified; D69.6 Thrombocytopenia, unspecified; F15.10 Other stimulant abuse, uncomplicated; E87.6 Hypokalemia; G89.29 Other chronic pain; I25.2 Old myocardial infarction; R19.7 Diarrhea, unspecified; I38 Endocarditis, valve unspecified; N39.0 Urinary tract infection, site not specified; Y95 Nosocomial condition; N50.89 Other specified disorders of the male genital organs; L98.9 Disorder of the skin and subcutaneous tissue, unspecified; L89.890 Pressure ulcer of other site, unstageable; B95.61 Methicillin susceptible Staphylococcus aureus infection as the cause of diseases classified elsewhere; B96.89 Other specified bacterial agents as the cause of diseases classified elsewhere; E87.1 Hypo-osmolality and hyponatremia; E86.1 Hypovolemia; N28.0 Ischemia and infarction of kidney; B37.9 Candidiasis, unspecified; R91.8 Other nonspecific abnormal finding of lung field; T82.838A Hemorrhage due to vascular prosthetic devices, implants and grafts, initial encounter; Y84.9 Medical procedure, unspecified as the cause of abnormal reaction of the patient, or of later complication, without mention of misadventure at the time of the procedure; Y92.129 Unspecified place in nursing home as the place of occurrence of the external cause; F43.22 Adjustment disorder with anxiety; M81.0 Age-related osteoporosis without current pathological fracture; T17.990A Other foreign object in respiratory tract, part unspecified in causing asphyxiation, initial encounter
CPT/HCPCS: 31720; 36415; 36600; 71045-TC; 73030-TC; 74018; 80048-TC; 80202-TC; 81000-TC; 82140-TC; 82247-TC; 82248-TC; 82272-TC; 82803-TC; 82962-TC; 83605-TC; 85025-TC; 85610-TC; 85730-TC; 86580-TC; 86850-TC; 86921-TC; 87040-TC; 87070-TC; 87081-TC; 87086-TC; 87186-TC; 92521; 92526; 92611-TC; 93970-TC; 94003-TC; 94640-TC; 94664-TC; 94760-TC; 94762-TC; 94799-TC; 97112-TC; A4216; A4606; A4623; A6248; A6402; A7526; J0690; J1815; J2185; J2543; J3260; J3370; J7030; J7050; J7060; L8501; P9016-BL; P9047; Q0163; Z7610

== ENCOUNTER 2017-10-14 10:30 | Inpatient (IN) | payer MEDICAID ==
[~2017-10-14] VITALS: Ht 167.6 cm; Wt 84.4 kg
[2017-10-14] VITALS (45 sets, daily range): BP systolic 56–136; BP diastolic 28–60
[~2017-10-14 10:30] MED LIST changes: +ACET650S26 GT; +ALBU50IV5 IV; +ALLA266C2 TP; +BLOO-668 IN; +DEXT50DI8 IV; +DOCU50LI GT; -DOCU50LI NG; +INSU100V3 SQ; -LACT1CAP72 GT; +LACT1CAP94 GT; +LORA1TAB GT; +NEOM15OI3 TP; +PANT40SU2 GT; -PANT40TA2 PO
--- NOTE | 2017-10-14 10:30 | NUR ---
SENT [facility] SUB ACUTE FOR H&H OF 5.0 AND HYPOTENSION. PT RIGHT FEMORAL HD SITE ACTIVELY BLEEDING AT THIS TIME.PER REPORT PT WAS DIALYZED LAST YESTERDAY. NAD NOTED. PT IS ALERT BUT NONVERBAL. ON TRACH WITH COOL AEROSOL. PT PLACED ON MONITOR AND GOWN. PENDING MD BERGER.
[2017-10-14] MEDS ORDERED: DESMOPRESSIN 20 MCG in IV NS 0.9% 50 ML IV ONE (11:00)
--- NOTE | 2017-10-14 11:15 | NUR ---
NEW DRESSING PACKING PLACED WITH PRESSURE TAPE AT THIS TIME
[2017-10-14 11:19] LABS: BASOPHILS % (AUTO) 0.6 % (0.0-2.0); EOSINOPHILS # (AUTO) 0.2 /CMM (0.0-0.7); EOSINOPHILS % (AUTO) 1.9 % (0.0-6.0); LYMPHOCYTES % (AUTO) 12.3 % (20.0-44.0); MEAN CORPUSCULAR HEMOGLOBIN 32 PG (26.0-33.0); MEAN CORPUSCULAR HGB CONC 34 g/dl (31.0-36.0); MEAN CORPUSCULAR VOLUME 94 fL (80-96); MONOCYTES # (AUTO) 0.9 /CMM (0.1-1.30); MONOCYTES % (AUTO) 10.5 % (2.0-12.0); NEUTROPHILS # (AUTO) 6.2 /CMM (1.8-8.9); NEUTROPHILS % (AUTO) 74.7 % (43.0-81.0); PLATELET COUNT (AUTO) 91 /CMM (150-450); RDW COEFFICIENT OF VARIATION 18.5 (11.5-15.0); WHITE BLOOD COUNT (AUTO) 8.3 K/uL (4.3-11.0)
[2017-10-14 11:24] LABS: HEMATOCRIT 15 % (39-51); HEMOGLOBIN 5.2 g/dL (13.5-17.5)
[2017-10-14 11:45] LABS: INR 1.33 (0.85-1.15)
[2017-10-14 11:47] LABS: BILIRUBIN,DIRECT 0.4 mg/dL (0.0-0.2); BILIRUBIN,TOTAL 0.7 mg/dL (0.2-1.0); CALCIUM, SERUM 7.1 mg/dL (8.5-10.1); CREATININE 2.8 mg/dL (0.6-1.3); POTASSIUM 4.4 mmol/L (3.5-5.1); TOTAL PROTEIN, SERUM 5.7 g/dL (6.4-8.2)
[2017-10-14 11:50] LABS: ALBUMIN 0.9 g/dL (3.4-5.0)
--- NOTE | 2017-10-14 12:16 | NUR ---
CALLED NURSING SUP, REQUESTED AN ICU BED.
[2017-10-14] MEDS ORDERED: HYDR1DIS2 IV (12:29)
[2017-10-14] MEDS ORDERED: NUTR100037 GT (12:29)
[2017-10-14] MEDS ORDERED: IPRA0.2S49 IH (12:29)
[2017-10-14] MEDS ORDERED: Z GUARD REMEDY 2 OZ OINT TP PRN ×2 (14:00)
[2017-10-14] MEDS ORDERED: ACETAMINOPHEN 325 MG TABLET PO PRN (14:00)
[2017-10-14] MEDS ORDERED: DEXTROSE 50%-WATER 50 ML DISP.SYRIN IV PRN (14:00)
[2017-10-14] MEDS ORDERED: MAG HYDROX/AL HYDROX/SIMETH 30 ML UDC PO PRN (14:00)
[2017-10-14] MEDS ORDERED: ACETAMINOPHEN 650 MG/20.3 ML UDC GT PRN (14:00)
[2017-10-14] MEDS ORDERED: ONDANSETRON HCL/PF 4 MG/2 ML VIAL IVP PRN (14:00)
[2017-10-14] MEDS ORDERED: MAGNESIUM HYDROXIDE 30 ML UDC PO PRN (14:00)
[2017-10-14] MEDS ORDERED: ZOLPIDEM TARTRATE 5 MG TABLET PO PRN (14:00)
--- NOTE | 2017-10-14 14:05 | NUR ---
REPORT GIVEN TO GAY ZIEGLER RN FOR SHERIF
--- NOTE | 2017-10-14 14:20 | NUR ---
BLOOD STARTED WITNESSED AND VERIFIED WITH TEZ EUBANKS RN
--- NOTE | 2017-10-14 14:45 | NUR ---
MOVIE EDITOR ADMITTED INTO ICU FROM ER VIA MONITORED GURNEY. RECEIVED REPORT FROM JAVIER HALL RN. PT ADMITTED INTO ICU FOR ANEMIA. HEMOGLOBIN 5 AFTER PT HAD BEEN TUGGING AT HIS DIALYSIS CATHETER LOCATED IN HIS RIGHT GROIN. FIRST UNIT OF PRBC INFUSING PER RIGHT ARM PICC LINE. WOUNDS PHOTOGRAPHED. TRACH INTACT CONNECTED TO COOL AEROSOL.
--- NOTE | 2017-10-14 15:28 | NUR ---
ASSOCIATE ACCOUNT DIRECTOR NOTE RCVD PT ENDORSED BY RILEY RASHID. PT ALERT TO NAME, SR ON TELE, ON COOL AEROSOL TOLERATING WELL. PEG PLACEMENT VERIFIED BY AUSCULTATION/ASPIRATION. NO GASTRIC CONTENT OBTAINED UPON ASPIRATION. COOPER TO GRAVITY DRAINING CLOUDY, BROWNISH URINE. CORA PICC C/D/I/PATENT. PRESSURE DRESSING OBSERVED OVER RIGHT FEMORAL AREA C/D/I. WILL CONTINUE TO MONITOR PT FOR SAFETY AND COMFORT. CALL LIGHT WITHIN REACH. BED IN LOW AND LOCKED POSITION.
[2017-10-14] MEDS: ALBUMIN 25% 25 GM in PREMIX 1 EA IV SCH (16:00)
[2017-10-14] MEDS: LACTOBACILLUS RHAMNOSUS GG 1 EACH CAP.SPRINK GT SCH (17:00)
--- NOTE | 2017-10-14 17:00 | NUR ---
RT PT PLACED ON VENT PER DR. MCDUFFIE ORDERS. PT APPEARS TO BE LETHARGIC AND NON RESPONSIVE. PT IS TRACHED WITH NOTED VENT SETTINGS. VENT ALARMS ARE SET AND AUDIBLE WITH BVM BY BEDSIDE. ENGINEERING GROUP LEADER CUFF PRESSURE NOTED. VENT IS PLUGGED INTO RED OUTLET. WILL CONTINUE TO MONITOR. Addendum: 10/14/17 at 1722 by ANGELITA VASQUEZ RT Amended: Links added.
--- NOTE | 2017-10-14 17:27 | NUR ---
CUSTOMER EXPERIENCE LEADER NOTE PT BECAME UNRESPONSIVE TO PAINFUL STIMULI UPON REMOVING COVERS, LARGE AMOUNT OF BLOOD FOUND UNDER PT. RIGHT GROIN HD ACCESS DRAINING BLOOD. PRESSURE WAS IMMEDIATELY PLACED ON SITE. PRBC's INFUSING, DR. MCDUFFIE IN UNIT ORDERED BOLUS OF NS 500ML GIVEN. WILL CONTINUE TO MONITOR PT.
[2017-10-14] MEDS ORDERED: NOREPINEPHRINE 16 MG in IV D5W 500 ML IV PRN ×8 (17:30→20:00)
[2017-10-14 17:57] LABS: ABG BASE EXCESS -0.7 mmol/L; ABG OXYGEN SATURATION 98.5 % (92.0-98.5); ABG PCO2 30.6 mmHg (35.0-45.0); ABG PH 7.486 (7.350-7.450); AaDO2 211.4 mmHg; COHb 0.3 % (0.5-1.5); MetHb 1.4 % (0.0-1.5); O2Hb 96.8 % (94.0-97.0); PEEP,BG 0 cm H2O; SITE, ABG Right Brachial; VT, ABG 500 mL
[2017-10-14] MEDS ORDERED: IV NS 0.9% 500 ML IV ONE (18:00)
[2017-10-14] MEDS: CLOTRIMAZOLE 1% 15 GM TUBE TP SCH (18:00)
[2017-10-14] MEDS: BLOOD SUGAR DIAGNOSTIC 1 EACH STRIP IN SCH ×2 (18:03→22:00)
--- NOTE | 2017-10-14 18:11 | NUR ---
MOLD RUNNER NOTE PT CONTINUES TO BLEED DESPITE MANUAL PRESSURE ON SITE, RILEY RASHID PLACING PRESSURE OVER PT'S GROIN. CENTRAL SUPPLY CALLED REQUESTING SAND BAGS. NO SAND BAG IN ICU AT THIS TIME. DR. MCDUFFIE AWARE OF PT'S CONTINUED BLEEDING. WILL CONTINUE TO MONITOR PT'S VITAL SIGNS. PRBC INFUSING AT THIS TIME.
--- NOTE | 2017-10-14 19:15 | NUR ---
FIRE CONTROL MECHANIC APPLIED BILATERAL SOFT WRIST RESTRAINTS PT HAS BEEN PULLING ON HD CATH AND IS ACTIVELY BLEEDING; WILL MONITOR PT FOR COMPLIANCE TO SEE IF RESTRAINTS CAN BE REMOVED.
--- NOTE | 2017-10-14 19:24 | NUR ---
PATENT LITIGATION ASSOCIATE NOTE PT CONTINUES TO BLEED FROM RIGHT GROIN AREA DESPITE PRESSURE IN PLACE. PRBC X4 GIVEN. PT'S CARE ENDORSED TO PLEXIGLAS FORMER RN. Addendum: 10/14/17 at 1940 by ARA SABILLON RN ADDENDUM PT AWAKE AND ALERT, ARABIC SPEAKING, SR ON TELE, TOLERATING VENT SETTINGS WELL.
[2017-10-14] MEDS ORDERED: CELLULOSE,OXIDIZED 1 PKT EACH MC ONE ×2 (19:30)
[2017-10-14] MEDS ORDERED: CELLULOSE,OXIDIZED 1 EACH EACH MC ONE (19:30)
[2017-10-14] MEDS: IV NS 0.9% 1,000 ML IV PRN (19:56)
--- NOTE | 2017-10-14 20:00 | NUR ---
ITEM REPAIR MANAGERINSERTING OPERATOR AT BEDSIDE; UPDATED ON PLAN OF CARE; ALL QUESTIONS AND CONCERNS ADDRESSED.
[2017-10-14] MEDS: IPRATROPIUM NEB FS 0.5 MG/2.5 ML AMPUL.NEB IH SCH (20:04)
[2017-10-14 20:14] LABS: HEMOGLOBIN 7.9 g/dL (13.5-17.5)
--- NOTE | 2017-10-14 20:30 | NUR ---
DESKTOP PUBLISHING SPECIALIST RCD PT ACTIVELY BLEEDING FROM RIGHT FEM HD CATH SITE; STOPBOARD ASSEMBLER APPLYING PRESSURE TO SITE; CHARGE NURSE TOOK OVER APPLYING PRESSURE MORE THAN AN HOUR; APPLIED SURGICELL AND PLACED SANDBAG TO SITE. PT SOAKED WITH BLOOD 6 WASHCLOTHS WITH AND TWO BOXES OF 4x4.
--- NOTE | 2017-10-14 22:00 | NUR ---
RF DESIGN ENGINEER ATTEMPTED TO REPOSITION PT HOWEVER PT BEGAN TO BLEED FROM HD SITE; WILL REPOSITION PT PT CONDITION PERMITS.
[2017-10-15] VITALS (77 sets, daily range): BP systolic 80–127; BP diastolic 42–62
[2017-10-15 01:01] LABS: HEMOGLOBIN 8.4 g/dL (13.5-17.5)
[2017-10-15] MEDS: BLOOD SUGAR DIAGNOSTIC 1 EACH STRIP IN SCH ×6 (01:19→20:42)
[2017-10-15] MEDS: IPRATROPIUM NEB FS 0.5 MG/2.5 ML AMPUL.NEB IH SCH ×4 (01:47→19:33)
[2017-10-15] MEDS: ALBUMIN 25% 25 GM in PREMIX 1 EA IV SCH (03:15)
[2017-10-15] MEDS: IV NS 0.9% 1,000 ML IV PRN ×2 (05:02→19:21)
[2017-10-15 05:06] LABS: BASOPHILS # (AUTO) 0.1 /CMM (0.0-0.2); BASOPHILS % (AUTO) 0.7 % (0.0-2.0); EOSINOPHILS # (AUTO) 0.1 /CMM (0.0-0.7); HEMATOCRIT 24 % (39-51); HEMOGLOBIN 8.3 g/dL (13.5-17.5); LYMPHOCYTES # (AUTO) 1.5 /CMM (0.8-4.8); LYMPHOCYTES % (AUTO) 13.3 % (20.0-44.0); MEAN CORPUSCULAR HEMOGLOBIN 29 PG (26.0-33.0); MEAN CORPUSCULAR HGB CONC 34 g/dl (31.0-36.0); MEAN CORPUSCULAR VOLUME 86 fL (80-96); MONOCYTES # (AUTO) 1.2 /CMM (0.1-1.30); NEUTROPHILS # (AUTO) 8.4 /CMM (1.8-8.9); PLATELET COUNT (AUTO) 74 /CMM (150-450); RDW COEFFICIENT OF VARIATION 18.2 (11.5-15.0); RED BLOOD CELL COUNT(AUTO) 2.84 MIL/uL (4.5-6.0); WHITE BLOOD COUNT (AUTO) 11.3 K/uL (4.3-11.0)
[2017-10-15 05:29] LABS: AMYLASE 127 U/L (25-115); CARBON DIOXIDE 24 mmol/L (21-32); CHLORIDE 110 mmol/L (98-107); CREATININE 3.1 mg/dL (0.6-1.3); GLUCOSE 121 mg/dL (74-106); LIPASE 749 U/L (73-393); PHOSPHORUS 7.6 mg/dL (2.5-4.9); POTASSIUM 5.5 mmol/L (3.5-5.1); SODIUM SERUM 143 mmol/L (136-145)
[2017-10-15 05:34] LABS: THYROID STIMULATING HORMONE 2.513 uIU/mL (0.358-3.74)
[2017-10-15 05:42] LABS: ALBUMIN 1.2 g/dL (3.4-5.0); UREA NITROGEN, BLOOD 99 mg/dL (7-18)
[2017-10-15 05:48] LABS: IRON, SERUM 95 ug/dl (50-175); TOTAL IRON BINDING CAPACITY 89 ug/dl (250-450)
--- NOTE | 2017-10-15 06:57 | NUR ---
DISTRICT COURT JUDGE PT REMAINED IN SUPINE POSITION PT NOTED TO BE BLEEDING DURING ADLS. SANDBAG REMAINED IN PLACE.
[2017-10-15] MEDS: PANTOPRAZOLE 40 MG/PACK PACK GT SCH (07:30)
--- NOTE | 2017-10-15 07:35 | NUR ---
ASSESSED RIGHT FEMORAL HD CATHETER SITE, THE CATHETER IS VISIBLY OUT 14CM FROM DRESSING SITE, I DID NOT REMOVE DRESSING SITE PRESSURE BAG IS STILL IN PLACE, SO I AM ASSUMING THE HD CATHETER IS OUT FROM FEMORAL SITE MORE THAN 14CM. PM SHIFT REPORTED THAT BLEEDING HAD STOPPED BUT RESTARTED DURING A POSITION CHANGE. AT THIS TIME THE KERLEX DRESSING IS DRY AND WHITE WITH DRIED BLOOD ON THE SKIN BUT NOT THE DRESSING. I WILL LEAVE PRESSURE DRESSING AND BAG IN PLACE. DISCUSS WITH MD FOR PLAN TODAY VS FUTURE TO CHANGE/FIX HD CATHETHER, HIS COAGULATION MAY NOT BE OPTIMAL FOR SURGICAL PROCEDURE.
--- NOTE | 2017-10-15 07:51 | NUR ---
Awake and alert trach pt received on mechanical vent. Pt trach is secure. Vent is plugged into a red outlet, alarms are set and audible, and BVM is at bedside. Addendum: 10/15/17 at 0752 by USAMA HERNANDEZ RT Amended: Links added.
[2017-10-15 08:12] LABS: INR 1.33 (0.87-1.13)
[2017-10-15] MEDS: LACTOBACILLUS RHAMNOSUS GG 1 EACH CAP.SPRINK GT SCH ×2 (08:31→17:12)
[2017-10-15] MEDS: DOCUSATE SODIUM LIQ 100 MG/10 ML UDC GT SCH (08:31)
[2017-10-15] MEDS: CLOTRIMAZOLE 1% 15 GM TUBE TP SCH ×2 (08:31→17:12)
[2017-10-15] MEDS: NEOMY SULF/BACITRAC ZN/POLY 15 GM TUBE TP SCH (08:31)
--- NOTE | 2017-10-15 09:15 | NUR ---
DR. DONATO ON THE UNIT, TO CELINE PT. REPORTED AND SHOWED HER THE HD CATHETER. SHE STATES IT WILL NEED TO BE REPLACED. SHE CONTACTS, DR. HEAVENLY WALKER WHO STATES HE WILL COME IN TODAY TO REPLACE IT. PT NEEDS TO HAVE HD TODAY PER DR. DONATO SHE PUTS IN ORDERS.
--- NOTE | 2017-10-15 09:38 | NUR ---
DR. MCDUFFIE ON THE UNIT EVALS THE PT. ORDER TO PLACE PT ON COOL AEROSOL HE WAS IN [facility]AC[facility] (RT AT BEDSIDE), START TF RENAL NOVASOURCE FOR GOAL RATE OF 50ML UNTIL NUTRITION CONSULT DETERMINES OPTIMAL RATE. SPEECH THERAPY FOR SWALLOW EVAL PT WAS ON PUREE DIET IN SUBACUTE. HE OKAYS FOR PT TO HAVE ICE CHIPS WHEN SWITCHED TO COOL AEROSOL. FAMILY AT THE BEDSIDE DURING EVAL AND IS UPDATED ABOUT PLAN OF CARE AND HOW THE DAY WILL LOOK.
--- NOTE | 2017-10-15 09:52 | NUR ---
PT PLACED ON COOL AEROSOL 40% FIO2 PER DR. MCDUFFIE'S ORDERS.
--- NOTE | 2017-10-15 10:43 | NUR ---
HEAVENLY WALKER IN FOR HD CATH PLACEMENT, HE ALSO APPLIES SUTURE TO THE OLD SITE AFTER DC THE OLD LINE AND STOPPING THE BLEEDING.
[2017-10-15] MEDS: RENAL NOVASOURCE 1,000 ML BOTTLE GT PRN (12:00)
--- NOTE | 2017-10-15 12:51 | NUR ---
SPEECH THERAPIST AT BEDSIDE PT PLACE ON PMV BY RT AND PASSES SWALLOW EVAL FOR PUREE THIN LIQUIDS, BUT SPEECH THERAPIST RECOMMENDS ORAL GRATIFICATION LUNCH ONLY FOR THE NEXT FEW DAYS UNTIL REASSESSMENT, BECAUSE AT THIS TIME HE HAS A SMALL TO MODERATE SECRETIONS. IN [facility]ACUTE SPEECH THERAPIST STATED THAT HE DEVELOPED LARGE AMOUNTS OF SECRETIONS WHILE ON THE SAME DIET, SO WE WILL INCREASE DIET SLOWLY, PUREE DIET LUNCH ONLY, ICE CHIPS ARE OKAY.
--- NOTE | 2017-10-15 13:51 | NUR ---
Dr. Escobar on the unit again sees the patient s/p lunch with PMV in place, gives the order: Okay to keep on PMV as tolerated with no respiratory distress and keep O2 Sat above 93%.
[2017-10-15] MEDS ORDERED: EPOETIN ALFA (10,000 UNIT) 10,000 UNIT/ML VIAL SQ ONE (15:00)
[2017-10-15] MEDS: CEFAZOLIN 1 GM in IV NS 0.9% 50 ML IV SCH (15:01)
[2017-10-15] MEDS ORDERED: ALBUMIN 25% 25 GM in PREMIX 1 EA IV PRN (15:30)
--- NOTE | 2017-10-15 15:30 | NUR ---
HD NURSE IN FOR TREATMENT.
--- NOTE | 2017-10-15 19:30 | NUR ---
ORDER BUILDER LOADER: PT RECEIVED ON C/A WT FI02 AT 40%. ALERT AND AWAKE, ABLE TO MAKE NEEDS KNOWN. NO ACUTE DISTRESS. NO C/O PAIN. STILL OFF LEVOPHED. SR ON PEST CONTROL OPERATOR. AFEBRILE. CORA PICC LINE INFUSING NS AT 75ML/HR WT NO S/S OF COMPLICATIONS. NO ACTIVE BLEEDING AT THIS TIME. GT RUNNING NOVASOURCE AT 20ML/HR AND WILL INCREASE HANK TILL MAX. GOAL RATE OF 50ML/HR IS REACHED. NO RESIDUAL NOTED. F/C PATENT AND INTACT DRAINING CLOUDY LARON COLORED URINE. BILAT. SOFT WRIST RESTRAINTS IN PLACE FOR EPISODES OF PULLING TUBES. CIRCULATION WNL WT NO NEW SKIN BREAKDDOWN. HOB ELEVATED AT 45 DEGREES. SAFETY PRECAUTION NOTED.
[2017-10-15] MEDS: INSULIN REGULAR, HUMAN 100 UNIT/ML 3 ML VIAL SQ PRN (20:44)
--- NOTE | 2017-10-15 21:45 | NUR ---
DOWNGRADE FIO2 FROM 40% TO 28% SPO2 99% Addendum: 10/15/17 at 2146 by FARHAD HERNANDEZ RT Amended: Links added.
[2017-10-16] VITALS (13 sets, daily range): BP systolic 104–157; BP diastolic 54–77
[2017-10-16] MEDS: IPRATROPIUM NEB FS 0.5 MG/2.5 ML AMPUL.NEB IH SCH ×4 (00:28→20:21)
[2017-10-16] MEDS: CEFAZOLIN 1 GM in IV NS 0.9% 50 ML IV SCH ×2 (01:01→13:17)
[2017-10-16] MEDS: BLOOD SUGAR DIAGNOSTIC 1 EACH STRIP IN SCH ×6 (01:16→21:40)
[2017-10-16] MEDS: INSULIN REGULAR, HUMAN 100 UNIT/ML 3 ML VIAL SQ PRN ×5 (01:20→17:14)
--- NOTE | 2017-10-16 01:35 | NUR ---
ORNITHOLOGY TEACHER: ROHAN VITAL, ESTATE PLANNING PARALEGAL WAS ASKED IF OK TO BE DOWNGRADED. PT IS IN STABLE CONDITION AND OFF VASOPRESSOR. ESTATE PLANNING PARALEGAL AGREED WT ORDER TO DOWNGRADE TO ATILIO. NOTED AND CARRIED OUT.
--- NOTE | 2017-10-16 02:30 | NUR ---
ICU/RN- ASSUMED CARE OF THIS 57 Y/O MALE W/ TRACH TO 28% T PIECE, SATS.-100%, CALM AT THIS TIME, BUT GETS ANXIOUS AT TIMES. EKG ST W/ HR-107, BP-113/59,ON TUBE FEEDS PER PER PROTOCOL , WELL TOLERATED. DENIES PAIN OR DISCOMFORT AT THIS TIME.PT. IS A "ATILIO" STATUS NOW. NO BEDS AVAILABLE AT THIS TIME.PT. IS A FULL CODE. WILL MONITOR CLOSELY PER PROTOCOL.
--- NOTE | 2017-10-16 05:15 | NUR ---
ICU/RN- STABLE, REPORT GIVEN TO ANISHA WHITE.
[2017-10-16 05:24] LABS: BASOPHILS % (AUTO) 0.4 % (0.0-2.0); EOSINOPHILS # (AUTO) 0.1 /CMM (0.0-0.7); EOSINOPHILS % (AUTO) 1.5 % (0.0-6.0); LYMPHOCYTES # (AUTO) 0.6 /CMM (0.8-4.8); LYMPHOCYTES % (AUTO) 11.6 % (20.0-44.0); MEAN CORPUSCULAR HEMOGLOBIN 30 PG (26.0-33.0); MEAN CORPUSCULAR HGB CONC 35 g/dl (31.0-36.0); MEAN CORPUSCULAR VOLUME 85 fL (80-96); MONOCYTES # (AUTO) 0.7 /CMM (0.1-1.30); MONOCYTES % (AUTO) 12.6 % (2.0-12.0); NEUTROPHILS # (AUTO) 3.9 /CMM (1.8-8.9); NEUTROPHILS % (AUTO) 73.9 % (43.0-81.0); RDW COEFFICIENT OF VARIATION 19.1 (11.5-15.0); RED BLOOD CELL COUNT(AUTO) 2.06 MIL/uL (4.5-6.0); WHITE BLOOD COUNT (AUTO) 5.3 K/uL (4.3-11.0)
--- NOTE | 2017-10-16 05:30 | NUR ---
ICU/RN- PT. REMAINS CALM, NO S/S OF DISTRESS, ON 28% TPIECE, TRANSFERRED TO TD VIA BED PER ACLS PROTOCOL.
[2017-10-16 05:45] LABS: CALCIUM, SERUM 7.1 mg/dL (8.5-10.1); CREATININE 2.5 mg/dL (0.6-1.3); MAGNESIUM 1.9 mg/dL (1.8-2.4); PHOSPHORUS 4.7 mg/dL (2.5-4.9); POTASSIUM 3.5 mmol/L (3.5-5.1)
--- NOTE | 2017-10-16 05:50 | NUR ---
RN NOTE RECEIVED PATIENT FROM ICU, ENDORSEMENT RECEIVED FROM LENO. PATIENT NOT IN ANY ACUTE DISTRESS. AWAKE, ALERT AND ORIENTED. DENIES ANY DISCOMFORT. ST AT 109. STABLE V/S. F/C IN PLACE, NO HEMATURIA NOTED. ON COOL AEROSOL, AT 5Lpm, 28% FIO2. NEEDS ANTICIPATED AND MET. SAFETY AND COMFORT ENSURED. CALL LIGHT IN REACH.
[2017-10-16 05:52] LABS: HEMOGLOBIN 6.1 g/dL (13.5-17.5)
[2017-10-16 05:53] LABS: HEMATOCRIT 18 % (39-51); PLATELET COUNT (AUTO) 46 /CMM (150-450)
[2017-10-16 06:05] LABS: LYMPHOCYTES % (MANUAL) 13 % (16-48); MONOCYTES % (MANUAL) 12 % (0-11.0); NEUTROPHILS % (MANUAL) 75 (42-76)
--- NOTE | 2017-10-16 06:17 | NUR ---
RN NOTE RECEIVED CRITICAL VALUE FROM LAB. PATIENT'S H/H 6.09/18 WITH PLATELETS 46. PAGED ROHAN VITAL. ORDER TO GIVE 1u PRBC WITH HD GIVEN, WITH REPEAT H/H AFTER DIALYSIS POST TRANSFUSION. ORDER NOTED AND CARRIED OUT. Addendum: 10/16/17 at 0634 by CHRISTOPHER RAMOS RN FOLLOWED UP WITH DEVANTE VITAL REGARDING THE PATIENT'S PLATELET OF 46. NO ACTIVE BLEEDING OBSERVED. NO ORDER AT THIS TIME, PER DEVANTE VITAL, FOLLOW-UP WITH ATTENDING IN AM FOR PLAN. NOTED. WILL ENDORSE ACCORDINGLY.
[2017-10-16] MEDS: IV NS 0.9% 1,000 ML IV PRN ×2 (06:28→17:48)
--- NOTE | 2017-10-16 07:30 | NUR ---
ATILIO RN AM NOTE RECEIVED PATIENT IN BED, AWAKE, ALERT, WITH SHILEY 8 ON COOL AEROSOL AT 28%, O2 SAT AT 99%. NOT IN ANY DISTRESS. TELEMETRY READS ST HR 109, DENIES ANY PAIN. R MANJEET CATH FEMORAL, SUTURED BY DR. HEAVENLY CHARLES, NO BLEEDING. LEFT MANJEET FEMORAL CATH CDI DRESSING. CORA PICC LINE WITH NS AT 75 ML/HR. GTF NOVASOURCE AT 50 ML/HR ONGOING, O RESIDUAL WELL TOLERATED, ORAL GRATIFICATION FOR LUNCH, COOPER CATH IN PLACE WITH YELLOW COLORED URINE DRAINING BY GRAVITY. WITH ACUTE RESTRAINTS BOTH WRIST, RELEASED AND CHECKED CIRCULATION, SEE NURSING FLOWSHEET FOR SKIN ISSUES.NEEDS ANTICIPATED AND MET. SAFETY AND COMFORT ENSURED. CALL LIGHT IN REACH. WILL CONTINUE TO MONITOR.
[2017-10-16] MEDS: CLOTRIMAZOLE 1% 15 GM TUBE TP SCH ×2 (09:00→17:09)
[2017-10-16] MEDS: PANTOPRAZOLE 40 MG/PACK PACK GT SCH (09:19)
[2017-10-16] MEDS: LACTOBACILLUS RHAMNOSUS GG 1 EACH CAP.SPRINK GT SCH ×2 (09:19→17:07)
[2017-10-16] MEDS: DOCUSATE SODIUM LIQ 100 MG/10 ML UDC GT SCH (09:19)
[2017-10-16] MEDS: NEOMY SULF/BACITRAC ZN/POLY 15 GM TUBE TP SCH (09:19)
--- NOTE | 2017-10-16 09:33 | NUR ---
RN NOTES ACCSARAH, BS 174 MG/DL, ADMINISTERED 3 UNITS HUM R PER SS DUE MEDS GIVEN.
--- NOTE | 2017-10-16 10:45 | NUR ---
RN NOTES DR. HAILE AT BEDSIDE. AWARE THAT ORDER FOR 1 UNIT PRBC WITH HD. [facility] HD NURSE NOTIFIED. NELSON TO DO HD TODAY.
--- NOTE | 2017-10-16 11:17 | NUR ---
WOUND CARE CONSULT WOUND CARE RECEIVED CONSULT FOR WOUNDS SACRUM, NATALIA EXCORIATION. WOUND CARE WILL DEFER CONSULT AND ALL TREATMENT PLANS TO SURGICAL TEAM WHO ARE CURRENTLY FOLLOWING. PATIENT WITH KAYLI AT 12, ALL PRESSURE ULCER PREVENTION MEASURES NOTED TO BE IN PLACE AT THIS TIME.
--- NOTE | 2017-10-16 12:13 | NUR ---
RT PT PLACED ON PMV VALVE. CUFF DEFLATED. PT TOLERATING PMV WELL WITH NO SOB OR RESP DISTRESS AT THIS TIME. ANISHA REDD MADE AWARE. Addendum: 10/16/17 at 1214 by CHRISTINE HAN RT Amended: Links added.
--- NOTE | 2017-10-16 13:20 | NUR ---
RN NOTES ACCUCHJOHN, BS 225 MG/DL, ADMINISTERED 6 UNITS HUM R PER SS
--- NOTE | 2017-10-16 16:45 | NUR ---
RN NOTES 1 UNIT PRBC GIVEN TO HD NURSE AND TRANSFUSED, STARTED AT 1619. NO ADVERSE REACTION NOTED.
--- NOTE | 2017-10-16 17:08 | NUR ---
RN NOTES ACCUCHECK, BS 133 MG/DL, ADMINISTERED 2 UNITS HUM R PER SS
[2017-10-16] MEDS: RENAL NOVASOURCE 1,000 ML BOTTLE GT PRN (17:14)
[2017-10-16] MEDS: HYDROMORPHONE INJ 0.5 MG/0.5 ML SYRINGE IV PRN (17:49)
--- NOTE | 2017-10-16 18:15 | NUR ---
RN NOTES HD COMPLETED. 2 LITERS OUTPUT.
--- NOTE | 2017-10-16 19:45 | NUR ---
RN NOTES ALL NEEDS MET. PT RESTING COMFORTABLY. PM CARE DONE. TURNED AND REPOSITIONED Q HOURS. GTF ONGOING. IVF ONGOING. CALL LIGHT WITHIN REACH. ENDORSED TO NEXT SHIFT FOR SEHRIF. REPEAT HEMOGLOBIN AND HEMATOCRIT ORDERED POST HD AND POST BLOOD TRANSFUSION.
[2017-10-16 19:46] LABS: HEMOGLOBIN 7.3 g/dL (13.5-17.5)
[2017-10-16] MEDS: HYDROCODONE/APAP 5/325MG 1 EACH TABLET PO PRN (21:40)
[2017-10-16] MEDS: LORAZEPAM 1 MG TABLET GT PRN (22:36)
[2017-10-17] VITALS: BP 87/43
[2017-10-17] MEDS: CEFAZOLIN 1 GM in IV NS 0.9% 50 ML IV SCH ×2 (00:41→12:16)
[2017-10-17] MEDS: BLOOD SUGAR DIAGNOSTIC 1 EACH STRIP IN SCH ×6 (00:42→21:15)
[2017-10-17] MEDS: INSULIN REGULAR, HUMAN 100 UNIT/ML 3 ML VIAL SQ PRN ×6 (00:46→21:18)
[2017-10-17] MEDS: IPRATROPIUM NEB FS 0.5 MG/2.5 ML AMPUL.NEB IH SCH ×4 (01:57→19:43)
[2017-10-17 04:00] VITALS: BP 102/58
[2017-10-17 07:42] LABS: BASOPHILS % (AUTO) 0.1 % (0.0-2.0); EOSINOPHILS # (AUTO) 0.1 /CMM (0.0-0.7); HEMATOCRIT 22 % (39-51); HEMOGLOBIN 7.6 g/dL (13.5-17.5); LYMPHOCYTES # (AUTO) 0.4 /CMM (0.8-4.8); LYMPHOCYTES % (AUTO) 4.2 % (20.0-44.0); MEAN CORPUSCULAR HEMOGLOBIN 31 PG (26.0-33.0); MEAN CORPUSCULAR HGB CONC 35 g/dl (31.0-36.0); MEAN CORPUSCULAR VOLUME 88 fL (80-96); MONOCYTES # (AUTO) 0.6 /CMM (0.1-1.30); MONOCYTES % (AUTO) 6.5 % (2.0-12.0); NEUTROPHILS # (AUTO) 8.3 /CMM (1.8-8.9); NEUTROPHILS % (AUTO) 88.2 % (43.0-81.0); PLATELET COUNT (AUTO) 52 /CMM (150-450); RDW COEFFICIENT OF VARIATION 18.3 (11.5-15.0); RED BLOOD CELL COUNT(AUTO) 2.48 MIL/uL (4.5-6.0); WHITE BLOOD COUNT (AUTO) 9.4 K/uL (4.3-11.0)
[2017-10-17 07:51] LABS: ALBUMIN 1.8 g/dL (3.4-5.0); BILIRUBIN,TOTAL 1.1 mg/dL (0.2-1.0); CALCIUM, SERUM 7.1 mg/dL (8.5-10.1); CREATININE 2.2 mg/dL (0.6-1.3); MAGNESIUM 1.8 mg/dL (1.8-2.4); PHOSPHORUS 3.3 mg/dL (2.5-4.9); POTASSIUM 3.2 mmol/L (3.5-5.1); TOTAL PROTEIN, SERUM 5.7 g/dL (6.4-8.2)
[2017-10-17 08:00] VITALS: BP_SYST 118; BP_SYST 125; BP_DIAS 46; BP_DIAS 65
[2017-10-17] MEDS: PANTOPRAZOLE 40 MG/PACK PACK GT SCH (08:23)
[2017-10-17] MEDS: LACTOBACILLUS RHAMNOSUS GG 1 EACH CAP.SPRINK GT SCH ×2 (08:23→16:03)
[2017-10-17] MEDS: DOCUSATE SODIUM LIQ 100 MG/10 ML UDC GT SCH (08:23)
[2017-10-17] MEDS: NEOMY SULF/BACITRAC ZN/POLY 15 GM TUBE TP SCH (08:23)
[2017-10-17] MEDS: CLOTRIMAZOLE 1% 15 GM TUBE TP SCH ×2 (08:24→16:04)
[2017-10-17 09:53] LABS: BAND % (MANUAL) 6 % (0.0-5.0); LYMPHOCYTES % (MANUAL) 3 % (16-48); MONOCYTES % (MANUAL) 2 % (0-11.0); NEUTROPHILS % (MANUAL) 89 (42-76)
[2017-10-17 12:00] VITALS: BP_SYST 125; BP_DIAS 65; BP_DIAS 66
[2017-10-17] MEDS ORDERED: VITAMINS A AND D 56.7 GM TUBE TP PRN (12:00)
[2017-10-17] MEDS: IV NS 0.9% 1,000 ML IV PRN (14:58)
[2017-10-17 16:00] VITALS: BP 146/69
[2017-10-17] MEDS: RENAL NOVASOURCE 1,000 ML BOTTLE GT PRN (16:04)
[2017-10-17] MEDS: HYDROMORPHONE INJ 0.5 MG/0.5 ML SYRINGE IV PRN (16:05)
--- NOTE | 2017-10-17 19:17 | NUR ---
PT ON COOL AEROSOL, TX GIVE NO ADVERSE REACTION WILL CONTINUE TO MONITOR. SX THICK BLOODY SECRETIONS
--- NOTE | 2017-10-17 19:30 | NUR ---
TELE/RN NOTES: RECEIVED PATIENT IN BED, AWAKE, ALERT ABLE TO MOUTH WORDS WITH SHILEY 8 ON COOL AEROSOL AT 28%, O2 SAT AT 99%. NOT IN ANY DISTRESS. ON TELE MONITOR ST HR 102. DENIES ANY PAIN OR SOB AT PRESENT. LEFT MANJEET FEMORAL CATH CDI DRESSING. CORA PICC LINE WITH NS AT 75 ML/HR. GTF NOVASOURCE AT 50 ML/HR ONGOING, NO RESIDUAL NOTED. WELL TOLERATED, ORAL GRATIFICATION FOR LUNCH, COOPER CATH IN PLACE WITH YELLOW CONCENTRATED COLORED URINE DRAINING BY GRAVITY. WITH ACUTE RESTRAINTS BOTH WRIST, RELEASED AND CHECKED CIRCULATION, SEE NURSING FLOWSHEET FOR SKIN ISSUES.NEEDS ANTICIPATED AND MET. SAFETY AND COMFORT ENSURED. CALL LIGHT IN REACH. WILL CONTINUE TO MONITOR.
[2017-10-17 20:00] VITALS: BP 136/65
[2017-10-18] VITALS: BP 93/63
[2017-10-18] MEDS: BLOOD SUGAR DIAGNOSTIC 1 EACH STRIP IN SCH ×6 (00:09→20:18)
[2017-10-18] MEDS: INSULIN REGULAR, HUMAN 100 UNIT/ML 3 ML VIAL SQ PRN ×4 (00:12→20:26)
[2017-10-18] MEDS: CEFAZOLIN 1 GM in IV NS 0.9% 50 ML IV SCH ×2 (00:15→16:13)
[2017-10-18] MEDS: IPRATROPIUM NEB FS 0.5 MG/2.5 ML AMPUL.NEB IH SCH ×4 (02:19→19:09)
--- NOTE | 2017-10-18 03:49 | NUR ---
TELE/RN NOTES: REPORT GIVEN TO NURSE CELYWN TO SHERIF.
[2017-10-18 04:00] VITALS: BP 138/64
[2017-10-18] MEDS: IV NS 0.9% 1,000 ML IV PRN (06:20)
[2017-10-18 08:00] VITALS: BP_SYST 125; BP_SYST 142; BP_DIAS 64; BP_DIAS 73
[2017-10-18] MEDS: NEOMY SULF/BACITRAC ZN/POLY 15 GM TUBE TP SCH (09:00)
[2017-10-18] MEDS: HYDROGEL DRESSING 90 GM TUBE TP SCH (09:00)
[2017-10-18] MEDS: CLOTRIMAZOLE 1% 15 GM TUBE TP SCH ×2 (09:00→17:42)
[2017-10-18] MEDS: LACTOBACILLUS RHAMNOSUS GG 1 EACH CAP.SPRINK GT SCH ×2 (09:10→17:42)
[2017-10-18] MEDS: PANTOPRAZOLE 40 MG/PACK PACK GT SCH (09:10)
[2017-10-18] MEDS: DOCUSATE SODIUM LIQ 100 MG/10 ML UDC GT SCH (09:10)
[2017-10-18] MEDS: HYDROMORPHONE INJ 0.5 MG/0.5 ML SYRINGE IV PRN (11:38)
[2017-10-18 12:00] VITALS: BP 142/73
[2017-10-18 16:00] VITALS: BP_SYST 142; BP_SYST 158; BP_DIAS 71; BP_DIAS 73
--- NOTE | 2017-10-18 19:30 | NUR ---
RN/TELE NOTES: RECEIVED PATIENT IN BED, AWAKE, ALERT ABLE TO MOUTH WORDS WITH SHILEY 8 ON COOL AEROSOL AT 28%, O2 SAT AT 99%. NOT IN ANY DISTRESS. ON TELE MONITOR ST HR 102. DENIES ANY PAIN OR SOB AT PRESENT. LEFT MANJEET FEMORAL CATH CDI DRESSING. HAD DIALYSIS TODAY W/ 1L OUT. CORA PICC LINE WITH NS AT 75 ML/HR. GTF NOVASOURCE AT 50 ML/HR ONGOING, NO RESIDUAL NOTED. WELL TOLERATED, ORAL GRATIFICATION FOR LUNCH, COOPER CATH IN PLACE WITH YELLOW CONCENTRATED COLORED URINE DRAINING BY GRAVITY. WITH ACUTE RESTRAINTS BOTH WRIST, RELEASED AND CHECKED CIRCULATION, SEE NURSING FLOW SHEET FOR SKIN ISSUES. NEEDS ANTICIPATED AND MET. SAFETY AND COMFORT ENSURED. CALL LIGHT IN REACH. WILL CONTINUE TO MONITOR.
[2017-10-18 20:00] VITALS: BP 133/62
[2017-10-18] MEDS: RENAL NOVASOURCE 1,000 ML BOTTLE GT PRN (20:21)
[2017-10-19] VITALS: BP 129/62
[2017-10-19] MEDS: IPRATROPIUM NEB FS 0.5 MG/2.5 ML AMPUL.NEB IH SCH ×4 (00:35→19:25)
[2017-10-19] MEDS: INSULIN REGULAR, HUMAN 100 UNIT/ML 3 ML VIAL SQ PRN ×5 (00:38→18:12)
[2017-10-19] MEDS: CEFAZOLIN 1 GM in IV NS 0.9% 50 ML IV SCH ×2 (00:38→13:33)
[2017-10-19] MEDS: BLOOD SUGAR DIAGNOSTIC 1 EACH STRIP IN SCH ×5 (01:22→17:31)
[2017-10-19 04:00] VITALS: BP 139/69
[2017-10-19] MEDS: IV NS 0.9% 1,000 ML IV PRN ×2 (04:18→17:35)
--- NOTE | 2017-10-19 07:05 | NUR ---
RN INITIAL NOTE PATIENT RECEIVED IN BED, AWAKE AND ALERT. SINUS RHYTHM ON TELE MONITOR. PATIENT HAS LAMINE FROST #8. ON COOL AEROSOL: FI02-28%, SATING WELL. NO S/S OF RESPIRATORY DISTRESS OR SOB. COOPER CATHETER DRAINING TO GRAVITY. GTUBE FLUSHED, PATENT. PLACEMENT CONFIRMED. TOLERATING FEEDING WELL. SKIN IS WARM AND DRY TO TOUCH. IV SITE FLUSHED, PATENT. SAFETY PRECAUTIONS IMPLEMENTED, BED IN LOCKED, LOW POSITION WITH TWO SIDE RAILS UP. CALL LIGHT AND BELONGINGS WITHIN EASY REACH. WILL CONTINUE TO MONITOR.
[2017-10-19 07:09] LABS: BASOPHILS % (AUTO) 0.1 % (0.0-2.0); EOSINOPHILS # (AUTO) 0.2 /CMM (0.0-0.7); EOSINOPHILS % (AUTO) 2.1 % (0.0-6.0); HEMATOCRIT 22 % (39-51); HEMOGLOBIN 7.5 g/dL (13.5-17.5); LYMPHOCYTES # (AUTO) 0.5 /CMM (0.8-4.8); MEAN CORPUSCULAR HEMOGLOBIN 31 PG (26.0-33.0); MEAN CORPUSCULAR HGB CONC 34 g/dl (31.0-36.0); MEAN CORPUSCULAR VOLUME 89 fL (80-96); MONOCYTES # (AUTO) 0.8 /CMM (0.1-1.30); MONOCYTES % (AUTO) 10.2 % (2.0-12.0); NEUTROPHILS % (AUTO) 80.6 % (43.0-81.0); PLATELET COUNT (AUTO) 60 /CMM (150-450); RDW COEFFICIENT OF VARIATION 20.6 (11.5-15.0); RED BLOOD CELL COUNT(AUTO) 2.47 MIL/uL (4.5-6.0); WHITE BLOOD COUNT (AUTO) 7.4 K/uL (4.3-11.0)
[2017-10-19] MEDS: PANTOPRAZOLE 40 MG/PACK PACK GT SCH (07:54)
[2017-10-19 08:00] VITALS: BP 138/69
[2017-10-19] MEDS: NEOMY SULF/BACITRAC ZN/POLY 15 GM TUBE TP SCH (08:33)
[2017-10-19] MEDS: LACTOBACILLUS RHAMNOSUS GG 1 EACH CAP.SPRINK GT SCH ×2 (08:33→17:32)
[2017-10-19] MEDS: HYDROGEL DRESSING 90 GM TUBE TP SCH (08:33)
[2017-10-19] MEDS: CLOTRIMAZOLE 1% 15 GM TUBE TP SCH ×2 (08:33→17:32)
[2017-10-19] MEDS: DOCUSATE SODIUM LIQ 100 MG/10 ML UDC GT SCH (08:33)
[2017-10-19 10:59] LABS: EOSINOPHILS % (MANUAL) 1 % (0-4); LYMPHOCYTES % (MANUAL) 3 % (16-48); MONOCYTES % (MANUAL) 5 % (0-11.0); NEUTROPHILS % (MANUAL) 91 (42-76)
[2017-10-19 12:00] VITALS: BP 135/64
[2017-10-19 16:00] VITALS: BP 137/63
[2017-10-19] MEDS: LORAZEPAM 1 MG TABLET GT PRN (16:40)
[2017-10-19] MEDS: RENAL NOVASOURCE 1,000 ML BOTTLE GT PRN (17:31)
[2017-10-19] MEDS: HYDROCODONE/APAP 5/325MG 1 EACH TABLET PO PRN (17:32)
--- NOTE | 2017-10-19 20:00 | NUR ---
lead burner helper notes given report to telma sub-acute nurse. sent patient to sub acute in stable condition. family at bed side. transported patient with RT.
== END 2017-10-19 20:36 | DRG 206 ==
LOC: ER 10:32 → ICU 13:58 → TELE-TD 10-16 05:31 → TELE1 10-16 11:27
PROVIDERS: ADMIT Internal Medicine; ATTEND Internal Medicine
PROC: 5A1935Z Respiratory Ventilation, Less than 24 Consecutive Hours (ICD-10-PCS; principal; 2017-10-14)
PROC: 30233N1 Transfusion of Nonautologous Red Blood Cells into Peripheral Vein, Percutaneous Approach (ICD-10-PCS; principal; 2017-10-14)
PROC: B54CZZA Ultrasonography of Left Lower Extremity Veins, Guidance (ICD-10-PCS; 2017-10-15)
PROC: 02HV33Z Insertion of Infusion Device into Superior Vena Cava, Percutaneous Approach (ICD-10-PCS; 2017-10-15)
PROC: 06HN33Z Insertion of Infusion Device into Left Femoral Vein, Percutaneous Approach (ICD-10-PCS; 2017-10-15)
PROC: 0JHM3XZ Insertion of Tunneled Vascular Access Device into Left Upper Leg Subcutaneous Tissue and Fascia, Percutaneous Approach (ICD-10-PCS; 2017-10-15)
DX: T82.838A Hemorrhage due to vascular prosthetic devices, implants and grafts, initial encounter (principal); I21.A1 Myocardial infarction type 2; N17.0 Acute kidney failure with tubular necrosis; J96.21 Acute and chronic respiratory failure with hypoxia; Z99.11 Dependence on respirator [ventilator] status; R65.21 Severe sepsis with septic shock; R57.8 Other shock; I33.0 Acute and subacute infective endocarditis; G92 Toxic encephalopathy; Z93.0 Tracheostomy status; N18.6 End stage renal disease; L89.153 Pressure ulcer of sacral region, stage 3; R57.1 Hypovolemic shock; D68.9 Coagulation defect, unspecified; R13.10 Dysphagia, unspecified; D69.6 Thrombocytopenia, unspecified; D64.9 Anemia, unspecified; E11.22 Type 2 diabetes mellitus with diabetic chronic kidney disease; Z86.73 Personal history of transient ischemic attack (TIA), and cerebral infarction without residual deficits; D62 Acute posthemorrhagic anemia; K74.60 Unspecified cirrhosis of liver; Y84.1 Kidney dialysis as the cause of abnormal reaction of the patient, or of later complication, without mention of misadventure at the time of the procedure; Z93.1 Gastrostomy status; Z79.4 Long term (current) use of insulin; Z79.899 Other long term (current) drug therapy; E11.65 Type 2 diabetes mellitus with hyperglycemia; E11.52 Type 2 diabetes mellitus with diabetic peripheral angiopathy with gangrene; B95.62 Methicillin resistant Staphylococcus aureus infection as the cause of diseases classified elsewhere; E87.2 Acidosis; Y82.9 Unspecified medical devices associated with adverse incidents; Y92.129 Unspecified place in nursing home as the place of occurrence of the external cause; I25.2 Old myocardial infarction; E87.5 Hyperkalemia; K92.2 Gastrointestinal hemorrhage, unspecified; F19.10 Other psychoactive substance abuse, uncomplicated; L98.9 Disorder of the skin and subcutaneous tissue, unspecified; L89.899 Pressure ulcer of other site, unspecified stage; E87.1 Hypo-osmolality and hyponatremia; N28.0 Ischemia and infarction of kidney; F41.9 Anxiety disorder, unspecified; E46 Unspecified protein-calorie malnutrition
CPT/HCPCS: 31720; 36415; 36600; 71045-TC; 80048-TC; 80053-TC; 80076-TC; 82040-TC; 82150-TC; 82746; 82962-TC; 83540-TC; 83690-TC; 83735-TC; 84100-TC; 84443-TC; 85025-TC; 85027-TC; 85610-TC; 85730-TC; 86850-TC; 86921-TC; 87040-TC; 87081-TC; 90935-TC; 92521; 94002-TC; 94003-TC; 94640-TC; 94760-TC; 99082-TC; A4216; A4606; A6248; A6253; A6402; A6403; J0690; J0885; J1815; J2597; J7030; J7040; J7060; P9016-BL; P9047; Z7610

== ENCOUNTER 2017-10-24 14:29 | Inpatient (IN) | payer MEDICAID ==
--- NOTE | 2017-10-23 23:00 | NUR ---
RN NOTE PATIENT IS AGITATED, ANXIOUS AND RESTLESS. PATIENT IS NOTED TO BE TACHYPNEIC, AND TACHYCARDIC WITH HR IN THE 130s. ORDER OBTAINED FOR 1X MORPHINE IVP. GIVEN TO PATIENT WITH HELP, PATIENT IS NOW RESTING IN BED, STILL TACHYCARDIC WITH HR IN THE 116. VS STABLE. CLOSELY MONITORED. Addendum: 10/25/17 at 0146 by CHRISTOPHER RAMOS RN WRONG DATE DOCUMENTED. DISCARD DOCUMENTATION FOR 10/24/2017
[~2017-10-24] VITALS: Ht 167.6 cm; Wt 79.8 kg
[~2017-10-24 14:29] MED LIST changes: +HYDR1DIS2 IV; +IPRA0.2S49 IH; +NUTR100037 GT; -Renal Novasource GT
--- NOTE | 2017-10-24 14:29 | NUR ---
BLEEDING NOTED PER OREM AND G TUBE SITE. PLACED ON MONITOR. TRACH COOL AEROSOL 5LPM . PLACED ON MONITOR.
[2017-10-24] MEDS ORDERED: PANT40VI IV (14:52)
[2017-10-24] MEDS ORDERED: [UNRECOGNIZED DRUG - CODE] TP (14:52)
[2017-10-24] MEDS ORDERED: GEL100GE TP (14:52)
[2017-10-24] MEDS ORDERED: NORM10004 IV (14:52)
[2017-10-24] MEDS ORDERED: IPRA0.2S9 IH (14:52)
[2017-10-24] MEDS ORDERED: VITA56.7 TP (14:52)
[2017-10-24] MEDS ORDERED: QUET25TA PO (14:52)
[2017-10-24] MEDS ORDERED: ALBU2.5V13 IH (14:52)
[2017-10-24] MEDS ORDERED: IV NS 0.9% 500 ML BAG IV ONE (15:00)
[2017-10-24] MEDS ORDERED: FAMOTIDINE/PF INJ 40 MG in IV D5W 50 ML IV ONE (15:00)
[2017-10-24 15:02] LABS: BASOPHILS % (AUTO) 0.2 % (0.0-2.0); EOSINOPHILS # (AUTO) 0.1 /CMM (0.0-0.7); EOSINOPHILS % (AUTO) 0.3 % (0.0-6.0); HEMATOCRIT 24 % (39-51); HEMOGLOBIN 8.3 g/dL (13.5-17.5); LYMPHOCYTES # (AUTO) 0.4 /CMM (0.8-4.8); LYMPHOCYTES % (AUTO) 2.1 % (20.0-44.0); MEAN CORPUSCULAR HEMOGLOBIN 31 PG (26.0-33.0); MEAN CORPUSCULAR HGB CONC 35 g/dl (31.0-36.0); MEAN CORPUSCULAR VOLUME 88 fL (80-96); MONOCYTES # (AUTO) 0.8 /CMM (0.1-1.30); MONOCYTES % (AUTO) 4.7 % (2.0-12.0); NEUTROPHILS # (AUTO) 15.8 /CMM (1.8-8.9); NEUTROPHILS % (AUTO) 92.7 % (43.0-81.0); PLATELET COUNT (AUTO) 98 /CMM (150-450); RDW COEFFICIENT OF VARIATION 18.5 (11.5-15.0); RED BLOOD CELL COUNT(AUTO) 2.71 MIL/uL (4.5-6.0); WHITE BLOOD COUNT (AUTO) 17.1 K/uL (4.3-11.0)
[2017-10-24 15:12] LABS: CALCIUM, SERUM 7.4 mg/dL (8.5-10.1); CARBON DIOXIDE 30 mmol/L (21-32); CHLORIDE 99 mmol/L (98-107); CREATININE 2.9 mg/dL (0.6-1.3); GLUCOSE 142 mg/dL (74-106); POTASSIUM 3.3 mmol/L (3.5-5.1); SODIUM SERUM 136 mmol/L (136-145); UREA NITROGEN, BLOOD 57 mg/dL (7-18)
[2017-10-24 15:16] LABS: INR 1.28 (0.85-1.15)
[2017-10-24 15:19] LABS: ALANINE AMINOTRANSFERASE < 6 U/L (12-78); ALKALINE PHOSPHATASE 195 U/L (46-116); ASPARTATE AMINOTRANSFERASE 25 U/L (15-37); BILIRUBIN,DIRECT 0.5 mg/dL (0.0-0.2); BILIRUBIN,TOTAL 1.1 mg/dL (0.2-1.0); TOTAL PROTEIN, SERUM 6.5 g/dL (6.4-8.2); TROPONIN I 0.139 ng/mL (0.00-0.056)
[2017-10-24 15:21] LABS: ALBUMIN 1.4 g/dL (3.4-5.0)
--- NOTE | 2017-10-24 15:44 | NUR ---
GAVE REPORT TO THERESE LANCASTER 117-1 ADMITTING DALJIT LOW DX GI BLEED
[2017-10-24 16:00] VITALS: BP 130/62
--- NOTE | 2017-10-24 16:00 | NUR ---
RN NOTES PT RECEIVED FROM ER IN ROOM 117-1, A/Ox1 , NONVERBAL ,FOLLOWS SIMPLE COMMAND , TRACH DEPENDENT PT TRIES TO PULL ON HIS TRACH AT TIMES , SITTER AT THE BEDSIDE FOR SAFETY PRECAUTION , ON 35% COOL AEROSOL, O2 SAT 98%, TRACH CARE DONE, ON TELE, ST , HR IN 110'S, COOPER DRAINING TO GRAVITY WITH LARON COLOR URINE, GT CLAMPED AT THIS TIME, MODERATE AMOUNT OF BROWNISH DRAINAGE NOTED AT THE GT SITE , DRESSING APPLIED, R ARM PICC LINE AND L GROIN HD CATH SITES CDI, ADMISSION WOUND AND SKIN PHOTO TAKEN, PICTURES PLACED IN THE CHART, SR UP x3, SUPPORTIVE FAMILY AT THE BEDSIDE, CALL LIGHT WITHIN EASY REACH, BED LOCKED AND IN LOWEST POSITION ,
[2017-10-24 16:07] LABS: BAND % (MANUAL) 4 % (0.0-5.0); LYMPHOCYTES % (MANUAL) 6 % (16-48); MONOCYTES % (MANUAL) 9 % (0-11.0); NEUTROPHILS % (MANUAL) 81 (42-76)
[2017-10-24] MEDS ORDERED: ZOLPIDEM TARTRATE 5 MG TABLET GT PRN (16:30)
[2017-10-24] MEDS ORDERED: Z GUARD REMEDY 2 OZ OINT TP PRN (16:30)
[2017-10-24] MEDS ORDERED: ACETAMINOPHEN 325 MG TABLET PO PRN (16:30)
[2017-10-24] MEDS ORDERED: POTASSIUM CHLORIDE 10 MEQ/50 ML PREMIXED IVPB FOR PERIPHERAL LINE IV ONE (16:30)
[2017-10-24] MEDS ORDERED: MAG HYDROX/AL HYDROX/SIMETH 30 ML UDC PO PRN (16:30)
[2017-10-24] MEDS ORDERED: ACETAMINOPHEN 650 MG/SUPP.RECT RC PRN (16:30)
[2017-10-24] MEDS: PANTOPRAZOLE 40 MG VIAL IV SCH (18:24)
[2017-10-24] MEDS: FLUCONAZOLE IN NS 100 MG in PREMIX 1 EA IV SCH ×2 (18:50)
--- NOTE | 2017-10-24 19:15 | NUR ---
RN INITIAL NOTES RECEIVED PATIENT AWAKE, AGITATED AND RESTLESS. NO ACTIVE BLEEDING AT THIS TIME. WILL PROVIDE ORAL CARE FOR NOTED BLOODY ORAL CAVITY RESIDUAL FROM THE PATIENT'S EMESIS ON TIME OF ADMISSION. GT ASPIRATED, NO BLEEDING NOTED AND ON SITE. F/C INTACT, CLOUDY, LARON URINE DRAINING. B SOFT WRIST RESTRAINTS IN PLACE, CIRCULATION AND SKIN INTEGRITY INTACT. SAFETY AND COMFORT ENSURED. BED IN LOW AND LOCKED POSITION. WILL MONITOR.
[2017-10-24 20:00] VITALS: BP 134/62
[2017-10-24] MEDS ORDERED: MORPHINE SULFATE INJ 2 MG/ML DISP.SYRIN IV ONE (21:30)
[2017-10-24] MEDS: CEFAZOLIN 1 GM in IV D5W 50 ML IV SCH (21:51)
[2017-10-24] MEDS ORDERED: MORPHINE SULFATE INJ 4 MG/ML DISP.SYRIN ONE (22:16)
--- NOTE | 2017-10-24 23:00 | NUR ---
RN NOTE PATIENT IS AGITATED, ANXIOUS AND RESTLESS. PATIENT IS NOTED TO BE TACHYPNEIC, AND TACHYCARDIC WITH HR IN THE 130s. ORDER OBTAINED FOR 1X MORPHINE IVP. GIVEN TO PATIENT WITH HELP, PATIENT IS NOW RESTING IN BED, STILL TACHYCARDIC WITH HR IN THE 116. VS STABLE. CLOSELY MONITORED.
[2017-10-25] VITALS (11 sets, daily range): BP systolic 84–127; BP diastolic 42–84
[2017-10-25] MEDS: ONDANSETRON HCL/PF 4 MG/2 ML VIAL IVP PRN ×2 (05:46→10:51)
--- NOTE | 2017-10-25 06:39 | NUR ---
RN CLOSING NOTES PATIENT HAD AN EPISODE OF COFFEE-GROUND EMESIS X3 DURING AM CARE RENDERED. ZOFRAN GIVEN PRN, WITH GOOD HELP. PATIENT ST AT 103. TPIECE AT 35% FIO2. SATURATING WELL. GT CLAMPED. F/C INTACT. WOUND CARE RENDERED. TRACH CARE RENDERED. SAFETY AND COMFORT ENSURED. BED IN LOW AND LOCKED POSITION. B SOFT WRIST RESTRAINTS IN PLACE. ISOLATION PRECAUTION OBSERVED.
--- NOTE | 2017-10-25 07:03 | NUR ---
RN NOTES RECEIVED PATIENT ON BED, OPENS EYES TO VERBAL STIMULI, FOLLOWS SIMPLE COMMAND , TRACH DEPENDENT,ON COOL AEROSOL WITH 35% FIO2, O2 SAT 100%, ON TELE ST, HR IN 100'S , COOPER DRAINING TO GRAVITY WITH LARON COLOR URINE, PT IS NPO, R UPPER ARM PICC LINE SITE CDI, LEFT GROIN HD CATH SITE CDI, B SOFT WRIST RESTRAINTS IN PLACE FOR PT SAFETY , PT PULLS ON LINES AT TIMES, CIRCULATION AND SKIN INTEGRITY INTACT. SAFETY AND COMFORT ENSURED. BED LOCKED AND IN LOWEST POSITION , CONTINUE TO MONITOR.
[2017-10-25 07:17] LABS: BASOPHILS % (AUTO) 0.2 % (0.0-2.0); EOSINOPHILS % (AUTO) 0.1 % (0.0-6.0); HEMATOCRIT 21 % (39-51); LYMPHOCYTES # (AUTO) 0.4 /CMM (0.8-4.8); LYMPHOCYTES % (AUTO) 3.3 % (20.0-44.0); MEAN CORPUSCULAR HEMOGLOBIN 31 PG (26.0-33.0); MEAN CORPUSCULAR HGB CONC 34 g/dl (31.0-36.0); MEAN CORPUSCULAR VOLUME 91 fL (80-96); MONOCYTES # (AUTO) 0.7 /CMM (0.1-1.30); MONOCYTES % (AUTO) 4.9 % (2.0-12.0); NEUTROPHILS # (AUTO) 12.2 /CMM (1.8-8.9); NEUTROPHILS % (AUTO) 91.5 % (43.0-81.0); PLATELET COUNT (AUTO) 81 /CMM (150-450); RDW COEFFICIENT OF VARIATION 19.8 (11.5-15.0); RED BLOOD CELL COUNT(AUTO) 2.27 MIL/uL (4.5-6.0); WHITE BLOOD COUNT (AUTO) 13.4 K/uL (4.3-11.0)
[2017-10-25 07:35] LABS: CALCIUM, SERUM 7.3 mg/dL (8.5-10.1); CREATININE 3.4 mg/dL (0.6-1.3); PHOSPHORUS 4.7 mg/dL (2.5-4.9); POTASSIUM 3.8 mmol/L (3.5-5.1)
[2017-10-25] MEDS: PANTOPRAZOLE 40 MG VIAL IV SCH ×2 (08:03→16:54)
[2017-10-25] MEDS: CEFAZOLIN 1 GM in IV D5W 50 ML IV SCH ×2 (08:03→21:59)
--- NOTE | 2017-10-25 08:30 | NUR ---
RN NOTES DALJIT RIOS CROSS TIE MAKER NOTIFIED REGARDING H/H 7.0 , NO NEW ORDER GIVEN , CONTINUE TO MONITOR.
[2017-10-25] MEDS: HYDROCODONE/APAP 5/325MG 1 EACH TABLET GT PRN (08:35)
[2017-10-25] MEDS: ALBUMIN 25% 25 GM in PREMIX 1 EA IV PRN (11:15)
[2017-10-25] MEDS ORDERED: LORAZEPAM ORAL SOLN 2 MG/ML ORAL.CONC GT PRN (12:30)
[2017-10-25 12:44] LABS: LYMPHOCYTES % (MANUAL) 2 % (16-48); MONOCYTES % (MANUAL) 5 % (0-11.0); NEUTROPHILS % (MANUAL) 93 (42-76)
[2017-10-25] MEDS ORDERED: EPOETIN ALFA (10,000 UNIT) 10,000 UNIT/ML VIAL SQ ONE (14:00)
--- NOTE | 2017-10-25 16:30 | NUR ---
RN NOTES ONE UNIT OF BLOOD INFUSED , PT TOLERATED WELL, NO DISTRESS NOTED
[2017-10-25] MEDS: COD LIVER OIL/ZINC OXIDE 120 GM TUBE TP SCH ×2 (16:54→21:59)
[2017-10-25] MEDS: NEOMY SULF/BACITRAC ZN/POLY 15 GM TUBE TP SCH (16:54)
[2017-10-25] MEDS: FLUCONAZOLE IN NS 100 MG in PREMIX 1 EA IV SCH ×2 (17:00)
--- NOTE | 2017-10-25 18:00 | NUR ---
RN NOTES TRACH CARE DONE, RESPIRATION EVEN AND UNLABORED, NO DISTRESS NOTED, PT NPO, SR UP x3, GILLES LIGHT WITHIN EASY REACH, WILL ENDORSE TO WARRANTY COORDINATOR NURSE FOR SHERIF.
--- NOTE | 2017-10-25 19:57 | NUR ---
ANISHA AGUILAR INITIAL NOTES RECEIVED PATIENT ON BED, OPENS EYES TO VERBAL STIMULI, FOLLOWS SIMPLE COMMAND , TRACH DEPENDENT,ON COOL AEROSOL WITH 35% FIO2, O2 SAT 100%, ON TELE ST, HR IN 90'S , COOPER DRAINING TO GRAVITY WITH LARON COLOR URINE, PT IS NPO, R UPPER ARM PICC LINE SITE CDI, LEFT GROIN HD CATH SITE CDI, B SOFT WRIST RESTRAINTS IN PLACE FOR PT SAFETY , PT PULLS ON LINES AT TIMES, CIRCULATION AND SKIN INTEGRITY INTACT. SAFETY AND COMFORT ENSURED. BED LOCKED AND IN LOWEST POSITION , CONTINUE TO MONITOR. Addendum: 10/26/17 at 0632 by BECKY MUSTAFA RN PT NOT ON TEL, MS, WRONG ENTRY. CLARIFICATION.
[2017-10-26] VITALS (9 sets, daily range): BP systolic 92–121; BP diastolic 47–61
--- NOTE | 2017-10-26 06:30 | NUR ---
RN MS CLOSING NOTES ENDORSED PATIENT ON BED, OPENS EYES TO VERBAL STIMULI, FOLLOWS SIMPLE COMMAND , TRACH DEPENDENT,ON COOL AEROSOL WITH 35% FIO2, O2 SAT 100% ,WITH COOPER DRAINING TO GRAVITY WITH LARON COLOR URINE, PT IS NPO, R UPPER ARM PICC LINE SITE CDI, LEFT GROIN HD CATH SITE CDI, B SOFT WRIST RESTRAINTS IN PLACE FOR PT SAFETY , PT PULLS ON LINES AT TIMES, CIRCULATION AND SKIN INTEGRITY INTACT. SAFETY AND COMFORT ENSURED. BED LOCKED AND IN LOWEST POSITION , CONTINUE TO MONITOR.
[2017-10-26 07:28] LABS: CALCIUM, SERUM 7.4 mg/dL (8.5-10.1); CREATININE 3.2 mg/dL (0.6-1.3); POTASSIUM 3.6 mmol/L (3.5-5.1)
[2017-10-26 07:36] LABS: EOSINOPHILS # (AUTO) 0.1 /CMM (0.0-0.7); HEMATOCRIT 22 % (39-51); HEMOGLOBIN 7.3 g/dL (13.5-17.5); LYMPHOCYTES # (AUTO) 0.7 /CMM (0.8-4.8); LYMPHOCYTES % (AUTO) 6.3 % (20.0-44.0); MEAN CORPUSCULAR HEMOGLOBIN 31 PG (26.0-33.0); MEAN CORPUSCULAR HGB CONC 34 g/dl (31.0-36.0); MEAN CORPUSCULAR VOLUME 92 fL (80-96); MONOCYTES % (AUTO) 9.3 % (2.0-12.0); NEUTROPHILS # (AUTO) 8.6 /CMM (1.8-8.9); NEUTROPHILS % (AUTO) 83.4 % (43.0-81.0); PLATELET COUNT (AUTO) 89 /CMM (150-450); RDW COEFFICIENT OF VARIATION 19.1 (11.5-15.0); RED BLOOD CELL COUNT(AUTO) 2.37 MIL/uL (4.5-6.0); WHITE BLOOD COUNT (AUTO) 10.3 K/uL (4.3-11.0)
--- NOTE | 2017-10-26 07:42 | NUR ---
MS RN: INITIAL NOTE RECEIVED PT A/OX1. POLISH SPEAKING/UNDERSTANDING. ON TRACH MANUEL #8. FIO2 35%. ON BUE SOFT RESTRAINTS. RESTRAINTS PER PROTOCOL. COOPER CATH IN PLACE AND DRAINING. CORA PICC LINE. NO IV FLUIDS RUNNING. ON BLEEDING PRECAUTIONS DUE TO HX OF THROMBOCYTOPENIA. NPO DUE TO BLEEDING. L FEMORAL MANJEET CATH FOR DIALYSIS. NO DISTRESS NOTED. NO SOB NOTED. NO PAIN NOTED BY FLACC SCALE. 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 RESTING COMFORTABLY IN BED. HEAD OF BED ELEVATED.
[2017-10-26] MEDS: CEFAZOLIN 1 GM in IV D5W 50 ML IV SCH ×2 (09:06→21:24)
[2017-10-26] MEDS: PANTOPRAZOLE 40 MG VIAL IV SCH ×2 (09:06→17:40)
[2017-10-26] MEDS: COD LIVER OIL/ZINC OXIDE 120 GM TUBE TP SCH ×2 (09:06→21:25)
[2017-10-26] MEDS: NEOMY SULF/BACITRAC ZN/POLY 15 GM TUBE TP SCH (09:06)
[2017-10-26 09:38] LABS: BAND % (MANUAL) 2 % (0.0-5.0); EOSINOPHILS % (MANUAL) 1 % (0-4); LYMPHOCYTES % (MANUAL) 4 % (16-48); MONOCYTES % (MANUAL) 5 % (0-11.0); NEUTROPHILS % (MANUAL) 88 (42-76)
[2017-10-26] MEDS ORDERED: LORAZEPAM INJ 2 MG/ML VIAL IV PRN (14:00)
--- NOTE | 2017-10-26 14:34 | NUR ---
BLOOD TRANSFUSION 1 UNIT BEING GIVEN WITH DIALYSIS. VS STABLE. BP 92/47, PULSE 96, RR 18, 02 100% ON T-PIECE, TEMP 98.0
[2017-10-26] MEDS: ALBUMIN 25% 25 GM in PREMIX 1 EA IV PRN (14:36)
--- NOTE | 2017-10-26 15:07 | NUR ---
BLOOD TRANSFUSION ENDED. GIVEN THROUGH DIALYSIS. 1 UNIT GIVEN. BP 94/51, PULSE 93, RR 20, 02 100%, TEMP 98.2. 1 LITER OF FLUIDS TAKEN OUT WITH DIALYSIS.
[2017-10-26] MEDS: FLUCONAZOLE IN NS 100 MG in PREMIX 1 EA IV SCH ×2 (17:40)
[2017-10-26 18:33] LABS: ABG BASE EXCESS 10.4 mmol/L; ABG OXYGEN SATURATION 93.1 % (92.0-98.5); ABG PCO2 42.5 mmHg (35.0-45.0); ABG PH 7.523 (7.350-7.450); AaDO2 135.1 mmHg; COHb 0.2 % (0.5-1.5); MetHb 0.7 % (0.0-1.5); O2Hb 92.3 % (94.0-97.0); SITE, ABG Right Radial; VENT MODE, BG 35% COOL AERO
--- NOTE | 2017-10-26 18:42 | NUR ---
MS RN: CLOSING NOTE PT GIVEN ALL MEDICATIONS ON TIME. NO ADVERSE REACTIONS NOTED. A/OX 2. MOUTHS WORDS NEEDED. POLISH SPEAKING BUT UNDERSTANDS OMANI. COOPER CATH IN PLACE AND DRAINING. OUTPUT 50ML. L FEMORAL MANJEET CATH IN PLACE. DRESSING INTACT. DIALYSIS DONE AND OUTPUT 1L. NPO. NO FEEDING RUNNING. AWAITING CONSULT FROM GI. NO BLEEDING NOTED.. R UA PICC LINE. SITE CLEAR AND PATENT. NO IV FLUIDS RUNNING. BLOOD TRANSFUSION GIVE 1 UNIT WITH DIALYSIS. NO ADVERSE REACTIONS NOTED. NO DISTRESS NOTED. NO SOB NOTED. NO PAIN NOTED. ON T-PIECE MANUEL #8 AND FIO2 INCREASED TO 40% BY RESPIRATORY THERAPIST. RESTING COMFORTABLY IN BED. CALL LIGHT WITHIN REACH.
--- NOTE | 2017-10-26 19:50 | NUR ---
MS RN NOTE: PATIENT RESTING IN BED, NO ACUTE DISTRESS NOTED. T-PIECE SHILEY #[address] TO COOL AEROSOL. BREATHING EVEN AND UNLABORED, NO SOB NOTED.PICC LINE TRIPLE LUMEN TO CORA IN PLACE, WITH GOOD BLOOD RETURN TO ALL LUMENS. LEFT FEMORAL HD SITE IN PLACE, NO BLEEDING NOTED. COOPER CATHETER IN PLACE EMPTY AT THIS TIME. BILATERAL SOFT WRIST RESTRAINTS IN PLACE, RELEASED AND REAPPLIED WITH GOOD CIRCULATION. ISOLATION PRECAUTIONS OBSERVED. BED LOCKED AND IN LOWEST POSITION, CALL LIGHT IN REACH, WILL CONTINUE TO MONITOR.
[2017-10-26 22:20] LABS: BASOPHILS # (AUTO) 0.1 /CMM (0.0-0.2); BASOPHILS % (AUTO) 1.1 % (0.0-2.0); EOSINOPHILS # (AUTO) 0.1 /CMM (0.0-0.7); EOSINOPHILS % (AUTO) 1.7 % (0.0-6.0); HEMATOCRIT 24 % (39-51); LYMPHOCYTES # (AUTO) 0.6 /CMM (0.8-4.8); LYMPHOCYTES % (AUTO) 9.3 % (20.0-44.0); MEAN CORPUSCULAR HEMOGLOBIN 31 PG (26.0-33.0); MEAN CORPUSCULAR HGB CONC 34 g/dl (31.0-36.0); MEAN CORPUSCULAR VOLUME 91 fL (80-96); MONOCYTES # (AUTO) 0.7 /CMM (0.1-1.30); MONOCYTES % (AUTO) 9.6 % (2.0-12.0); NEUTROPHILS # (AUTO) 5.5 /CMM (1.8-8.9); NEUTROPHILS % (AUTO) 78.3 % (43.0-81.0); PLATELET COUNT (AUTO) 82 /CMM (150-450); RDW COEFFICIENT OF VARIATION 18.8 (11.5-15.0); RED BLOOD CELL COUNT(AUTO) 2.58 MIL/uL (4.5-6.0)
--- NOTE | 2017-10-26 22:30 | NUR ---
MS RN NOTE: PATIENT HAD 1 UNIT OF BLOOD TRANSFUSED TODAY, WITHOUT REPEAT CBC. ORDER FOR CBC PLACE. HGB AT 8.0, HCT 24. WILL CONTINUE TO MONITOR.
[2017-10-26 22:44] LABS: NEUTROPHILS % (MANUAL) 83 (42-76)
[2017-10-26 22:45] LABS: LYMPHOCYTES % (MANUAL) 11 % (16-48); MONOCYTES % (MANUAL) 6 % (0-11.0)
[2017-10-27 04:15] VITALS: BP 112/63
--- NOTE | 2017-10-27 06:20 | NUR ---
MS RN NOTE: PATIENT RESTING IN BED, NO ACUTE DISTRESS NOTED. T-PIECE SHILEY #[address] TO COOL AEROSOL. BREATHING EVEN AND UNLABORED, NO SOB NOTED. PICC LINE TRIPLE LUMEN TO CORA IN PLACE. LEFT FEMORAL HD SITE IN PLACE, NO BLEEDING NOTED. COOPER CATHETER IN PLACE. G-TUBE IN PLACE, CLAMPED WITH NO BLEEDING OR RESIDUAL. BILATERAL SOFT WRIST RESTRAINTS IN PLACE, RELEASED AND REAPPLIED WITH GOOD CIRCULATION. BED LOCKED AND IN LOWEST POSITION, CALL LIGHT IN REACH, WILL ENDORSE TO DAY NURSE TO CONTINUE WITH PLAN OF CARE.
[2017-10-27 06:54] LABS: BASOPHILS % (AUTO) 0.2 % (0.0-2.0); EOSINOPHILS # (AUTO) 0.1 /CMM (0.0-0.7); HEMATOCRIT 24 % (39-51); HEMOGLOBIN 8.3 g/dL (13.5-17.5); LYMPHOCYTES # (AUTO) 0.6 /CMM (0.8-4.8); LYMPHOCYTES % (AUTO) 7.1 % (20.0-44.0); MEAN CORPUSCULAR HEMOGLOBIN 31 PG (26.0-33.0); MEAN CORPUSCULAR HGB CONC 34 g/dl (31.0-36.0); MEAN CORPUSCULAR VOLUME 92 fL (80-96); MONOCYTES # (AUTO) 0.8 /CMM (0.1-1.30); MONOCYTES % (AUTO) 10.2 % (2.0-12.0); NEUTROPHILS # (AUTO) 6.5 /CMM (1.8-8.9); NEUTROPHILS % (AUTO) 81.5 % (43.0-81.0); PLATELET COUNT (AUTO) 82 /CMM (150-450); RDW COEFFICIENT OF VARIATION 18.4 (11.5-15.0); RED BLOOD CELL COUNT(AUTO) 2.65 MIL/uL (4.5-6.0)
[2017-10-27] MEDS ORDERED: EPOETIN ALFA (10,000 UNIT) 10,000 UNIT/ML VIAL SQ ONE (07:00)
[2017-10-27 07:21] LABS: CALCIUM, SERUM 7.2 mg/dL (8.5-10.1); CREATININE 2.5 mg/dL (0.6-1.3); MAGNESIUM 1.9 mg/dL (1.8-2.4); PHOSPHORUS 4.1 mg/dL (2.5-4.9); POTASSIUM 3.3 mmol/L (3.5-5.1)
--- NOTE | 2017-10-27 07:48 | NUR ---
WOUND CARE CONSULT WOUND CARE RECEIVED CONSULT FOR SACRAL DECUBITUS. WOUND CARE WILL DEFER CONSULT AND TREATMENT PLANS TO SURGICAL TEAM WHO ARE CURRENTLY FOLLOWING PATIENT. PATIENT WITH KAYLI AT 10, ALL PRESSURE ULCER PREVENTION MEASURES NOTED TO BE IN PLACE.
[2017-10-27 08:00] VITALS: BP 109/55
--- NOTE | 2017-10-27 08:00 | NUR ---
RN NOTES RECEIVED PATIENT IN THE BED T-TUBE/DEPENDED ON O2-8.0L, V/S STABLE, NO ACUTE RESPIRATORY DISTRESS, PATIENT REFUSED PAIN AT THIS TIME. EDEMA BLE, SACRAL, AND LEFT UPPER HAND. PATIENT ON SOFT RESTRAIN CHECKED CIRCULATION Q 2 HR, PATIENT TOTAL CARE, ASSIST TURN AND REPOSTION Q 2 HR, DRESSING CHANGE, INCONTINENT, F/C DRAIN YELLOW OUTPUT, RIGHT UPPER ARM PICC LINE INTACT, G-TUBE INTACT NO BLEEDING, PATIENT NPO AT THIS TIME HOLD FEEDING, SCHEDULED MEDICATION ADMINISTERED, CALL LIGHT WITHIN TO REACH. CONTINUED MONITORING.
[2017-10-27 10:02] LABS: EOSINOPHILS % (MANUAL) 1 % (0-4); LYMPHOCYTES % (MANUAL) 8 % (16-48); MONOCYTES % (MANUAL) 5 % (0-11.0); NEUTROPHILS % (MANUAL) 86 (42-76)
[2017-10-27] MEDS: PANTOPRAZOLE 40 MG VIAL IV SCH ×2 (10:18→17:26)
[2017-10-27] MEDS: CEFAZOLIN 1 GM in IV D5W 50 ML IV SCH ×2 (10:18→21:25)
[2017-10-27] MEDS: COD LIVER OIL/ZINC OXIDE 120 GM TUBE TP SCH ×2 (10:20→21:25)
[2017-10-27] MEDS: NEOMY SULF/BACITRAC ZN/POLY 15 GM TUBE TP SCH (10:20)
--- NOTE | 2017-10-27 11:13 | NUR ---
RN NOTES PATIENT IN THE BED NO ACUTE DISTRESS, ASSIST TURN AND REPOSTION Q2 HR, NO ACUTE RESPIRATORY DISTRESS, CONTINUED MONITORING. BILATERAL WRIST RESTRAIN CHECKED FOR CIRCULATION Q 2 HR.
[2017-10-27 12:00] VITALS: BP 109/55
[2017-10-27 13:03] LABS: INR 1.38 (0.87-1.13)
[2017-10-27 13:31] LABS: D-DIMER 8.78 mg/L(FEU (0.17-0.50)
[2017-10-27] MEDS: CADEXOMER IODINE 40 GM TUBE TP SCH (14:43)
--- NOTE | 2017-10-27 15:00 | NUR ---
RN NOTES ASSIST TURN AND REPOSTION, HOLD G-TUBE FEEDING, F/C DRAIN DARK YELLOW OUTPUT, V/S STABLE, CONTINUED MONITORING.
[2017-10-27 16:00] VITALS: BP 118/60
--- NOTE | 2017-10-27 17:00 | NUR ---
RN NOTES SCHEDULED MEDICATION ADMINISTERED, ASSIST TURN AND REPOSTION, PATIENT ON [employer]RASS, ASSIST TURN AND REPOSTION, FAMILY NEXT TO THE BED.
[2017-10-27] MEDS ORDERED: FLUCONAZOLE (100 MG) 100 MG TABLET PO SCH (18:00)
--- NOTE | 2017-10-27 18:30 | NUR ---
RN NOTES PATIENT HAS NO RESPIRATORY DISTRESS, CALLED DALJIT CLASSIFIER TENDER K-3.3 FOR COVERAGE, WAITING FOR RESPOND. ENDORSED ONCOMING NURSE FOR SHERIF.
--- NOTE | 2017-10-27 19:30 | NUR ---
RN/MS NOTES: RECEIVED PATIENT IN THE BED T-TUBE/DEPENDED ON O2-8.0L, V/S STABLE, NO ACUTE RESPIRATORY DISTRESS. DENIES ANY PAIN OR SOB AT THIS TIME. NO FACIAL GRIMACES OR MOANING NOTED. EDEMA BLE, SACRAL, AND LEFT UPPER HAND. PATIENT ON SOFT RESTRAIN CHECKED CIRCULATION Q 2 HR, PATIENT TOTAL CARE, ASSIST TURN AND REPOSTION Q 2 HR, DRESSING CHANGE, INCONTINENT, F/C DRAIN YELLOW OUTPUT, CORA PICC LINE INTACT AND PATENT W/ NO S/S OF INFECTION/INFILTRATION NOTED. G-TUBE INTACT W/ DARK COLOR RESIDUAL NOTED. PATIENT NPO AT THIS TIME HOLD FEEDING UNTIL CLEARED BY G.I. CALL LIGHT WITHIN TO REACH. CONTINUED MONITORING.
[2017-10-27 20:00] VITALS: BP 128/60
[2017-10-28 06:36] LABS: BASOPHILS % (AUTO) 0.1 % (0.0-2.0); EOSINOPHILS % (AUTO) 0.3 % (0.0-6.0); HEMATOCRIT 26 % (39-51); HEMOGLOBIN 8.7 g/dL (13.5-17.5); LYMPHOCYTES # (AUTO) 0.6 /CMM (0.8-4.8); LYMPHOCYTES % (AUTO) 5.8 % (20.0-44.0); MEAN CORPUSCULAR HEMOGLOBIN 32 PG (26.0-33.0); MEAN CORPUSCULAR HGB CONC 34 g/dl (31.0-36.0); MEAN CORPUSCULAR VOLUME 93 fL (80-96); MONOCYTES # (AUTO) 0.9 /CMM (0.1-1.30); MONOCYTES % (AUTO) 8.3 % (2.0-12.0); NEUTROPHILS # (AUTO) 9.3 /CMM (1.8-8.9); NEUTROPHILS % (AUTO) 85.5 % (43.0-81.0); PLATELET COUNT (AUTO) 93 /CMM (150-450); RDW COEFFICIENT OF VARIATION 19.4 (11.5-15.0); RED BLOOD CELL COUNT(AUTO) 2.74 MIL/uL (4.5-6.0); WHITE BLOOD COUNT (AUTO) 10.9 K/uL (4.3-11.0)
--- NOTE | 2017-10-28 07:30 | NUR ---
RN/MS NOTES: RECEIVED PATIENT IN THE BED T-TUBE/DEPENDED ON O2-10L, V/S STABLE, WITH RESPIRATIONS AT 24 MENTAL TELEPATHIST AWARE, NO NEW ORDERS AT THIS TIME CONTINUE TO MONITOR. NO FACIAL GRIMACES OR MOANING NOTED. EDEMA BLE, SACRAL, AND LEFT UPPER HAND. PATIENT ON SOFT RESTRAINTS CHECKED CIRCULATION Q 2 HR, PATIENT TOTAL CARE, ASSIST TURN AND REPOSITION Q 2 HR, DRESSING CHANGE, INCONTINENT, F/C DRAIN YELLOW OUTPUT, CORA PICC LINE INTACT AND PATENT W/ NO S/S OF INFECTION/INFILTRATION NOTED. G-TUBE INTACT W/ DARK COLOR RESIDUAL NOTED. PATIENT NPO AT THIS TIME HOLD FEEDING UNTIL CLEARED BY G.I. PER MENTAL TELEPATHIST CALL LIGHT WITHIN TO REACH. WILL CONTINUE TO MONITOR
--- NOTE | 2017-10-28 07:34 | NUR ---
RN/MS NOTES: NO ACUTE CHANGES NOTED DURING THIS SHIFT. REPORT GIVEN TO AM NURSE FOR SHERIF.
[2017-10-28 08:00] VITALS: BP 123/58
[2017-10-28] MEDS: PANTOPRAZOLE 40 MG VIAL IV SCH (09:40)
[2017-10-28] MEDS: CEFAZOLIN 1 GM in IV D5W 50 ML IV SCH (09:40)
[2017-10-28] MEDS: COD LIVER OIL/ZINC OXIDE 120 GM TUBE TP SCH (09:41)
[2017-10-28] MEDS: CADEXOMER IODINE 40 GM TUBE TP SCH (09:41)
[2017-10-28] MEDS: NEOMY SULF/BACITRAC ZN/POLY 15 GM TUBE TP SCH (09:42)
[2017-10-28 10:05] LABS: LYMPHOCYTES % (MANUAL) 7 % (16-48); MONOCYTES % (MANUAL) 7 % (0-11.0); NEUTROPHILS % (MANUAL) 86 (42-76)
[2017-10-28] MEDS: HYDROCODONE/APAP 5/325MG 1 EACH TABLET GT PRN (11:54)
--- NOTE | 2017-10-28 12:30 | NUR ---
RN NOTES PATIENT WITH DISCHARGE ORDERS, PT TO GO TO SUBACUTE UNIT RM 277-1. PRODUCTION STAGE MANAGER ASSESSED PT AT BEDSIDE, WILL CONTINUE TO ASSIST WITH DISCHARGE PROCESS PER PRODUCTION STAGE MANAGER PT TO HAVE PRINTER ASSISTANT CONSULT AND STARTING G TUBE FEEDINGS
--- NOTE | 2017-10-28 15:20 | NUR ---
RN/MS DISCHARGE NOTES: PATIENT IN THE BED T-TUBE/DEPENDED ON O2-10L, V/S STABLE, WITH RESPIRATIONS AT 24 WINDOW GLASS INSTALLER AWARE, NO NEW ORDERS AT THIS TIME CONTINUE TO MONITOR. NO FACIAL GRIMACES OR MOANING NOTED. EDEMA BLE, SACRAL, AND LEFT UPPER HAND. PATIENT ON SOFT RESTRAINTS CHECKED CIRCULATION Q 2 HR, PATIENT TOTAL CARE, ASSIST TURN AND REPOSITION Q 2 HR, DRESSING CHANGE, INCONTINENT, F/C DRAIN YELLOW OUTPUT, CORA PICC LINE INTACT AND PATENT W/ NO S/S OF INFECTION/INFILTRATION NOTED PER WINDOW GLASS INSTALLER TO CONTINUE UNTIL FURTHER ORDERS. G-TUBE INTACT W/ DARK COLOR RESIDUAL NOTED. PATIENT NPO AT THIS TIME HOLD FEEDING UNTIL CLEARED BY G.I. PER WINDOW GLASS INSTALLER. REPORT GIVEN TO SUBACUTE RN CHASITY AND FAMILY MADE AWARE, PICTURES PLACED IN CHART
== END 2017-10-28 15:38 | DRG 252 ==
LOC: ER 14:30 → TELE-TD 15:28 → TELE1 16:43 → MEDSG1 10-25 11:19
PROVIDERS: ADMIT Nurse Practitioner Acute Care; ATTEND Nurse Practitioner Acute Care
PROC: 30233N1 Transfusion of Nonautologous Red Blood Cells into Peripheral Vein, Percutaneous Approach (ICD-10-PCS; principal; 2017-10-25)
PROC: 02HV33Z Insertion of Infusion Device into Superior Vena Cava, Percutaneous Approach (ICD-10-PCS; principal; 2017-10-25)
PROC: 5A1D70Z Performance of Urinary Filtration, Intermittent, Less than 6 Hours Per Day (ICD-10-PCS; principal; 2017-10-25)
PROC: 5A1D70Z Performance of Urinary Filtration, Intermittent, Less than 6 Hours Per Day (ICD-10-PCS; 2017-10-26)
DX: K94.21 Gastrostomy hemorrhage (principal); J96.20 Acute and chronic respiratory failure, unspecified whether with hypoxia or hypercapnia; R65.21 Severe sepsis with septic shock; I21.4 Non-ST elevation (NSTEMI) myocardial infarction; J69.0 Pneumonitis due to inhalation of food and vomit; A41.9 Sepsis, unspecified organism; G92 Toxic encephalopathy; L89.153 Pressure ulcer of sacral region, stage 3; J90 Pleural effusion, not elsewhere classified; N17.9 Acute kidney failure, unspecified; E87.2 Acidosis; B49 Unspecified mycosis; K92.2 Gastrointestinal hemorrhage, unspecified; E11.22 Type 2 diabetes mellitus with diabetic chronic kidney disease; E11.52 Type 2 diabetes mellitus with diabetic peripheral angiopathy with gangrene; E11.65 Type 2 diabetes mellitus with hyperglycemia; N18.6 End stage renal disease; Z99.2 Dependence on renal dialysis; Z79.4 Long term (current) use of insulin; D69.6 Thrombocytopenia, unspecified; Z86.73 Personal history of transient ischemic attack (TIA), and cerebral infarction without residual deficits; N50.89 Other specified disorders of the male genital organs; R13.10 Dysphagia, unspecified; Z79.899 Other long term (current) drug therapy; I25.2 Old myocardial infarction; F41.9 Anxiety disorder, unspecified; F29 Unspecified psychosis not due to a substance or known physiological condition; E87.6 Hypokalemia; E87.1 Hypo-osmolality and hyponatremia; K74.60 Unspecified cirrhosis of liver; R18.8 Other ascites; Y83.3 Surgical operation with formation of external stoma as the cause of abnormal reaction of the patient, or of later complication, without mention of misadventure at the time of the procedure; Y82.9 Unspecified medical devices associated with adverse incidents; Y92.129 Unspecified place in nursing home as the place of occurrence of the external cause; L98.9 Disorder of the skin and subcutaneous tissue, unspecified; I96 Gangrene, not elsewhere classified; B95.62 Methicillin resistant Staphylococcus aureus infection as the cause of diseases classified elsewhere; R91.8 Other nonspecific abnormal finding of lung field; D64.9 Anemia, unspecified; D68.9 Coagulation defect, unspecified; J96.21 Acute and chronic respiratory failure with hypoxia; F15.10 Other stimulant abuse, uncomplicated; B37.49 Other urogenital candidiasis; I38 Endocarditis, valve unspecified
CPT/HCPCS: 31720; 36415; 36569; 36600; 71045-TC; 80048-TC; 80076-TC; 83735-TC; 84100-TC; 84484-TC; 85025-TC; 85396; 85730-TC; 86850-TC; 86921-TC; 87081-TC; 90935-TC; 94640-TC; 94760-TC; 99082-TC; A4216; A4606; A6402; A6403; A6407; C9113; J0690; J0885; J1450; J2060; J2405; J3490; J7030; J7040; J7050; J7060; P9016-BL; P9047; Z7610

== ENCOUNTER 2017-11-18 13:55 | Inpatient (IN) | payer SELFPAY ==
[2017-11-18] VITALS (12 sets, daily range): BP systolic 92–136; BP diastolic 45–67
[~2017-11-18] VITALS: Ht 177.8 cm; Wt 82.1 kg
[~2017-11-18 13:55] MED LIST changes: +ALBU2.5V13 IH; -CLOT15CR35 TP; +GEL100GE TP; -IPRA0.2S49 IH; +IPRA0.2S9 IH; -NEOM15OI3 TP; +NORM10004 IV; +PANT40VI IV; +QUET25TA PO; +VITA56.7 TP; +[UNRECOGNIZED DRUG - CODE] TP
[2017-11-18] MEDS ORDERED: FOLI0.8T2 GT (14:49)
[2017-11-18] MEDS ORDERED: DIPH-530 GT (14:49)
[2017-11-18] MEDS ORDERED: FERR300L GT (14:49)
[2017-11-18] MEDS ORDERED: AMIN30LI25 GT (14:49)
[2017-11-18] MEDS ORDERED: HYDR-552 GT (14:49)
[2017-11-18] MEDS ORDERED: HYDR4TAB4 GT (14:49)
[2017-11-18] MEDS ORDERED: LACT10SO GT (14:49)
[2017-11-18] MEDS ORDERED: GUAI100S34 GT (14:49)
[2017-11-18 15:06] LABS: BASOPHILS % (AUTO) 1.1 % (0.0-2.0); EOSINOPHILS # (AUTO) 0.2 /CMM (0.0-0.7); EOSINOPHILS % (AUTO) 5.4 % (0.0-6.0); HEMATOCRIT 23 % (39-51); HEMOGLOBIN 8.2 g/dL (13.5-17.5); LYMPHOCYTES # (AUTO) 0.6 /CMM (0.8-4.8); LYMPHOCYTES % (AUTO) 14.6 % (20.0-44.0); MEAN CORPUSCULAR HEMOGLOBIN 32 PG (26.0-33.0); MEAN CORPUSCULAR HGB CONC 36 g/dl (31.0-36.0); MEAN CORPUSCULAR VOLUME 90 fL (80-96); MONOCYTES # (AUTO) 0.7 /CMM (0.1-1.30); MONOCYTES % (AUTO) 15.5 % (2.0-12.0); NEUTROPHILS # (AUTO) 2.8 /CMM (1.8-8.9); NEUTROPHILS % (AUTO) 63.4 % (43.0-81.0); PLATELET COUNT (AUTO) 94 /CMM (150-450); RED BLOOD CELL COUNT(AUTO) 2.58 MIL/uL (4.5-6.0); WHITE BLOOD COUNT (AUTO) 4.3 K/uL (4.3-11.0)
[2017-11-18 15:18] LABS: MAGNESIUM 1.9 mg/dL (1.8-2.4); PHOSPHORUS 2.7 mg/dL (2.5-4.9)
[2017-11-18 15:19] LABS: CREATININE 1.8 mg/dL (0.6-1.3); POTASSIUM 3.2 mmol/L (3.5-5.1)
[2017-11-18 15:20] LABS: INR 1.15 (0.85-1.15)
[2017-11-18 15:36] LABS: EOSINOPHILS % (MANUAL) 5 % (0-4); LYMPHOCYTES % (MANUAL) 17 % (16-48); MONOCYTES % (MANUAL) 15 % (0-11.0); NEUTROPHILS % (MANUAL) 63 (42-76)
[2017-11-18] MEDS ORDERED: DESMOPRESSIN 20 MCG in IV NS 0.9% 50 ML IV ONE (16:00)
[2017-11-18] MEDS ORDERED: POTASSIUM CHLORIDE 20 MEQ POWDER PACKET GT ONE (17:30)
[2017-11-18] MEDS: ACETAMINOPHEN 650 MG/SUPP.RECT RC PRN (17:35)
[2017-11-18] MEDS: ALBUTEROL FS 2.5 MG/0.5 ML VIAL.NEB IH SCH ×2 (19:30→20:59)
[2017-11-18] MEDS ORDERED: DEXTROSE 50%-WATER 50 ML DISP.SYRIN IV PRN (19:30)
[2017-11-18] MEDS: HYDROMORPHONE HCL 2 MG TABLET PO PRN (19:49)
[2017-11-18] MEDS: RENAL NOVASOURCE 1,000 ML BOTTLE GT PRN (21:43)
[2017-11-18] MEDS: BLOOD SUGAR DIAGNOSTIC 1 EACH STRIP IN SCH (23:09)
[2017-11-19] VITALS (80 sets, daily range): BP systolic 77–153; BP diastolic 42–107
[2017-11-19] MEDS: HYDROMORPHONE HCL 2 MG TABLET PO PRN ×3 (00:58→18:31)
[2017-11-19] MEDS: ALBUTEROL FS 2.5 MG/0.5 ML VIAL.NEB IH SCH ×4 (01:38→19:58)
[2017-11-19] MEDS: LORAZEPAM 1 MG TABLET GT PRN ×2 (03:55→19:49)
[2017-11-19 04:47] LABS: BASOPHILS % (AUTO) 0.5 % (0.0-2.0); EOSINOPHILS # (AUTO) 0.2 /CMM (0.0-0.7); EOSINOPHILS % (AUTO) 3.6 % (0.0-6.0); HEMATOCRIT 22 % (39-51); HEMOGLOBIN 7.6 g/dL (13.5-17.5); LYMPHOCYTES # (AUTO) 0.5 /CMM (0.8-4.8); LYMPHOCYTES % (AUTO) 9.4 % (20.0-44.0); MEAN CORPUSCULAR HEMOGLOBIN 32 PG (26.0-33.0); MEAN CORPUSCULAR HGB CONC 35 g/dl (31.0-36.0); MEAN CORPUSCULAR VOLUME 91 fL (80-96); MONOCYTES # (AUTO) 0.6 /CMM (0.1-1.30); MONOCYTES % (AUTO) 12.6 % (2.0-12.0); NEUTROPHILS # (AUTO) 3.7 /CMM (1.8-8.9); NEUTROPHILS % (AUTO) 73.9 % (43.0-81.0); PLATELET COUNT (AUTO) 95 /CMM (150-450); RDW COEFFICIENT OF VARIATION 21.4 (11.5-15.0); RED BLOOD CELL COUNT(AUTO) 2.39 MIL/uL (4.5-6.0)
[2017-11-19 05:07] LABS: BILIRUBIN,TOTAL 0.6 mg/dL (0.2-1.0); CALCIUM, SERUM 7.7 mg/dL (8.5-10.1); CREATININE 1.5 mg/dL (0.6-1.3); PHOSPHORUS 2.1 mg/dL (2.5-4.9); POTASSIUM 3.4 mmol/L (3.5-5.1)
[2017-11-19 05:08] LABS: MAGNESIUM 1.9 mg/dL (1.8-2.4); TOTAL PROTEIN, SERUM 6.7 g/dL (6.4-8.2)
[2017-11-19 05:11] LABS: THYROID STIMULATING HORMONE 2.585 uIU/mL (0.358-3.74)
[2017-11-19] MEDS: BLOOD SUGAR DIAGNOSTIC 1 EACH STRIP IN SCH ×4 (05:19→23:26)
[2017-11-19 05:21] LABS: ALBUMIN 1.3 g/dL (3.4-5.0)
[2017-11-19] MEDS: ACETAMINOPHEN 650 MG/SUPP.RECT RC PRN (08:02)
[2017-11-19] MEDS: ONDANSETRON HCL/PF 4 MG/2 ML VIAL IVP PRN (08:04)
[2017-11-19] MEDS ORDERED: Z GUARD REMEDY 2 OZ OINT TP PRN (09:00)
[2017-11-19] MEDS ORDERED: PROPOFOL 100 ML IV PRN (09:00)
[2017-11-19] MEDS: LACTULOSE 10 G/15 ML UDC (PYXIS) GT SCH (09:11)
[2017-11-19] MEDS: PANTOPRAZOLE 40 MG/PACK PACK GT SCH (09:12)
[2017-11-19] MEDS: LORAZEPAM INJ 2 MG/ML VIAL ONE ×2 (09:52→10:07)
[2017-11-19] MEDS ORDERED: LORAZEPAM INJ 2 MG/ML VIAL IV STA (10:04)
[2017-11-19] MEDS ORDERED: IV NS 0.9% 250 ML BAG IV ONE (11:00)
[2017-11-19] MEDS ORDERED: EPOETIN ALFA (10,000 UNIT) 10,000 UNIT/ML VIAL SQ ONE (11:00)
[2017-11-19] MEDS ORDERED: POTASSIUM CHLORIDE 20 MEQ POWDER PACKET GT SCH (12:00)
[2017-11-19] MEDS: Z GUARD REMEDY 2 OZ OINT TP SCH ×2 (12:36→18:31)
[2017-11-19] MEDS ORDERED: Sodium Phosphate 15 MMOL in IV D5W 250 ML IV ONE (15:00)
[2017-11-19] MEDS: INSULIN REGULAR, HUMAN 100 UNIT/ML 3 ML VIAL SQ PRN ×2 (18:33→23:27)
[2017-11-19] MEDS: HYDROGEL DRESSING 90 GM TUBE TP SCH (19:41)
[2017-11-19] MEDS: RENAL NOVASOURCE 1,000 ML BOTTLE GT PRN (19:52)
[2017-11-20] VITALS (36 sets, daily range): BP systolic 112–175; BP diastolic 54–131
[2017-11-20] MEDS: LORAZEPAM 1 MG TABLET GT PRN ×3 (01:53→21:22)
[2017-11-20] MEDS: ALBUTEROL FS 2.5 MG/0.5 ML VIAL.NEB IH SCH ×4 (02:13→19:37)
[2017-11-20 04:39] LABS: BASOPHILS % (AUTO) 0.6 % (0.0-2.0); EOSINOPHILS # (AUTO) 0.1 /CMM (0.0-0.7); HEMATOCRIT 22 % (39-51); HEMOGLOBIN 7.6 g/dL (13.5-17.5); LYMPHOCYTES # (AUTO) 0.5 /CMM (0.8-4.8); LYMPHOCYTES % (AUTO) 8.7 % (20.0-44.0); MEAN CORPUSCULAR HEMOGLOBIN 32 PG (26.0-33.0); MEAN CORPUSCULAR HGB CONC 35 g/dl (31.0-36.0); MEAN CORPUSCULAR VOLUME 92 fL (80-96); MONOCYTES % (AUTO) 16.1 % (2.0-12.0); NEUTROPHILS # (AUTO) 4.3 /CMM (1.8-8.9); NEUTROPHILS % (AUTO) 72.6 % (43.0-81.0); PLATELET COUNT (AUTO) 107 /CMM (150-450); RDW COEFFICIENT OF VARIATION 22.2 (11.5-15.0); WHITE BLOOD COUNT (AUTO) 5.9 K/uL (4.3-11.0)
[2017-11-20 04:52] LABS: CALCIUM, SERUM 7.6 mg/dL (8.5-10.1); CREATININE 1.5 mg/dL (0.6-1.3); PHOSPHORUS 2.9 mg/dL (2.5-4.9); POTASSIUM 3.5 mmol/L (3.5-5.1)
[2017-11-20] MEDS: BLOOD SUGAR DIAGNOSTIC 1 EACH STRIP IN SCH ×4 (06:15→23:17)
[2017-11-20] MEDS: HYDROGEL DRESSING 90 GM TUBE TP SCH ×2 (06:16→18:00)
[2017-11-20] MEDS: INSULIN REGULAR, HUMAN 100 UNIT/ML 3 ML VIAL SQ PRN ×4 (06:17→23:18)
[2017-11-20] MEDS: HYDROMORPHONE HCL 2 MG TABLET PO PRN ×3 (06:43→22:34)
[2017-11-20] MEDS: PANTOPRAZOLE 40 MG/PACK PACK GT SCH (08:39)
[2017-11-20] MEDS: LACTULOSE 10 G/15 ML UDC (PYXIS) GT SCH (08:39)
[2017-11-20] MEDS: RENAL NOVASOURCE 1,000 ML BOTTLE GT PRN (22:35)
[2017-11-21] VITALS (51 sets, daily range): BP systolic 86–137; BP diastolic 47–68
[2017-11-21] MEDS: ALBUTEROL FS 2.5 MG/0.5 ML VIAL.NEB IH SCH ×4 (01:08→19:27)
[2017-11-21 05:27] LABS: BASOPHILS % (AUTO) 0.1 % (0.0-2.0); HEMATOCRIT 21 % (39-51); HEMOGLOBIN 7.2 g/dL (13.5-17.5); LYMPHOCYTES # (AUTO) 0.5 /CMM (0.8-4.8); LYMPHOCYTES % (AUTO) 6.2 % (20.0-44.0); MEAN CORPUSCULAR HEMOGLOBIN 32 PG (26.0-33.0); MEAN CORPUSCULAR HGB CONC 34 g/dl (31.0-36.0); MEAN CORPUSCULAR VOLUME 92 fL (80-96); MONOCYTES # (AUTO) 0.8 /CMM (0.1-1.30); MONOCYTES % (AUTO) 10.5 % (2.0-12.0); NEUTROPHILS # (AUTO) 6.1 /CMM (1.8-8.9); NEUTROPHILS % (AUTO) 83.2 % (43.0-81.0); PLATELET COUNT (AUTO) 92 /CMM (150-450); RDW COEFFICIENT OF VARIATION 21.8 (11.5-15.0); RED BLOOD CELL COUNT(AUTO) 2.29 MIL/uL (4.5-6.0); WHITE BLOOD COUNT (AUTO) 7.4 K/uL (4.3-11.0)
[2017-11-21] MEDS: LORAZEPAM 1 MG TABLET GT PRN ×2 (06:11→15:26)
[2017-11-21] MEDS: HYDROGEL DRESSING 90 GM TUBE TP SCH ×2 (06:12→08:28)
[2017-11-21] MEDS: BLOOD SUGAR DIAGNOSTIC 1 EACH STRIP IN SCH ×4 (06:12→23:30)
[2017-11-21] MEDS: INSULIN REGULAR, HUMAN 100 UNIT/ML 3 ML VIAL SQ PRN ×4 (06:14→23:34)
[2017-11-21] MEDS: PANTOPRAZOLE 40 MG/PACK PACK GT SCH (08:20)
[2017-11-21] MEDS: ACETAMINOPHEN 650 MG/SUPP.RECT RC PRN (08:20)
[2017-11-21] MEDS: HYDROMORPHONE HCL 2 MG TABLET PO PRN ×2 (08:20→17:17)
[2017-11-21] MEDS: LACTULOSE 10 G/15 ML UDC (PYXIS) GT SCH (08:23)
[2017-11-21] MEDS: Z GUARD REMEDY 2 OZ OINT TP SCH (08:27)
[2017-11-21 08:42] LABS: BAND % (MANUAL) 7 % (0.0-5.0); LYMPHOCYTES % (MANUAL) 4 % (16-48); MONOCYTES % (MANUAL) 3 % (0-11.0); NEUTROPHILS % (MANUAL) 86 (42-76)
[2017-11-21] MEDS: IV NS 0.9% 250 ML IV PRN (23:35)
[2017-11-21] MEDS: RENAL NOVASOURCE 1,000 ML BOTTLE GT PRN (23:35)
[2017-11-22] VITALS (14 sets, daily range): BP systolic 110–153; BP diastolic 51–76
[2017-11-22] MEDS: ALBUTEROL FS 2.5 MG/0.5 ML VIAL.NEB IH SCH ×5 (01:07→19:27)
[2017-11-22 04:43] LABS: BASOPHILS % (AUTO) 0.1 % (0.0-2.0); EOSINOPHILS # (AUTO) 0.1 /CMM (0.0-0.7); EOSINOPHILS % (AUTO) 1.9 % (0.0-6.0); HEMATOCRIT 25 % (39-51); HEMOGLOBIN 8.5 g/dL (13.5-17.5); LYMPHOCYTES # (AUTO) 0.5 /CMM (0.8-4.8); LYMPHOCYTES % (AUTO) 6.7 % (20.0-44.0); MEAN CORPUSCULAR HEMOGLOBIN 31 PG (26.0-33.0); MEAN CORPUSCULAR HGB CONC 34 g/dl (31.0-36.0); MEAN CORPUSCULAR VOLUME 91 fL (80-96); NEUTROPHILS # (AUTO) 5.8 /CMM (1.8-8.9); NEUTROPHILS % (AUTO) 78.3 % (43.0-81.0); PLATELET COUNT (AUTO) 100 /CMM (150-450); RDW COEFFICIENT OF VARIATION 21.3 (11.5-15.0); RED BLOOD CELL COUNT(AUTO) 2.73 MIL/uL (4.5-6.0); WHITE BLOOD COUNT (AUTO) 7.4 K/uL (4.3-11.0)
[2017-11-22 05:01] LABS: CALCIUM, SERUM 7.8 mg/dL (8.5-10.1); CREATININE 2.2 mg/dL (0.6-1.3); MAGNESIUM 1.9 mg/dL (1.8-2.4); PHOSPHORUS 2.4 mg/dL (2.5-4.9); POTASSIUM 3.7 mmol/L (3.5-5.1)
[2017-11-22] MEDS: LORAZEPAM 1 MG TABLET GT PRN ×3 (05:01→20:28)
[2017-11-22] MEDS: HYDROGEL DRESSING 90 GM TUBE TP SCH ×2 (05:10→17:04)
[2017-11-22] MEDS: BLOOD SUGAR DIAGNOSTIC 1 EACH STRIP IN SCH ×4 (05:14→23:38)
[2017-11-22] MEDS: INSULIN REGULAR, HUMAN 100 UNIT/ML 3 ML VIAL SQ PRN ×4 (05:19→23:42)
[2017-11-22] MEDS: Z GUARD REMEDY 2 OZ OINT TP SCH (08:41)
[2017-11-22] MEDS: PANTOPRAZOLE 40 MG/PACK PACK GT SCH (08:41)
[2017-11-22] MEDS: LACTULOSE 10 G/15 ML UDC (PYXIS) GT SCH (08:41)
[2017-11-22] MEDS: HYDROMORPHONE HCL 2 MG TABLET PO PRN ×2 (10:14→20:28)
[2017-11-22] MEDS ORDERED: DOSING PER PHARMACY-AMIKACI IV XX PRN (13:30)
[2017-11-22] MEDS ORDERED: FEE PK DOSING 1 MIN EA MC ONE (13:42)
[2017-11-22] MEDS ORDERED: AMIKACIN 400 MG in IV D5W 100 ML IV ONE (14:00)
[2017-11-22] MEDS ORDERED: AMIKACIN 400 MG in IV D5W 100 ML IV PRN (14:00)
[2017-11-22 14:41] LABS: APPEARANCE,URINE TURBID (CLEAR); BILIRUBIN,URINE 3+ (NEGATIVE); BLOOD, URINE 3+ Ery/uL (NEGATIVE); KETONES,URINE TRACE (NEGATIVE); LEUKOCYTE ESTERASE ,URINE 3+ (NEGATIVE); NITRITE, URINE POSITIVE (NEGATIVE); PH,URINE 6.5 (5.0-8.0); PROTEIN,URINE 3+ mg/dl (NEGATIVE); UGLUCOSE NEGATIVE (NEGATIVE)
[2017-11-22 15:34] LABS: BACTERIA,URINE 4+ /HPF (None Seen); COLOR,URINE AMBER (YELLOW); SQUAMOUS EPITHELIAL CELL,UR 0-2 /HPF (None Seen); WBC,URINE TOO NUMEROUS TO COUN /HPF (0-3)
[2017-11-22 15:35] LABS: YEAST,URINE Hyphal filaments /HPF (None Seen)
[2017-11-22] MEDS: MEROPENEM 500 MG in IV NS 0.9% 50 ML IV SCH (15:49)
[2017-11-22] MEDS ORDERED: Sodium Phosphate 7.5 MMOL in IV D5W 100 ML IV ONE (17:00)
[2017-11-22] MEDS: LINEZOLID RTU BAG 600 MG in PREMIX 1 EA IV SCH (17:04)
[2017-11-22] MEDS: RENAL NOVASOURCE 1,000 ML BOTTLE GT PRN (17:13)
[2017-11-23] VITALS: BP 133/66
[2017-11-23] MEDS: MEROPENEM 500 MG in IV NS 0.9% 50 ML IV SCH ×2 (01:12→13:19)
[2017-11-23] MEDS: ALBUTEROL FS 2.5 MG/0.5 ML VIAL.NEB IH SCH ×4 (01:48→19:50)
[2017-11-23] MEDS: LORAZEPAM 1 MG TABLET GT PRN ×3 (03:01→20:49)
[2017-11-23 04:00] VITALS: BP 145/67
[2017-11-23] MEDS: LINEZOLID RTU BAG 600 MG in PREMIX 1 EA IV SCH ×2 (05:03→18:11)
[2017-11-23] MEDS: BLOOD SUGAR DIAGNOSTIC 1 EACH STRIP IN SCH ×3 (05:03→18:11)
[2017-11-23] MEDS: HYDROGEL DRESSING 90 GM TUBE TP SCH ×2 (05:07→18:11)
[2017-11-23] MEDS: INSULIN REGULAR, HUMAN 100 UNIT/ML 3 ML VIAL SQ PRN ×3 (05:10→18:17)
[2017-11-23 06:41] LABS: BASOPHILS % (AUTO) 0.1 % (0.0-2.0); EOSINOPHILS # (AUTO) 0.1 /CMM (0.0-0.7); EOSINOPHILS % (AUTO) 1.3 % (0.0-6.0); HEMATOCRIT 23 % (39-51); HEMOGLOBIN 7.9 g/dL (13.5-17.5); LYMPHOCYTES # (AUTO) 0.4 /CMM (0.8-4.8); LYMPHOCYTES % (AUTO) 4.7 % (20.0-44.0); MEAN CORPUSCULAR HEMOGLOBIN 31 PG (26.0-33.0); MEAN CORPUSCULAR HGB CONC 34 g/dl (31.0-36.0); MEAN CORPUSCULAR VOLUME 90 fL (80-96); MONOCYTES # (AUTO) 0.8 /CMM (0.1-1.30); MONOCYTES % (AUTO) 9.5 % (2.0-12.0); NEUTROPHILS # (AUTO) 7.3 /CMM (1.8-8.9); NEUTROPHILS % (AUTO) 84.4 % (43.0-81.0); PLATELET COUNT (AUTO) 87 /CMM (150-450); RDW COEFFICIENT OF VARIATION 20.5 (11.5-15.0); RED BLOOD CELL COUNT(AUTO) 2.58 MIL/uL (4.5-6.0); WHITE BLOOD COUNT (AUTO) 8.6 K/uL (4.3-11.0)
[2017-11-23 06:53] LABS: CALCIUM, SERUM 7.7 mg/dL (8.5-10.1); CREATININE 3.1 mg/dL (0.6-1.3); MAGNESIUM 2.1 mg/dL (1.8-2.4); PHOSPHORUS 2.7 mg/dL (2.5-4.9); POTASSIUM 3.6 mmol/L (3.5-5.1)
[2017-11-23 08:00] VITALS: BP 134/65
[2017-11-23] MEDS: PANTOPRAZOLE 40 MG/PACK PACK GT SCH (08:04)
[2017-11-23] MEDS: HYDROMORPHONE HCL 2 MG TABLET PO PRN ×2 (08:05→20:49)
[2017-11-23] MEDS: Z GUARD REMEDY 2 OZ OINT TP SCH (08:05)
[2017-11-23] MEDS: LACTULOSE 10 G/15 ML UDC (PYXIS) GT SCH (08:05)
[2017-11-23] MEDS ORDERED: ALBUMIN 25% 25 GM in PREMIX 1 EA IV ONE (09:00)
[2017-11-23] MEDS: RENAL NOVASOURCE 1,000 ML BOTTLE GT PRN (11:53)
[2017-11-23 12:00] VITALS: BP 116/57
[2017-11-23] MEDS ORDERED: EPOETIN ALFA (10,000 UNIT) 10,000 UNIT/ML VIAL SQ ONE (13:00)
[2017-11-23] MEDS: ONDANSETRON HCL/PF 4 MG/2 ML VIAL IVP PRN (14:38)
[2017-11-23 16:00] VITALS: BP 120/59
[2017-11-23] MEDS: LACTOBACILLUS RHAMNOSUS GG 1 EACH CAP.SPRINK GT SCH (18:11)
[2017-11-23 20:00] VITALS: BP 134/65
[2017-11-24 00:04] VITALS: BP 138/63
[2017-11-24] MEDS: BLOOD SUGAR DIAGNOSTIC 1 EACH STRIP IN SCH ×4 (00:45→17:11)
[2017-11-24] MEDS: INSULIN REGULAR, HUMAN 100 UNIT/ML 3 ML VIAL SQ PRN ×4 (00:47→18:28)
[2017-11-24] MEDS: ALBUTEROL FS 2.5 MG/0.5 ML VIAL.NEB IH SCH ×4 (01:50→20:12)
[2017-11-24] MEDS: MEROPENEM 500 MG in IV NS 0.9% 50 ML IV SCH ×2 (02:41→13:19)
[2017-11-24 04:00] VITALS: BP 137/69
[2017-11-24] MEDS: LINEZOLID RTU BAG 600 MG in PREMIX 1 EA IV SCH (05:28)
[2017-11-24] MEDS: HYDROGEL DRESSING 90 GM TUBE TP SCH ×2 (06:05→17:16)
[2017-11-24] MEDS: HYDROMORPHONE HCL 2 MG TABLET PO PRN (06:15)
[2017-11-24] MEDS: LORAZEPAM 1 MG TABLET GT PRN (06:15)
[2017-11-24 06:29] LABS: EOSINOPHILS # (AUTO) 0.1 /CMM (0.0-0.7); EOSINOPHILS % (AUTO) 1.4 % (0.0-6.0); HEMATOCRIT 22 % (39-51); HEMOGLOBIN 7.7 g/dL (13.5-17.5); LYMPHOCYTES # (AUTO) 0.5 /CMM (0.8-4.8); LYMPHOCYTES % (AUTO) 5.8 % (20.0-44.0); MEAN CORPUSCULAR HEMOGLOBIN 31 PG (26.0-33.0); MEAN CORPUSCULAR HGB CONC 34 g/dl (31.0-36.0); MEAN CORPUSCULAR VOLUME 90 fL (80-96); NEUTROPHILS # (AUTO) 7.2 /CMM (1.8-8.9); NEUTROPHILS % (AUTO) 81.8 % (43.0-81.0); PLATELET COUNT (AUTO) 80 /CMM (150-450); RDW COEFFICIENT OF VARIATION 20.7 (11.5-15.0); WHITE BLOOD COUNT (AUTO) 8.8 K/uL (4.3-11.0)
[2017-11-24 06:50] LABS: CALCIUM, SERUM 7.8 mg/dL (8.5-10.1); PHOSPHORUS 2.9 mg/dL (2.5-4.9); POTASSIUM 3.5 mmol/L (3.5-5.1)
[2017-11-24 08:00] VITALS: BP 126/61
[2017-11-24] MEDS: LACTOBACILLUS RHAMNOSUS GG 1 EACH CAP.SPRINK GT SCH ×2 (08:53→17:11)
[2017-11-24] MEDS: LACTULOSE 10 G/15 ML UDC (PYXIS) GT SCH (08:54)
[2017-11-24] MEDS: Z GUARD REMEDY 2 OZ OINT TP SCH (08:54)
[2017-11-24] MEDS: PANTOPRAZOLE 40 MG/PACK PACK GT SCH (08:54)
[2017-11-24 09:13] LABS: LYMPHOCYTES % (MANUAL) 4 % (16-48); MONOCYTES % (MANUAL) 7 % (0-11.0); NEUTROPHILS % (MANUAL) 89 (42-76)
[2017-11-24] MEDS: IV NS 0.9% 250 ML IV PRN (11:05)
[2017-11-24 12:00] VITALS: BP 133/73
[2017-11-24] MEDS ORDERED: EPOETIN ALFA (10,000 UNIT) 10,000 UNIT/ML VIAL SQ ONE (15:00)
[2017-11-24 16:00] VITALS: BP 114/53
[2017-11-24] MEDS ORDERED: RXAMI XX (17:56)
[2017-11-24] MEDS ORDERED: LINEZOLID 600 MG TABLET GT SCH (18:00)
[2017-11-24] MEDS: RENAL NOVASOURCE 1,000 ML BOTTLE GT PRN (18:28)
[2017-11-24 20:00] VITALS: BP 99/48
[2017-11-25] VITALS: BP 118/70
[2017-11-25] MEDS: BLOOD SUGAR DIAGNOSTIC 1 EACH STRIP IN SCH ×4 (00:17→17:06)
[2017-11-25] MEDS: INSULIN REGULAR, HUMAN 100 UNIT/ML 3 ML VIAL SQ PRN ×3 (00:18→17:09)
[2017-11-25] MEDS: LORAZEPAM 1 MG TABLET GT PRN (00:33)
[2017-11-25] MEDS: HYDROMORPHONE HCL 2 MG TABLET PO PRN ×2 (00:34→07:53)
[2017-11-25] MEDS: ALBUTEROL FS 2.5 MG/0.5 ML VIAL.NEB IH SCH ×3 (01:44→13:58)
[2017-11-25] MEDS: MEROPENEM 500 MG in IV NS 0.9% 50 ML IV SCH ×2 (03:01→13:31)
[2017-11-25 04:00] VITALS: BP 112/76
[2017-11-25] MEDS: HYDROGEL DRESSING 90 GM TUBE TP SCH ×2 (05:36→17:06)
[2017-11-25 07:12] LABS: BASOPHILS % (AUTO) 0.4 % (0.0-2.0); EOSINOPHILS # (AUTO) 0.2 /CMM (0.0-0.7); EOSINOPHILS % (AUTO) 2.6 % (0.0-6.0); HEMATOCRIT 24 % (39-51); HEMOGLOBIN 8.3 g/dL (13.5-17.5); LYMPHOCYTES # (AUTO) 0.7 /CMM (0.8-4.8); LYMPHOCYTES % (AUTO) 7.9 % (20.0-44.0); MEAN CORPUSCULAR HEMOGLOBIN 31 PG (26.0-33.0); MEAN CORPUSCULAR HGB CONC 34 g/dl (31.0-36.0); MEAN CORPUSCULAR VOLUME 90 fL (80-96); MONOCYTES # (AUTO) 0.8 /CMM (0.1-1.30); MONOCYTES % (AUTO) 8.6 % (2.0-12.0); NEUTROPHILS # (AUTO) 7.5 /CMM (1.8-8.9); NEUTROPHILS % (AUTO) 80.5 % (43.0-81.0); PLATELET COUNT (AUTO) 90 /CMM (150-450); RDW COEFFICIENT OF VARIATION 20.8 (11.5-15.0); RED BLOOD CELL COUNT(AUTO) 2.67 MIL/uL (4.5-6.0); WHITE BLOOD COUNT (AUTO) 9.3 K/uL (4.3-11.0)
[2017-11-25 07:15] LABS: CALCIUM, SERUM 7.6 mg/dL (8.5-10.1); CREATININE 2.6 mg/dL (0.6-1.3); MAGNESIUM 2.1 mg/dL (1.8-2.4); PHOSPHORUS 2.4 mg/dL (2.5-4.9); POTASSIUM 3.3 mmol/L (3.5-5.1)
[2017-11-25 08:00] VITALS: BP 150/85
[2017-11-25] MEDS: LACTULOSE 10 G/15 ML UDC (PYXIS) GT SCH (08:24)
[2017-11-25] MEDS: PANTOPRAZOLE 40 MG/PACK PACK GT SCH (08:24)
[2017-11-25] MEDS: Z GUARD REMEDY 2 OZ OINT TP SCH (08:25)
[2017-11-25] MEDS: LACTOBACILLUS RHAMNOSUS GG 1 EACH CAP.SPRINK GT SCH ×2 (08:25→17:06)
[2017-11-25] MEDS ORDERED: VIT B CMPLX 3/FA/VIT C/BIOTIN 1 TAB TABLET PO SCH (09:00)
[2017-11-25 11:37] LABS: BAND % (MANUAL) 1 % (0.0-5.0); EOSINOPHILS % (MANUAL) 5 % (0-4); LYMPHOCYTES % (MANUAL) 6 % (16-48); MONOCYTES % (MANUAL) 8 % (0-11.0); NEUTROPHILS % (MANUAL) 80 (42-76)
[2017-11-25 12:00] VITALS: BP 95/45
[2017-11-25] MEDS ORDERED: ALBUMIN 25% 25 GM in PREMIX 1 EA IV PRN (12:00)
[2017-11-25 16:00] VITALS: BP_SYST 108; BP_SYST 109; BP_DIAS 51; BP_DIAS 54
== END 2017-11-25 19:52 | DRG 207 ==
LOC: ER 13:56 → ICU 16:46 → TELE-TD 11-22 06:08 → TELE1 11-22 10:27
PROVIDERS: ADMIT Nurse Practitioner Acute Care; ATTEND Nurse Practitioner Acute Care
PROC: 5A1D70Z Performance of Urinary Filtration, Intermittent, Less than 6 Hours Per Day (ICD-10-PCS; principal; 2017-11-18)
PROC: 0BJ08ZZ Inspection of Tracheobronchial Tree, Via Natural or Artificial Opening Endoscopic (ICD-10-PCS; principal; 2017-11-18)
PROC: 5A1955Z Respiratory Ventilation, Greater than 96 Consecutive Hours (ICD-10-PCS; principal; 2017-11-18)
PROC: 5A1D70Z Performance of Urinary Filtration, Intermittent, Less than 6 Hours Per Day (ICD-10-PCS; 2017-11-19)
PROC: 30233N1 Transfusion of Nonautologous Red Blood Cells into Peripheral Vein, Percutaneous Approach (ICD-10-PCS; 2017-11-21)
PROC: 5A1D70Z Performance of Urinary Filtration, Intermittent, Less than 6 Hours Per Day (ICD-10-PCS; 2017-11-21)
PROC: 5A1D70Z Performance of Urinary Filtration, Intermittent, Less than 6 Hours Per Day (ICD-10-PCS; 2017-11-22)
PROC: 5A1D70Z Performance of Urinary Filtration, Intermittent, Less than 6 Hours Per Day (ICD-10-PCS; 2017-11-23)
PROC: 5A1D70Z Performance of Urinary Filtration, Intermittent, Less than 6 Hours Per Day (ICD-10-PCS; 2017-11-24)
DX: J95.01 Hemorrhage from tracheostomy stoma (principal); N17.0 Acute kidney failure with tubular necrosis; A41.9 Sepsis, unspecified organism; G93.49 Other encephalopathy; I96 Gangrene, not elsewhere classified; B49 Unspecified mycosis; L89.153 Pressure ulcer of sacral region, stage 3; J18.9 Pneumonia, unspecified organism; R53.2 Functional quadriplegia; N18.6 End stage renal disease; J96.11 Chronic respiratory failure with hypoxia; E11.52 Type 2 diabetes mellitus with diabetic peripheral angiopathy with gangrene; Z99.11 Dependence on respirator [ventilator] status; D62 Acute posthemorrhagic anemia; I69.354 Hemiplegia and hemiparesis following cerebral infarction affecting left non-dominant side; D68.9 Coagulation defect, unspecified; E87.1 Hypo-osmolality and hyponatremia; N39.0 Urinary tract infection, site not specified; R04.89 Hemorrhage from other sites in respiratory passages; E11.22 Type 2 diabetes mellitus with diabetic chronic kidney disease; Z99.2 Dependence on renal dialysis; R13.10 Dysphagia, unspecified; Z93.0 Tracheostomy status; Z93.1 Gastrostomy status; B96.89 Other specified bacterial agents as the cause of diseases classified elsewhere; D63.8 Anemia in other chronic diseases classified elsewhere; E11.65 Type 2 diabetes mellitus with hyperglycemia; Z79.4 Long term (current) use of insulin; Z79.899 Other long term (current) drug therapy; Y84.9 Medical procedure, unspecified as the cause of abnormal reaction of the patient, or of later complication, without mention of misadventure at the time of the procedure; Y82.9 Unspecified medical devices associated with adverse incidents; Y92.129 Unspecified place in nursing home as the place of occurrence of the external cause; D69.6 Thrombocytopenia, unspecified; E87.6 Hypokalemia; E87.70 Fluid overload, unspecified; F29 Unspecified psychosis not due to a substance or known physiological condition; F43.22 Adjustment disorder with anxiety; I25.10 Atherosclerotic heart disease of native coronary artery without angina pectoris; I25.2 Old myocardial infarction; Y95 Nosocomial condition; Z86.73 Personal history of transient ischemic attack (TIA), and cerebral infarction without residual deficits; Z22.321 Carrier or suspected carrier of Methicillin susceptible Staphylococcus aureus; F19.10 Other psychoactive substance abuse, uncomplicated; Z87.01 Personal history of pneumonia (recurrent); M85.9 Disorder of bone density and structure, unspecified
CPT/HCPCS: 31720; 36415; 71045-TC; 80048-TC; 80053-TC; 80061-TC; 80150; 81000-TC; 82962-TC; 83605-TC; 83735-TC; 84100-TC; 84443-TC; 85025-TC; 85385-TC; 85730-TC; 86850-TC; 86921-TC; 87040-TC; 87070-TC; 87081-TC; 87086-TC; 87186-TC; 90935-TC; 94002-TC; 94003-TC; 94760-TC; 94762-TC; 99082-TC; A4216; A4606; A6248; A6402; A6403; A7526; A9563; J0278; J0885; J1815; J2020; J2060; J2185; J2405; J2597; J3490; J7050; J7060; P9016-BL; P9047; Z7610

== ENCOUNTER 2017-11-25 16:00 | Inpatient (IN) | payer MEDICAID ==
[~2017-11-25] VITALS: Ht 180.3 cm; Wt 77.6 kg
--- NOTE | 2017-11-25 07:00 | NUR ---
RN NOTES Received new order for Amikacin trough in am for pharmacy to dose.
[~2017-11-25 16:00] MED LIST changes: -ALBU50IV5 IV; -ALLA266C2 TP; +AMIN30LI25 GT; -CEFA1VIA3 IV; +DIPH-530 GT; +FERR300L GT; +FOLI0.8T2 GT; -GEL100GE TP; +GUAI100S34 GT; +HYDR-552 GT; -HYDR1DIS2 IV; +HYDR4TAB4 GT; +LACT10SO GT; -NORM10004 IV; -PANT40VI IV; -QUET25TA PO; +RXAMI XX; -VITA56.7 TP; -[UNRECOGNIZED DRUG - CODE] TP
--- NOTE | 2017-11-25 20:18 | NUR ---
RN NOTES Received pt from [facility] via bed, under the care of Dr. Huang. DX: resp failure, ESRD with HD, anemia, NSTEMI, left sided weakness, hx of cirrhosis, hx of tracheal bleeding.On vent with prescribed settings with no reps failure or distress. On HD with femoral HD cath intact, no evidence of bleeding. F/c draining reddish urine. IV site on right hand. All orders verified with Dr. Huang. Routine body assessment done. Will continue to monitor.
[2017-11-25 20:30] VITALS: BP 111/58
[2017-11-25] MEDS ORDERED: AMIKACIN 400 MG in IV D5W 100 ML IV PRN (21:00)
[2017-11-25] MEDS ORDERED: DOSING PER PHARMACY-AMIKACI IV XX PRN (21:00)
[2017-11-25] MEDS ORDERED: RENAL NOVASOURCE 1,000 ML BOTTLE GT PRN (21:30)
[2017-11-25] MEDS ORDERED: DEXTROSE 50%-WATER 50 ML DISP.SYRIN IV PRN (21:30)
[2017-11-25] MEDS: BLOOD SUGAR DIAGNOSTIC 1 EACH STRIP IN SCH (23:17)
[2017-11-25] MEDS: INSULIN REGULAR, HUMAN 100 UNIT/ML 3 ML VIAL SQ PRN (23:18)
[2017-11-26] MEDS: ALBUTEROL FS 2.5 MG/0.5 ML VIAL.NEB IH SCH ×4 (02:14→19:59)
[2017-11-26] MEDS: IPRATROPIUM NEB FS 0.5 MG/2.5 ML AMPUL.NEB NEB SCH ×4 (02:14→19:59)
[2017-11-26] MEDS ORDERED: MEROPENEM 500 MG in IV NS 0.9% 50 ML IV SCH (02:30)
[2017-11-26] MEDS: BLOOD SUGAR DIAGNOSTIC 1 EACH STRIP IN SCH ×4 (05:52→23:38)
[2017-11-26] MEDS: INSULIN REGULAR, HUMAN 100 UNIT/ML 3 ML VIAL SQ PRN ×4 (05:53→23:39)
[2017-11-26 07:55] VITALS: BP 104/51
[2017-11-26 08:26] LABS: CALCIUM, SERUM 7.7 mg/dL (8.5-10.1); CREATININE 2.9 mg/dL (0.6-1.3); POTASSIUM 3.1 mmol/L (3.5-5.1)
[2017-11-26 08:45] LABS: PROSTATE SPECIFIC ANTIGEN SCR 8.47 ng/mL (0.00-4.00)
[2017-11-26] MEDS: PROSOURCE / PROSTAT (PYXIS) 30 ML UDC GT SCH ×3 (09:00→17:19)
[2017-11-26] MEDS ORDERED: VITAMINS A AND D 56.7 GM TUBE TP SCH (09:00)
[2017-11-26] MEDS ORDERED: LORAZEPAM 1 MG TABLET GT PRN (09:00)
[2017-11-26] MEDS ORDERED: diphenhydrAMINE HCL ELIX 25 MG/10 ML UDC GT PRN (09:00)
[2017-11-26] MEDS ORDERED: LACTULOSE 10 G/15 ML UDC (PYXIS) GT PRN (09:00)
[2017-11-26] MEDS ORDERED: BISACODYL SUPP (10 MG) 10 MG/SUPP.RECT SUPP.RECT RC PRN (09:00)
[2017-11-26] MEDS: DOCUSATE SODIUM LIQ 100 MG/10 ML UDC GT SCH (09:00)
[2017-11-26] MEDS: POVIDONE-IODINE OINT 28.4 GM TUBE TP SCH ×2 (09:00→21:28)
[2017-11-26] MEDS ORDERED: IPRATROPIUM NEB FS 0.5 MG/2.5 ML AMPUL.NEB NEB SCH (09:00)
[2017-11-26] MEDS: HYDROGEL DRESSING 90 GM TUBE TP SCH ×2 (09:00→21:29)
[2017-11-26] MEDS: FERROUS SULFATE - FOR SA ONLY 330 MG/7.5 ML UDC GT SCH ×2 (09:00→17:19)
[2017-11-26] MEDS ORDERED: HYDROMORPHONE HCL 2 MG TABLET GT PRN (09:00)
[2017-11-26] MEDS: Z GUARD REMEDY 4 OZ OINT TP SCH ×2 (09:00→21:29)
[2017-11-26] MEDS ORDERED: VIT B CMPLX 3/FA/VIT C/BIOTIN 1 TAB TABLET GT SCH (09:00)
[2017-11-26] MEDS ORDERED: INSULIN REGULAR, HUMAN 100 UNIT/ML 3 ML VIAL SQ SCH (09:00)
[2017-11-26] MEDS: LACTOBACILLUS RHAMNOSUS GG 1 EACH CAP.SPRINK GT SCH ×2 (09:00→17:19)
[2017-11-26] MEDS ORDERED: LORAZEPAM 0.5 MG TABLET GT PRN (09:00)
[2017-11-26] MEDS: PANTOPRAZOLE 40 MG/PACK PACK GT SCH (09:00)
[2017-11-26] MEDS ORDERED: GUAIFENESIN 300 MG/15 ML UDC PO PRN (09:00)
[2017-11-26] MEDS ORDERED: BLOOD SUGAR DIAGNOSTIC 1 EACH STRIP IN SCH (09:00)
[2017-11-26] MEDS: MEROPENEM 500 MG in IV NS 0.9% 50 ML IV SCH ×2 (09:00→21:15)
[2017-11-26] MEDS ORDERED: DEXTROSE 50%-WATER 50 ML DISP.SYRIN IVP PRN (09:00)
[2017-11-26] MEDS: VITAMINS A AND D 56.7 GM TUBE TP SCH ×4 (09:00→21:29)
--- NOTE | 2017-11-26 09:51 | NUR ---
optical goods worker called [facility] ([phone]) and spoke with Anya. Notified her that the resident is back in the subacute unit and if they can re-activate the resident's dialysis schedule. She stated okay and they will re-activate dialysis schedule for Friday, , Saturdays chair time at 12:45pm. Informed Lety from [facility] who stated that everything is set up. Charge nurse informed.
--- NOTE | 2017-11-26 10:56 | NUR ---
Dr. Escobar made aware of BMP result, NNO order given at this time.
--- NOTE | 2017-11-26 12:30 | NUR ---
Notified Julian from [facility] pharmacy regarding Amikacin level 6.2, stated he will review the result and adjust the dose. Resident's next dialysis tomorrow.
--- NOTE | 2017-11-26 16:25 | NUR ---
Resident's son Zoroastrianism signed admission papers but said that he would like to discuss with his brother regarding the use of Ativan. According to Zoroastrianism, in the past his father became more confused after he was given Ativan. Explained to Zoroastrianism that confusion is one of the side effects of anti-anxiety medication. After consulting with his brother Wes, Zoroastrianism signed the consent for Ativan.
--- NOTE | 2017-11-26 16:34 | NUR ---
Notified Dr. Escobar that resident has episode of tracheal bleeding again. Iced lavaged done during suctioning. Patient said he feels like choking. No new order given by MD, he said he will have it on and off. Son Anglican aware of the bleeding, he was also requesting result of the bronchoscopy that was done in the acute hospital. Read the findings from the notes of Dr. Escobar's after he did bronchoscopy. Encouraged family to attend the IDT meeting on Friday next week and or talk to Dr. Escobar on Friday when he makes his rounds if they have other questions.
[2017-11-26] MEDS: HYDROCODONE/APAP 5/325MG 1 EACH TABLET PO PRN (16:37)
[2017-11-26 21:55] VITALS: BP 130/62
[2017-11-26] MEDS: RENAL NOVASOURCE 1,000 ML BOTTLE GT PRN (23:39)
[2017-11-27] MEDS: IPRATROPIUM NEB FS 0.5 MG/2.5 ML AMPUL.NEB NEB SCH ×4 (01:46→20:11)
[2017-11-27] MEDS: ALBUTEROL FS 2.5 MG/0.5 ML VIAL.NEB IH SCH ×4 (01:46→20:11)
[2017-11-27] MEDS: BLOOD SUGAR DIAGNOSTIC 1 EACH STRIP IN SCH ×3 (05:55→17:30)
[2017-11-27] MEDS: PANTOPRAZOLE 40 MG/PACK PACK GT SCH (05:55)
[2017-11-27] MEDS: INSULIN REGULAR, HUMAN 100 UNIT/ML 3 ML VIAL SQ PRN (05:56)
--- NOTE | 2017-11-27 06:23 | NUR ---
Pt still with tracheal bleeding minimal amount when suction.Pt with episodes of restlessness,pulled out IV line.Repositioned and kept clean and comfortable.All needs attended.Will continue to monitor
[2017-11-27 07:59] VITALS: BP 117/55
--- NOTE | 2017-11-27 08:57 | NUR ---
Resident's son Lavon came yesterday and signed admission ppwk (patient rights acknowledgement, documentation of preferred intensity of care, conditions of admission, [place] Standard Admission Agreement, and voluntary prior express consent form).
[2017-11-27] MEDS: POVIDONE-IODINE OINT 28.4 GM TUBE TP SCH ×2 (09:00→21:57)
[2017-11-27] MEDS: Z GUARD REMEDY 4 OZ OINT TP SCH ×2 (09:00→21:57)
[2017-11-27] MEDS: HYDROGEL DRESSING 90 GM TUBE TP SCH ×2 (09:00→21:57)
[2017-11-27] MEDS: VITAMINS A AND D 56.7 GM TUBE TP SCH ×4 (09:00→21:57)
--- NOTE | 2017-11-27 09:01 | NUR ---
Informed son Lavon about upcoming IDT meeting December 05, 2017 from 12:30-1:30pm. He stated that a family member will most likely be able to attend and staff to check the room during this time.
[2017-11-27] MEDS: PROSOURCE / PROSTAT (PYXIS) 30 ML UDC GT SCH ×3 (09:36→17:31)
[2017-11-27] MEDS: DOCUSATE SODIUM LIQ 100 MG/10 ML UDC GT SCH (09:36)
[2017-11-27] MEDS: FERROUS SULFATE - FOR SA ONLY 330 MG/7.5 ML UDC GT SCH ×2 (09:36→17:31)
[2017-11-27] MEDS: LACTOBACILLUS RHAMNOSUS GG 1 EACH CAP.SPRINK GT SCH ×2 (09:36→17:31)
[2017-11-27] MEDS: MEROPENEM 500 MG in IV NS 0.9% 50 ML IV SCH (09:44)
[2017-11-27] MEDS: LEVOFLOXACIN 500 MG /D5W 100ML 500 MG in PREMIX 1 EA IV SCH (11:30)
--- NOTE | 2017-11-27 11:30 | NUR ---
Received order to DC Amikacin and Meropenem, start Levofloxacin 500 mg IV q 24 hours for 6 weeks for prostatitis.
--- NOTE | 2017-11-27 12:15 | NUR ---
[facility] refused to take pt for hemodialysis today due to isolation for VRE sputum. Spoke with Michael from [facility]. He said they will call back to reschedule the pt. Notified Dr. Huang.
--- NOTE | 2017-11-27 12:40 | NUR ---
[facility] called and said they can accommodate the pt now. Called Lety ([facility]) to notify him that pt will go for dialysis now, but according to Lety, they do not have an RT who can go with the pt since the RT that was supposed to go with the pt has already been called to a different assignment.
--- NOTE | 2017-11-27 13:00 | NUR ---
Notified Michael ( [facility]) that there is currently no RT who can go with the pt to dialysis. Michael said they can accommodate the pt at 2pm and the latest is at 530pm. Lety ([facility]) said they will have an available RT at 4-4:30pm. Michael ( [facility]) said that they will not be able to do a full treatment if the pt goes there around 430pm. He rescheduled pt for tomorrow at 4:15pm. Notified Lety ([facility]).
--- NOTE | 2017-11-27 15:45 | NUR ---
Dr. Ellis requested to find out if Enterobacter aerogenes in the blood is sensitive to Meropenem. Called [facility] and spoke with Esmer. She said they will run the Meropenem sensitivity. Addendum: 11/27/17 at 1552 by ELI HODGES RN Esmer said Imipenem is intermediate and Ertapenem is sensitive, but they will still find out about Meropenem.
[2017-11-27] MEDS: HYDROCODONE/APAP 5/325MG 1 EACH TABLET PO PRN (17:31)
[2017-11-27 21:28] VITALS: BP 109/57
[2017-11-28] MEDS: BLOOD SUGAR DIAGNOSTIC 1 EACH STRIP IN SCH ×5 (00:46→23:37)
[2017-11-28] MEDS: INSULIN REGULAR, HUMAN 100 UNIT/ML 3 ML VIAL SQ PRN ×3 (00:47→12:08)
[2017-11-28] MEDS: IPRATROPIUM NEB FS 0.5 MG/2.5 ML AMPUL.NEB NEB SCH ×4 (01:30→19:30)
[2017-11-28] MEDS: ALBUTEROL FS 2.5 MG/0.5 ML VIAL.NEB IH SCH ×4 (01:30→19:30)
[2017-11-28] MEDS: RENAL NOVASOURCE 1,000 ML BOTTLE GT PRN (05:56)
[2017-11-28] MEDS: PANTOPRAZOLE 40 MG/PACK PACK GT SCH (05:56)
--- NOTE | 2017-11-28 07:05 | NUR ---
Pt still noted with tracheal bleeding when suctioning.No respiratory distress.Will continue to monitor.
[2017-11-28 07:52] VITALS: BP 122/55
--- NOTE | 2017-11-28 08:08 | NUR ---
tracheal suction pt blood tinged secretions. lavaged with ice saline. charge nurse medina cai.
[2017-11-28] MEDS: Z GUARD REMEDY 4 OZ OINT TP SCH ×2 (09:00→21:00)
[2017-11-28] MEDS: VITAMINS A AND D 56.7 GM TUBE TP SCH ×4 (09:00→21:00)
[2017-11-28] MEDS: HYDROGEL DRESSING 90 GM TUBE TP SCH ×2 (09:00→21:00)
[2017-11-28] MEDS: POVIDONE-IODINE OINT 28.4 GM TUBE TP SCH ×2 (09:00→21:00)
[2017-11-28] MEDS: PROSOURCE / PROSTAT (PYXIS) 30 ML UDC GT SCH ×3 (09:19→16:06)
[2017-11-28] MEDS: FERROUS SULFATE - FOR SA ONLY 330 MG/7.5 ML UDC GT SCH ×2 (09:19→16:06)
[2017-11-28] MEDS: DOCUSATE SODIUM LIQ 100 MG/10 ML UDC GT SCH (09:19)
[2017-11-28] MEDS: LACTOBACILLUS RHAMNOSUS GG 1 EACH CAP.SPRINK GT SCH ×2 (09:19→16:06)
[2017-11-28] MEDS: LEVOFLOXACIN 500 MG /D5W 100ML 500 MG in PREMIX 1 EA IV SCH (11:22)
--- NOTE | 2017-11-28 15:35 | NUR ---
PT SANTOSH'D ON MECHANICAL VENT. TREATMENTS GIVEN AND NO ADVERSE REACTION NOTED. PT SUCTIONED T/O SHIFT. PT SANTOSH SECURE AND PATENT. AMBU BAG AT [facility]. VENT PLUGGED INTO RED OUTLET. ALARMS ON AND AUDIBLE. Addendum: 11/28/17 at 1624 by GILMER MURILLO RT Amended: Links added.
[2017-11-28] MEDS: HYDROCODONE/APAP 5/325MG 1 EACH TABLET PO PRN ×2 (16:05→18:25)
--- NOTE | 2017-11-28 16:05 | NUR ---
SUBACUTE RN NOTES PATIENT TRANSPORTED TO [facility] FOR DIALYSIS TODAY. CONFIRMED WITH SHELL PATIENT IS SCHEDULED FOR TOMORROW SAME TIME FOR ANOTHER DIALYSIS.
[2017-11-28 22:16] VITALS: BP 96/60
[2017-11-29] MEDS: HYDROCODONE/APAP 5/325MG 1 EACH TABLET PO PRN ×2 (01:22→12:13)
[2017-11-29] MEDS: RENAL NOVASOURCE 1,000 ML BOTTLE GT PRN (01:22)
[2017-11-29] MEDS: ALBUTEROL FS 2.5 MG/0.5 ML VIAL.NEB IH SCH ×4 (01:36→19:51)
[2017-11-29] MEDS: IPRATROPIUM NEB FS 0.5 MG/2.5 ML AMPUL.NEB NEB SCH ×4 (01:36→19:51)
[2017-11-29] MEDS: PANTOPRAZOLE 40 MG/PACK PACK GT SCH (05:34)
[2017-11-29] MEDS: BLOOD SUGAR DIAGNOSTIC 1 EACH STRIP IN SCH ×4 (05:50→23:44)
[2017-11-29] MEDS: INSULIN REGULAR, HUMAN 100 UNIT/ML 3 ML VIAL SQ PRN ×4 (05:52→23:45)
[2017-11-29 07:45] VITALS: BP 112/46
[2017-11-29] MEDS: DOCUSATE SODIUM LIQ 100 MG/10 ML UDC GT SCH (09:39)
[2017-11-29] MEDS: FERROUS SULFATE - FOR SA ONLY 330 MG/7.5 ML UDC GT SCH ×2 (09:39→17:00)
[2017-11-29] MEDS: LACTOBACILLUS RHAMNOSUS GG 1 EACH CAP.SPRINK GT SCH ×2 (09:39→17:00)
[2017-11-29] MEDS: PROSOURCE / PROSTAT (PYXIS) 30 ML UDC GT SCH ×3 (09:39→17:00)
[2017-11-29] MEDS: diphenhydrAMINE HCL ELIX 25 MG/10 ML UDC GT PRN (09:41)
[2017-11-29] MEDS: ACETAMINOPHEN 650 MG/20 ML UDC- FOR SA PATIENTS ONLY GT PRN (09:42)
[2017-11-29] MEDS: LEVOFLOXACIN 500 MG /D5W 100ML 500 MG in PREMIX 1 EA IV SCH (11:00)
[2017-11-29] MEDS: Z GUARD REMEDY 4 OZ OINT TP SCH ×2 (11:45→21:00)
[2017-11-29] MEDS: HYDROGEL DRESSING 90 GM TUBE TP SCH ×2 (11:45→21:00)
[2017-11-29] MEDS: VITAMINS A AND D 56.7 GM TUBE TP SCH ×4 (11:45→21:00)
[2017-11-29] MEDS: POVIDONE-IODINE OINT 28.4 GM TUBE TP SCH ×2 (11:45→21:00)
[2017-11-29] MEDS: LORAZEPAM 0.5 MG TABLET GT PRN ×2 (12:13→18:57)
[2017-11-29 19:54] VITALS: BP 118/51
[2017-11-30] MEDS: LORAZEPAM 0.5 MG TABLET GT PRN ×2 (01:25→17:00)
[2017-11-30] MEDS: ALBUTEROL FS 2.5 MG/0.5 ML VIAL.NEB IH SCH ×4 (01:45→20:16)
[2017-11-30] MEDS: IPRATROPIUM NEB FS 0.5 MG/2.5 ML AMPUL.NEB NEB SCH ×4 (01:45→20:16)
[2017-11-30] MEDS: RENAL NOVASOURCE 1,000 ML BOTTLE GT PRN (06:23)
[2017-11-30] MEDS: BLOOD SUGAR DIAGNOSTIC 1 EACH STRIP IN SCH ×3 (06:33→17:09)
[2017-11-30] MEDS: PANTOPRAZOLE 40 MG/PACK PACK GT SCH (06:34)
[2017-11-30] MEDS: INSULIN REGULAR, HUMAN 100 UNIT/ML 3 ML VIAL SQ PRN ×3 (06:34→17:10)
[2017-11-30 07:36] VITALS: BP 146/53
[2017-11-30] MEDS: DOCUSATE SODIUM LIQ 100 MG/10 ML UDC GT SCH (09:48)
[2017-11-30] MEDS: LACTOBACILLUS RHAMNOSUS GG 1 EACH CAP.SPRINK GT SCH ×2 (09:48→17:09)
[2017-11-30] MEDS: POVIDONE-IODINE OINT 28.4 GM TUBE TP SCH ×2 (09:48→21:22)
[2017-11-30] MEDS: PROSOURCE / PROSTAT (PYXIS) 30 ML UDC GT SCH ×3 (09:48→17:09)
[2017-11-30] MEDS: FERROUS SULFATE - FOR SA ONLY 330 MG/7.5 ML UDC GT SCH ×2 (09:48→17:09)
[2017-11-30] MEDS: Z GUARD REMEDY 4 OZ OINT TP SCH ×2 (09:49→21:22)
[2017-11-30] MEDS: HYDROGEL DRESSING 90 GM TUBE TP SCH ×2 (09:49→21:22)
[2017-11-30] MEDS: VITAMINS A AND D 56.7 GM TUBE TP SCH ×4 (09:49→21:22)
[2017-11-30] MEDS: LEVOFLOXACIN 500 MG /D5W 100ML 500 MG in PREMIX 1 EA IV SCH (11:16)
[2017-11-30 21:09] VITALS: BP 138/59
[2017-12-01] MEDS: BLOOD SUGAR DIAGNOSTIC 1 EACH STRIP IN SCH ×5 (00:38→23:50)
[2017-12-01] MEDS: INSULIN REGULAR, HUMAN 100 UNIT/ML 3 ML VIAL SQ PRN ×4 (00:39→23:50)
[2017-12-01] MEDS: ALBUTEROL FS 2.5 MG/0.5 ML VIAL.NEB IH SCH ×4 (01:14→19:30)
[2017-12-01] MEDS: IPRATROPIUM NEB FS 0.5 MG/2.5 ML AMPUL.NEB NEB SCH ×4 (01:14→19:30)
[2017-12-01] MEDS: PANTOPRAZOLE 40 MG/PACK PACK GT SCH (06:11)
[2017-12-01 07:47] VITALS: BP 118/52
[2017-12-01] MEDS: DOCUSATE SODIUM LIQ 100 MG/10 ML UDC GT SCH (08:54)
[2017-12-01] MEDS: HYDROGEL DRESSING 90 GM TUBE TP SCH ×2 (08:54→21:13)
[2017-12-01] MEDS: LACTOBACILLUS RHAMNOSUS GG 1 EACH CAP.SPRINK GT SCH ×2 (08:54→17:22)
[2017-12-01] MEDS: POVIDONE-IODINE OINT 28.4 GM TUBE TP SCH ×2 (08:54→21:13)
[2017-12-01] MEDS: Z GUARD REMEDY 4 OZ OINT TP SCH ×2 (08:54→21:13)
[2017-12-01] MEDS: FERROUS SULFATE - FOR SA ONLY 330 MG/7.5 ML UDC GT SCH ×2 (08:54→17:22)
[2017-12-01] MEDS: VITAMINS A AND D 56.7 GM TUBE TP SCH ×4 (08:54→21:13)
[2017-12-01] MEDS: PROSOURCE / PROSTAT (PYXIS) 30 ML UDC GT SCH ×3 (08:54→17:21)
[2017-12-01] MEDS: LEVOFLOXACIN 500 MG /D5W 100ML 500 MG in PREMIX 1 EA IV SCH (11:53)
--- NOTE | 2017-12-01 12:21 | NUR ---
Dr. Chance ordered to DC Lord catheter.
--- NOTE | 2017-12-01 13:00 | NUR ---
Seen by DEVANTE Marques. Received order to change Levofloxacin 500 mg IV to GT per pharmacy recommendation. Pt on Levofloxacin for 6 weeks for prostatitis. DEVANTE Cortes also ordered to check sputum for VRE once to clear isolation.
[2017-12-01 20:28] VITALS: BP 108/55
[2017-12-01] MEDS: LORAZEPAM 0.5 MG TABLET GT PRN (21:47)
[2017-12-02] MEDS: ALBUTEROL FS 2.5 MG/0.5 ML VIAL.NEB IH SCH ×4 (02:17→19:32)
[2017-12-02] MEDS: IPRATROPIUM NEB FS 0.5 MG/2.5 ML AMPUL.NEB NEB SCH ×4 (02:18→19:32)
[2017-12-02] MEDS: BLOOD SUGAR DIAGNOSTIC 1 EACH STRIP IN SCH ×4 (05:29→23:52)
[2017-12-02] MEDS: PANTOPRAZOLE 40 MG/PACK PACK GT SCH (05:29)
[2017-12-02 07:41] VITALS: BP 110/46
[2017-12-02] MEDS: Z GUARD REMEDY 4 OZ OINT TP SCH ×2 (09:00→21:10)
[2017-12-02] MEDS: LACTOBACILLUS RHAMNOSUS GG 1 EACH CAP.SPRINK GT SCH ×2 (09:00→17:55)
[2017-12-02] MEDS: HYDROGEL DRESSING 90 GM TUBE TP SCH ×2 (09:00→21:09)
[2017-12-02] MEDS: DOCUSATE SODIUM LIQ 100 MG/10 ML UDC GT SCH (09:00)
[2017-12-02] MEDS: LEVOFLOXACIN (500MG) 500 MG TABLET GT SCH (09:00)
[2017-12-02] MEDS: FERROUS SULFATE - FOR SA ONLY 330 MG/7.5 ML UDC GT SCH ×2 (09:00→17:55)
[2017-12-02] MEDS: POVIDONE-IODINE OINT 28.4 GM TUBE TP SCH ×2 (09:00→21:09)
[2017-12-02] MEDS: PROSOURCE / PROSTAT (PYXIS) 30 ML UDC GT SCH ×3 (09:00→17:55)
[2017-12-02] MEDS: VITAMINS A AND D 56.7 GM TUBE TP SCH ×4 (09:00→21:10)
--- NOTE | 2017-12-02 12:15 | NUR ---
Seen by ,relayed result of blood culture.no new order at this time.
[2017-12-02] MEDS: RENAL NOVASOURCE 1,000 ML BOTTLE GT PRN (12:48)
[2017-12-02] MEDS: HYDROCODONE/APAP 5/325MG 1 EACH TABLET PO PRN (13:15)
--- NOTE | 2017-12-02 14:00 | NUR ---
Noted with open skin on left femoral area ,got new order for treatment .Initiated the treatment with tripple antibiotic x 7days then re -evaluate.responsible democrat made aware.
--- NOTE | 2017-12-02 19:44 | NUR ---
RECEIVED TRACH PT ON VENT. TRACH WELL SECURED. NURSING STAFF DEVELOPMENT COORDINATOR DONE. VENT PLUGGED INTO RED OUTLET. ALARMS WORKING AND AUDIBLE WITH AMBU BAG PLACED AT BEDSIDE. PT TOLERATED Q6 BREATHING TX PER MD'S ORDERED, NO ADVERSE REACTION NOTED. SX MODERATE AMOUNT OF THICK YELLOW SECRETIONS. WILL CONT TO MONITOR PT. Addendum: 12/03/17 at 0402 by HECTOR BROWN RT SUCTIONED MODERATE AMOUNT OF YELLOW/BROWN THICK SECRETIONS
[2017-12-02] MEDS: LORAZEPAM 0.5 MG TABLET GT PRN (20:36)
[2017-12-02] MEDS: NEOMY SULF/BACITRAC ZN/POLY 15 GM TUBE TP SCH (21:09)
[2017-12-02 23:00] VITALS: BP 109/55
[2017-12-03] MEDS: ALBUTEROL FS 2.5 MG/0.5 ML VIAL.NEB IH SCH ×4 (01:02→19:38)
[2017-12-03] MEDS: IPRATROPIUM NEB FS 0.5 MG/2.5 ML AMPUL.NEB NEB SCH ×4 (01:02→19:38)
[2017-12-03] MEDS: LORAZEPAM 0.5 MG TABLET GT PRN ×2 (03:40→23:51)
[2017-12-03] MEDS: PANTOPRAZOLE 40 MG/PACK PACK GT SCH (05:45)
[2017-12-03] MEDS: BLOOD SUGAR DIAGNOSTIC 1 EACH STRIP IN SCH ×4 (05:45→23:51)
[2017-12-03 07:50] VITALS: BP 123/59
[2017-12-03] MEDS: LACTOBACILLUS RHAMNOSUS GG 1 EACH CAP.SPRINK GT SCH ×2 (09:53→17:32)
[2017-12-03] MEDS: DOCUSATE SODIUM LIQ 100 MG/10 ML UDC GT SCH (09:53)
[2017-12-03] MEDS: FERROUS SULFATE - FOR SA ONLY 330 MG/7.5 ML UDC GT SCH ×2 (09:54→17:33)
[2017-12-03] MEDS: Z GUARD REMEDY 4 OZ OINT TP SCH ×2 (09:54→21:37)
[2017-12-03] MEDS: POVIDONE-IODINE OINT 28.4 GM TUBE TP SCH ×2 (09:54→21:36)
[2017-12-03] MEDS: PROSOURCE / PROSTAT (PYXIS) 30 ML UDC GT SCH ×3 (09:54→17:33)
[2017-12-03] MEDS: NEOMY SULF/BACITRAC ZN/POLY 15 GM TUBE TP SCH ×2 (09:54→21:37)
[2017-12-03] MEDS: VITAMINS A AND D 56.7 GM TUBE TP SCH ×4 (09:54→21:38)
[2017-12-03] MEDS: HYDROGEL DRESSING 90 GM TUBE TP SCH ×2 (09:54→21:37)
[2017-12-03] MEDS: LEVOFLOXACIN (500MG) 500 MG TABLET GT SCH (11:48)
[2017-12-03] MEDS: INSULIN REGULAR, HUMAN 100 UNIT/ML 3 ML VIAL SQ PRN (12:59)
[2017-12-03] MEDS: ACETAMINOPHEN 650 MG/20 ML UDC- FOR SA PATIENTS ONLY GT PRN (17:34)
[2017-12-03 20:31] VITALS: BP 112/50
[2017-12-03] MEDS: RENAL NOVASOURCE 1,000 ML BOTTLE GT PRN (21:38)
[2017-12-03] MEDS: HYDROCODONE/APAP 5/325MG 1 EACH TABLET PO PRN (21:38)
[2017-12-04] MEDS: ALBUTEROL FS 2.5 MG/0.5 ML VIAL.NEB IH SCH ×4 (01:23→19:20)
[2017-12-04] MEDS: IPRATROPIUM NEB FS 0.5 MG/2.5 ML AMPUL.NEB NEB SCH ×4 (01:23→19:20)
[2017-12-04] MEDS: diphenhydrAMINE HCL ELIX 25 MG/10 ML UDC GT PRN (02:08)
--- NOTE | 2017-12-04 04:47 | NUR ---
RT PT ON [facility] VENT WITH NOTED SETTING. TOLERATING VENT SETTING WELL. NO SOB OR RESP DISTRESS NOTED ON SHIFT. ALARMS SET AND AUDIBLE. VENT TO RED OUTLET. AMBU BAG AT HOB. TRACH PATENT AND SECURE. Addendum: 12/04/17 at 0448 by CHRISTINE HAN RT Amended: Links added.
--- NOTE | 2017-12-04 04:49 | NUR ---
RT PT ON THE [facility] VENT WITH NOTED SETTING. TOLERATING VENT SETTING WELL. NO SOB OR RESP DISTRESS NOTED ON SHIFT. ALARMS SET AND AUDIBLE. VENT TO RED OUTLET. AMBU BAG AT HOB. TRACH PATENT AND SECURE. Addendum: 12/04/17 at 0449 by CHRISTINE HAN RT Amended: Links added.
[2017-12-04] MEDS: PANTOPRAZOLE 40 MG/PACK PACK GT SCH (05:43)
[2017-12-04] MEDS: BLOOD SUGAR DIAGNOSTIC 1 EACH STRIP IN SCH ×3 (05:43→18:35)
[2017-12-04] MEDS: DOCUSATE SODIUM LIQ 100 MG/10 ML UDC GT SCH (09:28)
[2017-12-04] MEDS: PROSOURCE / PROSTAT (PYXIS) 30 ML UDC GT SCH ×3 (09:28→17:00)
[2017-12-04] MEDS: LACTOBACILLUS RHAMNOSUS GG 1 EACH CAP.SPRINK GT SCH ×2 (09:28→17:00)
[2017-12-04] MEDS: HYDROGEL DRESSING 90 GM TUBE TP SCH ×2 (09:28→21:51)
[2017-12-04] MEDS: POVIDONE-IODINE OINT 28.4 GM TUBE TP SCH ×2 (09:28→21:50)
[2017-12-04] MEDS: FERROUS SULFATE - FOR SA ONLY 330 MG/7.5 ML UDC GT SCH ×2 (09:28→17:00)
[2017-12-04] MEDS: LEVOFLOXACIN (500MG) 500 MG TABLET GT SCH (09:28)
[2017-12-04] MEDS: VITAMINS A AND D 56.7 GM TUBE TP SCH ×4 (09:29→21:51)
[2017-12-04] MEDS: NEOMY SULF/BACITRAC ZN/POLY 15 GM TUBE TP SCH ×2 (09:29→21:51)
[2017-12-04] MEDS: Z GUARD REMEDY 4 OZ OINT TP SCH ×2 (09:29→21:51)
[2017-12-04] MEDS: HYDROCODONE/APAP 5/325MG 1 EACH TABLET PO PRN ×2 (12:34→21:51)
[2017-12-04 12:39] VITALS: BP 106/57
--- NOTE | 2017-12-04 13:57 | NUR ---
Dr. Chance ordered Vitamin C 500 mg GT daily and Nephrovite 1 tab GT daily per promotional marketing agent's recommendations. Also received order for PT eval and weekly weights.
[2017-12-04 20:15] VITALS: BP 105/50
[2017-12-05] MEDS: BLOOD SUGAR DIAGNOSTIC 1 EACH STRIP IN SCH ×4 (00:36→17:54)
[2017-12-05] MEDS: INSULIN REGULAR, HUMAN 100 UNIT/ML 3 ML VIAL SQ PRN ×2 (00:36→05:40)
[2017-12-05] MEDS: IPRATROPIUM NEB FS 0.5 MG/2.5 ML AMPUL.NEB NEB SCH ×4 (01:06→20:54)
[2017-12-05] MEDS: ALBUTEROL FS 2.5 MG/0.5 ML VIAL.NEB IH SCH ×4 (01:06→20:54)
[2017-12-05] MEDS: LORAZEPAM 0.5 MG TABLET GT PRN ×2 (02:50→11:00)
[2017-12-05] MEDS: RENAL NOVASOURCE 1,000 ML BOTTLE GT PRN ×2 (04:43→05:40)
[2017-12-05] MEDS: PANTOPRAZOLE 40 MG/PACK PACK GT SCH (05:40)
[2017-12-05 08:00] VITALS: BP 105/55
[2017-12-05] MEDS: VIT B CMPLX 3/FA/VIT C/BIOTIN 1 TAB TABLET GT SCH (09:02)
[2017-12-05] MEDS: DOCUSATE SODIUM LIQ 100 MG/10 ML UDC GT SCH (09:02)
[2017-12-05] MEDS: LACTOBACILLUS RHAMNOSUS GG 1 EACH CAP.SPRINK GT SCH ×2 (09:02→17:54)
[2017-12-05] MEDS: FERROUS SULFATE - FOR SA ONLY 330 MG/7.5 ML UDC GT SCH ×2 (09:03→17:54)
[2017-12-05] MEDS: LEVOFLOXACIN (500MG) 500 MG TABLET GT SCH (09:04)
[2017-12-05] MEDS: ASCORBIC ACID 500 MG TABLET GT SCH (09:05)
[2017-12-05] MEDS: PROSOURCE / PROSTAT (PYXIS) 30 ML UDC GT SCH ×3 (09:05→17:54)
[2017-12-05] MEDS: VITAMINS A AND D 56.7 GM TUBE TP SCH ×4 (09:07→21:54)
[2017-12-05] MEDS: Z GUARD REMEDY 4 OZ OINT TP SCH ×2 (09:07→21:54)
--- NOTE | 2017-12-05 10:00 | NUR ---
Notified Dr. Escobar that per shift production associate resident has difficulty sleeping and requesting for sleeping medication. New order given for Melatonin PRN. Resident informed.
--- NOTE | 2017-12-05 11:23 | NUR ---
Seen and examined by Aminah Rivera NP no new order given at this time. Resident's son at bedside and reported patient is anxious and requested to have Ativan, stated he wants to go home. Resident was also seen by Sophia Marques, DEVANTE ID with order to reculture sputum for VRE surveillance and Nystatin 500,000 units for oral thrush x 10 days. Orders carried out.
[2017-12-05] MEDS: HYDROGEL DRESSING 90 GM TUBE TP SCH ×2 (11:55→21:54)
[2017-12-05] MEDS: POVIDONE-IODINE OINT 28.4 GM TUBE TP SCH ×2 (11:55→21:54)
[2017-12-05] MEDS: NEOMY SULF/BACITRAC ZN/POLY 15 GM TUBE TP SCH ×2 (11:55→21:54)
--- NOTE | 2017-12-05 14:00 | NUR ---
IDT meeting held, IDT team reviewed current orders, medications, treatment, laboratory result and plan of care. ST seen resident with order to have ice chips. F/C discontinued, voiding very minimal. Resident's family member Erica attended the meeting, she has a question regarding why patient has episode of tracheal bleeding. Dr. Escobar explained to family due to combination of different factors like coagulability and infection. At this time, patient has no tracheal bleeding. Continue to receive dialysis 3x a week.
--- NOTE | 2017-12-05 14:30 | NUR ---
Dr. Escobar ordered to start weaning from the vent starting Friday, CPAP PS 15, Peep 5, ABG after [address] will re-eval swallowing after weaning trial.
--- NOTE | 2017-12-05 16:05 | NUR ---
As suggested, Resident's son brought a small music player to keep Resident relaxed with music. Resident praised for being more cooperative and listen to music.
[2017-12-05] MEDS ORDERED: NYSTATIN (PYXIS) 500,000 UNIT/5 ML ORAL.SUSP PO SCH (17:00)
[2017-12-05] MEDS: NYSTATIN (PYXIS) 500,000 UNIT/5 ML ORAL.SUSP PO SCH (17:54)
[2017-12-05 20:00] VITALS: BP 122/53
[2017-12-05] MEDS ORDERED: MELATONIN 5 MG TABLET GT PRN (22:00)
[2017-12-06] MEDS: BLOOD SUGAR DIAGNOSTIC 1 EACH STRIP IN SCH ×4 (00:09→17:30)
[2017-12-06] MEDS: IPRATROPIUM NEB FS 0.5 MG/2.5 ML AMPUL.NEB NEB SCH ×4 (02:43→19:48)
[2017-12-06] MEDS: ALBUTEROL FS 2.5 MG/0.5 ML VIAL.NEB IH SCH ×4 (02:43→19:48)
[2017-12-06] MEDS: diphenhydrAMINE HCL ELIX 25 MG/10 ML UDC GT PRN ×2 (04:37→09:32)
[2017-12-06] MEDS: PANTOPRAZOLE 40 MG/PACK PACK GT SCH (05:40)
[2017-12-06] MEDS: LORAZEPAM 0.5 MG TABLET GT PRN ×2 (06:14→21:38)
[2017-12-06 07:57] VITALS: BP 111/64
[2017-12-06] MEDS: POVIDONE-IODINE OINT 28.4 GM TUBE TP SCH ×2 (09:00→21:37)
[2017-12-06] MEDS: PROSOURCE / PROSTAT (PYXIS) 30 ML UDC GT SCH ×3 (09:31→17:30)
[2017-12-06] MEDS: LEVOFLOXACIN (500MG) 500 MG TABLET GT SCH (09:31)
[2017-12-06] MEDS: NYSTATIN (PYXIS) 500,000 UNIT/5 ML ORAL.SUSP PO SCH ×3 (09:31→17:30)
[2017-12-06] MEDS: LACTOBACILLUS RHAMNOSUS GG 1 EACH CAP.SPRINK GT SCH ×2 (09:31→17:30)
[2017-12-06] MEDS: FERROUS SULFATE - FOR SA ONLY 330 MG/7.5 ML UDC GT SCH ×2 (09:31→17:30)
[2017-12-06] MEDS: ASCORBIC ACID 500 MG TABLET GT SCH (09:31)
[2017-12-06] MEDS: VIT B CMPLX 3/FA/VIT C/BIOTIN 1 TAB TABLET GT SCH (09:31)
[2017-12-06] MEDS: DOCUSATE SODIUM LIQ 100 MG/10 ML UDC GT SCH (09:31)
[2017-12-06] MEDS: HYDROCODONE/APAP 5/325MG 1 EACH TABLET PO PRN (09:32)
[2017-12-06] MEDS: VITAMINS A AND D 56.7 GM TUBE TP SCH ×4 (11:00→21:37)
[2017-12-06] MEDS: NEOMY SULF/BACITRAC ZN/POLY 15 GM TUBE TP SCH ×2 (11:00→21:37)
[2017-12-06] MEDS: Z GUARD REMEDY 4 OZ OINT TP SCH ×2 (11:00→21:37)
[2017-12-06] MEDS: HYDROGEL DRESSING 90 GM TUBE TP SCH ×2 (11:00→21:37)
--- NOTE | 2017-12-06 12:30 | NUR ---
Patient is alert oriented able to make needs known. Tracheostomy attached to vent with vent working at prescribed settings . Gt in place patent no residual tolerated formula well. No c/o pain or discomfort at this time. Left femural HD catheter with clean dressing. Topical treatment done as ordered tolerated well. Visited by and other visitor. Patient went for HD as ordered with [facility]. Report given. BP 116/58 HR 98 T98.8 [id number].
[2017-12-06] MEDS: INSULIN REGULAR, HUMAN 100 UNIT/ML 3 ML VIAL SQ PRN ×2 (12:33→17:30)
--- NOTE | 2017-12-06 17:15 | NUR ---
Patient returned from HD with [facility] transportation. Accompanied with two EMT's and one RT. Tracheostomy with attached vent working at prescribed setting. Respiratory services provided. Gt in place patent no residual. HOB elevated aspiration precautions maintained. Left femural HD catheter with clean dressing. All medications given as ordered. Alert oriented. Able to make needs known. Declines pain or discomfort. All needs met and attended. Kept clean and comfortable. Call light in reach.
[2017-12-06 22:30] VITALS: BP 125/69
[2017-12-07] MEDS: INSULIN REGULAR, HUMAN 100 UNIT/ML 3 ML VIAL SQ PRN ×2 (00:30→05:51)
[2017-12-07] MEDS: BLOOD SUGAR DIAGNOSTIC 1 EACH STRIP IN SCH ×4 (00:30→17:17)
[2017-12-07] MEDS: ALBUTEROL FS 2.5 MG/0.5 ML VIAL.NEB IH SCH ×4 (01:30→19:58)
[2017-12-07] MEDS: IPRATROPIUM NEB FS 0.5 MG/2.5 ML AMPUL.NEB NEB SCH ×4 (01:30→19:58)
[2017-12-07] MEDS: PANTOPRAZOLE 40 MG/PACK PACK GT SCH (05:51)
[2017-12-07] MEDS: RENAL NOVASOURCE 1,000 ML BOTTLE GT PRN (05:51)
[2017-12-07 07:59] VITALS: BP 110/50
[2017-12-07] MEDS: VIT B CMPLX 3/FA/VIT C/BIOTIN 1 TAB TABLET GT SCH (08:53)
[2017-12-07] MEDS: PROSOURCE / PROSTAT (PYXIS) 30 ML UDC GT SCH ×3 (08:53→17:17)
[2017-12-07] MEDS: LACTOBACILLUS RHAMNOSUS GG 1 EACH CAP.SPRINK GT SCH ×2 (08:53→17:17)
[2017-12-07] MEDS: FERROUS SULFATE - FOR SA ONLY 330 MG/7.5 ML UDC GT SCH ×2 (08:53→17:17)
[2017-12-07] MEDS: LEVOFLOXACIN (500MG) 500 MG TABLET GT SCH (08:53)
[2017-12-07] MEDS: DOCUSATE SODIUM LIQ 100 MG/10 ML UDC GT SCH (08:53)
[2017-12-07] MEDS: ASCORBIC ACID 500 MG TABLET GT SCH (08:53)
[2017-12-07] MEDS: HYDROGEL DRESSING 90 GM TUBE TP SCH ×2 (09:00→21:10)
[2017-12-07] MEDS: Z GUARD REMEDY 4 OZ OINT TP SCH ×2 (09:00→21:10)
[2017-12-07] MEDS: NEOMY SULF/BACITRAC ZN/POLY 15 GM TUBE TP SCH ×2 (09:00→21:10)
[2017-12-07] MEDS: NYSTATIN (PYXIS) 500,000 UNIT/5 ML ORAL.SUSP PO SCH ×3 (09:00→17:17)
[2017-12-07] MEDS: VITAMINS A AND D 56.7 GM TUBE TP SCH ×4 (09:00→21:11)
[2017-12-07] MEDS: POVIDONE-IODINE OINT 28.4 GM TUBE TP SCH ×2 (09:00→21:10)
--- NOTE | 2017-12-07 13:20 | NUR ---
DEVANTE stapleton seen the pt and new orders to continue isolation at this time,preliminary result of respiratory culture is gram negative rods,waiting for the final results.New orders noted and carried out.
[2017-12-07] MEDS: LORAZEPAM 0.5 MG TABLET GT PRN (21:26)
[2017-12-08] MEDS: BLOOD SUGAR DIAGNOSTIC 1 EACH STRIP IN SCH ×4 (00:16→18:01)
[2017-12-08] MEDS: IPRATROPIUM NEB FS 0.5 MG/2.5 ML AMPUL.NEB NEB SCH ×4 (01:01→20:28)
[2017-12-08] MEDS: ALBUTEROL FS 2.5 MG/0.5 ML VIAL.NEB IH SCH ×4 (01:01→20:28)
[2017-12-08] MEDS: PANTOPRAZOLE 40 MG/PACK PACK GT SCH (06:04)
[2017-12-08] MEDS: LORAZEPAM 0.5 MG TABLET GT PRN ×2 (06:19→22:07)
[2017-12-08 08:25] VITALS: BP 109/54
[2017-12-08] MEDS: VITAMINS A AND D 56.7 GM TUBE TP SCH ×4 (09:00→21:31)
[2017-12-08] MEDS: Z GUARD REMEDY 4 OZ OINT TP SCH ×2 (09:00→21:31)
[2017-12-08] MEDS: HYDROGEL DRESSING 90 GM TUBE TP SCH ×2 (09:00→21:31)
[2017-12-08] MEDS: NEOMY SULF/BACITRAC ZN/POLY 15 GM TUBE TP SCH ×2 (09:00→21:31)
[2017-12-08] MEDS: POVIDONE-IODINE OINT 28.4 GM TUBE TP SCH ×2 (09:00→21:31)
[2017-12-08] MEDS: DOCUSATE SODIUM LIQ 100 MG/10 ML UDC GT SCH (09:04)
[2017-12-08] MEDS: LEVOFLOXACIN (500MG) 500 MG TABLET GT SCH (09:05)
[2017-12-08] MEDS: diphenhydrAMINE HCL ELIX 25 MG/10 ML UDC GT PRN ×2 (09:05→18:01)
[2017-12-08] MEDS: NYSTATIN (PYXIS) 500,000 UNIT/5 ML ORAL.SUSP PO SCH ×3 (09:05→17:48)
[2017-12-08] MEDS: PROSOURCE / PROSTAT (PYXIS) 30 ML UDC GT SCH ×3 (09:05→17:48)
[2017-12-08] MEDS: LACTOBACILLUS RHAMNOSUS GG 1 EACH CAP.SPRINK GT SCH ×2 (09:05→17:48)
[2017-12-08] MEDS: FERROUS SULFATE - FOR SA ONLY 330 MG/7.5 ML UDC GT SCH ×2 (09:05→17:48)
[2017-12-08] MEDS: ASCORBIC ACID 500 MG TABLET GT SCH (09:05)
[2017-12-08] MEDS: VIT B CMPLX 3/FA/VIT C/BIOTIN 1 TAB TABLET GT SCH (09:05)
[2017-12-08] MEDS: HYDROCODONE/APAP 5/325MG 1 EACH TABLET PO PRN (09:07)
[2017-12-08 11:09] LABS: ABG BASE EXCESS 6.4 mmol/L; ABG OXYGEN SATURATION 97.4 % (92.0-98.5); ABG PCO2 47.9 mmHg (35.0-45.0); ABG PH 7.434 (7.350-7.450); AaDO2 127.1 mmHg; COHb 0.6 % (0.5-1.5); MetHb 0.6 % (0.0-1.5); O2Hb 96.2 % (94.0-97.0); SITE, ABG Right Radial
--- NOTE | 2017-12-08 11:15 | NUR ---
Pt was placed by RT Cooper on CPAP PS 15 Peep 5 FiO2 40% as ordered. Relayed ABG result to Dr. Escobar. Dr. Escobar ordered to continue pt on CPAP as tolerated. No respiratory distress noted, O2 sat 98-100%.
--- NOTE | 2017-12-08 11:32 | NUR ---
RT NOTE PT PLACED ON CPAP PER MD PELEG ORDER. CPAP OF 5 PS 15. PT REMAINS ON FI02 OF 40%. ALARMS SET PER PROTOCOL AND AUDIBLE. AMBU BAG AT BED SIDE. VENT PLUGGED IN TO RED OUTLET. NO DISTRESS NOTED. PT AWAKE AND ALERT. WILL CONTINUE TO MONITOR.
--- NOTE | 2017-12-08 12:43 | NUR ---
Seen by Dr. Ellis. Received order to do CBC and PSA panel tomorrow. Dr. Ellis said pt is always asking to go home, but pt not stable to go home at this time.
[2017-12-08] MEDS: INSULIN REGULAR, HUMAN 100 UNIT/ML 3 ML VIAL SQ PRN ×2 (13:00→18:01)
--- NOTE | 2017-12-08 18:12 | NUR ---
RT NOTE PT TRACH TUBE CHANGED PER MD ORDER. NO DISTRESS NOTED. MINIMAL BLEEDING NOTED. PT REMAINS ON CPAP PER MD ORDER TOLERATED. PT AWAKE AND ALERT. PT APPEARS COMFORTABLE. ASSISTANT FAMILY TEACHER PERFOMED. ALARMS SET PER PROTOCOL AND AUDIBLE. AMBU BAG AT BED SIDE.
[2017-12-08 21:05] VITALS: BP 123/64
[2017-12-09] MEDS: BLOOD SUGAR DIAGNOSTIC 1 EACH STRIP IN SCH ×4 (00:37→18:00)
[2017-12-09] MEDS: INSULIN REGULAR, HUMAN 100 UNIT/ML 3 ML VIAL SQ PRN (00:38)
[2017-12-09] MEDS: IPRATROPIUM NEB FS 0.5 MG/2.5 ML AMPUL.NEB NEB SCH ×3 (00:53→13:39)
[2017-12-09] MEDS: ALBUTEROL FS 2.5 MG/0.5 ML VIAL.NEB IH SCH ×3 (00:53→13:39)
[2017-12-09] MEDS: PANTOPRAZOLE 40 MG/PACK PACK GT SCH (05:41)
[2017-12-09 07:50] LABS: BASOPHILS % (AUTO) 0.4 % (0.0-2.0); EOSINOPHILS % (AUTO) 3.6 % (0.0-6.0); LYMPHOCYTES # (AUTO) 0.5 /CMM (0.8-4.8); LYMPHOCYTES % (AUTO) 8.4 % (20.0-44.0); MEAN CORPUSCULAR HGB CONC 34 g/dl (31.0-36.0); MEAN CORPUSCULAR VOLUME 95 fL (80-96); MONOCYTES # (AUTO) 0.5 /CMM (0.1-1.30); MONOCYTES % (AUTO) 9.1 % (2.0-12.0); NEUTROPHILS # (AUTO) 4.7 /CMM (1.8-8.9); NEUTROPHILS % (AUTO) 78.5 % (43.0-81.0); PLATELET COUNT (AUTO) 78 /CMM (150-450); RED BLOOD CELL COUNT(AUTO) 2.11 MIL/uL (4.5-6.0); WHITE BLOOD COUNT (AUTO) 5.9 K/uL (4.3-11.0)
[2017-12-09 07:55] LABS: HEMATOCRIT 20 % (39-51); HEMOGLOBIN 6.8 g/dL (13.5-17.5)
[2017-12-09 08:03] VITALS: BP 109/51
--- NOTE | 2017-12-09 08:06 | NUR ---
Notified Dr Huang that patient's H&H was 6.8/. Order given by to transfuse one unit packed red blood cells. Patient scheduled for HDX at 1330, blood to be transfused prior to being transferred for HDX if possible. Order entered for patient to be type and screen for one unit blood.
[2017-12-09 08:35] LABS: FREE PSA 0.13 ng/mL (0.00-45); PROSTATE SPECIFIC ANTIGEN SCR 1.27 ng/mL (0.00-4.00)
--- NOTE | 2017-12-09 09:15 | NUR ---
Seen and examined by Dr Escobar, new orders given: -trach to cool aerosol on Friday.
[2017-12-09 09:30] LABS: BAND % (MANUAL) 1 % (0.0-5.0); EOSINOPHILS % (MANUAL) 4 % (0-4); LYMPHOCYTES % (MANUAL) 6 % (16-48); MONOCYTES % (MANUAL) 6 % (0-11.0); NEUTROPHILS % (MANUAL) 83 (42-76)
--- NOTE | 2017-12-09 09:30 | NUR ---
Heplock inserted ready for blood transfusion. Consent obtained from son Marco Antonio for transfusion.
[2017-12-09] MEDS: VIT B CMPLX 3/FA/VIT C/BIOTIN 1 TAB TABLET GT SCH (09:45)
[2017-12-09] MEDS: NYSTATIN (PYXIS) 500,000 UNIT/5 ML ORAL.SUSP PO SCH ×3 (09:45→17:00)
[2017-12-09] MEDS: DOCUSATE SODIUM LIQ 100 MG/10 ML UDC GT SCH (09:45)
[2017-12-09] MEDS: PROSOURCE / PROSTAT (PYXIS) 30 ML UDC GT SCH ×3 (09:45→17:00)
[2017-12-09] MEDS: ASCORBIC ACID 500 MG TABLET GT SCH (09:45)
[2017-12-09] MEDS: LACTOBACILLUS RHAMNOSUS GG 1 EACH CAP.SPRINK GT SCH ×2 (09:45→17:00)
[2017-12-09] MEDS: POVIDONE-IODINE OINT 28.4 GM TUBE TP SCH (09:45)
[2017-12-09] MEDS: LEVOFLOXACIN (500MG) 500 MG TABLET GT SCH (09:45)
[2017-12-09] MEDS: FERROUS SULFATE - FOR SA ONLY 330 MG/7.5 ML UDC GT SCH ×2 (09:45→17:00)
[2017-12-09] MEDS: HYDROGEL DRESSING 90 GM TUBE TP SCH (09:50)
[2017-12-09] MEDS: VITAMINS A AND D 56.7 GM TUBE TP SCH ×2 (09:51)
[2017-12-09] MEDS: NEOMY SULF/BACITRAC ZN/POLY 15 GM TUBE TP SCH (09:51)
[2017-12-09] MEDS: Z GUARD REMEDY 4 OZ OINT TP SCH (09:51)
--- NOTE | 2017-12-09 11:10 | NUR ---
Notified by blood bank that blood was available for transfusion. Due to patient leaving for HDX at 1330, Dr Huang notified that blood would not be able to be transfused before HDX.
[2017-12-09] MEDS: RENAL NOVASOURCE 1,000 ML BOTTLE GT PRN (12:29)
[2017-12-09] MEDS: HYDROCODONE/APAP 5/325MG 1 EACH TABLET PO PRN (12:32)
--- NOTE | 2017-12-09 13:30 | NUR ---
Transport on unit to transport patient to HDX. Notified [facility] that patient was still having some bleeding around trach site, was informed that they would be unable to accept him in this condition. Dr Huang called and asked as to if HDX could be rescheduled for tomorrow and receive one unit of blood now or if patient needed to be transferred to ER for further evaluation. Stated that patient should be transferred.
--- NOTE | 2017-12-09 14:00 | NUR ---
Nursing supervisor brine Aurora made aware that patient was going to be transferred to emergency room for further evaluation of bleeding trach site. Horamos RN in ER called and informed that we would be transferring patient. Family already made aware of transfer.
--- NOTE | 2017-12-09 15:10 | NUR ---
Patient transferred to emergency room due to bleeding trach per Dr Huang's order. Son Marco Antonio called and informed of transfer and is in agreement that patient will be admitted to medical floor. Patient transferred via bed with two RT and two RN'S. Report given to ANISHA Nj in ER.
--- NOTE | 2017-12-09 15:15 | NUR ---
TRANSFERRED TO ER DUE TO BLEEDING ON HIS MOUTH AND TRACH. Addendum: 12/09/17 at 1516 by FARHAD HERNANDEZ RT Amended: Links added.
[2017-12-09] MEDS ORDERED: ASCO500T9 GT (17:45)
--- NOTE | 2017-12-10 14:18 | NUR ---
SW spoke to the resident's son and spoke to them about whether they would like for the resident to be placed on a bedhold, which would be out of pocket and family responsibility. Informed Lavon that bedhold ortega per day is $913.90 since resident is on a ventilator. Lavon stated that his family does not have that kind of money and is not interested in paying for a bedhold at this time. Resident transfer/discharge form placed in the resident's chart as well as bedhold notification form. Subacute biofuels technology manager informed.
[2018-11-06] MEDS ORDERED: TUBERCULIN,PURIF.PROT.DERIV. 5 TU/0.1 ML VIAL ID SCH (09:00)
== END 2017-12-09 18:00 | disposition short-term general hospital (02) | DRG 207 ==
LOC: SA 20:11
PROVIDERS: ADMIT Internal Medicine; ATTEND Internal Medicine
PROC: 5A1955Z Respiratory Ventilation, Greater than 96 Consecutive Hours (ICD-10-PCS; principal; 2017-11-25)
DX: J96.11 Chronic respiratory failure with hypoxia (principal); N17.0 Acute kidney failure with tubular necrosis; I13.2 Hypertensive heart and chronic kidney disease with heart failure and with stage 5 chronic kidney disease, or end stage renal disease; A41.9 Sepsis, unspecified organism; J15.6 Pneumonia due to other Gram-negative bacteria; R53.2 Functional quadriplegia; N18.6 End stage renal disease; D68.9 Coagulation defect, unspecified; R04.2 Hemoptysis; I69.354 Hemiplegia and hemiparesis following cerebral infarction affecting left non-dominant side; Z99.11 Dependence on respirator [ventilator] status; J95.01 Hemorrhage from tracheostomy stoma; N39.0 Urinary tract infection, site not specified; I50.9 Heart failure, unspecified; D69.6 Thrombocytopenia, unspecified; R13.10 Dysphagia, unspecified; I25.10 Atherosclerotic heart disease of native coronary artery without angina pectoris; Z99.2 Dependence on renal dialysis; Y84.9 Medical procedure, unspecified as the cause of abnormal reaction of the patient, or of later complication, without mention of misadventure at the time of the procedure; Y82.9 Unspecified medical devices associated with adverse incidents; Y92.129 Unspecified place in nursing home as the place of occurrence of the external cause; D63.8 Anemia in other chronic diseases classified elsewhere; E11.9 Type 2 diabetes mellitus without complications; F29 Unspecified psychosis not due to a substance or known physiological condition; F43.22 Adjustment disorder with anxiety; I25.2 Old myocardial infarction; F19.10 Other psychoactive substance abuse, uncomplicated; S02.5XXA Fracture of tooth (traumatic), initial encounter for closed fracture; K74.60 Unspecified cirrhosis of liver; Y95 Nosocomial condition
CPT/HCPCS: 31720; 36415; 36600; 71045-TC; 80048-TC; 80150; 82803-TC; 82962-TC; 84153-TC; 84154-TC; 85025-TC; 86850-TC; 86921-TC; 87070-TC; 87186-TC; 92611-TC; 94003-TC; A4216; A4623; A6248; A6402; A7526; J0278; J1815; J1956; J2185; J7060; L8501; Q0163

== ENCOUNTER 2017-12-09 15:10 | Inpatient (IN) | payer MEDICAID ==
[2017-12-09] VITALS (27 sets, daily range): BP systolic 49–114; BP diastolic 38–97
[~2017-12-09] VITALS: Ht 162.6 cm; Wt 73.9 kg
[2017-12-09 15:50] LABS: BASOPHILS % (AUTO) 0.5 % (0.0-2.0); EOSINOPHILS % (AUTO) 3.9 % (0.0-6.0); HEMATOCRIT 21 % (39-51); HEMOGLOBIN 7.1 g/dL (13.5-17.5); LYMPHOCYTES # (AUTO) 0.4 /CMM (0.8-4.8); LYMPHOCYTES % (AUTO) 6.8 % (20.0-44.0); MEAN CORPUSCULAR HGB CONC 34 g/dl (31.0-36.0); MEAN CORPUSCULAR VOLUME 94 fL (80-96); MONOCYTES # (AUTO) 0.4 /CMM (0.1-1.30); MONOCYTES % (AUTO) 7.3 % (2.0-12.0); NEUTROPHILS # (AUTO) 4.9 /CMM (1.8-8.9); NEUTROPHILS % (AUTO) 81.5 % (43.0-81.0); PLATELET COUNT (AUTO) 78 /CMM (150-450); RDW COEFFICIENT OF VARIATION 19.8 (11.5-15.0); WHITE BLOOD COUNT (AUTO) 5.9 K/uL (4.3-11.0)
[2017-12-09 16:00] LABS: CALCIUM, SERUM 7.9 mg/dL (8.5-10.1); CREATININE 2.5 mg/dL (0.6-1.3); POTASSIUM 3.2 mmol/L (3.5-5.1)
[2017-12-09 16:02] LABS: INR 1.13 (0.85-1.15)
[2017-12-09] MEDS ORDERED: MAGNESIUM HYDROXIDE 30 ML UDC GT PRN (17:30)
[2017-12-09] MEDS ORDERED: MAG HYDROX/AL HYDROX/SIMETH 30 ML UDC GT PRN (17:30)
[2017-12-09] MEDS ORDERED: ONDANSETRON HCL/PF 4 MG/2 ML VIAL IVP PRN (17:30)
[2017-12-09] MEDS ORDERED: MORPHINE SULFATE INJ 2 MG/ML DISP.SYRIN IV PRN (17:30)
[2017-12-09] MEDS ORDERED: HYDROCODONE/APAP 10/325MG 1 EA TABLET GT PRN (17:30)
[2017-12-09] MEDS ORDERED: ASCO500T9 GT (17:45)
[2017-12-09] MEDS: HYDROCODONE BIT/HOMATROPINE 5 ML UDC PO SCH (18:12)
[2017-12-09] MEDS ORDERED: DESMOPRESSIN IV ONE (18:30)
[2017-12-09] MEDS ORDERED: DESMOPRESSIN 4 MCG/ML AMPUL IV ONE (18:30)
[2017-12-09] MEDS ORDERED: NS 0.9% IV ONE (18:30)
[2017-12-09] MEDS ORDERED: IV NS 0.9% 250 ML IV ONE (20:00)
[2017-12-09] MEDS ORDERED: DEXTROSE 50%-WATER 50 ML DISP.SYRIN IV PRN (20:30)
[2017-12-09] MEDS: RENAL NOVASOURCE 1,000 ML BOTTLE GT PRN (21:08)
[2017-12-09] MEDS: NOREPINEPHRINE 16 MG in IV D5W 500 ML IV PRN (23:10)
[2017-12-10] VITALS (64 sets, daily range): BP systolic 75–150; BP diastolic 36–84
[2017-12-10] MEDS: HYDROCODONE BIT/HOMATROPINE 5 ML UDC PO SCH ×5 (00:05→23:17)
[2017-12-10] MEDS: LORAZEPAM 1 MG TABLET GT PRN ×3 (01:44→19:12)
[2017-12-10 04:37] LABS: BASOPHILS % (AUTO) 0.3 % (0.0-2.0); HEMATOCRIT 21 % (39-51); HEMOGLOBIN 7.3 g/dL (13.5-17.5); LYMPHOCYTES # (AUTO) 0.3 /CMM (0.8-4.8); LYMPHOCYTES % (AUTO) 4.5 % (20.0-44.0); MEAN CORPUSCULAR HGB CONC 35 g/dl (31.0-36.0); MEAN CORPUSCULAR VOLUME 90 fL (80-96); MONOCYTES # (AUTO) 0.6 /CMM (0.1-1.30); MONOCYTES % (AUTO) 8.3 % (2.0-12.0); NEUTROPHILS # (AUTO) 5.6 /CMM (1.8-8.9); NEUTROPHILS % (AUTO) 83.9 % (43.0-81.0); PLATELET COUNT (AUTO) 82 /CMM (150-450); RDW COEFFICIENT OF VARIATION 21.8 (11.5-15.0); RED BLOOD CELL COUNT(AUTO) 2.36 MIL/uL (4.5-6.0); WHITE BLOOD COUNT (AUTO) 6.7 K/uL (4.3-11.0)
[2017-12-10 04:49] LABS: CALCIUM, SERUM 7.4 mg/dL (8.5-10.1); CREATININE 2.6 mg/dL (0.6-1.3); PHOSPHORUS 4.9 mg/dL (2.5-4.9); POTASSIUM 3.3 mmol/L (3.5-5.1)
[2017-12-10] MEDS: ACETAMINOPHEN 325 MG TABLET MC PRN (05:03)
[2017-12-10 05:14] LABS: BAND % (MANUAL) 3 % (0.0-5.0); EOSINOPHILS % (MANUAL) 3 % (0-4); LYMPHOCYTES % (MANUAL) 8 % (16-48); MONOCYTES % (MANUAL) 5 % (0-11.0); NEUTROPHILS % (MANUAL) 81 (42-76)
[2017-12-10] MEDS: BLOOD SUGAR DIAGNOSTIC 1 EACH STRIP IN SCH ×5 (05:50→23:18)
[2017-12-10] MEDS ORDERED: HYDROCODONE BIT/HOMATROPINE 5 ML UDC ONE (05:52)
[2017-12-10] MEDS: LEVOFLOXACIN (500MG) 500 MG TABLET GT SCH (09:17)
[2017-12-10 15:00] LABS: ABG BASE EXCESS 3.4 mmol/L; ABG OXYGEN SATURATION 98.5 % (92.0-98.5); ABG PCO2 52.8 mmHg (35.0-45.0); ABG PH 7.362 (7.350-7.450); ABG PO2 186.8 mmHg (75.0-100.0); AaDO2 473.4 mmHg; COHb 0.5 % (0.5-1.5); MetHb 0.7 % (0.0-1.5); O2Hb 97.3 % (94.0-97.0); PEEP,BG 0 cm H2O; SITE, ABG Right Radial; VT, ABG 500 mL
[2017-12-10] MEDS ORDERED: LEVOFLOXACIN 250 MG /D5W 50 ML 250 MG in PREMIX 1 EA IV SCH (18:00)
[2017-12-10] MEDS: INSULIN REGULAR, HUMAN 100 UNIT/ML 3 ML VIAL SQ PRN ×2 (18:04→23:18)
[2017-12-10 19:44] LABS: HEMOGLOBIN 8.6 g/dL (13.5-17.5)
[2017-12-10] MEDS: MUPIROCIN OINT 2% 22 GM TUBE SCH (20:56)
[2017-12-10] MEDS: LORAZEPAM INJ 2 MG/ML VIAL IV PRN (22:21)
[2017-12-10 23:39] LABS: INR 1.25 (0.87-1.13)
[2017-12-11] VITALS (87 sets, daily range): BP systolic 82–128; BP diastolic 35–80
[2017-12-11] MEDS ORDERED: HALOPERIDOL LACTATE INJ 5 MG/ML VIAL IM ONE (00:30)
[2017-12-11] MEDS: NOREPINEPHRINE 16 MG in IV D5W 500 ML IV PRN ×2 (02:19→18:16)
[2017-12-11] MEDS: RENAL NOVASOURCE 1,000 ML BOTTLE GT PRN (05:39)
[2017-12-11] MEDS: BLOOD SUGAR DIAGNOSTIC 1 EACH STRIP IN SCH ×4 (05:45→23:16)
[2017-12-11] MEDS: LORAZEPAM INJ 2 MG/ML VIAL IV PRN ×2 (05:48→20:14)
[2017-12-11 05:49] LABS: BASOPHILS % (AUTO) 0.3 % (0.0-2.0); EOSINOPHILS % (AUTO) 0.1 % (0.0-6.0); LYMPHOCYTES # (AUTO) 0.2 /CMM (0.8-4.8); LYMPHOCYTES % (AUTO) 2.1 % (20.0-44.0); MEAN CORPUSCULAR HGB CONC 35 g/dl (31.0-36.0); MEAN CORPUSCULAR VOLUME 90 fL (80-96); MONOCYTES # (AUTO) 0.5 /CMM (0.1-1.30); MONOCYTES % (AUTO) 5.1 % (2.0-12.0); NEUTROPHILS # (AUTO) 9.8 /CMM (1.8-8.9); NEUTROPHILS % (AUTO) 92.4 % (43.0-81.0); PLATELET COUNT (AUTO) 78 /CMM (150-450); RDW COEFFICIENT OF VARIATION 19.8 (11.5-15.0); RED BLOOD CELL COUNT(AUTO) 2.21 MIL/uL (4.5-6.0); WHITE BLOOD COUNT (AUTO) 10.5 K/uL (4.3-11.0)
[2017-12-11 05:51] LABS: HEMATOCRIT 20 % (39-51); HEMOGLOBIN 6.9 g/dL (13.5-17.5)
[2017-12-11 06:06] LABS: CALCIUM, SERUM 7.8 mg/dL (8.5-10.1); CREATININE 2.5 mg/dL (0.6-1.3); POTASSIUM 4.4 mmol/L (3.5-5.1)
[2017-12-11 06:14] LABS: FIBRINOGEN ACTIVITY 341 Mg/dL (213-485); PARTIAL THROMBOPLASTIN TIME 32 SEC (23-34)
[2017-12-11] MEDS: HYDROCODONE BIT/HOMATROPINE 5 ML UDC PO SCH (07:28)
[2017-12-11] MEDS: LEVOFLOXACIN (500MG) 500 MG TABLET GT SCH (08:22)
[2017-12-11] MEDS: MUPIROCIN OINT 2% 22 GM TUBE SCH ×2 (08:24→21:00)
[2017-12-11 09:00] LABS: BAND % (MANUAL) 12 % (0.0-5.0); LYMPHOCYTES % (MANUAL) 3 % (16-48); MONOCYTES % (MANUAL) 3 % (0-11.0); NEUTROPHILS % (MANUAL) 82 (42-76)
[2017-12-11] MEDS ORDERED: TUBERCULIN,PURIF.PROT.DERIV. 5 TU/0.1 ML VIAL ID ONE (09:00)
[2017-12-11] MEDS ORDERED: PROPOFOL 100 ML IV PRN (09:30)
[2017-12-11 11:56] LABS: HEMOGLOBIN 7.9 g/dL (13.5-17.5)
[2017-12-11] MEDS ORDERED: EPOETIN ALFA (10,000 UNIT) 10,000 UNIT/ML VIAL SQ SCH (16:00)
[2017-12-11] MEDS: INSULIN REGULAR, HUMAN 100 UNIT/ML 3 ML VIAL SQ PRN ×2 (17:14→23:36)
[2017-12-11 17:44] LABS: BILIRUBIN,DIRECT 0.4 mg/dL (0.0-0.2)
[2017-12-11] MEDS ORDERED: FEE PK DOSING 1 MIN EA MC ONE (17:50)
[2017-12-11] MEDS ORDERED: VANCOMYCIN 1 GM in IV D5W 250 ML IV ONE (18:00)
[2017-12-11 21:24] LABS: OCCULT BLOOD STOOL POSITIVE (NEGATIVE)
[2017-12-12] VITALS (99 sets, daily range): BP systolic 77–146; BP diastolic 40–67
[2017-12-12] MEDS: LORAZEPAM INJ 2 MG/ML VIAL IV PRN ×4 (01:52→23:21)
[2017-12-12 04:52] LABS: BASOPHILS # (AUTO) 0.1 /CMM (0.0-0.2); BASOPHILS % (AUTO) 0.4 % (0.0-2.0); EOSINOPHILS % (AUTO) 0.3 % (0.0-6.0); HEMATOCRIT 22 % (39-51); HEMOGLOBIN 7.6 g/dL (13.5-17.5); LYMPHOCYTES # (AUTO) 0.6 /CMM (0.8-4.8); LYMPHOCYTES % (AUTO) 4.5 % (20.0-44.0); MEAN CORPUSCULAR HGB CONC 35 g/dl (31.0-36.0); MEAN CORPUSCULAR VOLUME 88 fL (80-96); MONOCYTES # (AUTO) 0.7 /CMM (0.1-1.30); MONOCYTES % (AUTO) 5.4 % (2.0-12.0); NEUTROPHILS # (AUTO) 12.4 /CMM (1.8-8.9); NEUTROPHILS % (AUTO) 89.4 % (43.0-81.0); PLATELET COUNT (AUTO) 124 /CMM (150-450); RDW COEFFICIENT OF VARIATION 19.6 (11.5-15.0)
[2017-12-12 04:59] LABS: CALCIUM, SERUM 7.8 mg/dL (8.5-10.1); CREATININE 2.4 mg/dL (0.6-1.3); POTASSIUM 4.1 mmol/L (3.5-5.1)
[2017-12-12 05:51] LABS: RED BLOOD CELL COUNT(AUTO) 2.31 MIL/uL (4.5-6.0); WHITE BLOOD COUNT (AUTO) 12.3 K/uL (4.3-11.0)
[2017-12-12] MEDS: BLOOD SUGAR DIAGNOSTIC 1 EACH STRIP IN SCH ×3 (06:37→17:41)
[2017-12-12] MEDS: INSULIN REGULAR, HUMAN 100 UNIT/ML 3 ML VIAL SQ PRN ×2 (06:39→17:42)
[2017-12-12] MEDS ORDERED: HYDROGEL DRESSING 90 GM TUBE TP PRN (08:00)
[2017-12-12] MEDS ORDERED: Z GUARD REMEDY 2 OZ OINT TP PRN (08:00)
[2017-12-12 08:13] LABS: IMMUNOGLOBULIN A, SERUM 1010 mg/dL (90-386); IMMUNOGLOBULIN G, SERUM 2351 mg/dL (700-1600); IMMUNOGLOBULIN M, SERUM 76 mg/dL (20-172)
[2017-12-12] MEDS: Z GUARD REMEDY 2 OZ OINT TP SCH (09:46)
[2017-12-12] MEDS: HYDROGEL DRESSING 90 GM TUBE TP SCH (09:51)
[2017-12-12] MEDS: LEVOFLOXACIN (500MG) 500 MG TABLET GT SCH (09:51)
[2017-12-12] MEDS: MUPIROCIN OINT 2% 22 GM TUBE SCH ×2 (09:52→20:36)
[2017-12-12 12:15] LABS: *SPE A/G RATIO 0.6 (0.7-1.7); *SPE ALBUMIN 2.3 g/dL (2.9-4.4); *SPE ALPHA-1-GLOBULIN 0.4 g/dL (0.0-0.4); *SPE ALPHA-2-GLOBULIN 0.3 g/dL (0.4-1.0); *SPE BETA GLOBULIN 0.9 g/dL (0.7-1.3); *SPE GLOBULIN, TOTAL 4.1 g/dL (2.2-3.9); *SPE M-SPIKE Not Observed g/dL (Not Observed); *SPEGAMMA GLOBULIN 2.5 g/dL (0.4-1.8)
[2017-12-12] MEDS: RENAL NOVASOURCE 1,000 ML BOTTLE GT PRN (17:43)
[2017-12-12] MEDS: NOREPINEPHRINE 16 MG in IV D5W 500 ML IV PRN (18:50)
[2017-12-13] VITALS (82 sets, daily range): BP systolic 76–146; BP diastolic 31–73
[2017-12-13] MEDS: BLOOD SUGAR DIAGNOSTIC 1 EACH STRIP IN SCH ×5 (00:06→23:17)
[2017-12-13 04:44] LABS: BASOPHILS % (AUTO) 0.1 % (0.0-2.0); EOSINOPHILS % (AUTO) 3.5 % (0.0-6.0); LYMPHOCYTES # (AUTO) 0.3 /CMM (0.8-4.8); LYMPHOCYTES % (AUTO) 6.9 % (20.0-44.0); MEAN CORPUSCULAR HGB CONC 34 g/dl (31.0-36.0); MEAN CORPUSCULAR VOLUME 89 fL (80-96); MONOCYTES # (AUTO) 0.3 /CMM (0.1-1.30); MONOCYTES % (AUTO) 7.5 % (2.0-12.0); NEUTROPHILS # (AUTO) 3.6 /CMM (1.8-8.9); PLATELET COUNT (AUTO) 57 /CMM (150-450); RDW COEFFICIENT OF VARIATION 20.4 (11.5-15.0); RED BLOOD CELL COUNT(AUTO) 2.02 MIL/uL (4.5-6.0); WHITE BLOOD COUNT (AUTO) 4.4 K/uL (4.3-11.0)
[2017-12-13 04:49] LABS: CALCIUM, SERUM 7.9 mg/dL (8.5-10.1); CREATININE 2.9 mg/dL (0.6-1.3); POTASSIUM 3.5 mmol/L (3.5-5.1)
[2017-12-13 04:53] LABS: HEMATOCRIT 18 % (39-51); HEMOGLOBIN 6.1 g/dL (13.5-17.5)
[2017-12-13 05:39] LABS: LYMPHOCYTES % (MANUAL) 5 % (16-48); MONOCYTES % (MANUAL) 5 % (0-11.0); NEUTROPHILS % (MANUAL) 90 (42-76)
[2017-12-13] MEDS: INSULIN REGULAR, HUMAN 100 UNIT/ML 3 ML VIAL SQ PRN ×4 (05:43→23:20)
[2017-12-13 06:04] LABS: EOSINOPHILS % (AUTO) 3.2 % (0.0-6.0); LYMPHOCYTES # (AUTO) 0.4 /CMM (0.8-4.8); LYMPHOCYTES % (AUTO) 8.5 % (20.0-44.0); MEAN CORPUSCULAR HGB CONC 34 g/dl (31.0-36.0); MEAN CORPUSCULAR VOLUME 89 fL (80-96); MONOCYTES # (AUTO) 0.4 /CMM (0.1-1.30); MONOCYTES % (AUTO) 7.9 % (2.0-12.0); NEUTROPHILS # (AUTO) 3.9 /CMM (1.8-8.9); NEUTROPHILS % (AUTO) 80.4 % (43.0-81.0); PLATELET COUNT (AUTO) 56 /CMM (150-450); RDW COEFFICIENT OF VARIATION 20.9 (11.5-15.0); RED BLOOD CELL COUNT(AUTO) 2.19 MIL/uL (4.5-6.0); WHITE BLOOD COUNT (AUTO) 4.9 K/uL (4.3-11.0)
[2017-12-13 06:06] LABS: HEMOGLOBIN 6.6 g/dL (13.5-17.5)
[2017-12-13 06:07] LABS: HEMATOCRIT 20 % (39-51)
[2017-12-13] MEDS: Z GUARD REMEDY 2 OZ OINT TP SCH (08:58)
[2017-12-13] MEDS: LEVOFLOXACIN (500MG) 500 MG TABLET GT SCH (08:58)
[2017-12-13] MEDS: VIT B CMPLX 3/FA/VIT C/BIOTIN 1 TAB TABLET PO SCH (08:58)
[2017-12-13] MEDS: MUPIROCIN OINT 2% 22 GM TUBE SCH ×2 (08:59→22:18)
[2017-12-13] MEDS: HYDROGEL DRESSING 90 GM TUBE TP SCH (08:59)
[2017-12-13] MEDS: LORAZEPAM INJ 2 MG/ML VIAL IV PRN (09:01)
[2017-12-13] MEDS: PROPOFOL 100 ML IV PRN ×2 (11:57→19:48)
[2017-12-13] MEDS: VANCOMYCIN 500 MG in IV D5W 100 ML IV PRN (14:19)
[2017-12-13] MEDS ORDERED: EPOETIN ALFA (10,000 UNIT) 10,000 UNIT/ML VIAL IV ONE (15:00)
[2017-12-13] MEDS: RENAL NOVASOURCE 1,000 ML BOTTLE GT PRN (17:07)
[2017-12-13] MEDS: PANTOPRAZOLE 40 MG VIAL IV SCH (17:10)
[2017-12-13] MEDS: NOREPINEPHRINE 16 MG in IV D5W 500 ML IV PRN (17:11)
[2017-12-13 17:21] LABS: EOSINOPHILS % (AUTO) 1.8 % (0.0-6.0); HEMATOCRIT 23 % (39-51); HEMOGLOBIN 7.7 g/dL (13.5-17.5); LYMPHOCYTES # (AUTO) 0.3 /CMM (0.8-4.8); LYMPHOCYTES % (AUTO) 4.2 % (20.0-44.0); MEAN CORPUSCULAR HGB CONC 34 g/dl (31.0-36.0); MEAN CORPUSCULAR VOLUME 90 fL (80-96); MONOCYTES # (AUTO) 0.6 /CMM (0.1-1.30); MONOCYTES % (AUTO) 7.1 % (2.0-12.0); NEUTROPHILS # (AUTO) 6.8 /CMM (1.8-8.9); NEUTROPHILS % (AUTO) 86.9 % (43.0-81.0); PLATELET COUNT (AUTO) 63 /CMM (150-450); RDW COEFFICIENT OF VARIATION 19.8 (11.5-15.0); WHITE BLOOD COUNT (AUTO) 7.8 K/uL (4.3-11.0)
[2017-12-13 18:18] LABS: BAND % (MANUAL) 1 % (0.0-5.0); EOSINOPHILS % (MANUAL) 3 % (0-4); LYMPHOCYTES % (MANUAL) 6 % (16-48); MONOCYTES % (MANUAL) 4 % (0-11.0); NEUTROPHILS % (MANUAL) 86 (42-76)
[2017-12-13 19:56] LABS: INR 1.26 (0.87-1.13)
[2017-12-13 20:04] LABS: D-DIMER 6.7 mg/L(FEU (0.17-0.50)
[2017-12-14] VITALS (86 sets, daily range): BP systolic 85–116; BP diastolic 31–60
[2017-12-14] MEDS: PROPOFOL 100 ML IV PRN ×3 (02:41→17:00)
[2017-12-14 04:34] LABS: BASOPHILS % (AUTO) 0.2 % (0.0-2.0); EOSINOPHILS % (AUTO) 2.4 % (0.0-6.0); HEMATOCRIT 24 % (39-51); LYMPHOCYTES # (AUTO) 0.6 /CMM (0.8-4.8); LYMPHOCYTES % (AUTO) 5.5 % (20.0-44.0); MEAN CORPUSCULAR HGB CONC 34 g/dl (31.0-36.0); MEAN CORPUSCULAR VOLUME 91 fL (80-96); MONOCYTES # (AUTO) 0.9 /CMM (0.1-1.30); MONOCYTES % (AUTO) 8.5 % (2.0-12.0); NEUTROPHILS # (AUTO) 8.7 /CMM (1.8-8.9); NEUTROPHILS % (AUTO) 83.4 % (43.0-81.0); PLATELET COUNT (AUTO) 69 /CMM (150-450); RDW COEFFICIENT OF VARIATION 20.5 (11.5-15.0); WHITE BLOOD COUNT (AUTO) 10.4 K/uL (4.3-11.0)
[2017-12-14] MEDS: INSULIN REGULAR, HUMAN 100 UNIT/ML 3 ML VIAL SQ PRN ×3 (06:01→17:01)
[2017-12-14] MEDS: BLOOD SUGAR DIAGNOSTIC 1 EACH STRIP IN SCH ×3 (06:02→17:01)
[2017-12-14 07:50] LABS: CALCIUM, SERUM 7.5 mg/dL (8.5-10.1); CREATININE 2.5 mg/dL (0.6-1.3); POTASSIUM 3.9 mmol/L (3.5-5.1)
[2017-12-14] MEDS: LEVOFLOXACIN (500MG) 500 MG TABLET GT SCH (08:20)
[2017-12-14] MEDS: Z GUARD REMEDY 2 OZ OINT TP SCH (08:20)
[2017-12-14] MEDS: PANTOPRAZOLE 40 MG VIAL IV SCH ×2 (08:20→17:00)
[2017-12-14] MEDS: VIT B CMPLX 3/FA/VIT C/BIOTIN 1 TAB TABLET PO SCH (08:20)
[2017-12-14] MEDS: HYDROGEL DRESSING 90 GM TUBE TP SCH (08:21)
[2017-12-14] MEDS: MUPIROCIN OINT 2% 22 GM TUBE SCH ×2 (08:22→20:50)
[2017-12-14 12:12] LABS: *ANCANTIMYELOPEROXIDASE (MPO) <9.0 U/mL (0.0-9.0); *ANCANTIPROTEINASE 3 (PR-3) AB <3.5 U/mL (0.0-3.5)
[2017-12-14] MEDS: RENAL NOVASOURCE 1,000 ML BOTTLE GT PRN (17:00)
[2017-12-14] MEDS ORDERED: NOREPINEPHRINE 4 MG/4 ML AMPUL IV ONE (20:28)
[2017-12-15] VITALS (91 sets, daily range): BP systolic 85–139; BP diastolic 31–56
[2017-12-15] MEDS: PROPOFOL 100 ML IV PRN (00:07)
[2017-12-15] MEDS: INSULIN REGULAR, HUMAN 100 UNIT/ML 3 ML VIAL SQ PRN ×5 (00:08→23:26)
[2017-12-15] MEDS: BLOOD SUGAR DIAGNOSTIC 1 EACH STRIP IN SCH ×5 (00:10→23:28)
[2017-12-15 05:14] LABS: BASOPHILS % (AUTO) 0.1 % (0.0-2.0); EOSINOPHILS % (AUTO) 4.1 % (0.0-6.0); HEMATOCRIT 25 % (39-51); HEMOGLOBIN 8.5 g/dL (13.5-17.5); LYMPHOCYTES # (AUTO) 0.7 /CMM (0.8-4.8); LYMPHOCYTES % (AUTO) 10.8 % (20.0-44.0); MEAN CORPUSCULAR HGB CONC 34 g/dl (31.0-36.0); MEAN CORPUSCULAR VOLUME 91 fL (80-96); MONOCYTES # (AUTO) 0.7 /CMM (0.1-1.30); MONOCYTES % (AUTO) 10.8 % (2.0-12.0); NEUTROPHILS # (AUTO) 4.8 /CMM (1.8-8.9); NEUTROPHILS % (AUTO) 74.2 % (43.0-81.0); RDW COEFFICIENT OF VARIATION 20.2 (11.5-15.0); RED BLOOD CELL COUNT(AUTO) 2.77 MIL/uL (4.5-6.0); WHITE BLOOD COUNT (AUTO) 6.5 K/uL (4.3-11.0)
[2017-12-15 05:29] LABS: PLATELET COUNT (AUTO) 50 /CMM (150-450)
[2017-12-15 05:54] LABS: CALCIUM, SERUM 7.5 mg/dL (8.5-10.1); CREATININE 3.1 mg/dL (0.6-1.3); POTASSIUM 4.5 mmol/L (3.5-5.1)
[2017-12-15] MEDS: Z GUARD REMEDY 2 OZ OINT TP SCH (09:42)
[2017-12-15] MEDS: HYDROGEL DRESSING 90 GM TUBE TP SCH (09:42)
[2017-12-15] MEDS: PANTOPRAZOLE 40 MG VIAL IV SCH ×2 (09:45→18:07)
[2017-12-15] MEDS: LEVOFLOXACIN (500MG) 500 MG TABLET GT SCH (09:45)
[2017-12-15] MEDS: VIT B CMPLX 3/FA/VIT C/BIOTIN 1 TAB TABLET PO SCH (09:45)
[2017-12-15] MEDS: MUPIROCIN OINT 2% 22 GM TUBE SCH ×2 (09:45→20:37)
[2017-12-15] MEDS: LORAZEPAM INJ 2 MG/ML VIAL IV PRN ×2 (09:48→16:25)
[2017-12-15 11:00] LABS: BAND % (MANUAL) 2 % (0.0-5.0); EOSINOPHILS % (MANUAL) 1 % (0-4); LYMPHOCYTES % (MANUAL) 4 % (16-48); MONOCYTES % (MANUAL) 7 % (0-11.0); NEUTROPHILS % (MANUAL) 86 (42-76)
[2017-12-15] MEDS: NOREPINEPHRINE 16 MG in IV D5W 500 ML IV PRN (11:53)
[2017-12-15] MEDS ORDERED: EPOETIN ALFA (10,000 UNIT) 10,000 UNIT/ML VIAL IV ONE (13:00)
[2017-12-15] MEDS: VANCOMYCIN 500 MG in IV D5W 100 ML IV PRN (16:23)
[2017-12-15] MEDS: RENAL NOVASOURCE 1,000 ML BOTTLE GT PRN (16:26)
[2017-12-16] VITALS (48 sets, daily range): BP systolic 104–130; BP diastolic 43–63
[2017-12-16 05:25] LABS: CALCIUM, SERUM 7.6 mg/dL (8.5-10.1); CREATININE 2.8 mg/dL (0.6-1.3); POTASSIUM 3.8 mmol/L (3.5-5.1)
[2017-12-16 05:43] LABS: INR 1.29 (0.87-1.13)
[2017-12-16] MEDS: BLOOD SUGAR DIAGNOSTIC 1 EACH STRIP IN SCH ×4 (06:10→23:36)
[2017-12-16] MEDS: INSULIN REGULAR, HUMAN 100 UNIT/ML 3 ML VIAL SQ PRN ×3 (06:11→23:37)
[2017-12-16 06:27] LABS: D-DIMER 9.84 mg/L(FEU (0.17-0.50)
[2017-12-16 08:00] LABS: BASOPHILS % (AUTO) 0.3 % (0.0-2.0); EOSINOPHILS % (AUTO) 3.7 % (0.0-6.0); HEMATOCRIT 24 % (39-51); HEMOGLOBIN 7.9 g/dL (13.5-17.5); LYMPHOCYTES # (AUTO) 0.6 /CMM (0.8-4.8); MEAN CORPUSCULAR HGB CONC 34 g/dl (31.0-36.0); MEAN CORPUSCULAR VOLUME 91 fL (80-96); MONOCYTES # (AUTO) 0.8 /CMM (0.1-1.30); MONOCYTES % (AUTO) 13.7 % (2.0-12.0); NEUTROPHILS # (AUTO) 4.3 /CMM (1.8-8.9); NEUTROPHILS % (AUTO) 72.3 % (43.0-81.0); PLATELET COUNT (AUTO) 51 /CMM (150-450); RED BLOOD CELL COUNT(AUTO) 2.59 MIL/uL (4.5-6.0); WHITE BLOOD COUNT (AUTO) 5.9 K/uL (4.3-11.0)
[2017-12-16] MEDS: LEVOFLOXACIN (500MG) 500 MG TABLET GT SCH (08:35)
[2017-12-16] MEDS: HYDROGEL DRESSING 90 GM TUBE TP SCH (08:35)
[2017-12-16] MEDS: PANTOPRAZOLE 40 MG VIAL IV SCH ×2 (08:35→17:22)
[2017-12-16] MEDS: VIT B CMPLX 3/FA/VIT C/BIOTIN 1 TAB TABLET PO SCH (08:35)
[2017-12-16] MEDS: MUPIROCIN OINT 2% 22 GM TUBE SCH ×2 (08:36→20:40)
[2017-12-16] MEDS: Z GUARD REMEDY 2 OZ OINT TP SCH (08:36)
[2017-12-16 10:41] LABS: EOSINOPHILS % (MANUAL) 5 % (0-4); LYMPHOCYTES % (MANUAL) 8 % (16-48); MONOCYTES % (MANUAL) 13 % (0-11.0); NEUTROPHILS % (MANUAL) 74 (42-76)
[2017-12-16 15:13] LABS: *ANCA ATYPICAL p-ANCA <1:20 titer (Neg:<1:20); *ANCA PERINUCLEAR (P-ANCA) <1:20 titer (Neg:<1:20)
[2017-12-16] MEDS: RENAL NOVASOURCE 1,000 ML BOTTLE GT PRN (16:46)
[2017-12-16] MEDS: ACETAMINOPHEN 325 MG TABLET MC PRN (22:23)
[2017-12-17] VITALS (28 sets, daily range): BP systolic 96–131; BP diastolic 43–58
[2017-12-17 05:06] LABS: CALCIUM, SERUM 7.2 mg/dL (8.5-10.1); CREATININE 2.3 mg/dL (0.6-1.3); POTASSIUM 3.9 mmol/L (3.5-5.1)
[2017-12-17] MEDS: BLOOD SUGAR DIAGNOSTIC 1 EACH STRIP IN SCH ×3 (06:31→17:35)
[2017-12-17] MEDS: INSULIN REGULAR, HUMAN 100 UNIT/ML 3 ML VIAL SQ PRN ×3 (06:32→17:41)
[2017-12-17] MEDS: LEVOFLOXACIN (500MG) 500 MG TABLET GT SCH (08:36)
[2017-12-17] MEDS: PANTOPRAZOLE 40 MG VIAL IV SCH ×2 (08:36→16:50)
[2017-12-17] MEDS: HYDROGEL DRESSING 90 GM TUBE TP SCH (08:36)
[2017-12-17] MEDS: VIT B CMPLX 3/FA/VIT C/BIOTIN 1 TAB TABLET PO SCH (08:36)
[2017-12-17] MEDS: MUPIROCIN OINT 2% 22 GM TUBE SCH (08:37)
[2017-12-17] MEDS: Z GUARD REMEDY 2 OZ OINT TP SCH (08:38)
[2017-12-17] MEDS: RENAL NOVASOURCE 1,000 ML BOTTLE GT PRN (12:59)
[2017-12-17] MEDS ORDERED: MAG30ORA GT (19:40)
[2017-12-17] MEDS ORDERED: ZINC113P2 TP (19:40)
[2017-12-17] MEDS ORDERED: ONDA4VIA23 IVP (19:40)
[2017-12-17] MEDS ORDERED: LEVO500T90 GT (19:40)
[2017-12-17] MEDS ORDERED: GEL100GE TP (19:40)
[2017-12-17] MEDS ORDERED: PANT40VI IV (19:40)
[2017-12-17] MEDS ORDERED: MAGN400O6 GT (19:40)
[2017-12-17] MEDS ORDERED: MUPI22OI2 (19:40)
== END 2017-12-17 18:15 | DRG 870 ==
LOC: ER 15:13 → ICU 16:28
PROVIDERS: ADMIT Nurse Practitioner Acute Care; ATTEND Nurse Practitioner Acute Care
PROC: 30233N1 Transfusion of Nonautologous Red Blood Cells into Peripheral Vein, Percutaneous Approach (ICD-10-PCS; principal; 2017-12-09)
PROC: 5A1955Z Respiratory Ventilation, Greater than 96 Consecutive Hours (ICD-10-PCS; principal; 2017-12-09)
PROC: 30233R1 Transfusion of Nonautologous Platelets into Peripheral Vein, Percutaneous Approach (ICD-10-PCS; principal; 2017-12-09)
PROC: 5A1D70Z Performance of Urinary Filtration, Intermittent, Less than 6 Hours Per Day (ICD-10-PCS; 2017-12-10)
PROC: 5A1D70Z Performance of Urinary Filtration, Intermittent, Less than 6 Hours Per Day (ICD-10-PCS; 2017-12-11)
PROC: 0BJ08ZZ Inspection of Tracheobronchial Tree, Via Natural or Artificial Opening Endoscopic (ICD-10-PCS; 2017-12-11)
PROC: 5A1D70Z Performance of Urinary Filtration, Intermittent, Less than 6 Hours Per Day (ICD-10-PCS; 2017-12-13)
PROC: 5A1D70Z Performance of Urinary Filtration, Intermittent, Less than 6 Hours Per Day (ICD-10-PCS; 2017-12-15)
PROC: 02HV33Z Insertion of Infusion Device into Superior Vena Cava, Percutaneous Approach (ICD-10-PCS; 2017-12-16)
PROC: 5A1D70Z Performance of Urinary Filtration, Intermittent, Less than 6 Hours Per Day (ICD-10-PCS; 2017-12-16)
DX: A41.9 Sepsis, unspecified organism (principal); J96.21 Acute and chronic respiratory failure with hypoxia; R65.21 Severe sepsis with septic shock; J18.9 Pneumonia, unspecified organism; Z99.11 Dependence on respirator [ventilator] status; E43 Unspecified severe protein-calorie malnutrition; D61.818 Other pancytopenia; J90 Pleural effusion, not elsewhere classified; R53.2 Functional quadriplegia; N18.6 End stage renal disease; E87.1 Hypo-osmolality and hyponatremia; I69.354 Hemiplegia and hemiparesis following cerebral infarction affecting left non-dominant side; E11.52 Type 2 diabetes mellitus with diabetic peripheral angiopathy with gangrene; D68.59 Other primary thrombophilia; R04.2 Hemoptysis; N39.0 Urinary tract infection, site not specified; Z93.0 Tracheostomy status; D69.6 Thrombocytopenia, unspecified; Z99.2 Dependence on renal dialysis; Z93.1 Gastrostomy status; Z87.891 Personal history of nicotine dependence; Z87.440 Personal history of urinary (tract) infections; Z87.01 Personal history of pneumonia (recurrent); Z86.19 Personal history of other infectious and parasitic diseases; Z86.14 Personal history of Methicillin resistant Staphylococcus aureus infection; Z79.2 Long term (current) use of antibiotics; Z74.01 Bed confinement status; Z79.4 Long term (current) use of insulin; Z79.899 Other long term (current) drug therapy; N41.9 Inflammatory disease of prostate, unspecified; E11.22 Type 2 diabetes mellitus with diabetic chronic kidney disease; E11.65 Type 2 diabetes mellitus with hyperglycemia; F41.9 Anxiety disorder, unspecified; I25.10 Atherosclerotic heart disease of native coronary artery without angina pectoris; I25.2 Old myocardial infarction; M85.9 Disorder of bone density and structure, unspecified; K74.60 Unspecified cirrhosis of liver; F19.11 Other psychoactive substance abuse, in remission; R13.10 Dysphagia, unspecified; Z22.322 Carrier or suspected carrier of Methicillin resistant Staphylococcus aureus
CPT/HCPCS: 31720; 36415; 36569; 36600; 71045-TC; 71250-TC; 80048-TC; 80202-TC; 82164; 82247-TC; 82248-TC; 82272-TC; 82728-TC; 82746; 82784; 82803-TC; 82962-TC; 83520; 83540-TC; 83605-TC; 83735-TC; 84100-TC; 84155; 84165; 85025-TC; 85027-TC; 85385-TC; 85396; 85610-TC; 85730-TC; 86140-TC; 86256; 86334; 86580-TC; 86850-TC; 86921-TC; 87040-TC; 87070-TC; 87081-TC; 87186-TC; 90935-TC; 93307-TC; 94002-TC; 94003-TC; 94762-TC; 99082-TC; A4216; A4606; A4623; A6248; A6402; A6403; A7526; C1751; C9113; J0885; J1630; J1815; J1956; J2060; J2597; J3370; J3490; J7030; J7040; J7050; J7060; J7120; P9016-BL; P9034-BL; Z7610

== ENCOUNTER 2017-12-17 16:23 | Inpatient (IN) | payer MEDICAID ==
[~2017-12-17 16:23] MED LIST changes: +ASCO500T9 GT
[2017-12-17] MEDS ORDERED: ONDA4VIA23 IVP (19:40)
[2017-12-17] MEDS ORDERED: ZINC113P2 TP (19:40)
[2017-12-17] MEDS ORDERED: LEVO500T90 GT (19:40)
[2017-12-17] MEDS ORDERED: MAG30ORA GT (19:40)
[2017-12-17] MEDS ORDERED: MUPI22OI2 (19:40)
[2017-12-17] MEDS ORDERED: GEL100GE TP (19:40)
[2017-12-17] MEDS ORDERED: PANT40VI IV (19:40)
[2017-12-17] MEDS ORDERED: MAGN400O6 GT (19:40)
[2017-12-17 20:10] VITALS: BP 118/55
[2017-12-17] MEDS ORDERED: ACETAMINOPHEN 650 MG/20 ML UDC- FOR SA PATIENTS ONLY GT PRN (20:30)
[2017-12-17] MEDS ORDERED: diphenhydrAMINE HCL ELIX 25 MG/10 ML UDC GT PRN (20:30)
[2017-12-17] MEDS ORDERED: INSULIN REGULAR, HUMAN 100 UNIT/ML 3 ML VIAL SQ PRN (20:30)
[2017-12-17] MEDS ORDERED: DEXTROSE 50%-WATER 50 ML DISP.SYRIN IV PRN (20:30)
[2017-12-17] MEDS ORDERED: ONDANSETRON HCL 4 MG/5 ML SOLUTION GT PRN (21:00)
[2017-12-17] MEDS ORDERED: LEVOFLOXACIN (500MG) 500 MG TABLET GT SCH (21:00)
[2017-12-17] MEDS ORDERED: MAG HYDROX/AL HYDROX/SIMETH 30 ML UDC GT PRN (21:00)
[2017-12-17] MEDS ORDERED: MAGNESIUM HYDROXIDE 30 ML UDC PO PRN (21:00)
[2017-12-17] MEDS ORDERED: HYDROCODONE/APAP 5/325MG 1 EACH TABLET PO PRN ×2 (21:00→22:30)
[2017-12-17] MEDS ORDERED: MELATONIN 5 MG TABLET GT PRN (21:00)
[2017-12-17] MEDS ORDERED: LORAZEPAM 0.5 MG TABLET GT PRN (21:00)
[2017-12-17] MEDS ORDERED: MUPIROCIN 2% CREAM 22 GM TUBE TP SCH (21:00)
[2017-12-17 21:06] LABS: ABG BASE EXCESS -13.7 mmol/L; ABG OXYGEN SATURATION 85.9 % (92.0-98.5); ABG PCO2 93.4 mmHg (35.0-45.0); ABG PH 6.924 (7.350-7.450); AaDO2 535.6 mmHg; COHb 0.5 % (0.5-1.5); MetHb 0.7 % (0.0-1.5); O2Hb 84.9 % (94.0-97.0); SITE, ABG Right Radial
[2017-12-17 21:24] LABS: BASOPHILS % (AUTO) 0.2 % (0.0-2.0); EOSINOPHILS % (AUTO) 4.4 % (0.0-6.0); HEMATOCRIT 23 % (39-51); HEMOGLOBIN 7.5 g/dL (13.5-17.5); LYMPHOCYTES % (AUTO) 24.3 % (20.0-44.0); MEAN CORPUSCULAR HGB CONC 33 g/dl (31.0-36.0); MEAN CORPUSCULAR VOLUME 94 fL (80-96); MONOCYTES # (AUTO) 0.7 /CMM (0.1-1.30); MONOCYTES % (AUTO) 4.5 % (2.0-12.0); NEUTROPHILS # (AUTO) 11.1 /CMM (1.8-8.9); NEUTROPHILS % (AUTO) 66.6 % (43.0-81.0); PLATELET COUNT (AUTO) 69 /CMM (150-450); RDW COEFFICIENT OF VARIATION 21.6 (11.5-15.0); RED BLOOD CELL COUNT(AUTO) 2.42 MIL/uL (4.5-6.0); WHITE BLOOD COUNT (AUTO) 16.7 K/uL (4.3-11.0)
[2017-12-17] MEDS ORDERED: NOREPINEPHRINE 4 MG/4 ML AMPUL IV ONE (21:33)
[2017-12-17] MEDS ORDERED: SODIUM BICARBONATE SYR 50 MEQ/50 ML DISP.SYRIN IV ONE (21:33)
[2017-12-17] MEDS ORDERED: CALCIUM CHLORIDE 1,000 MG/10 ML DISP.SYRIN IV ONE (21:33)
[2017-12-17] MEDS ORDERED: FEE EMEERGENCY 1 MIN EA MC ONE (21:33)
[2017-12-17] MEDS ORDERED: EPINEPHRINE (1:10,000) SYRINGE 1 MG/10 ML DISP.SYRIN IVP ONE (21:33)
[2017-12-17 21:36] LABS: CALCIUM, SERUM 8.3 mg/dL (8.5-10.1); MAGNESIUM 2.1 mg/dL (1.8-2.4); POTASSIUM 4.8 mmol/L (3.5-5.1)
[2017-12-17 21:45] LABS: BAND % (MANUAL) 1 % (0.0-5.0); LYMPHOCYTES % (MANUAL) 14 % (16-48); METAMYELOCYTES % 1 % (0-0); MONOCYTES % (MANUAL) 7 % (0-11.0); MYELOCYTES % 1 % (0-0); NEUTROPHILS % (MANUAL) 76 (42-76)
[2017-12-17] MEDS ORDERED: ZOLPIDEM TARTRATE 5 MG TABLET PO PRN (22:30)
[2017-12-17] MEDS ORDERED: Z GUARD REMEDY 2 OZ OINT TP PRN (22:30)
[2017-12-17] MEDS ORDERED: ACETAMINOPHEN 325 MG TABLET PO PRN (22:30)
[2017-12-17] MEDS ORDERED: ONDANSETRON HCL/PF 4 MG/2 ML VIAL IVP PRN (22:30)
[2017-12-17 23:11] LABS: TROPONIN I 0.051 ng/mL (0.00-0.056)
[2017-12-17 23:39] LABS: ABG OXYGEN SATURATION 97.2 % (92.0-98.5); ABG PCO2 37.6 mmHg (35.0-45.0); ABG PH 7.411 (7.350-7.450); ABG PO2 104.8 mmHg (75.0-100.0); AaDO2 570.6 mmHg; COHb 0.3 % (0.5-1.5); MetHb 0.5 % (0.0-1.5); O2Hb 96.4 % (94.0-97.0); SITE, ABG Right Radial
[2017-12-18] MEDS ORDERED: ALBUTEROL FS 2.5 MG/0.5 ML VIAL.NEB IH SCH (01:30)
[2017-12-18] MEDS ORDERED: IPRATROPIUM NEB FS 0.5 MG/2.5 ML AMPUL.NEB NEB SCH (01:30)
[2017-12-18] MEDS ORDERED: PANTOPRAZOLE 40 MG/PACK PACK GT SCH (06:00)
[2017-12-18] MEDS ORDERED: PROSOURCE / PROSTAT (PYXIS) 30 ML UDC GT SCH (09:00)
[2017-12-18] MEDS ORDERED: LACTOBACILLUS RHAMNOSUS GG 1 EACH CAP.SPRINK GT SCH (09:00)
[2017-12-18] MEDS ORDERED: ASCORBIC ACID 500 MG TABLET GT SCH (09:00)
[2017-12-18] MEDS ORDERED: VIT B CMPLX 3/FA/VIT C/BIOTIN 1 TAB TABLET GT SCH (09:00)
[2017-12-18] MEDS ORDERED: DOCUSATE SODIUM LIQ 100 MG/10 ML UDC GT SCH (09:00)
== END 2017-12-17 21:34 | disposition short-term general hospital (02) | DRG 189 ==
LOC: SA 18:57
PROVIDERS: ADMIT Internal Medicine; ATTEND Internal Medicine
PROC: 5A2204Z Restoration of Cardiac Rhythm, Single (ICD-10-PCS; principal; 2017-12-17)
DX: J96.10 Chronic respiratory failure, unspecified whether with hypoxia or hypercapnia (principal); I46.9 Cardiac arrest, cause unspecified; I12.0 Hypertensive chronic kidney disease with stage 5 chronic kidney disease or end stage renal disease; N18.6 End stage renal disease; Z99.2 Dependence on renal dialysis
CPT/HCPCS: 36415; 36600; 80048-TC; 82962-TC; 83735-TC; 83880; 84484-TC; 85025-TC; J0171; J1815; J3490; Q0162; Q0163

== ENCOUNTER 2017-12-17 21:36 | Inpatient (IN) | payer MEDICAID ==
[~2017-12-17] VITALS: Ht 167.6 cm; Wt 67.1 kg
[2017-12-17] VITALS (18 sets, daily range): BP systolic 52–147; BP diastolic 25–61
--- NOTE | 2017-12-17 20:50 | NUR ---
CAT SCAN TECH INITIAL NOTES 2049 RECEIVED PATIENT FROM SUBACUTE WITH BED, UNRESPONSIVE, VENT/TRACH S/P CARDIOPULMONARY ARREST. NO S/S OF PAIN OR DISCOMFORT. RESPIRATIONS EVEN AND UNLABORED WITH VENT SETTINGS AC 16, TV 500, FIO2 100%, PEEP 5. SPO2 82-83%. SKIN WARM AND DRY TO TOUCH. PUPILS FIXED AND DILATED. ON TELE MONITOR SR. WITH CORA PICC LINE PATENT AND INTACT WITH NS 500 ML BOLUS RUNNING. WILL CONTINUE TO MONITOR. [address]. JIN AND CURRENT VENT SETTINGS WITH ORDERS TO INCREASE RATE TO 24 AND ABG AND CXR IN THE MORNING. NOTED. RELAYED TO RT. 2125 DR. VOSS PAGED 2129 RECEIVED CALL BACK FROM DR. VOSS, INFORMED HIM REGARDING TRANSFER AND PATIENTS CURRENT BLOOD PRESSURE 62/28 AFTER 500ML BOLUS WAS GIVEN. NEW ORDERS RECEIVED TO START LEVOPHED TO KEEP MAP >65. NOTED AND CARRIED OUT. 2219 DR. VOSS AT BEDSIDE, FAMILY AT BEDSIDE. STAT CXR ORDERED. REMOVE PEEP AND HAVE ABG DONE AN HOUR AFTER. NOTED. RT AT BEDSIDE. WILL CONTINUE TO MONITOR.
[~2017-12-17 21:36] MED LIST changes: +GEL100GE TP; +LEVO500T90 GT; +MAG30ORA GT; +MAGN400O6 GT; +MUPI22OI2; +ONDA4VIA23 IVP; +PANT40VI IV; -RXAMI XX; +ZINC113P2 TP
[2017-12-17] MEDS: NOREPINEPHRINE 16 MG in IV D5W 500 ML IV PRN (22:21)
[2017-12-17] MEDS ORDERED: HYDROCODONE/APAP 5/325MG 1 EACH TABLET PO PRN (22:30)
[2017-12-17] MEDS ORDERED: ONDANSETRON HCL/PF 4 MG/2 ML VIAL IVP PRN (22:30)
[2017-12-17] MEDS ORDERED: ZOLPIDEM TARTRATE 5 MG TABLET PO PRN (22:30)
[2017-12-17] MEDS ORDERED: MAGNESIUM HYDROXIDE 30 ML UDC PO PRN (22:30)
[2017-12-17] MEDS ORDERED: ACETAMINOPHEN 325 MG TABLET PO PRN (22:30)
[2017-12-17] MEDS ORDERED: Z GUARD REMEDY 2 OZ OINT TP PRN (22:30)
--- NOTE | 2017-12-17 22:33 | NUR ---
RECEIVED PT POST CODE BLUE IN SUB ACUTE, pt was placed on ventilator in ICU after the transfer, settings were AC 16,500, 100%, +5. Post ABG result RR was increased to [address] JIN. At 2224 DR VOSS changed the PEEP to 0, RN aware and noted. Addendum: 12/17/17 at 2236 by LUCRETIA BETANCOURT RT Amended: Links added.
[2017-12-17] MEDS ORDERED: LEVOFLOXACIN 500 MG /D5W 100ML 500 MG in PREMIX 1 EA IV SCH (23:00)
--- NOTE | 2017-12-17 23:30 | NUR ---
STAFFING ANALYST NOTE RECEIVED CALL FROM DR. LINARES WITH ORDERS FOR STAT CT OF HEAD WITHOUT CONTRAST, AFTER ABG IS DONE. NOTED. WILL CONTINUE TO MONITOR.
[2017-12-17] MEDS ORDERED: LEVOFLOXACIN 500 MG /D5W 100ML 100 ML IV ONE (23:58)
[2017-12-17] MEDS ORDERED: MEROPENEM 1 G VIAL IV ONE (23:59)
[2017-12-18] VITALS (94 sets, daily range): BP systolic 52–133; BP diastolic 26–60
[2017-12-18] MEDS: MEROPENEM 1 G in IV NS 0.9% 50 ML IV SCH ×2 (00:01→00:07)
--- NOTE | 2017-12-18 00:15 | NUR ---
PARARESCUE CRAFTSMAN NOTE PATIENT TRANSFERRED FOR CT HEAD WITHOUT CONTRAST VIA ACLS PROTOCOL
--- NOTE | 2017-12-18 00:50 | NUR ---
FOLDER STITCHER OPERATOR NOTE RELAYED ABG RESULT TO DR. VOSS WITH ORDERS TO DECREASE RATE TO 20. RT MADE AWARE. WILL CONTINUE TO MONITOR.
[2017-12-18 04:19] LABS: HEMATOCRIT 22 % (39-51); HEMOGLOBIN 7.5 g/dL (13.5-17.5); LYMPHOCYTES # (AUTO) 0.3 /CMM (0.8-4.8); LYMPHOCYTES % (AUTO) 1.8 % (20.0-44.0); MEAN CORPUSCULAR HGB CONC 34 g/dl (31.0-36.0); MEAN CORPUSCULAR VOLUME 91 fL (80-96); MONOCYTES # (AUTO) 0.6 /CMM (0.1-1.30); MONOCYTES % (AUTO) 3.3 % (2.0-12.0); NEUTROPHILS # (AUTO) 16.5 /CMM (1.8-8.9); NEUTROPHILS % (AUTO) 94.9 % (43.0-81.0); PLATELET COUNT (AUTO) 54 /CMM (150-450); RDW COEFFICIENT OF VARIATION 20.5 (11.5-15.0); RED BLOOD CELL COUNT(AUTO) 2.42 MIL/uL (4.5-6.0); WHITE BLOOD COUNT (AUTO) 17.4 K/uL (4.3-11.0)
[2017-12-18 04:50] LABS: ALANINE AMINOTRANSFERASE 266 U/L (12-78); ALKALINE PHOSPHATASE 311 U/L (46-116); ASPARTATE AMINOTRANSFERASE 607 U/L (15-37); CALCIUM, SERUM 7.6 mg/dL (8.5-10.1); CARBON DIOXIDE 28 mmol/L (21-32); CHLORIDE 105 mmol/L (98-107); CREATININE 2.9 mg/dL (0.6-1.3); GLUCOSE 163 mg/dL (74-106); HDL CHOLESTEROL 15 mg/dL (40-60); LDL 16 mg/dL (0-99); MAGNESIUM 1.7 mg/dL (1.8-2.4); PHOSPHORUS 3.4 mg/dL (2.5-4.9); POTASSIUM 4.7 mmol/L (3.5-5.1); SODIUM SERUM 138 mmol/L (136-145); THYROID STIMULATING HORMONE 1.262 uIU/mL (0.358-3.74); TOTAL PROTEIN, SERUM 5.8 g/dL (6.4-8.2); TRIGLYCERIDES 21 mg/dL (30-150)
[2017-12-18 04:59] LABS: ALBUMIN 1.2 g/dL (3.4-5.0); UREA NITROGEN, BLOOD 89 mg/dL (7-18)
[2017-12-18 05:01] LABS: TROPONIN I 0.684 ng/mL (0.00-0.056)
[2017-12-18 05:24] LABS: LYMPHOCYTES % (MANUAL) 3 % (16-48); MONOCYTES % (MANUAL) 4 % (0-11.0); NEUTROPHILS % (MANUAL) 93 (42-76)
[2017-12-18 05:35] LABS: CHOLESTEROL < 50 mg/dL (<200)
--- NOTE | 2017-12-18 06:46 | NUR ---
PLASMA CENTER TECHNICIAN NOTE RELAYED LAB RESULT ABL 1.2, BUN 89, TROP 0.[address] VOSS WITH NO NEW ORDERS. PER SHANIKA PATIENT NEEDS TO BE SEEN BY YOUNG AND KARYNA, HE WILL SEND THEM A MESSAGE TO SEE PATIENT. WILL CONTINUE TO MONITOR.
--- NOTE | 2017-12-18 07:42 | NUR ---
WOOL HAT HYDRAULICKER NOTE NO SIGNIFICANT CHANGES. CONTINUITY OF CARE ENDORSED TO AM NURSE.
[2017-12-18] MEDS ORDERED: FEE PK DOSING 1 MIN EA MC ONE ×2 (07:57→12:48)
[2017-12-18] MEDS: MEROPENEM 500 MG in IV NS 0.9% 50 ML IV SCH ×2 (09:43→21:44)
--- NOTE | 2017-12-18 10:19 | NUR ---
TUBER OPERATOR NOTE 0720: Received patient, obtunded. With trache to vent, tolerated settings well at this time. 100% sat on 100% FIO2, will titrate as able. Noted with thick pinkish secretions when suctioned. With frothy oral secretions. Noted with 3mm fixed pupils, no reaction to light. Noted with tongue movement. No gag reflex when suctioned. No response even to deep pain. GT clamped. Left femoral HD cath intact. CORA PICC intact, on Levo @ 2mcg, will titrate as ordered. SBP >[address] 100's on the monitor. On contact isolation prec for MRSA nares, maintained and observed. 0900: S/E by Dr. Escobar, at bedside, discussed re: the POC, all questions and concerns were answered. 0930: S/E by Dr. Mejia, at bedside. Patient still has no response even to deep pain. MD ordered for EEG. 1015: No any significant changes noted. HD nurse at bedside fro HD, SBP 90's, increased Levo to 8mcg for HD, will monitor BP.
[2017-12-18] MEDS ORDERED: DOSING PER PHARMACY-AMIKACI IV XX PRN (12:30)
[2017-12-18] MEDS: VANCOMYCIN 1 GM in IV NS 0.9% 250 ML IV PRN (12:44)
[2017-12-18] MEDS: NOREPINEPHRINE 16 MG in IV D5W 500 ML IV PRN (12:45)
[2017-12-18] MEDS ORDERED: AMIKACIN 500 MG in IV D5W 100 ML IV ONE (13:00)
[2017-12-18 16:38] LABS: APPEARANCE,URINE SL CLOUDY (CLEAR); BILIRUBIN,URINE 1+ (NEGATIVE); BLOOD, URINE 3+ Ery/uL (NEGATIVE); COLOR,URINE YELLOW (YELLOW); KETONES,URINE NEGATIVE (NEGATIVE); LEUKOCYTE ESTERASE ,URINE 2+ (NEGATIVE); NITRITE, URINE POSITIVE (NEGATIVE); PROTEIN,URINE 2+ mg/dl (NEGATIVE); UGLUCOSE NEGATIVE (NEGATIVE); UROBILINOGEN,URINE 0.2 EU/dL (0.2)
[2017-12-18 17:38] LABS: BACTERIA,URINE Many /HPF (None Seen); RBC,URINE 21-50 /HPF (0-2); WBC,URINE 21-50 /HPF (0-3)
[2017-12-18 17:39] LABS: SQUAMOUS EPITHELIAL CELL,UR Moderate /HPF (None Seen); URINE AMORPHOUS URATE Moderate /HPF (None Seen)
--- NOTE | 2017-12-18 19:38 | NUR ---
PATIENT RECEIVED ON [facility] VENT WITH SETTINGS SET BY TOLERATED WELL. MECHANICAL VENTILATOR PLUGGED INTO RED OUTLET. VENT ALARMS CHECKED AND ARE AUDIBLE. CUFF PRESSURE CHECKED ROCK LATHER. SUCTIONED FOR MODERATE AMOUNT OF SECRETIONS. B/S AUDIBLE BILATERALLY. AMBU BAG AT HOB. Addendum: 12/18/17 at 1938 by LUCRETIA BETANCOURT RT Amended: Links added.
--- NOTE | 2017-12-18 20:27 | NUR ---
DESIGN PAINTER. INITIAL ASSESSMENT. RECEIVED THE PT REST ON THE BED. TRACH TO VENT CONNECTED. PT IS OBTUNDED. SHILEY#8,AC 20,TV 500,FIO2 60%. SAT 97%. CAP INSPECTOR SHOWING NSR. IV RT UPPER ARM PICC LINE LEVOPHED 2MCG/MIN,NPO. GT INTACT. HOB ELEVATED. WILL CONTINUE TO MONITOR VITALS.
--- NOTE | 2017-12-18 21:42 | NUR ---
STEAM SHOVEL OPERATING ENGINEER. BLOOD TRANSFUSION CONSENT TAKEN FROM MIGDALIA ROBERTSON.
--- NOTE | 2017-12-18 21:43 | NUR ---
1ST UNIT PRBC STARTED. WILL CONTINUE TO MONITOR.
[2017-12-19] VITALS (75 sets, daily range): BP systolic 107–141; BP diastolic 45–67
--- NOTE | 2017-12-19 02:24 | NUR ---
ROTOGRAVURE PRESS OPERATOR. REPORT GIVEN TO CORNELIUS LANCASTER.
--- NOTE | 2017-12-19 02:30 | NUR ---
MAIL TRUCK DRIVER NOTE RECEIVED REPORT FROM TRICIA LANCASTER FOR CONTINUITY OF CARE. WILL MONITOR.
[2017-12-19 05:03] LABS: EOSINOPHILS % (AUTO) 0.4 % (0.0-6.0); HEMATOCRIT 27 % (39-51); LYMPHOCYTES # (AUTO) 0.9 /CMM (0.8-4.8); LYMPHOCYTES % (AUTO) 4.6 % (20.0-44.0); MEAN CORPUSCULAR HGB CONC 34 g/dl (31.0-36.0); MEAN CORPUSCULAR VOLUME 86 fL (80-96); MONOCYTES % (AUTO) 5.1 % (2.0-12.0); NEUTROPHILS # (AUTO) 17.6 /CMM (1.8-8.9); NEUTROPHILS % (AUTO) 89.9 % (43.0-81.0); PLATELET COUNT (AUTO) 74 /CMM (150-450); RDW COEFFICIENT OF VARIATION 24.5 (11.5-15.0); RED BLOOD CELL COUNT(AUTO) 3.08 MIL/uL (4.5-6.0); WHITE BLOOD COUNT (AUTO) 19.6 K/uL (4.3-11.0)
[2017-12-19 05:11] LABS: BILIRUBIN,TOTAL 1.6 mg/dL (0.2-1.0); CALCIUM, SERUM 7.6 mg/dL (8.5-10.1); CREATININE 2.9 mg/dL (0.6-1.3); POTASSIUM 4.4 mmol/L (3.5-5.1); TOTAL PROTEIN, SERUM 6.7 g/dL (6.4-8.2)
[2017-12-19 05:26] LABS: INR 1.36 (0.87-1.13)
[2017-12-19 05:36] LABS: ALBUMIN 1.4 g/dL (3.4-5.0)
[2017-12-19 05:38] LABS: D-DIMER 13.04 mg/L(FEU (0.17-0.50)
--- NOTE | 2017-12-19 07:03 | NUR ---
SIGN LANGUAGE TEACHER CLOSING NOTE NO ACUTE DISTRESS NOTED. PT SUCTIONED NEEDED. REPOSITIONED. KEPT CLEAN AND DRY. VENT SETTINGS WELL TOLERATED AND SATURATING 98%. HOB ELEVATED AND GT CLAMPED, NPO. REMAINS OBTUNDED. WILL ENDORSE TO NEXT SHIFT FOR CONTINUITY OF CARE.
--- NOTE | 2017-12-19 08:01 | NUR ---
WOUND CARE CONSULT: PT PRESENTS WITH STAGE 3 ULCER TO SACRUM, BILATERAL GROIN EXCORIATION WITH EDEMA, RT UPPER ARM DRY ABRASION AND LEFT GREAT TOE DRY BLACK NECROTIC TISSUE, NO DRAINAGE, ALL PRESENT ON ADMISSION. CURRENT KAYLI SCORE IS 8. PT ON FIRST STEP MATTRESS. ALL SKIN PROTECTION MEASURES IN PLACE AND DISCUSSED WITH NURSING STAFF. WILL SEE PRN. MARTÍNEZ IN AGREEMENT WITH PLAN OF CARE. Addendum: 12/19/17 at 0803 by BRIANA CARTER WNDNU Amended: Links added.
[2017-12-19] MEDS: MEROPENEM 500 MG in IV NS 0.9% 50 ML IV SCH ×2 (08:43→21:16)
[2017-12-19] MEDS: HYDROGEL DRESSING 90 GM TUBE TP SCH (08:44)
[2017-12-19] MEDS ORDERED: AMIKACIN 500 MG in IV NS 0.9% 100 ML IV PRN (09:00)
[2017-12-19] MEDS: VANCOMYCIN 1 GM in IV NS 0.9% 250 ML IV PRN (13:01)
--- NOTE | 2017-12-19 18:42 | NUR ---
SENIOR GEOLOGIST NOTE 0720: Received patient in coma state, no PERRLA, no gag reflex, does not respond to deep pain. With trache to vent, no respiratory distress noted at this time. With GT clamped. With CORA PICC intact. On Levo @ 2mcg, SBP 130's, turned off and will monitor BP. 0930: S/E by Dr. Escobar, no new order at this time. 1020: S/E by Dr. Mejia, no new order at this time. 1230: Tolerated HD, HD nurse reported 1L output. VSS stable. S/E by Dr. Chance, no new order at this time. 1400: Family at bedside, answered all questions and concerns. 1830: No any significant changes. Kept clean, warm and dry. Needs anticipated. VSS remained stable at this time.
--- NOTE | 2017-12-19 19:46 | NUR ---
QUALITY CONTROL OPERATOR. INITIAL ASSESSMENT. RECEIVED THE PT REST ON THE BED. TRACH TO VENT CONNECTED SHILEY #8,AC 20,TV 500, FIO2 40%,SAT 97%. NO ACUTE DISTRESS NOTED.ITOR SHOWING NSR. IV RT UPPERARM PICC LINE TKO RUNNING. GT INTACT. CLAMPED. NPO. HOB ELEVATED. LT FEMORAL HD CATH. WILL CONTINUE TO MONITOR VITALS.
--- NOTE | 2017-12-19 22:00 | NUR ---
LEAD MECHANICAL ENGINEER. INITIAL ASSESSMENT. RECEIVED THE PT REST ON THE BED. TRACH TO VENT CONNECTED SHILEY #8,AC 20,TV 500, FIO2 40%,SAT 97%. NO ACUTE DISTRESS NOTED, MONITOR SHOWING NSR. IV RT UPPERARM PICC LINE TKO RUNNING. GT INTACT. CLAMPED. NPO. HOB ELEVATED. LT FEMORAL HD CATH. WILL CONTINUE TO MONITOR DAMON
[2017-12-20] VITALS (34 sets, daily range): BP systolic 105–132; BP diastolic 49–66
[2017-12-20] MEDS ORDERED: LEVOFLOXACIN 250 MG /D5W 50 ML 50 ML IV SCH
--- NOTE | 2017-12-20 00:27 | NUR ---
CONTROL OFFICER GRISELDA LANCASTER.
--- NOTE | 2017-12-20 06:47 | NUR ---
GOLF COURSE LABORER. CLOSING ASSESSMENT. PT OBTUDED, ON THE BED. TRACH TO VENT CONNECTED SHILEY #8,AC 20,TV 500, FIO2 40%,SAT 97%. NO ACUTE DISTRESS NOTED, MONITOR SHOWING NSR. IV RT UPPER ARM PICC LINE TKO RUNNING. GT INTACT. CLAMPED. NPO. HOB ELEVATED. LT FEMORAL HD CATH. WILL CONTINUE TO MONITOR VS.
[2017-12-20] MEDS: MEROPENEM 500 MG in IV NS 0.9% 50 ML IV SCH ×2 (10:44→21:06)
[2017-12-20] MEDS: HYDROGEL DRESSING 90 GM TUBE TP PRN (10:44)
[2017-12-20] MEDS: HYDROGEL DRESSING 90 GM TUBE TP SCH (10:45)
--- NOTE | 2017-12-20 18:40 | NUR ---
RT END OF THE SHIFT REPORT, PT. 57 Y OLD MALE REMAIN TRACHED SHILEY # 8 AND SECURED. ON THE VENT WITH NOTED SETTINGS. PT. REMAIN STABLE. VENT ALARMS ARE SET AND AUDIBLE WITH AMBU BAG AT THE BEDSIDE. WHISKEY PROOF READER CUFF PRESSURE NOTED. VENT IS PLUGGED INTO RED OUTLET. HME CHANGED. B/S BILATERALLY RHONCHI EQUAL CHEST RISE NOTED. SX MODERATE THICK BROWN/YELLOW SECRETIONS. NO RESPIRATORY DISTRESS NOTED T/O SHIFT, WILL CONTINUE TO MONITOR. REPORT WILL PASS TO PM SHIFT. Addendum: 12/20/17 at 1841 by CLAUDY SANDS RT Amended: Links added.
--- NOTE | 2017-12-20 20:47 | NUR ---
RN NOTES RECEIVED PATIENT IN BED WITH NO DISTRESS NOTED. OBTUNDED. NO PHYSICAL MANIFESTATION OF PAIN OR DISCOMFORT. VITAL SIGNS WNL. KEPT CLEAN AND DRY. WILL CONTINUE TO MONITOR.
[2017-12-21] VITALS (14 sets, daily range): BP systolic 90–132; BP diastolic 39–65
--- NOTE | 2017-12-21 05:24 | NUR ---
FOOT CUTTER NOTE GAVE REPORT TO ANISHA VALDEZ. NO SIGNIFICANT CHANGE OF CONDITION. VITAL SIGNS WNL. NO PHYSICAL MANIFESTATION OF PAIN OR DISCOMFORT. CONTINUE TO MONITOR.
[2017-12-21 05:50] LABS: BASOPHILS % (AUTO) 0.2 % (0.0-2.0); EOSINOPHILS % (AUTO) 1.9 % (0.0-6.0); HEMATOCRIT 26 % (39-51); HEMOGLOBIN 8.8 g/dL (13.5-17.5); LYMPHOCYTES # (AUTO) 0.8 /CMM (0.8-4.8); LYMPHOCYTES % (AUTO) 5.3 % (20.0-44.0); MEAN CORPUSCULAR HGB CONC 34 g/dl (31.0-36.0); MEAN CORPUSCULAR VOLUME 87 fL (80-96); MONOCYTES # (AUTO) 0.8 /CMM (0.1-1.30); MONOCYTES % (AUTO) 5.5 % (2.0-12.0); NEUTROPHILS # (AUTO) 12.3 /CMM (1.8-8.9); NEUTROPHILS % (AUTO) 87.1 % (43.0-81.0); PLATELET COUNT (AUTO) 66 /CMM (150-450); RDW COEFFICIENT OF VARIATION 22.6 (11.5-15.0); RED BLOOD CELL COUNT(AUTO) 2.92 MIL/uL (4.5-6.0); WHITE BLOOD COUNT (AUTO) 14.2 K/uL (4.3-11.0)
--- NOTE | 2017-12-21 06:06 | NUR ---
LACE FINISHER NOTES RECEIVED PTS AND REPORT FROM JOSE , ON TELE SR ON THE MONITOR , V/S STABLE AFEBRILE , ALL NEEDS ATTENDED TOO CALL LIGHT WITHIN REACH , PTS REMAINS ON AC SETTINGS WELL TOLERATED, HOB ELEVATED FOR ASPIRATION PRECAUTION , BED IN LOW AND LOCKED, SAFETY PRECAUTION IN PLACE AT ALL TIMES , PRECAUTIONARY MEASURES OBSERVED AT ALL TIMES, WILL CONTINUE,TO MONITOR PTS ,AND WILL ENDORSE TO RN DAY SHIFT FOR CONTINUITY OF CARE.
[2017-12-21 06:11] LABS: CALCIUM, SERUM 7.2 mg/dL (8.5-10.1); CREATININE 3.2 mg/dL (0.6-1.3); MAGNESIUM 1.9 mg/dL (1.8-2.4); PHOSPHORUS 5.3 mg/dL (2.5-4.9); POTASSIUM 4.1 mmol/L (3.5-5.1)
[2017-12-21] MEDS: MEROPENEM 500 MG in IV NS 0.9% 50 ML IV SCH (09:46)
[2017-12-21] MEDS: HYDROGEL DRESSING 90 GM TUBE TP SCH (09:49)
[2017-12-21 10:59] LABS: BAND % (MANUAL) 3 % (0.0-5.0); EOSINOPHILS % (MANUAL) 2 % (0-4); LYMPHOCYTES % (MANUAL) 9 % (16-48); MONOCYTES % (MANUAL) 6 % (0-11.0); NEUTROPHILS % (MANUAL) 80 (42-76)
[2017-12-21] MEDS ORDERED: ALBUMIN 25% 25 GM in PREMIX 1 EA IV PRN (11:30)
[2017-12-21] MEDS ORDERED: DOSE PER PHARMACY (MD SPECIFY MEDICATION) 1 EA XX PRN (13:30)
[2017-12-21] MEDS: IV D5W 1,000 ML IV PRN (14:51)
--- NOTE | 2017-12-21 16:19 | NUR ---
RT NOTE PATIENT RECEIVED TRACHED ON MECHANICAL VENTILATION. AMBU BAG @ HOB. VENT PLUGGED INTO RED OUTLET. SX DONE, SMALL THICK WHITE YELLOW SECRETIONS NOTED. TX GIVEN W/ CPT, NO ADVERSE REACTIONS NOTED. ALARMS ON AND AUDIBLE. NO SOB NOTED. PATIENT STABLE ON CURRENT SETTINGS. Addendum: 12/21/17 at 1619 by SONYA SANDERS RT Amended: Links added.
--- NOTE | 2017-12-21 19:03 | NUR ---
RN NOTE PT REMAINED STABLE, NO SIGNIFICANT CHANGE, UNRESPONSIVE, PT KEPT NPO, G TUBE CLAMPED, HAD HD DONE, TOLERATED WELL, ALBUMIN GIVEN WITH HD, AMIKACIN HELD DUE TO TROUGH BEING HIGH, PT BLOOD GLUCOSE WAS 64, MANAGER OF MERCHANDISING DENISE NOTIFIED, IVF D5W STARTED AT 50ML/HR. SAFETY AND COMFORT ENSURED, WILL ENDORSE TO SUPERVISOR BILLPOSTING NURSE.
[2017-12-22] VITALS: BP 108/52
--- NOTE | 2017-12-22 03:53 | NUR ---
PT SANTOSH'D ON MECHANICAL VENT. SX DONE T/O SHIFT. PT SANTOSH PATENT AND SECURE. AMBUBAG AT BEDSIDE. VENT PLUGGED INTO RED OUTLET. ALARMS ARE ON AND AUDIBLE. Addendum: 12/22/17 at 0354 by GILMER MURILLO RT Amended: Links added.
[2017-12-22 04:00] VITALS: BP 128/54
--- NOTE | 2017-12-22 07:30 | NUR ---
MEDICAL CONSULTANT INITIAL NOTES RECEIVED PATIENT IN BED, OBTUNDED, ON TELE MONITOR SR, NO SIGNS OF DISTRESS, DIAPER ANURIC, HD PATIENT L FEMORAL HD CATHETER, IV CORA PICC LINE, CLEAN AND PATENT. G-TUBE PATENT NO RESIDUAL, CLAMPED, HOB ELEVATED. BED IN LOW AND LOCKED POSITION, WILL CONTINUE TO MONITOR.
[2017-12-22 07:33] LABS: CALCIUM, SERUM 7.2 mg/dL (8.5-10.1); CREATININE 2.4 mg/dL (0.6-1.3); POTASSIUM 3.8 mmol/L (3.5-5.1)
[2017-12-22 08:00] VITALS: BP 103/50
[2017-12-22] MEDS: HYDROGEL DRESSING 90 GM TUBE TP SCH (08:35)
[2017-12-22] MEDS: HYDROGEL DRESSING 90 GM TUBE TP PRN (08:35)
[2017-12-22] MEDS: IV D5W 1,000 ML IV PRN (11:59)
[2017-12-22 12:00] VITALS: BP 95/52
[2017-12-22 16:00] VITALS: BP_SYST 103; BP_SYST 95; BP_DIAS 49; BP_DIAS 52
[2017-12-22] MEDS ORDERED: FLUCONAZOLE IN NS,PREMIX 100 MG in PREMIX 1 EA IV SCH ×2 (17:00)
--- NOTE | 2017-12-22 19:01 | NUR ---
RADIO MECHANIC HELPER NOTES PATIENT RESTING IN BED, ALL NEEDS ATTENDED TO, WILL ENDORSE TO CUSTOMER SOLUTIONS COORDINATOR FOR CONTINUITY OF CARE.
[2017-12-22 20:00] VITALS: BP 108/56
[2017-12-23] VITALS: BP 104/50
[2017-12-23 04:00] VITALS: BP 122/56
[2017-12-23 06:36] LABS: CALCIUM, SERUM 6.7 mg/dL (8.5-10.1); CREATININE 2.7 mg/dL (0.6-1.3); POTASSIUM 3.8 mmol/L (3.5-5.1)
[2017-12-23 08:00] VITALS: BP 112/53
[2017-12-23] MEDS: HYDROGEL DRESSING 90 GM TUBE TP SCH (09:07)
[2017-12-23 12:00] VITALS: BP 138/58
--- NOTE | 2017-12-23 12:20 | NUR ---
RN NOTE Patient report given to subacute unit RN. Yepez . Patient unable to make needs known. Patient notified about the move. patient will be transferred to HD prior to being transferred to subacute respiratory team notified about the patient status.
[2017-12-23] MEDS ORDERED: PIPERACILLIN /TAZOBACTAM 2.25 G in IV NS 0.9% 50 ML IV SCH (18:00)
== END 2017-12-23 14:33 | DRG 870 ==
LOC: ICU 21:36 → TELE1 12-21 05:32
PROVIDERS: ADMIT Internal Medicine; ATTEND Internal Medicine
PROC: 5A1955Z Respiratory Ventilation, Greater than 96 Consecutive Hours (ICD-10-PCS; principal; 2017-12-17)
PROC: 5A1D70Z Performance of Urinary Filtration, Intermittent, Less than 6 Hours Per Day (ICD-10-PCS; 2017-12-18)
PROC: 30233N1 Transfusion of Nonautologous Red Blood Cells into Peripheral Vein, Percutaneous Approach (ICD-10-PCS; 2017-12-18)
PROC: 02HV33Z Insertion of Infusion Device into Superior Vena Cava, Percutaneous Approach (ICD-10-PCS; 2017-12-19)
DX: A41.9 Sepsis, unspecified organism (principal); I21.4 Non-ST elevation (NSTEMI) myocardial infarction; I46.9 Cardiac arrest, cause unspecified; J96.21 Acute and chronic respiratory failure with hypoxia; E43 Unspecified severe protein-calorie malnutrition; I96 Gangrene, not elsewhere classified; K72.00 Acute and subacute hepatic failure without coma; G93.1 Anoxic brain damage, not elsewhere classified; J18.9 Pneumonia, unspecified organism; J96.22 Acute and chronic respiratory failure with hypercapnia; R53.2 Functional quadriplegia; N18.6 End stage renal disease; R65.21 Severe sepsis with septic shock; N17.0 Acute kidney failure with tubular necrosis; B37.0 Candidal stomatitis; J90 Pleural effusion, not elsewhere classified; Z99.11 Dependence on respirator [ventilator] status; E87.2 Acidosis; N28.0 Ischemia and infarction of kidney; D62 Acute posthemorrhagic anemia; J81.1 Chronic pulmonary edema; Z79.4 Long term (current) use of insulin; D63.8 Anemia in other chronic diseases classified elsewhere; R13.10 Dysphagia, unspecified; N41.9 Inflammatory disease of prostate, unspecified; D69.6 Thrombocytopenia, unspecified; Z86.14 Personal history of Methicillin resistant Staphylococcus aureus infection; Z86.73 Personal history of transient ischemic attack (TIA), and cerebral infarction without residual deficits; Z87.01 Personal history of pneumonia (recurrent); Z99.2 Dependence on renal dialysis; Z93.1 Gastrostomy status; Z93.0 Tracheostomy status; I95.9 Hypotension, unspecified; I25.2 Old myocardial infarction; K74.60 Unspecified cirrhosis of liver; Y95 Nosocomial condition; Z22.322 Carrier or suspected carrier of Methicillin resistant Staphylococcus aureus; R91.8 Other nonspecific abnormal finding of lung field; M85.9 Disorder of bone density and structure, unspecified; Z51.5 Encounter for palliative care
CPT/HCPCS: 31720; 36415; 36600; 70450-TC; 71045-TC; 80048-TC; 80053-TC; 80061-TC; 80150; 80202-TC; 81000-TC; 82803-TC; 82962-TC; 83605-TC; 83735-TC; 84100-TC; 84443-TC; 84484-TC; 85025-TC; 85396; 86850-TC; 86921-TC; 87040-TC; 87070-TC; 87081-TC; 87086-TC; 87186-TC; 90935-TC; 94003-TC; 94640-TC; 94760-TC; 94762-TC; 99082-TC; A4216; A4606; A4623; A6248; A6402; J0278; J1450; J1956; J2185; J2543; J3370; J7030; J7050; J7060; J7070; P9016-BL; P9047; Z7610

== ENCOUNTER 2017-12-23 18:14 | Inpatient (IN) | payer MEDICAID ==
[2017-12-23] VITALS (9 sets, daily range): BP systolic 62–129; BP diastolic 37–58
[~2017-12-23] VITALS: Ht 175.3 cm; Wt 74.4 kg
[~2017-12-23 18:14] MED LIST changes: -PANT40SU2 GT
--- NOTE | 2017-12-23 18:15 | NUR ---
ENRIQUE MOORE FROM DIALYSIS CENTER HYPOTENSIVE AND LOW O2 SAT. RECENTLY DISCHARGED FROM HOSPITAL. ON VENT TRACH, OBTUNEDED, SBP IN 60'S. O2 SATURATION 98% ON 60% O2 VIA VENT UPON ARRIVAL. PICC LINE PRESENT ON RIGHT UPPER ARM. SAFETY AND COMFORT MEASURES IN PLACE. MD AT BEDSIDE FOR EVAL.
--- NOTE | 2017-12-23 18:25 | NUR ---
BLOOD DRAWN FROM PICC LINE AND SENT TO LAB.
[2017-12-23 18:42] LABS: BASOPHILS % (AUTO) 0.2 % (0.0-2.0); EOSINOPHILS % (AUTO) 1.6 % (0.0-6.0); HEMATOCRIT 25 % (39-51); HEMOGLOBIN 8.5 g/dL (13.5-17.5); LYMPHOCYTES # (AUTO) 0.9 /CMM (0.8-4.8); LYMPHOCYTES % (AUTO) 7.2 % (20.0-44.0); MEAN CORPUSCULAR HGB CONC 34 g/dl (31.0-36.0); MEAN CORPUSCULAR VOLUME 88 fL (80-96); MONOCYTES # (AUTO) 0.5 /CMM (0.1-1.30); MONOCYTES % (AUTO) 3.8 % (2.0-12.0); NEUTROPHILS % (AUTO) 87.2 % (43.0-81.0); PLATELET COUNT (AUTO) 74 /CMM (150-450); RDW COEFFICIENT OF VARIATION 22.2 (11.5-15.0); RED BLOOD CELL COUNT(AUTO) 2.83 MIL/uL (4.5-6.0); WHITE BLOOD COUNT (AUTO) 12.6 K/uL (4.3-11.0)
--- NOTE | 2017-12-23 18:45 | NUR ---
PT REC'D TRACHED VIA [facility] VENT. PT REC'D ON AC 20 500 70% +0, ABG TAKEN AND VENT CHANGES PER DR PARRISH REQUEST. PT SETTINGS NOW ON AC 16 500 60% +0. NO RESP DISTRESS NOTED. VENT PLUGGED INTO RED OUTLET. ALARMS ARE SET AND AUDIBLE. AMBU BAG BEDSIDE, WILL CONTINUE TO MONITOR Addendum: 12/23/17 at 1950 by HARRY HOLLEY RT Amended: Links added.
[2017-12-23 18:53] LABS: CALCIUM, SERUM 7.2 mg/dL (8.5-10.1); CARBON DIOXIDE 24 mmol/L (21-32); CHLORIDE 103 mmol/L (98-107); CREATININE 2.2 mg/dL (0.6-1.3); GLUCOSE 111 mg/dL (74-106); POTASSIUM 3.7 mmol/L (3.5-5.1); SODIUM SERUM 135 mmol/L (136-145); UREA NITROGEN, BLOOD 42 mg/dL (7-18)
[2017-12-23 18:56] LABS: INR 1.49 (0.85-1.15)
[2017-12-23 18:58] LABS: ALANINE AMINOTRANSFERASE 25 U/L (12-78); ALKALINE PHOSPHATASE 120 U/L (46-116); ASPARTATE AMINOTRANSFERASE 89 U/L (15-37); BILIRUBIN,TOTAL 1.9 mg/dL (0.2-1.0); TOTAL PROTEIN, SERUM 5.8 g/dL (6.4-8.2)
[2017-12-23 19:00] LABS: ABG BASE EXCESS -0.9 mmol/L; ABG OXYGEN SATURATION 97.8 % (92.0-98.5); ABG PH 7.517 (7.350-7.450); ABG PO2 121.5 mmHg (75.0-100.0); AaDO2 348.6 mmHg; COHb 0.9 % (0.5-1.5); MetHb 0.5 % (0.0-1.5); O2Hb 96.4 % (94.0-97.0); SITE, ABG Left Brachial; VENT MODE, BG AC 20 500 70% +0
[2017-12-23 19:00] LABS: TROPONIN I 0.034 ng/mL (0.00-0.056)
[2017-12-23 19:01] LABS: PARTIAL THROMBOPLASTIN TIME > 170 SEC (23-34)
[2017-12-23 19:03] LABS: ALBUMIN 1.4 g/dL (3.4-5.0)
[2017-12-23] MEDS: NOREPINEPHRINE 8 MG in IV D5W 500 ML IV PRN (19:08)
[2017-12-23 19:10] LABS: MAGNESIUM 1.8 mg/dL (1.8-2.4); PHOSPHORUS 4.2 mg/dL (2.5-4.9)
--- NOTE | 2017-12-23 19:16 | NUR ---
REPORT GIVEN TO ANDREI LANCASTER FOR SHERIF.
--- NOTE | 2017-12-23 19:31 | NUR ---
PT PLACED ON EDIN BERGERON PER . WILL CONTINUE TO MONITOR PT.
--- NOTE | 2017-12-23 19:55 | NUR ---
CALLED [employer], QUALITY LAB TECHNICIAN WAS PAGED.
[2017-12-23] MEDS ORDERED: VANCOMYCIN 1 GM in IV D5W 250 ML IV ONE (20:00)
[2017-12-23] MEDS ORDERED: MEROPENEM 500 MG in IV NS 0.9% 50 ML IV ONE (20:00)
[2017-12-23] MEDS ORDERED: HYDROCODONE/APAP 5/325MG 1 EACH TABLET GT PRN (21:00)
[2017-12-23] MEDS ORDERED: DOSING PER PHARMACY-AMIKACI IV XX PRN (21:00)
[2017-12-23] MEDS ORDERED: GUAIFENESIN 300 MG/15 ML UDC GT PRN (21:00)
[2017-12-23] MEDS ORDERED: ACETAMINOPHEN 650 MG/20.3 ML UDC GT PRN (21:00)
[2017-12-23] MEDS ORDERED: DEXTROSE 50%-WATER 50 ML DISP.SYRIN IV PRN ×2 (21:00→21:30)
[2017-12-23] MEDS ORDERED: ONDANSETRON HCL/PF 4 MG/2 ML VIAL IVP PRN (21:00)
[2017-12-23] MEDS ORDERED: MAGNESIUM HYDROXIDE 30 ML UDC GT PRN (21:00)
[2017-12-23] MEDS ORDERED: LORAZEPAM 1 MG TABLET GT PRN (21:00)
[2017-12-23] MEDS ORDERED: Z GUARD REMEDY 2 OZ OINT TP PRN (21:00)
[2017-12-23] MEDS ORDERED: MAG HYDROX/AL HYDROX/SIMETH 30 ML UDC GT PRN (21:00)
[2017-12-23] MEDS ORDERED: MEROPENEM 500 MG VIAL IV ONE (21:01)
[2017-12-23] MEDS ORDERED: VANCOMYCIN 1 GM VIAL ONE (21:03)
[2017-12-23] MEDS ORDERED: ALBUTEROL FS 2.5 MG/0.5 ML VIAL.NEB NEB PRN (21:30)
[2017-12-23] MEDS ORDERED: ALBUTEROL HALF STRENGTH 1.25 MG/3 ML VIAL.NEB NEB PRN (21:30)
--- NOTE | 2017-12-23 21:35 | NUR ---
TRIED TO GET URINE SAMPLE FROM PT BY COOPER CATH. UNABLE TO GET URINE. PT ANURIC. MADE AWARE.
--- NOTE | 2017-12-23 21:50 | NUR ---
REPORT GIVEN TO MANAGER PARTYANISHA DOOLEY FOR SHERIF.
[2017-12-23] MEDS ORDERED: VANCOMYCIN 1.25 GM in IV NS 0.9% 250 ML IV ONE (22:00)
[2017-12-23] MEDS ORDERED: PIPERACILLIN /TAZOBACTAM 3.375 G VIAL IV ONE (23:10)
[2017-12-23] MEDS ORDERED: MUPIROCIN OINT 2% 22 GM TUBE ONE (23:27)
[2017-12-23] MEDS ORDERED: AMIKACIN 250 MG/ML VIAL ONE (23:27)
[2017-12-23] MEDS: MUPIROCIN OINT 2% 22 GM TUBE SCH (23:29)
[2017-12-23] MEDS ORDERED: FLUCONAZOLE IN NS 100 MG in PREMIX 1 EA IV SCH ×2 (23:30)
[2017-12-23] MEDS ORDERED: IV NS 0.9% 250 ML IV PRN (23:30)
[2017-12-23] MEDS: PIPERACILLIN /TAZOBACTAM 3.375 G in IV NS 0.9% 50 ML IV SCH (23:30)
--- NOTE | 2017-12-23 23:30 | NUR ---
SEISMOGRAPH CHIEF - ADMISSION NOTES - PT ADMITTED FROM ER FOR LOW BP, AND LOW O2SAT, PT DIAGNOSIS RESPIRATORY FAILURE AND SEPTIC SHOCK. PT CAME FROM ER ON LEVOPHED 2 MCG. PT HAS TRACH TO VENT, FI02 60%. PT HAS CORA PICC LINE. PT IS OBTUNDED, DOES NOT RESPOND TO PAINFUL STIMULI, PUPILS ARE 3 AND NON REACTIVE. PT IS IN SINUS RHYTHM HR 90S, BP WNL WITH LEVO. PT HAS PEG TUBE CLAMPED. PT IS DIALYSIS AND WAS IN DIALYSIS WHEN PT DESATTED AND BP DROPPED. PT HAS SKIN ISSUES NOTED. WILL CONTINUE TO MONITOR
[2017-12-23] MEDS: BLOOD SUGAR DIAGNOSTIC 1 EACH STRIP IN SCH (23:41)
[2017-12-24] VITALS (94 sets, daily range): BP systolic 58–138; BP diastolic 24–58
[2017-12-24] MEDS ORDERED: AMIKACIN 500 MG in IV NS 0.9% 100 ML IV ONE (01:00)
[2017-12-24] MEDS ORDERED: FLUCONAZOLE IN NS 100 ML IV ONE (01:09)
[2017-12-24] MEDS: ALBUTEROL FS 2.5 MG/0.5 ML VIAL.NEB IH SCH ×4 (01:55→20:00)
[2017-12-24] MEDS: IPRATROPIUM NEB FS 0.5 MG/2.5 ML AMPUL.NEB IH SCH ×4 (01:55→20:00)
[2017-12-24 04:48] LABS: EOSINOPHILS % (AUTO) 1.1 % (0.0-6.0); HEMATOCRIT 24 % (39-51); HEMOGLOBIN 7.9 g/dL (13.5-17.5); LYMPHOCYTES # (AUTO) 0.9 /CMM (0.8-4.8); LYMPHOCYTES % (AUTO) 8.9 % (20.0-44.0); MEAN CORPUSCULAR HGB CONC 33 g/dl (31.0-36.0); MEAN CORPUSCULAR VOLUME 90 fL (80-96); MONOCYTES # (AUTO) 0.6 /CMM (0.1-1.30); NEUTROPHILS # (AUTO) 8.5 /CMM (1.8-8.9); PLATELET COUNT (AUTO) 75 /CMM (150-450); RDW COEFFICIENT OF VARIATION 23.9 (11.5-15.0); RED BLOOD CELL COUNT(AUTO) 2.62 MIL/uL (4.5-6.0); WHITE BLOOD COUNT (AUTO) 10.1 K/uL (4.3-11.0)
[2017-12-24 05:04] LABS: INR 1.28 (0.87-1.13)
[2017-12-24 05:17] LABS: THYROID STIMULATING HORMONE 0.456 uIU/mL (0.358-3.74)
[2017-12-24 05:24] LABS: BILIRUBIN,TOTAL 1.9 mg/dL (0.2-1.0); CREATININE 2.5 mg/dL (0.6-1.3); MAGNESIUM 1.5 mg/dL (1.8-2.4); PHOSPHORUS 5.3 mg/dL (2.5-4.9); POTASSIUM 4.1 mmol/L (3.5-5.1); TOTAL PROTEIN, SERUM 5.9 g/dL (6.4-8.2)
[2017-12-24] MEDS: BLOOD SUGAR DIAGNOSTIC 1 EACH STRIP IN SCH ×4 (05:43→23:13)
[2017-12-24 05:45] LABS: ALBUMIN 1.4 g/dL (3.4-5.0)
[2017-12-24] MEDS ORDERED: PIPERACILLIN /TAZOBACTAM 3.375 G VIAL IV ONE (05:45)
[2017-12-24] MEDS: PIPERACILLIN /TAZOBACTAM 3.375 G in IV NS 0.9% 50 ML IV SCH (05:48)
--- NOTE | 2017-12-24 07:19 | NUR ---
PT RECEIVED ON VENT SUPPORT VIA TRACH SIZE #8 SHILEY WITH PARAMETERS BELLOW ORDER: AC 16 VT 500 FIO2 60% NO PEEP B/S COARSE RHONCHI BILATERAL, SXN LARGE AMNT PALE YELLOW SEMI THICK SECRETIONS. VENT IS PLUGGED INTO RED OUTLET WITH ALARMS ON AND FUNCTIONING. RAJANU BAG @ BEDSIDE. Addendum: 12/24/17 at 1042 by FARHAD HERNANDEZ RT Amended: Links added.
--- NOTE | 2017-12-24 08:00 | NUR ---
ICU/RN: INITIAL NOTES,AM RECEIVED REPORT FROM NIGHT NURSE. PT OBTUNDED IN BED, DOES NOT FOLLOW COMMANDS. PT ON VENT VIA TACH WITH ORDERS PRESCRIBED BY MD. NO ACUTE DISTRESS NOTED AT THIS TIME. PT SINUS ON TELE. GUTBE IN PLACE, NPO AT THIS TIME. PT ANURIC. RIGHT UPPER ARM PICC PATENT AND INTACT. NO S/S OF INFECTION OR INFILTRATION NOTED. ALL NEEDS WILL BE ATTENDED TO SAFETY MEASURES TAKEN, BED IN LOW POSITION, SIDE RAILS UP, CALL LIGHT WITHIN REACH. WILL CONTINUE CARE.
[2017-12-24] MEDS ORDERED: AMIKACIN 500 MG in IV NS 0.9% 100 ML IV PRN (08:30)
[2017-12-24] MEDS ORDERED: VANCOMYCIN 500 MG in IV D5W 100 ML IV PRN (08:30)
[2017-12-24] MEDS ORDERED: HYDROGEL DRESSING 90 GM TUBE TP PRN (08:30)
--- NOTE | 2017-12-24 08:35 | NUR ---
WOUND CARE CONSULT: PT PRESENTS WITH MULTIPLE SKIN ISSUES AND WOUNDS, PRESENT ON ADMISSION INCLUDING LEFT HIP INTACT DEEP TISSUE INJURY, BACK ABRASION (DRY), SACRAL STAGE 3 ULCER, PERINEAL AND PENIS EXCORIATED AREAS AND DRY GANGRENE TO LEFT GREAT TOE. PT NOTED TO HAVE 4+ PITTING EDEMA WHICH IS GENERALIZED. SUTURE NOTED TO RT GROIN AREA. PT IS IMMOBILE AND INCONTINENT, ON VENTILATOR. ALL SKIN PROTECTION AND WOUND CARE RECOMMENDATIONS DISCUSSED WITH NURSING STAFF. WILL SEE PRN. PT ON FIRST STEP KARYN. IN AGREEMENT WITH PLAN OF CARE. Addendum: 12/24/17 at 0837 by BRIANA CARTER WNDNU Amended: Links added.
[2017-12-24] MEDS ORDERED: [UNRECOGNIZED DRUG - OTHER] TP SCH (09:00)
[2017-12-24] MEDS ORDERED: ZINC OXIDE TP SCH (09:00)
[2017-12-24] MEDS ORDERED: [UNRECOGNIZED DRUG - OTHER] TP SCH (09:00)
[2017-12-24] MEDS ORDERED: PETROLATUM WHITE TP SCH (09:00)
[2017-12-24] MEDS ORDERED: NEPRO 1,000 ML BOTTLE GT PRN (09:30)
[2017-12-24] MEDS: DOCUSATE SODIUM LIQ 100 MG/10 ML UDC GT SCH (09:36)
[2017-12-24] MEDS: FERROUS SULFATE UDC 300 MG/5 ML UDC GT SCH ×2 (09:36→17:52)
[2017-12-24] MEDS: LACTOBACILLUS RHAMNOSUS GG 1 EACH CAP.SPRINK GT SCH ×2 (09:37→17:52)
[2017-12-24] MEDS: PANTOPRAZOLE 40 MG VIAL IV SCH ×2 (09:37→17:52)
[2017-12-24] MEDS: ASCORBIC ACID 500 MG TABLET GT SCH (09:37)
[2017-12-24] MEDS: LEVOFLOXACIN (500MG) 500 MG TABLET GT SCH (09:37)
[2017-12-24] MEDS: HYDROGEL DRESSING 90 GM TUBE TP SCH (09:39)
[2017-12-24] MEDS: MUPIROCIN OINT 2% 22 GM TUBE SCH ×2 (09:40→21:15)
[2017-12-24] MEDS: PROSOURCE / PROSTAT (PYXIS) 30 ML UDC GT SCH ×3 (09:44→17:52)
[2017-12-24] MEDS: VIT B CMPLX 3/FA/VIT C/BIOTIN 1 TAB TABLET GT SCH (09:44)
[2017-12-24] MEDS ORDERED: diphenhydrAMINE HCL ELIX 25 MG/10 ML UDC GT PRN (10:00)
[2017-12-24] MEDS ORDERED: LACTULOSE 10 G/15 ML UDC (PYXIS) GT PRN (10:00)
[2017-12-24] MEDS ORDERED: HYDROMORPHONE HCL 2 MG TABLET GT PRN (10:00)
--- NOTE | 2017-12-24 10:08 | NUR ---
front worker spoke to the resident's responsible green party Lavon ([phone]) who stated that the family is still wishing for the resident to be full code status with maximum treatment. SW informed charge nurse Erin.
[2017-12-24] MEDS: ACETYLCYSTEINE 10% SOLN 400 MG/4 ML VIAL NEB SCH ×3 (11:00→23:17)
--- NOTE | 2017-12-24 11:08 | NUR ---
LUIS spoke with the resident's [id number] Lia ([phone]). She states that the family wishes for the resident to remain full code and that the decision is up to the resident's three children and . She notes that the was unable to attend the meeting on Friday in which Dr. Julian Chance discussed the resident's brain damage and quality of life. She notes that having the be present for another meeting can be beneficial. She also states that the family is trying to get the resident's sister to come from [place] and LUIS will provide the letter to Lia when she comes to the hospital. She stated that the resident's does not fully understand what is going on with the patient and that having her attend the meeting might give her a different perspective. Dr. Millan is able to meet with the family tomorrow 12/25/2017 between 10-11AM. Son Lavon also notified and stated that he will try to take off work.
--- NOTE | 2017-12-24 11:30 | NUR ---
ICU/RN: DURING HD BP DROPPED TO 58/24. PER MD ORDERS LEVOPHED STARTED FOR BP SUPPORT. WILL CONTINUE TO MONITOR.
[2017-12-24] MEDS: NOREPINEPHRINE 8 MG in IV D5W 500 ML IV PRN ×2 (11:53→19:16)
[2017-12-24] MEDS: PIPERACILLIN /TAZOBACTAM 2.25 G in IV D5W 50 ML IV SCH ×3 (12:00→23:19)
[2017-12-24] MEDS ORDERED: CASPOFUNGIN 50 MG in IV NS 0.9% 250 ML IV SCH (12:00)
--- NOTE | 2017-12-24 13:00 | NUR ---
ICU/RN: HEMODIALYSIS DONE, NOTHING OUT. ON LOW DOSE LEVO FOR BP SUPPORT. WILL CONTINUE TO MONITOR AND ASSESS
[2017-12-24] MEDS ORDERED: FEE PK DOSING 1 MIN EA MC ONE ×2 (14:30)
[2017-12-24] MEDS ORDERED: EPOETIN ALFA (10,000 UNIT) 10,000 UNIT/ML VIAL SQ ONE (15:00)
[2017-12-24] MEDS: MICAFUNGIN SODIUM 100 MG in IV NS 0.9% 100 ML IV SCH (15:54)
--- NOTE | 2017-12-24 16:46 | NUR ---
ICU/RN: CRITICAL RESULT REPORTED FOR AMIKACIN. POST HD WILL BE HELD PER PHARMACY.
--- NOTE | 2017-12-24 17:45 | NUR ---
ICU/RN: LEVO OFF, BP STABLE, WILL CONTINUE TO MONITOR AND ASSESS
--- NOTE | 2017-12-24 18:58 | NUR ---
ICU/RN ENDING NOTES,AM REPORT WILL BE ENDORSED TO NIGHT NURSE FOR CONTINUATION OF CARE. ALL NEEDS ATTENDED TO. PT ON VENT SETTINGS ORDERED, NO DISTRESS. WAITING FOR LEVO FOR BP SUPPORT. PT TURNED AND REPOSITIONED, BED BATH GIVEN. WOUND CARE DONE. WILL CONTINUE CARE.
--- NOTE | 2017-12-24 18:58 | NUR ---
ICU/RN: CALLED PHARMACY FOR LEVO, BP DROPPED TO 76/45. AWAITING FOR LEVO TO ARRIVE.
--- NOTE | 2017-12-24 23:41 | NUR ---
OUTSIDE SALES ASSOCIATE DF PT ACCU CHECK OF 115, NO COVERAGE PER EMAR. PT ON LEVOPHED AT 4MCG. UNABLE TO TITRATE PT OFF LEVOPHED WHEN LEVOPHED 3MCG OR LESS SBP DECREASES BELOW 80.
[2017-12-25] VITALS (107 sets, daily range): BP systolic 76–154; BP diastolic 29–60
[2017-12-25] MEDS: IPRATROPIUM NEB FS 0.5 MG/2.5 ML AMPUL.NEB IH SCH ×4 (01:55→19:55)
[2017-12-25] MEDS: ALBUTEROL FS 2.5 MG/0.5 ML VIAL.NEB IH SCH ×4 (01:55→19:56)
[2017-12-25 04:51] LABS: BASOPHILS # (AUTO) 0.1 /CMM (0.0-0.2); BASOPHILS % (AUTO) 0.4 % (0.0-2.0); EOSINOPHILS % (AUTO) 4.6 % (0.0-6.0); HEMATOCRIT 22 % (39-51); HEMOGLOBIN 7.4 g/dL (13.5-17.5); LYMPHOCYTES # (AUTO) 1.6 /CMM (0.8-4.8); LYMPHOCYTES % (AUTO) 12.8 % (20.0-44.0); MEAN CORPUSCULAR HGB CONC 35 g/dl (31.0-36.0); MEAN CORPUSCULAR VOLUME 89 fL (80-96); MONOCYTES # (AUTO) 1.1 /CMM (0.1-1.30); MONOCYTES % (AUTO) 8.6 % (2.0-12.0); NEUTROPHILS # (AUTO) 9.4 /CMM (1.8-8.9); NEUTROPHILS % (AUTO) 73.6 % (43.0-81.0); PLATELET COUNT (AUTO) 71 /CMM (150-450); RDW COEFFICIENT OF VARIATION 24.1 (11.5-15.0); WHITE BLOOD COUNT (AUTO) 12.8 K/uL (4.3-11.0)
[2017-12-25 05:08] LABS: CALCIUM, SERUM 7.1 mg/dL (8.5-10.1); CREATININE 2.2 mg/dL (0.6-1.3); MAGNESIUM 1.7 mg/dL (1.8-2.4); PHOSPHORUS 5.1 mg/dL (2.5-4.9); POTASSIUM 3.5 mmol/L (3.5-5.1)
--- NOTE | 2017-12-25 06:34 | NUR ---
Received pt on mechanical vent. Pt trach is secure. Vent is plugged into a red outlet, alarms are set and audible, and BVM is at bedside. Addendum: 12/25/17 at 0634 by ISABELLA ELLIS RT Amended: Links added.
[2017-12-25] MEDS: BLOOD SUGAR DIAGNOSTIC 1 EACH STRIP IN SCH ×3 (06:36→17:59)
[2017-12-25] MEDS: PIPERACILLIN /TAZOBACTAM 2.25 G in IV D5W 50 ML IV SCH ×3 (06:36→17:59)
[2017-12-25 06:37] LABS: EOSINOPHILS % (MANUAL) 2 % (0-4); LYMPHOCYTES % (MANUAL) 11 % (16-48); MONOCYTES % (MANUAL) 10 % (0-11.0); NEUTROPHILS % (MANUAL) 77 (42-76)
[2017-12-25] MEDS: ACETYLCYSTEINE 10% SOLN 400 MG/4 ML VIAL NEB SCH ×3 (07:23→23:52)
--- NOTE | 2017-12-25 07:25 | NUR ---
Male narcisa pt received on mechanical vent. Pt narcisa is secure. Vent is plugged into a red outlet, alarms are set and audible, and BVM is at bedside. Addendum: 12/25/17 at 0728 by USAMA HERNANDEZ RT Amended: Links added.
--- NOTE | 2017-12-25 08:00 | NUR ---
ICU/RN: INITIAL NOTES,AM RECEIVED REPORT FROM NIGHT NURSE. PT OBTUNDED IN BED, DOES NOT FOLLOW COMMANDS. PT ON VENT VIA TACH WITH ORDERS PRESCRIBED BY MD. NO ACUTE DISTRESS NOTED AT THIS TIME. PT SINUS ON TELE. GUTBE IN PLACE, NPO AT THIS TIME. PT ANURIC. RIGHT UPPER ARM PICC PATENT AND INTACT. NO S/S OF INFECTION OR INFILTRATION NOTED. LOW DOSE LEVO FOR BP SUPPORT. ALL NEEDS WILL BE ATTENDED TO SAFETY MEASURES TAKEN, BED IN LOW POSITION, SIDE RAILS UP, CALL LIGHT WITHIN REACH. WILL CONTINUE CARE.
--- NOTE | 2017-12-25 08:10 | NUR ---
ICU/RN: 0800 TEMP 96.0. EDIN BERGERON APPLIED. WILL CONTINUE TO MONITOR AND ASSESS
[2017-12-25] MEDS: DOCUSATE SODIUM LIQ 100 MG/10 ML UDC GT SCH (09:00)
[2017-12-25 09:14] LABS: ABG BASE EXCESS 2.5 mmol/L; ABG OXYGEN SATURATION 89.9 % (92.0-98.5); ABG PCO2 34.5 mmHg (35.0-45.0); ABG PH 7.493 (7.350-7.450); ABG PO2 64.4 mmHg (75.0-100.0); AaDO2 253.3 mmHg; COHb 1.1 % (0.5-1.5); MetHb 0.9 % (0.0-1.5); O2Hb 88.1 % (94.0-97.0); PEEP,BG 0 cm H2O; SITE, ABG Right Radial; VT, ABG 500 mL
[2017-12-25] MEDS: PROSOURCE / PROSTAT (PYXIS) 30 ML UDC GT SCH ×3 (09:41→17:59)
[2017-12-25] MEDS: PANTOPRAZOLE 40 MG VIAL IV SCH ×2 (09:44→17:59)
[2017-12-25] MEDS: LEVOFLOXACIN (500MG) 500 MG TABLET GT SCH (09:44)
[2017-12-25] MEDS: LACTOBACILLUS RHAMNOSUS GG 1 EACH CAP.SPRINK GT SCH ×2 (09:44→17:59)
[2017-12-25] MEDS: FERROUS SULFATE UDC 300 MG/5 ML UDC GT SCH ×2 (09:44→17:59)
[2017-12-25] MEDS: HYDROGEL DRESSING 90 GM TUBE TP SCH (09:45)
[2017-12-25] MEDS: MUPIROCIN OINT 2% 22 GM TUBE SCH ×2 (09:45→20:30)
[2017-12-25] MEDS: VIT B CMPLX 3/FA/VIT C/BIOTIN 1 TAB TABLET GT SCH (09:45)
[2017-12-25] MEDS: ASCORBIC ACID 500 MG TABLET GT SCH (09:45)
--- NOTE | 2017-12-25 11:58 | NUR ---
Dr. Millan met with the family (SW and pt's nurse Quiñonez were also present). Dr. Millan took her time with the family in terms of explaining the patient's condition. She asked the pt's to identify how the pt was functioning before his hospitalization and asked her what her understanding of the pt's condition is. reported that the pt did not like going to the doctor and did not take any of his medications. She noted that he would probably be upset that he is on life support. Family acknowledged that it is a difficult decision to make especially since has been to him for [address]+ [address]. Millan discussed the current treatment plan for the patient. Family was asked how they would want to continue the care, and per 's input, she agreed with DNR code status with maximum treatment. The will be speaking to the family regarding the next step in regards to the patient's care. Nurse Quiñonez will have family sign order for DNR code status.
--- NOTE | 2017-12-25 12:00 | NUR ---
ICU/RN: FAMILY MEETING AT BEDSIDE ALONG WITH CUSTOM CAR BUILDER. OF PT, SON AND DAUGHTER IN LAW AT BEDSIDE. PT CONDITION AND PROGNOSIS DISCUSSED IN DETAIL. ALL QUESTIONS AND CONCERNS ADDRESSED AND ANSWERED. AT THE END OF DISCUSSION FAMILY AGREED TO MAKE PT DNR. ORDER WILL BE PLACED BY . PLEASE REFER TO CUSTOM CAR BUILDER NOTE FOR DETAIL.
[2017-12-25] MEDS: Magnesium 1GM/D5W 100ML PREMIX 100 ML IV SCH ×2 (13:32→15:29)
[2017-12-25] MEDS: MICAFUNGIN SODIUM 100 MG in IV NS 0.9% 100 ML IV SCH (13:34)
--- NOTE | 2017-12-25 18:29 | NUR ---
ICU/RN ENDING NOTES,AM REPORT WILL BE ENDORSED TO NIGHT NURSE FOR CONTINUATION OF CARE. ALL NEEDS ATTENDED TO. PT ON VENT SETTINGS ORDERED, NO DISTRESS. PT ON LEVO FOR BP SUPPORT. PT TURNED AND REPOSITIONED, BED BATH GIVEN. WOUND CARE DONE. FAMILY MEETING HELD TODAY. PT NOW DNR. WILL CONTINUE FULL AGGRESSIVE CARE.
[2017-12-25] MEDS: NOREPINEPHRINE 8 MG in IV D5W 500 ML IV PRN (18:34)
--- NOTE | 2017-12-25 19:30 | NUR ---
ALTERNATIVE EDUCATION TEACHER INITIAL NOTE RECEIVED PATIENT OBTUNDED. NO S/S OF PAIN OR DISCOMFORT. NO RESPIRATORY DISTRESS NOTED, VENT DEPENDENT. WITH VENT SETTINGS AC 16, TV 500, FIO2 50%, PEEP 0, SPO2 96%. TRACH C/D/I. ON TELE MONITOR SR. WITH GT PATENT AND INTACT, IN PLACE. PUPILS FIXED. WITH CORA PICC LINE PATENT AND INTACT WITH TKO AND LEVO RUNNING AT 6MCG/MIN. SKIN WARM AND DRY TO TOUCH. WITH LALI HUGGER IN PLACE. HOB ELEVATED. SIDE RAILS UP AND LOCKED. BED KEPT AT LOWEST POSITION. ISOLATION PRECAUTIONS OBSERVED. WILL CONTINUE TO MONITOR.
[2017-12-26] VITALS (94 sets, daily range): BP systolic 66–122; BP diastolic 30–47
[2017-12-26] MEDS: PIPERACILLIN /TAZOBACTAM 2.25 G in IV D5W 50 ML IV SCH ×4 (00:38→17:27)
[2017-12-26] MEDS: BLOOD SUGAR DIAGNOSTIC 1 EACH STRIP IN SCH ×4 (00:41→17:27)
[2017-12-26] MEDS: IPRATROPIUM NEB FS 0.5 MG/2.5 ML AMPUL.NEB IH SCH ×4 (01:52→20:05)
[2017-12-26] MEDS: ALBUTEROL FS 2.5 MG/0.5 ML VIAL.NEB IH SCH ×4 (04:00→20:05)
[2017-12-26 04:49] LABS: BASOPHILS % (AUTO) 0.1 % (0.0-2.0); EOSINOPHILS % (AUTO) 2.4 % (0.0-6.0); HEMATOCRIT 22 % (39-51); HEMOGLOBIN 7.8 g/dL (13.5-17.5); LYMPHOCYTES # (AUTO) 1.4 /CMM (0.8-4.8); LYMPHOCYTES % (AUTO) 8.1 % (20.0-44.0); MEAN CORPUSCULAR HGB CONC 35 g/dl (31.0-36.0); MEAN CORPUSCULAR VOLUME 89 fL (80-96); MONOCYTES # (AUTO) 1.3 /CMM (0.1-1.30); MONOCYTES % (AUTO) 7.3 % (2.0-12.0); NEUTROPHILS # (AUTO) 14.2 /CMM (1.8-8.9); NEUTROPHILS % (AUTO) 82.1 % (43.0-81.0); PLATELET COUNT (AUTO) 63 /CMM (150-450); RDW COEFFICIENT OF VARIATION 24.4 (11.5-15.0); RED BLOOD CELL COUNT(AUTO) 2.49 MIL/uL (4.5-6.0); WHITE BLOOD COUNT (AUTO) 17.3 K/uL (4.3-11.0)
[2017-12-26 05:14] LABS: CREATININE 2.7 mg/dL (0.6-1.3); MAGNESIUM 1.8 mg/dL (1.8-2.4); PHOSPHORUS 5.4 mg/dL (2.5-4.9); POTASSIUM 3.9 mmol/L (3.5-5.1)
--- NOTE | 2017-12-26 05:47 | NUR ---
RECONCILIATION CLERK NOTE RT AT BEDSIDE. PATIENT SPO2 99%. FIO2 TITRATED DOWN TO 40%. WILL CONTINUE TO MONITOR.
--- NOTE | 2017-12-26 06:01 | NUR ---
Received narcisa pt on mechanical vent. Pt narcisa is secure. Vent is plugged into a red outlet, alarms are set and audible, and BVM is at bedside. Addendum: 12/26/17 at 0601 by ISABELLA ELLIS RT Amended: Links added.
[2017-12-26] MEDS: INSULIN REGULAR, HUMAN 100 UNIT/ML 3 ML VIAL SQ PRN (06:25)
--- NOTE | 2017-12-26 07:00 | NUR ---
MECHANICAL PRODUCT DESIGN ENGINEER CLOSING NOTES NO RESPIRATORY DISTRESS NOTED. TOLERATING VENT SETTINGS. GT PATENT AND INTACT, IN PLACE. ALL DUE MEDS GIVEN. PATIENT STILL UNRESPONSIVE. WITH LEVO AT 5MCG/MIN. KEPT CLEAN AND DRY. ISOLATION PRECAUTIONS OBSERVED. HOB ELEVATED. TURNED AND REPOSITIONED Q2 AND PRN. WOUND TX PROVIDED. CONTINUITY OF CARE ENDORSED TO AM NURSE
[2017-12-26] MEDS: ACETYLCYSTEINE 10% SOLN 400 MG/4 ML VIAL NEB SCH ×2 (07:16→15:13)
--- NOTE | 2017-12-26 07:30 | NUR ---
BLACKJACK DEALER INITIAL NOTES RECEIVED PATIENT IN BED, OBTUNDED ON VENT SETTINGS ORDERED, SATURATING WELL, NO SIGNS OF DISTRESS, ON TELE MONITORING SR, CORA PICC LINE LEVO RUNNING AT 5MCG/MIN, PATIENT IN DIAPER ANURIC, HD ACCESS L FEMORAL HD CATHETER, WILL CONTINUE MONITOR, ISOLATION PRECAUTIONS OBSERVED.
[2017-12-26] MEDS: LACTOBACILLUS RHAMNOSUS GG 1 EACH CAP.SPRINK GT SCH ×2 (08:38→16:04)
[2017-12-26] MEDS: ASCORBIC ACID 500 MG TABLET GT SCH (08:38)
[2017-12-26] MEDS: VIT B CMPLX 3/FA/VIT C/BIOTIN 1 TAB TABLET GT SCH (08:38)
[2017-12-26] MEDS: LEVOFLOXACIN (500MG) 500 MG TABLET GT SCH (08:38)
[2017-12-26] MEDS: DOCUSATE SODIUM LIQ 100 MG/10 ML UDC GT SCH (08:39)
[2017-12-26] MEDS: FERROUS SULFATE UDC 300 MG/5 ML UDC GT SCH ×2 (08:39→16:05)
[2017-12-26] MEDS: HYDROGEL DRESSING 90 GM TUBE TP SCH (08:39)
[2017-12-26] MEDS: PANTOPRAZOLE 40 MG VIAL IV SCH ×2 (08:39→16:05)
[2017-12-26] MEDS: PROSOURCE / PROSTAT (PYXIS) 30 ML UDC GT SCH ×3 (08:39→16:05)
[2017-12-26] MEDS: MUPIROCIN OINT 2% 22 GM TUBE SCH ×2 (08:40→21:16)
--- NOTE | 2017-12-26 09:10 | NUR ---
RT Received trach pt on mechanical vent. Pt trach is secure. Vent is plugged into a red outlet, alarms are set and audible, and BVM is at bedside. Will monitor closely
--- NOTE | 2017-12-26 10:13 | NUR ---
FALAFEL CART COOK NOTES PATIENT RECEIVING HEMODIALYSIS AT THIS TIME. STABLE VITALS
[2017-12-26] MEDS ORDERED: NOREPINEPHRINE 16 MG in IV D5W 500 ML IV PRN (11:00)
[2017-12-26] MEDS ORDERED: NOREPINEPHRINE 8 MG in IV D5W 500 ML IV PRN (11:00)
[2017-12-26] MEDS: MICAFUNGIN SODIUM 100 MG in IV NS 0.9% 100 ML IV SCH (13:50)
[2017-12-26] MEDS ORDERED: EPOETIN ALFA (10,000 UNIT) 10,000 UNIT/ML VIAL SQ ONE (15:00)
[2017-12-26] MEDS: NOREPINEPHRINE 8 MG in IV D5W 500 ML IV PRN (18:11)
--- NOTE | 2017-12-26 18:34 | NUR ---
CONTACT PRINTER DRY FILM NOTES PATIENT RESTING IN BED, ALL NEEDS ATTENDED TO, LEVOPHED DRIP RUNNING, PATIENT TURNED AND REPOSITIONED, CLEANED, FAMILY AT BEDSIDE, WILL ENDORSE TO LOW VISION THERAPIST FOR CONTINUITY OF CARE.
--- NOTE | 2017-12-26 19:30 | NUR ---
MANAGER TECHNICAL SUPPORT INITIAL NOTES RECEIVED PATIENT OBTUNDED, UNRESPONSIVE. VENT DEPENDENT. NO S/S OF PAIN OR DISCOMFORT. NO RESPIRATORY DISTRESS NOTED. WITH VENT SETTINGS AC 16, TV 500, FIO2 40%, PEEP 0. SKIN WARM AND DRY TO TOUCH. ON TELE MONITOR SR. WITH GT PATENT AND INTACT, IN PLACE. ON LEVO AT 6MCG/MIN. HOB ELEVATED. SIDE RAILS UP AND LOCKED. BED KEPT AT LOWEST POSITION. ISOLATION PRECAUTIONS OBSERVED. WILL CONTINUE TO MONITOR.
[2017-12-27] VITALS (88 sets, daily range): BP systolic 47–122; BP diastolic 25–53
--- NOTE | 2017-12-27 | NUR ---
KNOCKDOWN WORKER NOTE NOTED PATIENT WITH TEMP 95.9, LALI HUGGER PLACED. WILL CONTINUE TO MONITOR.
[2017-12-27] MEDS: INSULIN REGULAR, HUMAN 100 UNIT/ML 3 ML VIAL SQ PRN ×2 (00:31→06:41)
[2017-12-27] MEDS: PIPERACILLIN /TAZOBACTAM 2.25 G in IV D5W 50 ML IV SCH ×3 (00:32→12:39)
[2017-12-27] MEDS: BLOOD SUGAR DIAGNOSTIC 1 EACH STRIP IN SCH ×3 (00:32→12:39)
[2017-12-27] MEDS: ALBUTEROL FS 2.5 MG/0.5 ML VIAL.NEB IH SCH ×3 (01:48→13:34)
[2017-12-27] MEDS: IPRATROPIUM NEB FS 0.5 MG/2.5 ML AMPUL.NEB IH SCH ×3 (01:48→13:33)
--- NOTE | 2017-12-27 05:43 | NUR ---
RT PT RECEIVED ON [facility] VENT WITH NOTED SETTING. VENT TO RED OUTLET. AMBU BAG AT [facility]. ALARMS SET AND AUDIBLE. PAPER MACHINE OPERATOR DONE. TRACH PATENT AND SECURE. NO SOB OR RESP DISTRESS NOTED ON SHIFT. Addendum: 12/27/17 at 0544 by CHRISTINE HAN RT Amended: Links added.
--- NOTE | 2017-12-27 07:30 | NUR ---
STEM SETTER CLOSING NOTES NO SIGNIFICANT CHANGES OVERNIGHT. KEPT CLEAN AND DRY. TURNED AND REPOSITIONED Q2 AND PRN. WOUND TX PROVIDED. GT IN PLACE. LEVO AT 5MCG/MIN. HOB ELEVATED. SIDE RAILS UP AND LOCKED. BED KEPT AT LOWEST POSITION. CONTINUITY OF CARE ENDORSED TO AM NURSE.
--- NOTE | 2017-12-27 07:45 | NUR ---
GRADING MACHINE OPERATOR: pt.is without sedation, comatose, pupils fixed, no gag/cough reflex, O2 sat. over 94%, SR, on Levophed gtt 5mcg/min now, SBP over 90 now, GT dark brown residual over 100 ml now, started GT LIS, plan: MD wants to speak with pt family for comfortable measures on Friday
--- NOTE | 2017-12-27 08:00 | NUR ---
IMPREGNATOR ELECTROLYTIC CAPACITORS: got GT LIS 500ml dark brown amount
--- NOTE | 2017-12-27 08:05 | NUR ---
SPINNER OPEN END: warming measures started over night, T 96.9 now, continue
[2017-12-27] MEDS: DOCUSATE SODIUM LIQ 100 MG/10 ML UDC GT SCH (09:00)
[2017-12-27] MEDS: ACETYLCYSTEINE 10% SOLN 400 MG/4 ML VIAL NEB SCH ×3 (09:05→15:54)
--- NOTE | 2017-12-27 09:06 | NUR ---
RT PATIENT REC'D TRACHED ON [facility] VENT WITH SETTINGS SET BY MD HANK KIM. VENT ALARMS CHECKED + AUDIBLE. CUFF PRESSURE CHECKED PRODUCTION COUNTER. SX'D WITH SMALL/MOD AMT PALE SEMITHICK SECRETIONS. B/S DIMINISHED. AMBU BAG AT [facility] Addendum: 12/27/17 at 1134 by THA SAUCEDO RT Amended: Links added.
[2017-12-27] MEDS: PANTOPRAZOLE 40 MG VIAL IV SCH (09:54)
[2017-12-27] MEDS: FERROUS SULFATE UDC 300 MG/5 ML UDC GT SCH (09:54)
[2017-12-27] MEDS: ASCORBIC ACID 500 MG TABLET GT SCH (09:55)
[2017-12-27] MEDS: LACTOBACILLUS RHAMNOSUS GG 1 EACH CAP.SPRINK GT SCH (09:55)
[2017-12-27] MEDS: VIT B CMPLX 3/FA/VIT C/BIOTIN 1 TAB TABLET GT SCH (09:55)
[2017-12-27] MEDS: PROSOURCE / PROSTAT (PYXIS) 30 ML UDC GT SCH ×2 (09:55→13:00)
[2017-12-27] MEDS: LEVOFLOXACIN (500MG) 500 MG TABLET GT SCH (09:55)
[2017-12-27] MEDS: MUPIROCIN OINT 2% 22 GM TUBE SCH (09:56)
[2017-12-27] MEDS: HYDROGEL DRESSING 90 GM TUBE TP SCH (09:56)
--- NOTE | 2017-12-27 10:25 | NUR ---
ASSISTANT ANALYST: updated with pt.current condition, VS, Levophed gtt, O2sat.
--- NOTE | 2017-12-27 10:48 | NUR ---
PSYCHOTHERAPIST SOCIAL WORKER: is at bedside, notified re GT LIS amount, IV pressor, O2 sat., suction amount, VS, NPO, neurostatus, ordered: H/H stat, continue GT LIS
[2017-12-27] MEDS ORDERED: IV NS 0.9% 1,000 ML IV PRN (11:11)
--- NOTE | 2017-12-27 11:30 | NUR ---
PREDICTIVE MAINTENANCE TECHNICIAN: ordered: NS@200ml/h, total 3L, titrate off pressor
--- NOTE | 2017-12-27 11:50 | NUR ---
AUTOMATIC MAINTAINER: H/H 6.04/20, notified/ordered: consent for BT, two PRBC units transfusion now, said: continue IVF per order after blood transfusion
[2017-12-27 11:51] LABS: HEMOGLOBIN 6.8 g/dL (13.5-17.5)
[2017-12-27] MEDS ORDERED: DESMOPRESSIN 4 MCG/ML AMPUL IV ONE (14:00)
--- NOTE | 2017-12-27 14:09 | NUR ---
KNOCKER OFF: called pharmacy to evaluate Desmopressin order per miscellaneous order: DDAVP per Pharmacy, explained that saying before: dose per pharmacy for coagulopathy correction for renal disfunction patient, pt. has black/brown GT amount suction, GI bleed, orders for PRBCs, one unit plateletpheresis, also called to blood bank re new order: one unit of plateletpheresis
[2017-12-27] MEDS: MICAFUNGIN SODIUM 100 MG in IV NS 0.9% 100 ML IV SCH (14:28)
[2017-12-27] MEDS ORDERED: DDAVP 20 MCG in IV NS 50 ML IV ONE (14:30)
--- NOTE | 2017-12-27 14:45 | NUR ---
HEAD COACH: is in room, spoke with pt. (translated by daughter in low), reevaluated pt.neurostatus together with pt., no pupils reaction, no deep reflexes, pt.is on Levophed gtt, GT brown/black 700 ml suction, pt. is agree for comfortable care, but need 1-2 hrs to speak with all family, who is going to see pt.before extubation, said: cancel blood transfusion, continue support IVF, meds, GT LIS, waiting final family decision soon, will call to notify
--- NOTE | 2017-12-27 15:00 | NUR ---
LEADERSHIP PROGRAM INTERNSHIP: notified blood bank re: canceled PRBCs, plateletpheresis transfusion
--- NOTE | 2017-12-27 15:45 | NUR ---
WINDOW SHADE CUTTER: pt., son, family are in room, got decision to start comfortable care after 20.00 (family members want to see pt.), charge nurse is awake, notified, confirmed orders: stop all meds after 20.00, start Morphine 2mg q2h IV prn, extubate, keep pt.comfortable, pt.son is agree with all orders
[2017-12-27] MEDS ORDERED: FENTANYL PF 100MCG/2ML AMPUL IV PRN (17:30)
--- NOTE | 2017-12-27 17:56 | NUR ---
GLEASON OPERATOR: all family members, friends are coming for praying, same pt.comatose neurostatus, plan: will start pain meds after 20.00, d/c pressor, extubate, pt.son was notified to give us mortuary contact information
[2017-12-27] MEDS ORDERED: DC PROPOFOL WHEN EXTUBATED XX PRN (20:00)
--- NOTE | 2017-12-27 20:00 | NUR ---
ICU/PERFORMANCE ARCHITECT CHARGE NURSE TURNED OFF LEVO @ 2000 IV WAS DRY AND COMFORT MEASURES ARE TO START AT THIS TIME. WILL CONTINUE TO MONITOR THIS PT AND PROVIDE THE COMFORT MEASURES FAMILY WISHED.
--- NOTE | 2017-12-27 20:15 | NUR ---
ICU/SKIVER OPERATOR CHARGE NURSE GAVE THE FENTANYL 20 MCG IVP WAS ORDERED FOR THIS PT NECESSARY TO PROVIDE COMFORT MEASURES. FAMILY AT BEDSIDE.
--- NOTE | 2017-12-27 20:26 | NUR ---
RT Pt mechanical vent support removed at 2024.
--- NOTE | 2017-12-27 20:46 | NUR ---
ICU/COUNTER SUPPLY WORKER PT AT 2034, CHARGE NURSE PRONOUNCED AT 2034.
--- NOTE | 2017-12-27 21:04 | NUR ---
ICU/TRAVELING NURSE NURSING FIELD TALENT QUALIFICATION SPECIALIST, WEBFOCUS DEVELOPER, [employer], NURSE PRACTITIONER, AND MD PRACTICE SPECIALIST ALL NOTIFIED ABOUT . FAMILY MEMBERS AT BEDSIDE.
--- NOTE | 2017-12-27 22:30 | NUR ---
ICU/NATIONAL SALES ASSOCIATE POST MORTEM CARE DONE WITH BODY, SECURITY CALLED TO TAKE BODY DOWN STAIRS TO [facility].
--- NOTE | 2017-12-27 23:10 | NUR ---
ICU/FLATBED PRESS OPERATOR BODY DOWN STAIRS IN [facility] [place].
--- NOTE | 2017-12-29 13:59 | NUR ---
b and b gang worker spoke with the pt's son Lavon. He stated that they have a mortuary (Moises Leonard) who will be calling the hospital. He was unable to provide any information to SW regarding the mortuary. SW gave him the nursing offset plate preparation supervisor's telephone number so that the mortuary may contact them directly. He noted he will pass along the telephone number. He also asked about the pt's belongings in subacute and stated that a family member will be coming by at some point to pick them up. He will inform the SW ahead of time when family is able to come and pick them up.
== END 2017-12-27 20:35 | disposition expired | DRG 871 ==
LOC: ER 18:16 → ICU 20:01
PROVIDERS: ADMIT Nurse Practitioner Acute Care; ATTEND Nurse Practitioner Acute Care
PROC: 5A1945Z Respiratory Ventilation, 24-96 Consecutive Hours (ICD-10-PCS; principal; 2017-12-23)
PROC: 02HV33Z Insertion of Infusion Device into Superior Vena Cava, Percutaneous Approach (ICD-10-PCS; 2017-12-25)
PROC: 30233R1 Transfusion of Nonautologous Platelets into Peripheral Vein, Percutaneous Approach (ICD-10-PCS; 2017-12-27)
DX: A41.9 Sepsis, unspecified organism (principal); K72.00 Acute and subacute hepatic failure without coma; J96.21 Acute and chronic respiratory failure with hypoxia; J69.0 Pneumonitis due to inhalation of food and vomit; G93.1 Anoxic brain damage, not elsewhere classified; E43 Unspecified severe protein-calorie malnutrition; R65.21 Severe sepsis with septic shock; B49 Unspecified mycosis; N18.6 End stage renal disease; L89.154 Pressure ulcer of sacral region, stage 4; Z99.11 Dependence on respirator [ventilator] status; J90 Pleural effusion, not elsewhere classified; D68.9 Coagulation defect, unspecified; E11.52 Type 2 diabetes mellitus with diabetic peripheral angiopathy with gangrene; E87.1 Hypo-osmolality and hyponatremia; I69.354 Hemiplegia and hemiparesis following cerebral infarction affecting left non-dominant side; J98.11 Atelectasis; R04.2 Hemoptysis; N28.0 Ischemia and infarction of kidney; Z93.0 Tracheostomy status; R13.10 Dysphagia, unspecified; D63.8 Anemia in other chronic diseases classified elsewhere; E11.22 Type 2 diabetes mellitus with diabetic chronic kidney disease; E11.65 Type 2 diabetes mellitus with hyperglycemia; Z99.2 Dependence on renal dialysis; Z93.1 Gastrostomy status; D64.9 Anemia, unspecified; Z79.4 Long term (current) use of insulin; Z79.899 Other long term (current) drug therapy; D69.6 Thrombocytopenia, unspecified; Z87.01 Personal history of pneumonia (recurrent); Z86.74 Personal history of sudden cardiac arrest; Z87.440 Personal history of urinary (tract) infections; I25.2 Old myocardial infarction; M85.9 Disorder of bone density and structure, unspecified; Z51.5 Encounter for palliative care; Z66 Do not resuscitate; Z86.14 Personal history of Methicillin resistant Staphylococcus aureus infection; I50.9 Heart failure, unspecified; L89.229 Pressure ulcer of left hip, unspecified stage; L89.109 Pressure ulcer of unspecified part of back, unspecified stage; L98.9 Disorder of the skin and subcutaneous tissue, unspecified; S30.812A Abrasion of penis, initial encounter; K74.60 Unspecified cirrhosis of liver; E83.51 Hypocalcemia
CPT/HCPCS: 31720; 36415; 36600; 71045-TC; 80048-TC; 80053-TC; 80061-TC; 80076-TC; 80150; 80202-TC; 82803-TC; 82962-TC; 83540-TC; 83605-TC; 83735-TC; 83880; 84100-TC; 84443-TC; 84484-TC; 85025-TC; 85027-TC; 85610-TC; 85730-TC; 86850-TC; 86921-TC; 87040-TC; 87070-TC; 87081-TC; 87186-TC; 90935-TC; 94002-TC; 94003-TC; 99082-TC; A4216; A4606; A6248; A6403; C9113; J0278; J0637; J0885; J1450; J1815; J2185; J2248; J2543; J2597; J3010; J3370; J3475; J7030; J7050; J7060; Q0163; Z7610